=== PATIENT | male | born 1940 | race Caucasian/White ===

== ENCOUNTER 2024-03-28 06:22 | Day surgery (SDC) | payer OTHER, SELFPAY ==
[2024-03-28 11:26] VITALS: BMI 33.5
[2024-03-28 11:28] VITALS: BMI 33.5
[2024-03-28 11:30] VITALS: BP 151/78
[2024-03-28 14:43] VITALS: BP 133/62
[2024-03-28 14:55] VITALS: BP 140/63
[2024-03-28 15:06] VITALS: BP 145/83
== END 2024-03-28 15:25 | disposition home or self-care (01) ==
LOC: GI 06:22
PROVIDERS: ATTENDING PHYSICIAN Internal Medicine Gastroenterology
DX: Z12.11 Encounter for screening for malignant neoplasm of colon (principal); D12.2 Benign neoplasm of ascending colon; D12.3 Benign neoplasm of transverse colon; D12.4 Benign neoplasm of descending colon; K57.30 Diverticulosis of large intestine without perforation or abscess without bleeding; K64.0 First degree hemorrhoids; Z86.010 Personal history of colon polyps; Z79.01 Long term (current) use of anticoagulants; Z98.890 Other specified postprocedural states; Z87.19 Personal history of other diseases of the digestive system
CPT/HCPCS: 45385; 45380; 88305

== ENCOUNTER 2024-08-21 21:52 | Emergency (ER) | payer OTHER, SELFPAY ==
[2024-08-21 21:53] VITALS: BP 156/86
--- NOTE | 2024-08-21 23:00 | ED.GENMED ---
History of Present Illness
General
Chief Complaint: Cough
Source: patient
Exam Limitations: none
Time Seen by Provider: 08/21/24 22:48
History of Present Illness
History of Present Illness:
This is a 84 year old male that comes in with c/o cough. States that for the past couple of days he had a cough which he thought was allergies. States that he was using Mucinex. State that last night he did a lot of coughing and he was able to bring
up some mucous that was yellow. States that he slept about 1 hour and then today he was ok. Then at dinner tonight his food did not want to go down so he spit it out. States that he is still coughing and felt SOB. States that he always has diarrhea.
Denies any fever, chills, chest pain, abd pain, nausea, vomiting, headache, dizziness, urinary burning.
Past History
Past History
ED Past Medical History: Arrthythmia (Atrial fib), Cancer (prostate CA with 44 radiation txs, last 02/2022), GERD, HTN, Hypercholesterolemia and Other (Back and neck pain, Neuropathy, Diverticulitis, GI bleeding. Hep B, Iron def anemia, Pneumothorax
as child)
ED Past Surgical History: Orthopedic (Left bicep repair ) and Other (Hernia repair, )
Patient has exhibited threatening behavior?: No
PSI?: No
Social History
Tobacco: Former smoker
Alcohol: Daily (Whisky or Vodka or beer 2 daily)
Drug: None
Personal:
Living: with family
Family History
Family History: Negative Diabetes, Hypertension or CAD
Review of Systems
Review of Systems
All Other Systems: ROS reviewed and negative except as documented in HPI and ROS
Constitutional: Reports no symptoms; Denies fever or chills
EENT: Reports no symptoms
Respiratory: Reports cough and trouble breathing
Cardiac: Denies chest pain
ABD/GI: Reports diarrhea; Denies abdominal pain, nausea or vomiting
: Reports no symptoms; Denies dysuria, frequency or urgency
Musculoskeletal: Reports no symptoms
Skin: Reports no symptoms
Neurological: Reports no symptoms; Denies dizzy or headache
Psychiatric: Reports no symptoms
Phy Exam
General Physical Exam
General Presentation: no apparent distress
General age: appears stated age
General Skin: warm and dry
General Habitus: elderly
General Mental: alert
General Hydration: dry mucous membranes
ENT Exam
ENT Exam: TM's normal, pharynx normal and neck supple
Eye Exam
Eye Exam: EOMI
Cardiovascular Exam
Cardiovascular Exam: regular rate/rhythm and normal peripheral pulses
Pulmonary Exam
Pulmonary Exam: lungs clear, no respiratory distress, no rales, chest non tender, no crackles, no rhonchi, no wheezing and no cough
Gastrointestinal Exam
Gastrointestinal Exam: normal bowel sounds, non tender, soft, no organomegaly, no pulsatile mass, non distended and other (Umbilical hernia noted)
Musculoskeletal Exam
Musculoskeletal Exam: full ROM and edema (+1 pitting edema of the ankles and lower legs)
Skin Exam
Skin Exam: normal color, warm/dry, no rash and no petechia
Psychiatric Exam
Psychiatric Exam: normal mood/affect
Course
Orders/Labs/Results
Orders:
Orders
08/21/24 22:59
CR Chest - 2 Views Urgent
Comment:
Reason For Exam: cough, SOB
08/21/24 23:00
Electrocardiogram (*1) Urgent
Reason for Study: Shortness of Breath
EKG- Treatment ONCE
08/21/24 23:11
Complete Blood Count/With Diff Urgent
Comprehensive Metabolic Panel Urgent
NT-proBNP Urgent
Troponin I Urgent
08/22/24 00:18
Doxycycline [Vibramycin] 100 mg PO NOW STA
Abnormal Lab Results
08/21/24
23:11
WBC 2.8 L 10^3/uL
(4.8-10.8)
RBC 3.68 L 10^6/uL
(4.70-6.10)
Hgb 12.2 L g/dL
(13.0-18.0)
Hct 34.4 L %
(39.0-52.0)
MCH 33.2 H pg
(27.0-31.0)
Absolute Lymphs (auto) 0.7 L 10^3/uL
(1.2-3.4)
Immature Gran % 0.7 H %
(0-0.5)
Monocytes % 12.2 H %
(1.7-9.3)
Creatinine 0.6 L mg/dL
(0.7-1.3)
Glucose 112 H mg/dl
(70-99)
08/21/24 23:11
08/21/24 23:11
Leukopenia (slightly lower then prior labs), H/H slightly low. Glucose nonfasting. Troponin <0.012, Pro-BNP 1300
Vital Signs
Initial and Last Documented VS:
Initial Vital Signs
Temp Pulse Resp BP Pulse Ox
98.9 F 58 22 156/86 94
08/21/24 21:53 08/21/24 21:53 08/21/24 21:53 08/21/24 21:53 08/21/24 21:53
Last Documented Vital Signs
Temp Pulse Resp BP Pulse Ox
98.9 F 58 22 107/60 94
08/21/24 21:53 08/21/24 21:53 08/21/24 21:53 08/21/24 23:01 08/21/24 23:12
MDM/Problems Addressed
Differential Diagnosis Includes:
PNA, CHF, Viral syndrome
MDM/Problems Addressed:
this is a 84 year old male that comes in with c/o congestion. states that he has had a cough and tonight at dinner he was unable to get his food down. States that he just spit it out.
Will check labs, chest x-ray.
Back into see patient. Explained that he has a right lower lobe Pneumonia. will start patient on antibiotics. Patient to follow up with the family doctor. Return with increased SOB or any other concerns.
Chronic conditions affecting care:
NA
Acute Exacerbation and/or Progression of Chronic Illness:
NA
*Radiology
Radiology exam reviewed: preliminary read by ED provider (Chest- right lower lobe Pneumonia)
*Pulse Oximetry
Patient hypoxic: no
*EKG
Interpreted by ED Provider?: Yes
Heart Rate: 83
Rate: normal
Rhythm: sinus
[place]: normal axis
Interval: normal interval
QRS Pattern: normal QRS
Ischemia: no ischemia
*Tank Tester Interpretation
Rate: bradycardiac
Heart Rate: 58
Rhythm: sinus
*Critical Care Note
Total Time (30-74mins, 75-104mins- exclusive of procedures): Not Applicable
ED Attending Note
-
Portions of this chart may have been created with voice recognition software.� Occasional wrong word or��sound alike� substitutions may have occurred due to the inherent limitations of voice recognition software.
Discharge Plan
Departure
Patient Disposition: Home (Routine Discharge)
Date of Disposition: 08/22/24
Time of Disposition: 00:44
Patient with high blood pressure during this ER visit?: No
Condition: Good
Covid-19: Not Applicable
Discharge Problem:
Pneumonia involving right lung
Instructions: Pneumonia, Adult (DC)
Prescriptions:
New
doxycycline hyclate 100 mg capsule
100 mg PO BID Qty: 19 0RF
No Action
pravastatin 40 MG tablet
40 mg PO DAILY
cholecalciferol (vitamin D3) 2,000 UNITS tablet
2,000 unit PO DAILY
Probiotic 1 EACH capsule, sprinkle
1 ea PO DAILY
furosemide [Lasix] 40 mg Tablet
40 mg PO DAILY
acetaminophen [Tylenol Extra Strength] 500 mg Tablet
1,000 mg PO BID@0800,1200
verapamil 300 mg capsule, [address]
300 mg PO HS
Xarelto 20 MG tablet
20 mg PO QPM
ferrous sulfate [FeroSul] 325 mg (65 mg iron) Tablet
325 mg PO Q48H 30 Days Qty: 15 0RF
cyanocobalamin (vitamin B-12) 1,000 mcg Tablet
1,000 mcg PO DAILY 30 Days Qty: 30 0RF
Referrals:
Ilir Morrison MD [Family Provider] - Follow up in 2-3 days
Activity Restrictions/Additional Instructions:
As discussed, your blood work shows that your white blood cell count is low. Otherwise your blood work is normal. Your Chest x-ray shows that you have a right lower lobe Pneumonia. You have been given your first antibiotic here and a prescription
has been sent to your Pharmacy. Please increase your water intake to 8-8oz glasses daily as this will help keep your secretions moist. You may use Tylenol for any fever. Follow up with the family doctor in the next 2-3 days for recheck. IF YOU HAVE
INCREASED SHORTNESS OF BREATH, CHEST PAIN, OR YOU HAVE ANY OTHER CONCERNS PLEASE RETURN TO THE EMERGENCY ROOM.
Interventions
Interventions:
*Risk Screen - Suicide Last Done: 08/21/24 21:53
*General Assessment Last Done: 08/21/24 23:12
*Neglect/Abuse Screening Last Done: 08/21/24 21:53
ED- Fall Risk Assessment Last Done: 08/21/24 23:16
*ED COVID-19 Vaccine History Last Done: 08/21/24 23:15
ED- Pulmonary Assessment Last Done: 08/21/24 23:12
Discharge Date and Time
Print Language: [place]
[2024-08-21 23:01] VITALS: BP 107/60
[2024-08-21 23:14] VITALS: BMI 28.7
[2024-08-21 23:23] LABS: % Basophils 0.4 % (0-2); % Eosinophils 1.4 % (0-6); % Immature Granulocytes 0.7 % (0-0.5); % Lymphocytes 26.5 % (20.5-51.1); % Monocytes 12.2 % (1.7-9.3); % Neutrophils 58.8 % (42.2-75.2); Absolute Lymphocytes 0.7 10^3/uL (1.2-3.4); Absolute Monocytes 0.3 10^3/uL (0.1-0.6); Absolute Neutrophils 1.6 10^3/uL (1.4-6.5); Hematocrit 34.4 % (39.0-52.0); Hemoglobin 12.2 g/dL (13.0-18.0); Mean Corp Hgb Conc. 35.5 g/dL (33.0-37.0); Mean Corpuscular Hgb 33.2 pg (27.0-31.0); Mean Corpuscular Volume 93.5 fL (80.0-94.0); Nucleated Red Blood Cells % 0 % (-); Platelet Count 173 10^3/uL (130-400); Red Blood Cell Count 3.68 10^6/uL (4.70-6.10); Red Cell Dist. Width 12.7 % (11.5-14.5); White Blood Cell Count 2.8 10^3/uL (4.8-10.8)
[2024-08-21 23:52] LABS: NT-proBNP 1300 pg/ml; Troponin I < 0.012 ng/ml
[2024-08-22 00:12] LABS: ALT (SGPT) 25 U/L (0-50); AST (SGOT) 32 U/L (17-59); Albumin 4.4 g/dl (3.5-5.0); Alkaline Phosphatase 70 U/L (38-126); Blood Urea Nitrogen 18 mg/dl (9-20); Calcium 9.3 mg/dl (8.4-10.2); Carbon Dioxide 26 mmol/L (22-30); Chloride 100 mmol/L (98-107); Estimated Creatinine Clearance 102 ml/min; Glucose 112 mg/dl (70-99); Potassium 3.6 mmol/L (3.5-5.1); Sodium 137 mmol/L (135-145); Total Bilirubin 0.5 mg/dl (0.2-1.3); Total Protein 6.6 g/dl (6.3-8.2); eGFR > 60.00
[2024-08-22] MEDS: VIBRAMYCIN 100 MG PO (00:21)
== END 2024-08-22 01:15 | disposition home or self-care (01) ==
LOC: EMR 21:52
PROVIDERS: Clinical Nurse Specialist Family Health; EMERGENCY PHYSICIAN Emergency Medicine; FAMILY PHYSICIAN Internal Medicine
DX: J18.9 Pneumonia, unspecified organism (principal); R19.7 Diarrhea, unspecified; I48.91 Unspecified atrial fibrillation; I10 Essential (primary) hypertension; K21.9 Gastro-esophageal reflux disease without esophagitis; K42.9 Umbilical hernia without obstruction or gangrene; E78.00 Pure hypercholesterolemia, unspecified; D50.9 Iron deficiency anemia, unspecified; K57.92 Diverticulitis of intestine, part unspecified, without perforation or abscess without bleeding; G62.9 Polyneuropathy, unspecified; Z79.01 Long term (current) use of anticoagulants; Z87.891 Personal history of nicotine dependence; Z85.46 Personal history of malignant neoplasm of prostate; Z92.3 Personal history of irradiation
CPT/HCPCS: 99284; 71046; 80053; 83880; 84484; 85025; 93005

== ENCOUNTER 2025-02-13 08:33 | Emergency (ER) | payer OTHER, SELFPAY ==
[2025-02-13 08:43] VITALS: BP 135/69
--- NOTE | 2025-02-13 08:58 | ED.GENMED ---
History of Present Illness
<Naseem Hernandez PA-C - Last Filed: 02/13/25 09:47>
General
Chief Complaint: Skin Problem
Source: patient
Exam Limitations: none
Time Seen by Provider: 02/13/25 08:48
History of Present Illness
History of Present Illness:
85-year-old male on Xarelto for history of A-fib presents with increased swelling redness and pain to the right leg. 1 week ago a fork fell and punctured his distal right orourke superior ankle. There was no significant bleeding or swelling at that
time however since yesterday around the puncture site he has had increased redness and pain. He denies chills or sweats. No fever. He has not missed any doses of his Xarelto. He notes drainage from the puncture site. No other complaints at this
time
Past History
<Naseem Hernandez PA-C - Last Filed: 02/13/25 09:47>
Past History
ED Past Medical History: Arrthythmia (Atrial fib), Cancer (prostate CA with 44 radiation txs, last 02/2022), GERD, HTN, Hypercholesterolemia and Other (Back and neck pain, Neuropathy, Diverticulitis, GI bleeding. Hep B, Iron def anemia, Pneumothorax
as child)
ED Past Surgical History: Orthopedic (Left bicep repair ) and Other (Hernia repair, )
Patient has exhibited threatening behavior?: No
PSI?: No
Social History
Tobacco: Former smoker
Alcohol: Daily (Whisky or Vodka or beer 2 daily)
Drug: None
Personal:
Living: with family
Family History
Family History: Negative Diabetes, Hypertension or CAD
Phy Exam
<Naseem Hernandez PA-C - Last Filed: 02/13/25 09:47>
Physical Exam
Physical Exam:
General: Well-appearing male no acute respiratory distress
HEENT: Normocephalic atraumatic
Heart: Regular rate and rhythm
Lungs: Clear no wheeze
Skin: Small puncture wound medial distal orourke superior right ankle surrounded by erythema. This is tender. The erythema spreads to the mid [place]ourke. There is a serous drainage from the puncture wound.
Vascular: 2+ DP pulses bilateral
Neurologic: Good sensation bilateral lower extremities
Course
<Naseem Hernandez PA-C - Last Filed: 02/13/25 09:47>
Orders/Labs/Results
Orders:
Orders
02/13/25 09:03
Complete Blood Count/With Diff Urgent
Comprehensive Metabolic Panel Urgent
Abnormal Lab Results
02/13/25
09:03
RBC 3.63 L 10^6/uL
(4.70-6.10)
Hgb 12.4 L g/dL
(13.0-18.0)
Hct 36.2 L %
(39.0-52.0)
MCV 99.7 H fL
(80.0-94.0)
MCH 34.2 H pg
(27.0-31.0)
Absolute Lymphs (auto) 0.9 L 10^3/uL
(1.2-3.4)
Lymphocytes % 17.1 L %
(20.5-51.1)
Creatinine 0.5 L mg/dL
(0.7-1.3)
Glucose 107 H mg/dl
(70-99)
02/13/25 09:03
02/13/25 09:03
Vital Signs
Initial and Last Documented VS:
Initial Vital Signs
Temp Pulse Resp BP Pulse Ox
98.9 F 74 18 135/69 95
02/13/25 08:43 02/13/25 08:43 02/13/25 08:43 02/13/25 08:43 02/13/25 08:43
Last Documented Vital Signs
Temp Pulse Resp BP Pulse Ox
98.9 F 74 18 136/69 94
02/13/25 08:43 02/13/25 08:43 02/13/25 08:43 02/13/25 09:01 02/13/25 09:07
<Cristobal Hazel Jennifer, DO - Last Filed: 02/13/25 09:44>
Orders/Labs/Results
Orders:
Orders
02/13/25 09:03
Complete Blood Count/With Diff Urgent
Comprehensive Metabolic Panel Urgent
Abnormal Lab Results
02/13/25
09:03
RBC 3.63 L 10^6/uL
(4.70-6.10)
Hgb 12.4 L g/dL
(13.0-18.0)
Hct 36.2 L %
(39.0-52.0)
MCV 99.7 H fL
(80.0-94.0)
MCH 34.2 H pg
(27.0-31.0)
Absolute Lymphs (auto) 0.9 L 10^3/uL
(1.2-3.4)
Lymphocytes % 17.1 L %
(20.5-51.1)
Creatinine 0.5 L mg/dL
(0.7-1.3)
Glucose 107 H mg/dl
(70-99)
02/13/25 09:03
02/13/25 09:03
Vital Signs
Initial and Last Documented VS:
Initial Vital Signs
Temp Pulse Resp BP Pulse Ox
98.9 F 74 18 135/69 95
02/13/25 08:43 02/13/25 08:43 02/13/25 08:43 02/13/25 08:43 02/13/25 08:43
Last Documented Vital Signs
Temp Pulse Resp BP Pulse Ox
98.9 F 74 18 136/69 94
02/13/25 08:43 02/13/25 08:43 02/13/25 08:43 02/13/25 09:01 02/13/25 09:07
<Naseem Hernandez PA-C - Last Filed: 02/13/25 09:47>
MDM/Problems Addressed
Differential Diagnosis Includes:
Erythema to right orourke following puncture wound. Suspect cellulitis, no palpable abscess. Unlikely to be DVT secondary to anticoagulated state.
Check labs. Would benefit from antibiotics. Consider IV antibiotics versus oral antibiotics at home.
<Naseem Hernandez PA-C - Last Filed: 02/13/25 09:47>
*Critical Care Note
Total Time (30-74mins, 75-104mins- exclusive of procedures): Not Applicable
<Naseem Hernandez PA-C - Last Filed: 02/13/25 09:47>
Update Note
Update Note:
Labs normal afebrile here. Question cellulitis versus area of hematoma from puncture wound on blood thinner. Will cover with Keflex but no indication for admission. Discussed with emergency room attending. Stable for discharge
ED Attending Note
<Naseem Hernandez PA-C - Last Filed: 02/13/25 09:47>
-
Portions of this chart may have been created with voice recognition software.� Occasional wrong word or��sound alike� substitutions may have occurred due to the inherent limitations of voice recognition software.
<Cristobal Rodriguez DO - Last Filed: 02/13/25 09:44>
ED Attending Note
Patient seen and examined by attending physician: Yes
I performed the substantive portion of visit, reviewed & personally made and approve the management plan that is documented in note by myself or DERIK.: Yes
ED Attending Note:
I evaluated the patient at bedside. The patient does have warmth and erythema to the medial aspect of the right distal lower extremity. The appearance is more suggestive of ecchymosis as opposed to cellulitis. However given patient's age, will
place on antibiotics. No clear indication for admission to the hospital. The patient is afebrile with a normal white blood cell count and vital signs are not with sepsis.
Discharge Plan
Departure
Patient Disposition: Home (Routine Discharge)
Date of Disposition: 02/13/25
Time of Disposition: 09:45
Patient with high blood pressure during this ER visit?: No
Discharge Problem:
Cellulitis
Instructions: Cellulitis (Skin Infection), Adult (DC)
Prescriptions:
New
cephalexin 500 mg capsule
500 mg PO QID 7 Days Qty: 28 0RF
No Action
pravastatin 40 MG tablet
40 mg PO DAILY
cholecalciferol (vitamin D3) 2,000 UNITS tablet
2,000 unit PO DAILY
Probiotic 1 EACH capsule, sprinkle
1 ea PO DAILY
furosemide [Lasix] 40 mg Tablet
40 mg PO DAILY
acetaminophen [Tylenol Extra Strength] 500 mg Tablet
1,000 mg PO BID@0800,1200
verapamil 300 mg capsule, [address]
300 mg PO HS
Xarelto 20 MG tablet
20 mg PO QPM
ferrous sulfate [FeroSul] 325 mg (65 mg iron) Tablet
325 mg PO Q48H 30 Days Qty: 15 0RF
cyanocobalamin (vitamin B-12) 1,000 mcg Tablet
1,000 mcg PO DAILY 30 Days Qty: 30 0RF
doxycycline hyclate 100 mg capsule
100 mg PO BID Qty: 19 0RF
Activity Restrictions/Additional Instructions:
Keep elevated for swelling. Take antibiotic as directed. Return here for increasing pain fever redness or other concerning finding. Follow-up with your doctor otherwise
Interventions
Interventions:
*Risk Screen - Suicide Last Done: 02/13/25 08:43
*General Assessment Last Done: 02/13/25 08:43
*Neglect/Abuse Screening Last Done: 02/13/25 08:43
*ED- Fall Risk Assessment Last Done: 02/13/25 09:10
*ED COVID-19 Vaccine History Last Done: 02/13/25 09:11
ED-Skin Assessment Last Done: 02/13/25 09:07
Discharge Date and Time
Print Language: [place]
[2025-02-13 09:01] VITALS: BP 136/69
[2025-02-13 09:07] VITALS: BMI 29.0
[2025-02-13 09:11] LABS: % Basophils 0.2 % (0-2); % Eosinophils 0.4 % (0-6); % Immature Granulocytes 0.4 % (0-0.5); % Lymphocytes 17.1 % (20.5-51.1); % Monocytes 8.3 % (1.7-9.3); % Neutrophils 73.6 % (42.2-75.2); Absolute Lymphocytes 0.9 10^3/uL (1.2-3.4); Absolute Monocytes 0.4 10^3/uL (0.1-0.6); Absolute Neutrophils 3.9 10^3/uL (1.4-6.5); Hematocrit 36.2 % (39.0-52.0); Hemoglobin 12.4 g/dL (13.0-18.0); Mean Corp Hgb Conc. 34.3 g/dL (33.0-37.0); Mean Corpuscular Hgb 34.2 pg (27.0-31.0); Mean Corpuscular Volume 99.7 fL (80.0-94.0); Mean Platelet Volume 9.8 fL (7.4-10.4); Nucleated Red Blood Cells % 0 % (-); Platelet Count 138 10^3/uL (130-400); Red Blood Cell Count 3.63 10^6/uL (4.70-6.10); Red Cell Dist. Width 12.4 % (11.5-14.5); White Blood Cell Count 5.3 10^3/uL (4.8-10.8)
[2025-02-13 09:33] LABS: ALT (SGPT) 34 U/L (0-50); AST (SGOT) 26 U/L (17-59); Alkaline Phosphatase 56 U/L (38-126); Blood Urea Nitrogen 16 mg/dl (9-20); Calcium 9.4 mg/dl (8.4-10.2); Carbon Dioxide 26 mmol/L (22-30); Chloride 102 mmol/L (98-107); Estimated Creatinine Clearance 101 ml/min; Glucose 107 mg/dl (70-99); Potassium 3.8 mmol/L (3.5-5.1); Sodium 136 mmol/L (135-145); Total Bilirubin 1.1 mg/dl (0.2-1.3); Total Protein 6.3 g/dl (6.3-8.2); eGFR > 60.00
--- NOTE | 2025-02-13 10:32 | EDRN ---
Reviewed discharge instructions with patient and his . Verbalized understanding. Taken to lobby in wheelchair.
[2025-02-13 10:34] VITALS: BP 133/66
== END 2025-02-13 10:36 | disposition home or self-care (01) ==
LOC: EMR 08:33
PROVIDERS: Physician Assistant; EMERGENCY PHYSICIAN Emergency Medicine; FAMILY PHYSICIAN Internal Medicine
DX: L03.115 Cellulitis of right lower limb (principal); I48.91 Unspecified atrial fibrillation; I10 Essential (primary) hypertension; E78.00 Pure hypercholesterolemia, unspecified; Z79.01 Long term (current) use of anticoagulants; Z85.46 Personal history of malignant neoplasm of prostate; Z87.891 Personal history of nicotine dependence
CPT/HCPCS: 99283; 80053; 85025

== ENCOUNTER 2025-02-22 12:46 | Inpatient (IN) | payer OTHER, SELFPAY ==
[2025-02-22 08:21] VITALS: BP 132/61
--- NOTE | 2025-02-22 09:36 | ED.GENMED ---
History of Present Illness
General
Chief Complaint: Skin Problem
Source: patient, records and spouse
Time Seen by Provider: 02/22/25 09:02
History of Present Illness
History of Present Illness:
85-year-old male with past medical history of atrial fibrillation, hypertension, hyperlipidemia, previous prostate cancer, GI bleeding, chronic edema presenting to the emergency department after he was evaluated 9 days ago and diagnosed with
possible cellulitis versus contusion of the right lower extremity, treated with p.o. Keflex with initial improvement but following cessation of the Keflex erythema restarted and worsened, saw primary care provider this past who reinitiated
the Keflex but erythema continues to worsen accompanied with an increased difficulty ambulating secondary to pain and swelling. Patient denies any fevers, chills, rigors, focal weakness or numbness. He does report that he skipped his dose of Lasix
yesterday as this often times makes him feel like he needs to constantly go urinate and due to having the ambulatory difficulties did not want to have to keep running back and forth to the bathroom. Patient denies any chest pain, shortness of
breath or any other symptoms at this time. He is anticoagulated on Xarelto and he reports good compliance with this.
Past History
Past History
ED Past Medical History: Arrthythmia (Atrial fib), Cancer (prostate CA with 44 radiation txs, last 02/2022), GERD, HTN, Hypercholesterolemia and Other (Back and neck pain, Neuropathy, Diverticulitis, GI bleeding. Hep B, Iron def anemia, Pneumothorax
as child)
ED Past Surgical History: Orthopedic (Left bicep repair ) and Other (Hernia repair, )
Patient has exhibited threatening behavior?: No
PSI?: No
Social History
Tobacco: Former smoker
Alcohol: Daily (Whisky or Vodka or beer 2 daily)
Drug: None
Personal:
Living: with family
Family History
Family History: Negative Diabetes, Hypertension or CAD
Review of Systems
Review of Systems
All Other Systems: ROS reviewed and negative except as documented in HPI and ROS
Phy Exam
Physical Exam
Physical Exam:
GENERAL: Alert , in no apparent distress
EYE: conjunctiva clear
NECK: Supple
ENT: mmm.
CARDIAC: Regular rate and rhythm
LUNGS: Clear breath sounds bilaterally, no acute respiratory distress, no wheezes/rales/rhonchi
NEUROLOGICAL: Alert and oriented
SKIN: Warm and dry, there is significant erythema and warmth of the right lower extremity from the proximal tibia extending through the ankle and into the foot. There is 2-3+ pitting edema on the right lower extremity, 2+ on the left with the foot
being spared on the left. There is faintly palpable pedal and tibial pulses bilateral lower extremities. Sensation is grossly intact to light touch. Cap refill is 2 seconds.
MUSCULOSKELETAL: Spider veins noted to bilateral lower extremities
PSYCH: Normal and appropriate interaction.
Scores
Heart Failure Risk
Heart Failure Risk Score: Not Applicable
Heart Score for Chest Pain Patients
STEMI patient?: Not applicable
Withdrawal Assessment of Alcohol
Withdrawal Assessment Completed?: Not applicable
Course
Orders/Labs/Results
Orders:
Orders
02/22/25 09:28
Venous Doppler Lwr Ext Rt [US Perip Venous LOWER Ext RT] Urgent
Comment:
Reason For Exam: edema
02/22/25 09:39
Vancomycin [Vancocin] 2,000 mg 0.9% Sodium Chloride 500 ml [Nss] 500 ml IV NOW
02/22/25 09:55
Basic Metabolic Panel Urgent
Complete Blood Count/With Diff Urgent
NT-proBNP Urgent
02/22/25 11:45
Blood Culture Q30M
MARK Source: Blood/Venous
Specimen Description:
02/22/25 12:06
Admit/Transfer Patient As Directed
Co-Sign Provider:
Level of Care: Inpatient admission
Assign to:: Medical/Surgical
Physician / Group: saurabh lancaster
Diagnosis: RLE cellulitis
Reason for Hospitalization: failed outpatient antibiotics
Expected length of stay greater than two midnights?: Yes
ELOS- Estimated Length of Stay in days: 2
I certify the patient meets the requirements for IP care: Yes
02/22/25 12:07
PRN Pain Medication Management As Directed
May give lesser potent ordered pain med per pt: Yes
preference::
Protocol:: Medication orders for pain may be administered in a
manner that supports deferring to patient preference
when the pt is:
- Requesting an ordered lesser potent pain medication.
Least to most potent pain medications are defined
as: acetaminophen < NSAID < tramadol < opioids
(morphine, oxycodone, hydromorphone).
- Requesting a lesser dose of the same medication IF
ORDERED.
- Requesting a less intrusive route of administration
if both routes are prescribed by the provider (PO <
IV).
02/22/25 12:10
Code Status As Directed
Resuscitation Status: Full Code
02/22/25 12:14
INFECTIOUS DISEASE CONSULT Routine
Consulting Provider: Isabell Mckeon
Was physician already notified: Yes
02/22/25 12:15
Blood Culture Q30M
MARK Source: Blood/Venous
Specimen Description:
Abnormal Lab Results
02/22/25
09:55
RBC 3.33 L 10^6/uL
(4.70-6.10)
Hgb 11.6 L g/dL
(13.0-18.0)
Hct 33.5 L %
(39.0-52.0)
MCV 100.6 H fL
(80.0-94.0)
MCH 34.8 H pg
(27.0-31.0)
Absolute Lymphs (auto) 0.6 L 10^3/uL
(1.2-3.4)
Neutrophils % 79.2 H %
(42.2-75.2)
Lymphocytes % 10.9 L %
(20.5-51.1)
Creatinine 0.5 L mg/dL
(0.7-1.3)
Glucose 104 H mg/dl
(70-99)
02/22/25 09:55
02/22/25 09:55
Vital Signs
Initial and Last Documented VS:
Initial Vital Signs
Temp Pulse Resp BP Pulse Ox
98.0 F 80 16 132/61 98
02/22/25 08:21 02/22/25 08:21 02/22/25 08:21 02/22/25 08:21 02/22/25 08:21
Last Documented Vital Signs
Temp Pulse Resp BP Pulse Ox
98.1 F 66 22 135/64 96
02/22/25 11:43 02/22/25 11:43 02/22/25 11:43 02/22/25 11:43 02/22/25 11:43
MDM/Problems Addressed
Differential Diagnosis Includes:
Cellulitis, peripheral vascular disease, peripheral arterial disease, lymphedema, venous stasis, congestive heart failure
MDM/Problems Addressed:
85-year-old male presenting to the emergency department for reevaluation of worsening right lower extremity edema and erythema. Symptoms initially started when patient dropped a fork on his right lower extremity which punctured some skin.
Initially thought to be cellulitis versus contusion. Patient did note initial significant relief of the edema and erythema with Keflex, following completion of the Keflex the erythema and edema resumed, saw primary care on and restarted
the Keflex but erythema continues to worsen. I suspect a combination of peripheral vascular/arterial disease/venous stasis with the possibility of cellulitis. Less suspicious for DVT due to patient being anticoagulated on Xarelto however given
recurring visit with worsening edema on the right side will obtain an ultrasound to rule this out. Given patient failed oral antibiotics but did have improvement we will plan for IV antibiotic with admission. Patient and in agreement with
this plan.
Chronic conditions affecting care: Other (Congestive heart failure/chronic lower extremity edema)
Acute Exacerbation and/or Progression of Chronic Illness: Other (Lower extremity edema)
*Radiology
Radiology exam reviewed: radiology read reviewed (Negative for DVT)
*Pulse Oximetry
Patient hypoxic: no
*Critical Care Note
Total Time (30-74mins, 75-104mins- exclusive of procedures): Not Applicable
Data Reviewed
Review of Other/Old Records Reveals: Labs and Records
Patient Management
Discussion with other providers: Hospitalist
Escalation/DeEscalation of care consider admission/obs:
Patient's ultrasound is negative for DVT. Hospitalist team notified and accepts for continued evaluation and treatment for suspected continued cellulitis despite outpatient antibiotics.
ED Attending Note
-
Portions of this chart may have been created with voice recognition software.� Occasional wrong word or��sound alike� substitutions may have occurred due to the inherent limitations of voice recognition software.
Discharge Plan
Departure
Patient Disposition: Admit
Date of Disposition: 02/22/25
Time of Disposition: 11:04
Presentation/result/management discussed w/ accepting MD/DO: Hospitalist
Discharge Problem:
Cellulitis of right lower extremity
Prescriptions:
No Action
pravastatin 40 MG tablet
40 mg PO DAILY
cholecalciferol (vitamin D3) 2,000 UNITS tablet
2,000 unit PO DAILY
Probiotic 1 EACH capsule, sprinkle
1 ea PO DAILY
furosemide [Lasix] 40 mg Tablet
40 mg PO DAILY
acetaminophen [Tylenol Extra Strength] 500 mg Tablet
1,000 mg PO BIDPRN PRN (Reason: mild pain)
verapamil 300 mg capsule, [address]
300 mg PO QPM
Xarelto 20 MG tablet
20 mg PO QPM
ferrous sulfate [FeroSul] 325 mg (65 mg iron) Tablet
325 mg PO Q48H 30 Days Qty: 15 0RF
cyanocobalamin (vitamin B-12) 1,000 mcg Tablet
1,000 mcg PO DAILY 30 Days Qty: 30 0RF
cephalexin 500 mg Capsule
500 mg PO Q8H
Referrals:
Ilir Morrison MD [Family Provider] -
Interventions
Interventions:
*Risk Screen - Suicide Last Done: 02/22/25 08:21
*General Assessment Last Done: 02/22/25 09:49
*Neglect/Abuse Screening Last Done: 02/22/25 08:21
*ED- Fall Risk Assessment Last Done: 02/22/25 09:49
*ED COVID-19 Vaccine History Last Done: 02/22/25 09:49
ED-Skin Assessment Last Done: 02/22/25 10:12
Discharge Date and Time
Print Language: [place]
[2025-02-22 09:47] VITALS: BMI 29.4
[2025-02-22 10:11] LABS: % Basophils 0.2 % (0-2); % Eosinophils 0.2 % (0-6); % Immature Granulocytes 0.4 % (0-0.5); % Lymphocytes 10.9 % (20.5-51.1); % Monocytes 9.1 % (1.7-9.3); % Neutrophils 79.2 % (42.2-75.2); Absolute Lymphocytes 0.6 10^3/uL (1.2-3.4); Absolute Monocytes 0.5 10^3/uL (0.1-0.6); Absolute Neutrophils 4.3 10^3/uL (1.4-6.5); Hematocrit 33.5 % (39.0-52.0); Hemoglobin 11.6 g/dL (13.0-18.0); Mean Corp Hgb Conc. 34.6 g/dL (33.0-37.0); Mean Corpuscular Hgb 34.8 pg (27.0-31.0); Mean Corpuscular Volume 100.6 fL (80.0-94.0); Mean Platelet Volume 9.5 fL (7.4-10.4); Nucleated Red Blood Cells % 0 % (-); Platelet Count 150 10^3/uL (130-400); Red Blood Cell Count 3.33 10^6/uL (4.70-6.10); Red Cell Dist. Width 12.5 % (11.5-14.5); White Blood Cell Count 5.4 10^3/uL (4.8-10.8)
[2025-02-22 10:29] LABS: Blood Urea Nitrogen 14 mg/dl (9-20); Calcium 9.1 mg/dl (8.4-10.2); Carbon Dioxide 28 mmol/L (22-30); Chloride 104 mmol/L (98-107); Estimated Creatinine Clearance 101 ml/min; Glucose 104 mg/dl (70-99); Potassium 3.6 mmol/L (3.5-5.1); Sodium 139 mmol/L (135-145); eGFR > 60.00
[2025-02-22 10:31] LABS: NT-proBNP 614 pg/ml
[2025-02-22] MEDS: VANCOCIN 540 MG IV (11:30)
[2025-02-22 11:43] VITALS: BP 135/64
[2025-02-22 12:00] VITALS: BP 134/67
--- NOTE | 2025-02-22 12:24 | HPS.HSE ---
Family Physician
-
Family Physician: Ilir Morrison
Chief Complaint
-
Right lower extremity swelling pain tenderness
History of Present Illness
85 male history of atrial fibrillation and prostate cancer s/p radiation who presents with worsening right lower extremity redness swelling and pain that initially started morning on 8 days ago. Tells me that yesterday was unable to bear weight on
the right lower extremity and noted to have night sweats where he was soaking through his T-shirt. Otherwise he did not have a fever nor chills.
He did tell me that he presented to the hospital/emergency department for the same thing and was treated with oral antibiotics of Keflex 4 times a day. At that time he had swelling redness pain. Per documentation prior to this cellulitis developed
a fork fell that punctured through the distal right orourke just superior to the ankle.
States that he was on Keflex 4 times a day he did notice an improvement in completed course on the . On the started seeing reemergence of the cellulitis occurred in a PCP prescribed him with additional course of Keflex however 3 times a
day. As it continued to worsen he presented to the emergency department.
Medical History
Past Medical History
Past Medical History: Reports Arrhythmia
Past Surgical History: Reports Orthopedic
Social History
Tobacco: Former Smoker (Quit more than 6 years ago)
Alcohol: Daily (1-2 cocktails a night)
Drug: None
Personal:
Living: With Family
Family History
Family History: CAD
Allergies / Home Medications
Allergies reflects when Allergies were last updated in [facility].
Home Medications with original date entered in [facility]
Allergy/Medication List:
Allergies
Allergy/AdvReac Type Severity Reaction Status Date / Time
No Known Allergies Allergy Verified 02/22/25 08:22
Home Medications
pravastatin 40 mg tablet 40 mg PO DAILY High cholesterol 06/06/12
cholecalciferol (vitamin D3) 50 mcg (2,000 unit) tablet 2,000 unit PO DAILY Supplement 01/05/18
lactobacillus combo no.11 15 billion cell sprinkle capsule (Probiotic) 1 ea PO DAILY probiotic 11/18/18
acetaminophen 500 mg tablet (Tylenol Extra Strength) 1,000 mg PO BIDPRN PRN mild pain 03/22/23
furosemide 40 mg tablet (Lasix) 40 mg PO DAILY Fluid retention/Swelling 03/22/23
rivaroxaban 20 mg tablet (Xarelto) 20 mg PO QPM Blood clot prevention/tx 03/22/23
verapamil 300 mg capsule 24hr pellet CT,ext.release 300 mg PO QPM Blood pressure 03/22/23
cyanocobalamin (vitamin B-12) 1,000 mcg tablet 1,000 mcg PO DAILY 30 days #30 tabs 03/23/23
ferrous sulfate 325 mg (65 mg iron) tablet (FeroSul) 325 mg PO Q48H 30 days #15 tabs 03/23/23
cephalexin 500 mg capsule 500 mg PO Q8H 02/22/25
Review of Systems
-
A 12 point ROS was completed and negative except as noted: Yes
Physical Exam
Vital Signs
Vital Signs
Temp Pulse Resp BP Pulse Ox
98.1 F 66 22 135/64 96
02/22/25 11:43 02/22/25 11:43 02/22/25 11:43 02/22/25 11:43 02/22/25 11:43
Physical Exam
General: Well Developed
Laboratory Results
-
02/22/25 09:55
02/22/25 09:55
Impression/Plan
-
NAD
Scleral Anicteric
MMM
No JVD
CTABL
RRR, S1/S2
Soft, NT, ND, BS+
Warm, Dry
Right lower extremity redness swelling warmth that goes from just below his knee all the way to his toes, subcuticular bleeding, nonblanching
AAOx3
Calm
Right lower extremity cellulitis, nonpurulent however does mention yellow weeping drainage previously
Continue vancomycin for now
ID consult
Blood cultures
If ID for as the there is no purulent component then likely able to transition to Ancef
Paroxysmal atrial fibrillation
Continue verapamil and Xarelto
Hyperlipidemia
Continue statin
B12 deficiency continue B12 supplementation
Vitamin D deficiency continue vitamin D supplementation
[2025-02-22 13:00] VITALS: BP 138/75
[2025-02-22 14:14] VITALS: BMI 29.4
--- NOTE | 2025-02-22 14:27 | CON.ID ---
Consultation
-
Date/Time Consultation Requested: February 22, 2025 1214
Date/Time Consultation Performed: February 22, 2025 1430
Requesting Provider: Dr. Bni Harry
Performing Provider: Dr. Isabell Mckeon
Reason for Consultation: Cellulitis failed cephalexin
Chief Complaint / Past History
Chief Complaint
Right foot redness and swelling
History of Present Illness
History obtained from the patient as well as from his at bedside. He is a 85-year-old male with hypertension, atrial fibrillation, chronic bilateral lower extremity edema who presented to the ED today due to significant redness, swelling of
the right lower extremity. Around February 05, a clean 2-pronged fork for cutting roast fell out of the cupboard and punctured his right posterior ankle. He had a puncture wound with mild serous drainage. About a week later his ankle became swollen
and red. He presented to the ER the same day on February 13. The leg looked ecchymotic per ER note. He was discharged on a 7-day course of cephalexin 500 mg 4 times a day. The leg edema and discoloration improved and almost resolved while on the
cephalexin. He completed the antibiotic the morning of February 19. However later that day, the redness and swelling returned. On February 20 his PCP prescribed cephalexin at 500 mg 3 times a day. However his foot and ankle and orourke continue to
progress with significant edema, erythema, and pain. He had difficulty putting weight. Last night he had significant sweats. No fevers or chills. He presented to the ER today. Peripheral vascular ultrasound - no DVT. He received vancomycin x 1
dose in the ER. No history of MRSA in the past.
Past History
Additional Past Medical History:
Hypertension
Afib
HLD
Neuropathy
Bilateral lower extremity edema on Lasix
History of diverticulitis
Prostate cancer status post XRT
Hernia repair
Left bicep repair
Allergy History:
No Known Allergies Allergy (Verified 02/22/25 08:22)
Medications Reviewed: Yes
Current Antibiotics:
Vancomycin x 1
Social History
Tobacco: Former Smoker
Alcohol: Daily (Whiskey or vodka or beer 2 a day)
Drug: None
Personal:
Employment: Retired
Family History
Family History: Not Pertinent
Review of Systems
Review of Systems
General: Other (Positive sway); Negative Fever or Chills
HEENT: Negative Sinus Problems, Headache or Pharyngitis
Cardiovascular: Negative Chest Pain or Dyspnea
Respiratory: Negative Dyspnea or Cough
Gasteroenterology: Negative Nausea, Vomiting or Diarrhea
Genital / Urological: Negative Dysuria or Flank Pain
Endocrine: Weakness
Neurological: Negative Headache or Dizziness
All systems: All other systems were reviewed and were negative
Vital Signs
Temp Pulse Resp BP Pulse Ox
98.1 F 74 25 138/75 96
02/22/25 11:43 02/22/25 13:00 02/22/25 13:00 02/22/25 13:00 02/22/25 13:00
Physical Exam
Physical Exam
Constitutional: No Acute Distress and Non-toxic
Eyes: No Conjunctival Hemorrhage and Sclera Anicteric
Cardiovascular: Regular Rate and S1/S2
Pulmonary: Clear
Gastrointestinal: Soft, Non Tender, Non Distended and Normal Bowel Sounds
Extremities: Edema (LLE 2+ edema, RLE: 3+ edema) and Erythema (RLE: Significant erythema from forefoot up the ankle to orourke, + warmth. ROM ankle intact. Puncture wound posterior ankle.)
Neurological: AO x 3
Lab / Diagnostic Study Results
02/22/25 09:55
02/22/25 09:55
Abs Immat Gran (auto) 0.0 10^3/uL (0-0.05) 02/22/25 09:55
Absolute Neuts (auto) 4.3 10^3/uL (1.4-6.5) 02/22/25 09:55
Absolute Lymphs (auto) 0.6 10^3/uL (1.2-3.4) L 02/22/25 09:55
Absolute Monos (auto) 0.5 10^3/uL (0.1-0.6) 02/22/25 09:55
Absolute Basos (auto) 0.0 10^3/uL (0-0.2) 02/22/25 09:55
Immature Gran % 0.4 % (0-0.5) 02/22/25 09:55
Neutrophils % 79.2 % (42.2-75.2) H 02/22/25 09:55
Lymphocytes % 10.9 % (20.5-51.1) L 02/22/25 09:55
Monocytes % 9.1 % (1.7-9.3) 02/22/25 09:55
Eosinophils % 0.2 % (0-6) 02/22/25 09:55
Basophils % 0.2 % (0-2) 02/22/25 09:55
Microbiology Results
Micro:
02/22/25 12:56 Blood Culture - Pending
Blood/Venous
02/22/25 12:55 Blood Culture - Pending
Blood/Venous
02/22/25 [facility] US: no dvt
Assessment / Plan
# Severe RLE cellulitis
- Recent puncture wound to right ankle with clean fork -> cellulitis s/p 7 d cephalexin with improvement. Cellulitis recurred few hours after completion of cephalexin.
- Suspect strep pyogenes.
- Check nasal screen for MRSA
- Follow blood cx's.
-Start linezolid 600 g p.o. twice daily for gram-positive coverage and toxin inhibitor activity.
-Elevate lower extremity
-Piter wrap leg.
# Conditions [employer]
Hypertension
Afib
HLD
Neuropathy
Bilateral lower extremity edema on Lasix
History of diverticulitis
Prostate cancer status post XRT
Hernia repair
Left bicep repair
[2025-02-22 15:00] VITALS: BP 140/71
--- NOTE | 2025-02-22 16:04 | CM ---
CM met with pt and spouse bedside
They reside in a split level house with 4 CAPRI through front, 0STE through garage
Additional 7 steps up to sleeping space
Pt is independent with his ADLs with use of a quad cane, he has a WW for use as PRN
He has completed radiation and is currently attending outpt therapy at [facility]
PCP- Ilir Morrison
Rx- [facility]
Discharge Disposition- home, follow for VN needs
[2025-02-22] MEDS: XARELTO 20 MG PO (17:12)
[2025-02-22] MEDS: ZYVOX 600 MG PO (20:35)
[2025-02-22] MEDS: TYLENOL 1000 MG PO (20:49)
[2025-02-22] MEDS: CALAN EXTENDED RELEASE 180 MG PO (21:10)
[2025-02-22] MEDS: CALAN EXTENDED RELEASE 120 MG PO (21:10)
[2025-02-22 23:30] VITALS: BP 126/60
[2025-02-23 07:00] VITALS: BP 137/68
[2025-02-23 07:46] LABS: % Basophils 0.2 % (0-2); % Eosinophils 0.5 % (0-6); % Immature Granulocytes 0.7 % (0-0.5); % Monocytes 8.8 % (1.7-9.3); % Neutrophils 74.8 % (42.2-75.2); Absolute Lymphocytes 0.6 10^3/uL (1.2-3.4); Absolute Monocytes 0.4 10^3/uL (0.1-0.6); Absolute Neutrophils 3.2 10^3/uL (1.4-6.5); Hematocrit 31.2 % (39.0-52.0); Hemoglobin 10.6 g/dL (13.0-18.0); Mean Corpuscular Hgb 34.3 pg (27.0-31.0); Mean Platelet Volume 10.3 fL (7.4-10.4); Nucleated Red Blood Cells % 0 % (-); Platelet Count 161 10^3/uL (130-400); Red Blood Cell Count 3.09 10^6/uL (4.70-6.10); Red Cell Dist. Width 12.4 % (11.5-14.5); White Blood Cell Count 4.2 10^3/uL (4.8-10.8)
[2025-02-23 08:11] LABS: Blood Urea Nitrogen 10 mg/dl (9-20); Calcium 8.6 mg/dl (8.4-10.2); Carbon Dioxide 28 mmol/L (22-30); Chloride 105 mmol/L (98-107); Estimated Creatinine Clearance 101 ml/min; Glucose 100 mg/dl (70-99); Potassium 3.5 mmol/L (3.5-5.1); Sodium 140 mmol/L (135-145); eGFR > 60.00
--- NOTE | 2025-02-23 09:38 | W.PN.ID1 ---
Date of Service
Date of Service: February 23, 2025
Today's Communication
Continue Linezolid.
Assessment / Plan
# Severe RLE cellulitis
- Recent puncture wound to right ankle with clean fork -> cellulitis s/p 7 d cephalexin with improvement. Cellulitis recurred few hours after completion of cephalexin.
- Suspect strep pyogenes.
- nasal screen MRSA negative
- Follow blood cx's.
-Continue linezolid 600 g p.o. twice daily (d2) for gram-positive coverage and toxin inhibitor activity.
-Elevate lower extremity
-Piter wrap leg.
# Conditions [employer]
Hypertension
Afib
HLD
Neuropathy
Bilateral lower extremity edema on Lasix
History of diverticulitis
Prostate cancer status post XRT
Hernia repair
Left bicep repair
Chief Complaint
-: Cellulitis
Subjective / Review of Systems
Now able to bear weight on right leg.
Vital Signs / Physical Exam
Vital Signs
Vital Signs
Temp Pulse Resp BP Pulse Ox
98.2 F 78 16 137/68 94
02/23/25 07:00 02/23/25 07:00 02/23/25 07:00 02/23/25 07:00 02/23/25 07:00
Physical Exam
Constitutional: No Acute Distress
Cardiovascular: Regular Rate and S1/S2
Pulmonary: Clear
Gastrointestinal: Soft, Non Tender and Non Distended
Extremities: Edema (BLE) and Erythema (Erythema left foot to orourke without extension, decrease erythema)
Neurological: AO x 3
Objective Data
Lab Data
Lab Results
02/23/25 06:44
02/23/25 06:44
Estimated Creat Clear 101 ml/min 02/23/25 06:44
Most recent labs reviewed.
Micro Results:
02/22/25 16:09 Nasal Screen MRSA (PCR) - Final
Nose MRSA not detected - performed by PCR methodology.
02/22/25 12:56 Blood Culture - Pending
Blood/Venous
02/22/25 12:55 Blood Culture - Pending
Blood/Venous
02/22/25 [facility] US: no dvt
[2025-02-23] MEDS: VITAMIN B-12 1000 MCG PO (09:45)
[2025-02-23] MEDS: PRAVACHOL 40 MG PO (09:45)
[2025-02-23] MEDS: ZYVOX 600 MG PO ×2 (09:45→21:18)
[2025-02-23] MEDS: VISBIOME 1 CAP PO (09:45)
[2025-02-23] MEDS: LASIX 40 MG PO (09:46)
[2025-02-23] MEDS: VITAMIN D3 (cholecalciferol) 50 MCG PO (09:46)
--- NOTE | 2025-02-23 11:40 | W.PN.HOSP.TC ---
Today's Communication/Plan
-
Await culture data
Continue linezolid 600 mg twice a day
Follow-up ID recommendations
Likely able to discharge
Assessment / Plan
Assessment / Plan
NAD
Scleral Anicteric
MMM
No JVD
CTABL
RRR, S1/S2
Soft, NT, ND, BS+
Warm, Dry
Right lower extremity redness swelling warmth that goes from just below his knee all the way to his toes, subcuticular bleeding, nonblanching
-- Above findings now improving
AAOx3
Calm
Right lower extremity cellulitis, nonpurulent, ID believes likely strep pyogenes
Infectious diseases started linezolid 600 mg twice a day
Blood cultures x 2, pending
Paroxysmal atrial fibrillation
Continue verapamil and Xarelto
Hyperlipidemia
Continue statin
B12 deficiency continue B12 supplementation
Vitamin D deficiency continue vitamin D supplementation
Anticipated Discharge: 24 - 48 hours
Subjective/Interval History
-
Date of Service: February 23, 2025
Seen and examined. Sitting in bedside chair in front of the window. Yesterday was experiencing pain with ambulation this morning is completely resolved
States leg swelling and erythema have improved significantly
Daughter from [place] at bedside along with Isabell.
Objective Data
-
Labs:
Laboratory Results
02/23/25
06:44
WBC 4.2 L
Hgb 10.6 L
Hct 31.2 L
Plt Count 161
Sodium 140
Potassium 3.5
Chloride 105
Carbon Dioxide 28
BUN 10
Creatinine 0.5 L
Glucose 100 H
Calcium 8.6
Vital Signs:
Vital Signs
Temp Pulse Resp BP Pulse Ox
98.2 F 78 16 137/68 94
02/23/25 07:00 02/23/25 07:00 02/23/25 07:00 02/23/25 07:00 02/23/25 07:00
I&O
02/22/25 02/23/25 02/24/25
06:59 06:59 06:59
Intake Total 480 / 480
Output Total 700 / 700
Balance -220 / -220
[2025-02-23 15:00] VITALS: BP 129/59
[2025-02-23] MEDS: XARELTO 20 MG PO (18:24)
[2025-02-23] MEDS: CALAN EXTENDED RELEASE 120 MG PO (21:19)
[2025-02-23] MEDS: CALAN EXTENDED RELEASE 180 MG PO (21:19)
[2025-02-23] MEDS: TYLENOL 1000 MG PO (21:19)
[2025-02-23 23:30] VITALS: BP 114/56
[2025-02-24 07:00] VITALS: BP 143/63
[2025-02-24 08:00] LABS: % Basophils 0.3 % (0-2); % Eosinophils 1.4 % (0-6); % Immature Granulocytes 0.3 % (0-0.5); % Lymphocytes 21.3 % (20.5-51.1); % Monocytes 9.6 % (1.7-9.3); % Neutrophils 67.1 % (42.2-75.2); Absolute Lymphocytes 0.6 10^3/uL (1.2-3.4); Absolute Monocytes 0.3 10^3/uL (0.1-0.6); Hematocrit 34.7 % (39.0-52.0); Hemoglobin 11.8 g/dL (13.0-18.0); Mean Corpuscular Hgb 34.3 pg (27.0-31.0); Mean Corpuscular Volume 100.9 fL (80.0-94.0); Mean Platelet Volume 9.7 fL (7.4-10.4); Nucleated Red Blood Cells % 0 % (-); Platelet Count 189 10^3/uL (130-400); Red Blood Cell Count 3.44 10^6/uL (4.70-6.10); Red Cell Dist. Width 12.2 % (11.5-14.5); White Blood Cell Count 2.9 10^3/uL (4.8-10.8)
[2025-02-24 08:41] LABS: Procalcitonin < 0.05 ng/ml (0.0-0.25)
[2025-02-24 08:47] LABS: Blood Urea Nitrogen 12 mg/dl (9-20); Calcium 9.1 mg/dl (8.4-10.2); Carbon Dioxide 28 mmol/L (22-30); Chloride 102 mmol/L (98-107); Estimated Creatinine Clearance 101 ml/min; Glucose 100 mg/dl (70-99); Potassium 3.3 mmol/L (3.5-5.1); Sodium 141 mmol/L (135-145); eGFR > 60.00
[2025-02-24] MEDS: VITAMIN D3 (cholecalciferol) 50 MCG PO (09:02)
[2025-02-24] MEDS: FEOSOL 325 MG PO (09:02)
[2025-02-24] MEDS: VISBIOME 1 CAP PO (09:02)
[2025-02-24] MEDS: ZYVOX 600 MG PO (09:02)
[2025-02-24] MEDS: PRAVACHOL 40 MG PO (09:02)
[2025-02-24] MEDS: VITAMIN B-12 1000 MCG PO (09:02)
[2025-02-24] MEDS: LASIX 40 MG PO (09:02)
--- NOTE | 2025-02-24 09:30 | W.PN.HOSP.TC ---
Addendum entered and electronically signed by Layo Harry MD 02/24/25 16:15:
I saw and evaluated the patient. I reviewed the resident�s note and agree with findings and plan as documented in the resident�s note.
Right lower extremity cellulitis -nonpurulent. No clear causative organism identified. Suspected strep organism. Patient got linezolid and dose of Rocephin today. Patient to be discharged on oral Augmentin course through 03/07/25. Recommended to
use Piter wrapping. Follow-up with PCP. Follow-up with ID if needed
Discharge home .
Original Note:
Today's Communication/Plan
-
Discharged after first dose of ceftriaxone with Augmentin to take through 03/07
Assessment / Plan
Assessment / Plan
#Right lower extremity cellulitis
-nonpurulent, ID believes likely strep pyogenes
-Infectious diseases started linezolid 600 mg twice a day
-Blood cultures x 2, prelim 48 hours no growth, MRSA negative
-Today, leukopenia noted and linezolid discontinued
-provide 1 dose of ceftriaxone in hospital, then discharged on Augmentin through 03/07/2025 per ID
-Continue Piter wrap at home
#Leukopenia
-Likely secondary to linezolid
-Discontinue and antibiotic therapy per above
#Paroxysmal atrial fibrillation
-Continue verapamil and Xarelto
#Hyperlipidemia
-Continue statin
#B12 deficiency continue B12 supplementation
#Vitamin D deficiency continue vitamin D supplementation
Anticipated Discharge: Today
Subjective/Interval History
-
Date of Service: February 24, 2025
Objective Data
-
Labs:
Laboratory Results
02/24/25
07:31
WBC 2.9 L
Hgb 11.8 L
Hct 34.7 L
Plt Count 189
Sodium 141
Potassium 3.3 L
Chloride 102
Carbon Dioxide 28
BUN 12
Creatinine 0.6 L
Glucose 100 H
Calcium 9.1
Vital Signs:
Vital Signs
Temp Pulse Resp BP Pulse Ox
98.0 F 71 18 143/63 95
02/24/25 07:00 02/24/25 07:00 02/24/25 07:00 02/24/25 07:00 02/24/25 07:00
I&O
02/23/25 02/24/25 02/25/25
06:59 06:59 06:59
Intake Total 480 / 480 120 / 120
Output Total 700 / 700 300 / 300
Balance -220 / -220 -180 / -180
Review of Systems
-
History Source: Patient
EENT: Reports No Symptoms Reported
Respiratory: Reports No Symptoms
Cardiac: Reports No Symptoms
Abdomen/GI: Reports No Symptoms
Genitourinary: Reports No Symptoms
Musculoskeletal: Reports Other (Right lower extremity erythema, swelling, tenderness)
Neuro: Reports No Symptoms
Physical Exam
-
General: No Apparent Distress
HEENT: Normocephalic
Respiratory: Clear to Auscultation
Cardiac: Regular Rhythm and S1/S2
GI: Soft, Nontender, Nondistended and Normal Bowel Sounds
Musculoskeletal: Other (Right lower extremity edema, erythema, tenderness with palpation)
Neuro: AO x 3
Psych: Calm
[2025-02-24 09:39] LABS: Folate 13.3 ng/ml (2.76-20); Vitamin B12 > 1000 pg/ml (239-931)
[2025-02-24] MEDS: KCL 20 MEQ PO (10:01)
--- NOTE | 2025-02-24 10:39 | W.PN.ID1 ---
Date of Service
Date of Service: February 24, 2025
Today's Communication
- Leukopenia. DC Linezolid (d2)
-Give 1 dose ceftriaxone 2g IV x1, then dc home on Augmentin 875mg po bid through 03/07/25.
Assessment / Plan
# Severe RLE cellulitis - improving
- Recent puncture wound to right ankle with clean fork -> cellulitis s/p 7 d cephalexin with improvement. Cellulitis recurred few hours after completion of cephalexin.
- Suspect strep pyogenes.
- nasal screen MRSA negative
- Blood cx's neg to date
- Leukopenia. DC Linezolid (d2)
-Give 1 dose ceftriaxone 2g IV x1, then dc home on Augmentin 875mg po bid through 03/07/25.
-Elevate lower extremity
-Piter wrap leg.
# Conditions [employer]
Hypertension
Afib
HLD
Neuropathy
Bilateral lower extremity edema on Lasix
History of diverticulitis
Prostate cancer status post XRT
Hernia repair
Left bicep repair
Chief Complaint
-: Cellulitis
Subjective / Review of Systems
Leg swelling better.
Vital Signs / Physical Exam
Vital Signs
Vital Signs
Temp Pulse Resp BP Pulse Ox
98.0 F 71 18 143/63 95
02/24/25 07:00 02/24/25 07:00 02/24/25 07:00 02/24/25 07:00 02/24/25 08:00
Physical Exam
Constitutional: No Acute Distress
Pulmonary: Clear
Gastrointestinal: Soft, Non Tender and Non Distended
Extremities: Edema (RLE edema decrease with PITER-Wrap) and Erythema (RLE erythema improve; foot erythema improves with leg elevation)
Objective Data
Lab Data
Lab Results
02/24/25 07:31
02/24/25 07:31
Estimated Creat Clear 101 ml/min 02/24/25 07:31
Most recent labs reviewed.
Micro Results:
02/22/25 12:56 Blood Culture - Preliminary
Blood/Venous No Growth in 24 hours- Final report to follow
02/22/25 12:55 Blood Culture - Preliminary
Blood/Venous No Growth in 24 hours- Final report to follow
02/22/25 16:09 Nasal Screen MRSA (PCR) - Final
Nose MRSA not detected - performed by PCR methodology.
02/22/25 [facility] US: no dvt
--- NOTE | 2025-02-24 10:44 | CM ---
CM reviewed chart, patient seen bedside. Patient denies VN needs upon discharge, reports he is hopeful for discharge and his will provide transportation home. Patient reports he is currently in outpatient therapy. IMM reviewed, signed, placed
in chart, patient provided with copy. CM will continue to follow for all discharge planning needs.
Plan; home with continuance of outpatient therapy.
[2025-02-24] MEDS: ROCEPHIN 2000 MG IV (10:59)
[2025-02-24] MEDS: STERILE WATER FOR INJECTION 20 ML IV (10:59)
[2025-02-24 12:07] VITALS: BP 119/70
--- NOTE | 2025-02-24 15:09 | W.DCSUMMARY ---
Discharge Summary
Discharge Data
Date of Admission: 02/22/25
Date of Discharge: 02/24/25
-
Pending Results: No
Hospital Course
Primary diagnosis:
Right lower extremity cellulitis
Secondary diagnosis:
Paroxysmal atrial fibrillation
Hyperlipidemia
Vitamin D deficiency
Vitamin B12 deficiency
Hospital course:
85-year-old male presents to [place] ED with worsening right lower extremity redness and swelling that started about 8 days ago. He was previously diagnosed with cellulitis and treated with Keflex p.o. [place] ED on 02/13.He completed the
course on the however on the reemerged. His PCP re-prescribed him Keflex, however regardless it continued to worsen which brought him to the hospital. ID was consulted and they recommended linezolid 600 twice daily suspecting strep
pyogenes. Today, patient is leukopenic with WBC 2.9. Infectious disease decided to give him a dose of IV ceftriaxone, and instructions to be discharged on Augmentin scheduled to finish on. Blood cultures were negative.
Today, patient is clinically stable for discharge. Continue taking Augmentin twice daily until 03/07/2025. Recommend follow-up with PCP within the next week.
Discharge Plan
-
Patient Disposition: Home (Routine Discharge)
Discharge Diagnosis/Procedures: RLE cellulitis
Condition: Fair
Diet: Low Sodium
Activity: As tolerated
Driving Restrictions: As prior to admission
Bathing Restrictions: OK to Shower
Activity Restrictions/Additional Instructions:
Use Piter wrap for Right leg during day
Use one-two pillow to elevate your right leg when sleeping.
Please follow up with Dr Mckeon's office if needed.
Referrals:
Ilir Morrison MD [Family Provider] - in one week
Isabell Mckeon MD [Active] -
Prescriptions:
New
amoxicillin-pot clavulanate 875-125 mg tablet
1 tab PO BID Qty: 24 0RF
Continued
pravastatin 40 MG tablet
40 mg PO DAILY
cholecalciferol (vitamin D3) 2,000 UNITS tablet
2,000 unit PO DAILY
Probiotic 1 EACH capsule, sprinkle
1 ea PO DAILY
furosemide [Lasix] 40 mg Tablet
40 mg PO DAILY
acetaminophen [Tylenol Extra Strength] 500 mg Tablet
1,000 mg PO BIDPRN PRN (Reason: mild pain)
verapamil 300 mg capsule, [address]
300 mg PO QPM
Xarelto 20 MG tablet
20 mg PO QPM
ferrous sulfate [FeroSul] 325 mg (65 mg iron) Tablet
325 mg PO Q48H 30 Days Qty: 15 0RF
cyanocobalamin (vitamin B-12) 1,000 mcg Tablet
1,000 mcg PO DAILY 30 Days Qty: 30 0RF
Discontinued
cephalexin 500 mg Capsule
500 mg PO Q8H
Discharge Orders:
Discharge Patient (As Directed); Ordered 02/24/25
Ordered By: Layo Harry
Discharge Date and Time
Discharge Date/Time: 02/24/25 12:46
Print Language: [place]
== END 2025-02-24 12:46 | disposition home or self-care (01) | DRG 603 ==
LOC: 4 WEST ACU 12:46
PROVIDERS: Physician Assistant Medical; ADMITTING PHYSICIAN Hospitalist; ATTENDING PHYSICIAN Hospitalist; CONSULT PHYSICIAN Internal Medicine Infectious Disease; EMERGENCY PHYSICIAN Student in an Organized Health Care Education/Training Program; FAMILY PHYSICIAN Internal Medicine
DX: L03.115 Cellulitis of right lower limb (principal); I48.0 Paroxysmal atrial fibrillation; E78.00 Pure hypercholesterolemia, unspecified; E55.9 Vitamin D deficiency, unspecified; E53.8 Deficiency of other specified B group vitamins; D72.819 Decreased white blood cell count, unspecified; Z85.46 Personal history of malignant neoplasm of prostate; Z92.3 Personal history of irradiation; Z87.891 Personal history of nicotine dependence; Z82.49 Family history of ischemic heart disease and other diseases of the circulatory system; I10 Essential (primary) hypertension; Z79.01 Long term (current) use of anticoagulants; G62.9 Polyneuropathy, unspecified
CPT/HCPCS: 80048; 82607; 82746; 83880; 84145; 85025; 87040; 87641; 93971; 96365; 96366; 99284

== ENCOUNTER 2025-03-27 19:42 | Emergency (ER) | payer OTHER, SELFPAY ==
[2025-03-27 19:49] VITALS: BP 161/88
[2025-03-27 20:06] LABS: % Basophils 0.4 % (0-2); % Eosinophils 0.4 % (0-6); % Immature Granulocytes 0.4 % (0-0.5); % Lymphocytes 24.1 % (20.5-51.1); % Monocytes 10.3 % (1.7-9.3); % Neutrophils 64.4 % (42.2-75.2); Absolute Lymphocytes 1.3 10^3/uL (1.2-3.4); Absolute Monocytes 0.6 10^3/uL (0.1-0.6); Absolute Neutrophils 3.5 10^3/uL (1.4-6.5); Hemoglobin 12.9 g/dL (13.0-18.0); Mean Corp Hgb Conc. 33.9 g/dL (33.0-37.0); Mean Corpuscular Volume 100.3 fL (80.0-94.0); Mean Platelet Volume 10.6 fL (7.4-10.4); Nucleated Red Blood Cells % 0 % (-); Platelet Count 182 10^3/uL (130-400); Red Blood Cell Count 3.79 10^6/uL (4.70-6.10); Red Cell Dist. Width 13.3 % (11.5-14.5); White Blood Cell Count 5.4 10^3/uL (4.8-10.8)
[2025-03-27 20:21] LABS: Blood Urea Nitrogen 18 mg/dl (9-20); Calcium 9.7 mg/dl (8.4-10.2); Carbon Dioxide 29 mmol/L (22-30); Chloride 101 mmol/L (98-107); Glucose 105 mg/dl (70-99); Lipase 60 U/L (23-300); Sodium 139 mmol/L (135-145); eGFR > 60.00
[2025-03-27 20:28] LABS: Troponin I < 0.012 ng/ml
[2025-03-27 22:05] VITALS: BP 185/91
--- NOTE | 2025-03-27 23:18 | ED.GENMED ---
History of Present Illness
General
Chief Complaint: Cardiac Symptoms
Time Seen by Provider: 03/27/25 22:15
History of Present Illness
History of Present Illness:
85-year-old male with history of A-fib on Xarelto, GERD, hyperlipidemia, hypertension presenting to the emergency department right-sided chest pain. Patient reports symptoms started earlier this morning. Denies exertional component to the pain.
Pain has been constant, dull in quality. Denies inciting injury or trauma. Denies known coronary history. Denies difficulty breathing. Denies cough or fever. Denies abdominal pain or vomiting. Denies additional acute medical complaints.
Past History
Past History
ED Past Medical History: Arrthythmia (Atrial fib), Cancer (prostate CA with 44 radiation txs, last 02/2022), GERD, HTN, Hypercholesterolemia and Other (Back and neck pain, Neuropathy, Diverticulitis, GI bleeding. Hep B, Iron def anemia, Pneumothorax
as child)
ED Past Surgical History: Orthopedic (Left bicep repair ) and Other (Hernia repair, )
Patient has exhibited threatening behavior?: No
PSI?: No
Social History
Tobacco: Former smoker
Alcohol: Daily (Whisky or Vodka or beer 2 daily)
Drug: None
Personal:
Living: with family
Family History
Family History: Negative Diabetes, Hypertension or CAD
Phy Exam
Physical Exam
Physical Exam:
General: Well-appearing, no clinical signs of dehydration, nontoxic and in no acute distress
HEENT: protecting airway
Neck: appears supple
CV: Normal heart rate, regular rhythm, no evidence of cyanosis
Resp: No accessory muscle use, no increased work of breathing, lungs clear to auscultation bilaterally
Abd: Soft and non-distended, no tenderness to palpation
Extremities: No deformities, no swelling
Neuro: alert, no focal neurologic deficit
: deferred
Rectal: deferred
Psych: Normal affect
Skin: Intact
Course
Orders/Labs/Results
Orders:
Orders
03/27/25 19:44
EKG [Electrocardiogram (*1)] Urgent
Reason for Study: Abdominal Pain
EKG- Treatment ONCE
03/27/25 19:56
Basic Metabolic Panel Urgent
Complete Blood Count/With Diff Urgent
Lipase Urgent
Troponin I Urgent
03/27/25 22:53
Electrocardiogram (*1) Urgent
Reason for Study: Chest Pain
EKG- Treatment ONCE
CR Chest - 2 Views Urgent
Comment:
Reason For Exam: chest pain
03/27/25 23:47
Troponin I Urgent
Abnormal Lab Results
03/27/25
19:56
RBC 3.79 L 10^6/uL
(4.70-6.10)
Hgb 12.9 L g/dL
(13.0-18.0)
Hct 38.0 L %
(39.0-52.0)
MCV 100.3 H fL
(80.0-94.0)
MCH 34.0 H pg
(27.0-31.0)
MPV 10.6 H fL
(7.4-10.4)
Monocytes % 10.3 H %
(1.7-9.3)
Creatinine 0.6 L mg/dL
(0.7-1.3)
Glucose 105 H mg/dl
(70-99)
03/27/25 19:56
03/27/25 19:56
Vital Signs
Initial and Last Documented VS:
Initial Vital Signs
Temp Pulse Resp BP Pulse Ox
98.5 F 85 20 161/88 96
03/27/25 19:49 03/27/25 19:49 03/27/25 19:49 03/27/25 19:49 03/27/25 19:49
Last Documented Vital Signs
Temp Pulse Resp BP Pulse Ox
98.5 F 65 20 150/75 94
03/27/25 19:49 03/28/25 00:00 03/27/25 19:49 03/27/25 23:53 03/28/25 00:00
MDM/Problems Addressed
MDM/Problems Addressed:
85-year-old male with history of high blood pressure, hyperlipidemia, A-fib on Xarelto presenting to the emergency department for right-sided chest pain. Vital signs are significant for high blood pressure.
On exam, patient is resting comfortably, no acute distress or discomfort. Patient EKG on arrival, nonischemic. Patient also had laboratory analysis prior to my assessment, undetectable troponin. Given duration of symptoms, mild dull ache,
nonexertional with nonischemic EKG and undetectable troponin, lower suspicion for ACS. Lower suspicion for PE, anticoagulated on Xarelto, no tachycardia, no hypoxia. Will obtain chest x-ray, however lower suspicion for pneumonia in the absence of
fever or cough. Will also repeat troponin.
00:40 - Troponin negative x 2. Chest x-ray does show an opacity in the right lower lobe of the lung, however appears unchanged from prior. Again without present concern for infectious pathology. Patient remains stable. Ultimately feel stable for
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 Strict return precautions communicated to patient verbalized understand
*EKG
Interpreted by ED Provider?: Yes
EKG Intrepretation Date: 03/27/25
EKG Intrepretation Time: 23:22
Interpretation: normal
Heart Rate: 75
Rate: normal
Rhythm: junctional
[place]: normal axis
Interval: normal interval
QRS Pattern: normal QRS
Ischemia: no ischemia
*Critical Care Note
Total Time (30-74mins, 75-104mins- exclusive of procedures): Not Applicable
ED Attending Note
-
Portions of this chart may have been created with voice recognition software.� Occasional wrong word or��sound alike� substitutions may have occurred due to the inherent limitations of voice recognition software.
Discharge Plan
Departure
Prescriptions:
No Action
pravastatin 40 MG tablet
40 mg PO DAILY
cholecalciferol (vitamin D3) 2,000 UNITS tablet
2,000 unit PO DAILY
Probiotic 1 EACH capsule, sprinkle
1 ea PO DAILY
furosemide [Lasix] 40 mg Tablet
40 mg PO DAILY
acetaminophen [Tylenol Extra Strength] 500 mg Tablet
1,000 mg PO BIDPRN PRN (Reason: mild pain)
verapamil 300 mg capsule, [address]
300 mg PO QPM
Xarelto 20 MG tablet
20 mg PO QPM
ferrous sulfate [FeroSul] 325 mg (65 mg iron) Tablet
325 mg PO Q48H 30 Days Qty: 15 0RF
cyanocobalamin (vitamin B-12) 1,000 mcg Tablet
1,000 mcg PO DAILY 30 Days Qty: 30 0RF
amoxicillin-pot clavulanate 875-125 mg tablet
1 tab PO BID Qty: 24 0RF
Referrals:
Ilir Morrison MD [Family Provider] -
Interventions
Interventions:
*Risk Screen - Suicide Last Done: 03/27/25 19:49
*General Assessment Last Done: 03/27/25 19:49
*Neglect/Abuse Screening Last Done: 03/27/25 19:49
*ED COVID-19 Vaccine History Last Done: 03/27/25 19:49
ED- Pulmonary Assessment Last Done: 03/27/25 23:45
ED- Cardiac Assessment Last Done: 03/27/25 23:45
Discharge Date and Time
Print Language: UZBEK
[2025-03-27 23:53] VITALS: BP 150/75
[2025-03-28] VITALS: BP 140/69
[2025-03-28 00:18] LABS: Troponin I < 0.012 ng/ml
== END 2025-03-28 01:00 | disposition home or self-care (01) ==
LOC: EMR 19:42
PROVIDERS: Emergency Medicine; EMERGENCY PHYSICIAN Student in an Organized Health Care Education/Training Program; FAMILY PHYSICIAN Internal Medicine
DX: R07.89 Other chest pain (principal); I48.91 Unspecified atrial fibrillation; E78.00 Pure hypercholesterolemia, unspecified; I10 Essential (primary) hypertension; R91.8 Other nonspecific abnormal finding of lung field; Z79.01 Long term (current) use of anticoagulants; Z87.891 Personal history of nicotine dependence; Z85.46 Personal history of malignant neoplasm of prostate; Z92.3 Personal history of irradiation
CPT/HCPCS: 99285; 71046; 80048; 83690; 84484; 85025; 93005

== ENCOUNTER 2025-04-21 07:14 | Emergency (ER) | payer OTHER, SELFPAY ==
[2025-04-21 07:20] VITALS: BP 127/81
[2025-04-21 07:46] VITALS: BP 136/81
[2025-04-21 07:54] VITALS: BMI 29.1
[2025-04-21 08:00] VITALS: BP 140/71
[2025-04-21 08:31] LABS: COVID-19 Antigen Negative (Negative)
--- NOTE | 2025-04-21 08:53 | ED.GENMED ---
History of Present Illness
General
Chief Complaint: Breathing Problem
Source: patient and family
Time Seen by Provider: 04/21/25 07:35
History of Present Illness
History of Present Illness:
85-year-old male presents with congestion. Patient states that has been ongoing for about 2 to 3 days. Today he woke up and felt short of breath. Now feels much better. Feels like his mucus and congestion made him feel short of breath. No
fevers. She thought it was just allergies. Denies chest pain spouse states that he has had little bit of yellow mucus.
Past History
Past History
ED Past Medical History: Arrthythmia (Atrial fib), Cancer (prostate CA with 44 radiation txs, last 02/2022), GERD, HTN, Hypercholesterolemia and Other (Back and neck pain, Neuropathy, Diverticulitis, GI bleeding. Hep B, Iron def anemia, Pneumothorax
as child)
ED Past Surgical History: Orthopedic (Left bicep repair ) and Other (Hernia repair, )
Patient has exhibited threatening behavior?: No
PSI?: No
Social History
Tobacco: Former smoker
Alcohol: Daily (Whisky or Vodka or beer 2 daily)
Drug: None
Personal:
Living: with family
Family History
Family History: Negative Diabetes, Hypertension or CAD
Phy Exam
Physical Exam
Physical Exam:
CONSTITUTIONAL Patient alert and oriented to person, place and time. Well-appearing. Vital signs reviewed.
HEAD atraumatic, normocephalic.
EYES eyelids normal to inspection, Extraocular muscles intact, Conjunctiva normal, Sclera normal.
NECK normal range of motion, Trachea midline, no jugular venous distention.
RESPIRATORY CHEST No respiratory distress noted, Chest expansion equal, Bilateral breath sounds clear.
BACK normal inspection, no obvious deformities
UPPER EXTREMITY range of motion normal, Motor strength normal, no cyanosis, no edema.
LOWER EXTREMITY range of motion normal, Motor strength normal, no cyanosis, no edema.
NEURO Speech normal, No focal motor deficits, [place] coma scale 15, Memory normal, Cranial Nerves intact to screening exam.
SKIN skin warm, dry, and normal in color.
Scores
Heart Failure Risk
Heart Failure Risk Score: Not Applicable
Course
Orders/Labs/Results
Orders:
Orders
04/21/25 07:43
CR Chest - 2 Views Urgent
Comment:
Reason For Exam: cough
04/21/25 07:51
COVID-19 Antigen Urgent
Source: Nasal Swab
Influenza A+B Rapid Molecular Urgent
MARK Source: Nasal Swab
Specimen Description:
Vital Signs
Initial and Last Documented VS:
Initial Vital Signs
Temp Pulse BP Pulse Ox
98 F 81 127/81 97
04/21/25 07:20 04/21/25 07:20 04/21/25 07:20 04/21/25 07:20
Last Documented Vital Signs
Temp Pulse Resp BP Pulse Ox
98 F 72 16 140/71 96
04/21/25 07:20 04/21/25 07:47 04/21/25 07:47 04/21/25 08:00 04/21/25 07:47
MDM/Problems Addressed
Differential Diagnosis Includes:
Allergies, upper respiratory infection, sinusitis, pneumonia
MDM/Problems Addressed:
Upper respiratory infection
*Radiology
Radiology exam reviewed: radiology read reviewed and all reviewed NAD by ED Provider
*Pulse Oximetry
Patient hypoxic: no
*Critical Care Note
Total Time (30-74mins, 75-104mins- exclusive of procedures): Not Applicable
Data Reviewed
Source: patient and spouse
Prescriptions/Medications Considered But Not Given:
Consider antibiotics but chest x-ray negative
Patient Management
Escalation/DeEscalation of care consider admission/obs:
Patient appears well. Will advise Flonase and offer albuterol for as needed use in light of his cough. Suspect today was mucous plugging. Recommended humidified air. Saline nasal sprays as needed. Okay for outpatient manage
ED Attending Note
-
Portions of this chart may have been created with voice recognition software.� Occasional wrong word or��sound alike� substitutions may have occurred due to the inherent limitations of voice recognition software.
Discharge Plan
Departure
Patient Disposition: Home (Routine Discharge)
Date of Disposition: 04/21/25
Time of Disposition: 08:58
Patient with high blood pressure during this ER visit?: No
Discharge Problem:
Acute upper respiratory infection, Acute bronchitis
Instructions: Acute bronchitis in adults, Upper Respiratory Infection - Adult
Prescriptions:
New
albuterol sulfate 90 mcg/actuation HFA aerosol inhaler
2 puff inhalation Q6H PRN (Reason: shortness of breath or wheezing) Qty: 6.7 0RF
No Action
pravastatin 40 MG tablet
40 mg PO DAILY
cholecalciferol (vitamin D3) 2,000 UNITS tablet
2,000 unit PO DAILY
Probiotic 1 EACH capsule, sprinkle
1 ea PO DAILY
furosemide [Lasix] 40 mg Tablet
40 mg PO DAILY
acetaminophen [Tylenol Extra Strength] 500 mg Tablet
1,000 mg PO BIDPRN PRN (Reason: mild pain)
verapamil 300 mg capsule, [address]
300 mg PO QPM
Xarelto 20 MG tablet
20 mg PO QPM
ferrous sulfate [FeroSul] 325 mg (65 mg iron) Tablet
325 mg PO Q48H 30 Days Qty: 15 0RF
cyanocobalamin (vitamin B-12) 1,000 mcg Tablet
1,000 mcg PO DAILY 30 Days Qty: 30 0RF
amoxicillin-pot clavulanate 875-125 mg tablet
1 tab PO BID Qty: 24 0RF
Referrals:
Ilir Morrison MD [Family Provider] -
Activity Restrictions/Additional Instructions:
Please use Flonase as discussed (1 spray each nostril twice a day). Please return immediately for difficulty breathing, fevers, vomiting or any other concerns.
Interventions
Interventions:
*Risk Screen - Suicide Last Done: 04/21/25 07:25
*General Assessment Last Done: 04/21/25 07:25
*Neglect/Abuse Screening Last Done: 04/21/25 07:54
*Nursing Disposition Last Done: 04/21/25 09:38
ED- Cardiac Assessment Last Done: 04/21/25 07:54
ED- Pulmonary Assessment Last Done: 04/21/25 07:54
Discharge Date and Time
Discharge Date/Time: 04/21/25 09:40
Print Language: MONGOLIAN
== END 2025-04-21 09:40 | disposition home or self-care (01) ==
LOC: EMR 07:14
PROVIDERS: EMERGENCY PHYSICIAN Emergency Medicine; FAMILY PHYSICIAN Internal Medicine
DX: J20.9 Acute bronchitis, unspecified (principal); J06.9 Acute upper respiratory infection, unspecified; Z11.52 Encounter for screening for COVID-19; I48.91 Unspecified atrial fibrillation; I10 Essential (primary) hypertension; E78.00 Pure hypercholesterolemia, unspecified; K21.9 Gastro-esophageal reflux disease without esophagitis; G62.9 Polyneuropathy, unspecified; K57.92 Diverticulitis of intestine, part unspecified, without perforation or abscess without bleeding; D50.9 Iron deficiency anemia, unspecified; Z85.46 Personal history of malignant neoplasm of prostate; Z92.3 Personal history of irradiation; Z87.891 Personal history of nicotine dependence
CPT/HCPCS: 99283; 71046; 87502; 87811

== ENCOUNTER 2025-05-16 16:56 | Emergency (ER) | payer OTHER, SELFPAY ==
[2025-05-16 17:07] VITALS: BP 144/75
--- NOTE | 2025-05-16 18:24 | ED.MUSCINJ ---
Addendum entered and electronically signed by Monica Faulkner NP 05/20/25 20:18:
Called pt re official rib reading of 3 rib fractures, non displaced. He has had no trouble breathing, pain is persistent but does not want pain medication stronger that Tylenol. He states 2 days ago his right leg and arm became significantly
discolored. I asked him to come back and I would give him a rib belt. He returned with his . Significant ecchymosis RLL from knee to ankle, mild swelling, foot is spared. R arm with moderate ecchymosis, no swelling.
Lungs CTA. Pulse ox 94% Provided Incentive spirometer with instructions to use 10 times an hour while awake for the next 2 weeks.
BP 145/68, HR 79 Temp 99.0
Pt and very pleasant and thankful for the call back and care. Will F/U with PCP
I updated daughter Noemí on the phone who was also very appreciative of the care.
Original Note:
HPI-Injury
General
Chief Complaint: Musculo-Skeletal Complaint
Source: patient
Exam Limitations: none
Time Seen by Provider: 05/16/25 18:14
Nursing documentation reviewed up to this point in time: agreed with
History of Present Illness-Injury
Initial Injury comments:
85-year-old male with history of A-fib on Xarelto, HTN, HLD states he tripped down last step into family room, fell striking right side ribs, right forearm on sofa. Denies hitting head. Bruise on forearm but no bony tenderness.
Past History
Past History
ED Past Medical History: Arrthythmia (Atrial fib), Cancer (prostate CA with 44 radiation txs, last 02/2022), GERD, HTN, Hypercholesterolemia, Other (Back and neck pain, Neuropathy, Diverticulitis, GI bleeding. Hep B, Iron def anemia, Pneumothorax as
child) and Other (fall, hemothorax, chest tube 2017)
ED Past Surgical History: Orthopedic (Left bicep repair ) and Other (Hernia repair, )
Patient has exhibited threatening behavior?: No
PSI?: No
Social History
Tobacco: Former smoker
Alcohol: Daily (Whisky or Vodka or beer 2 daily)
Drug: None
Personal:
Living: with family
Family History
Family History: Negative Diabetes, Hypertension or CAD
Review of Systems
Review of Systems
Allergies reviewed?: Yes
All Other Systems: ROS reviewed and negative except as documented in HPI and ROS
Respiratory: Denies trouble breathing
Cardiac: Denies chest pain
ABD/GI: Denies abdominal pain
Musculoskeletal: Reports other (pain right lateral ribs); Denies neck pain
Skin: Reports other (bruise right forearm)
Neurological: Denies dizzy, headache, weakness or numbness
Phy Exam
Physical Exam
Physical Exam:
GENERAL: No acute distress. A&Ox3.
CONSTITUTIONAL: Afebrile.
EYES: clear, conjunctivae normal
ENMT: moist mucus membranes, Pharynx nl
RESPIRATORY: Regular respirations, nonlabored, lungs clear.
CARDIOVASCULAR: Regular rate and rhythm, no murmurs, no rubs.
GI: Soft, nontender
MUSCULOSKELETAL: Moves slowly at baseline, uses cane due to chronic knee problems. Well perfused. Mild bilateral ankle swelling
SKIN: Warm, dry, pink, 4 x 6 cm area mild swelling and ecchymosis right forearm
PSYCH: Normal mood and affect. Well kept, interactive and appropriate
NEUROLOGIC: Awake, alert and oriented. No focal neurological deficits
Injury Course
Orders/Labs/Results
Orders:
Orders
05/16/25 17:17
CR Ribs-right 3 Vw W/pa Chest* Urgent
Reason For Exam: pain after fall
MDM/Problems Addressed
MDM/Problems Addressed:
85-year-old male with history of A-fib on Xarelto, HTN, HLD states he tripped down last step into family room, fell striking right side ribs, right forearm on sofa. Denies hitting head. Bruise on forearm but no bony tenderness.
*Pulse Oximetry
SaO2: 93
Oxygen Mode of Delivery: Room air
*Critical Care Note
Total Time (30-74mins, 75-104mins- exclusive of procedures): Not Applicable
ED Attending Note
-
Portions of this chart may have been created with voice recognition software.� Occasional wrong word or��sound alike� substitutions may have occurred due to the inherent limitations of voice recognition software.
Discharge Plan
Departure
Patient Disposition: Home (Routine Discharge)
Date of Disposition: 05/16/25
Time of Disposition: 18:56
Patient with high blood pressure during this ER visit?: No
Condition: Good
Discharge Problem:
Contusion of rib on right side
Instructions: Rib fracture or bruised rib - ED discharge instructions
Prescriptions:
No Action
pravastatin 40 MG tablet
40 mg PO DAILY
cholecalciferol (vitamin D3) 2,000 UNITS tablet
2,000 unit PO DAILY
Probiotic 1 EACH capsule, sprinkle
1 ea PO DAILY
furosemide [Lasix] 40 mg Tablet
40 mg PO DAILY
acetaminophen [Tylenol Extra Strength] 500 mg Tablet
1,000 mg PO BIDPRN PRN (Reason: mild pain)
verapamil 300 mg capsule, [address]
300 mg PO QPM
Xarelto 20 MG tablet
20 mg PO QPM
ferrous sulfate [FeroSul] 325 mg (65 mg iron) Tablet
325 mg PO Q48H 30 Days Qty: 15 0RF
cyanocobalamin (vitamin B-12) 1,000 mcg Tablet
1,000 mcg PO DAILY 30 Days Qty: 30 0RF
amoxicillin-pot clavulanate 875-125 mg tablet
1 tab PO BID Qty: 24 0RF
albuterol sulfate 90 mcg/actuation HFA aerosol inhaler
2 puff inhalation Q6H PRN (Reason: shortness of breath or wheezing) Qty: 6.7 0RF
Activity Restrictions/Additional Instructions:
As we discussed, I see nothing broken or other abnormality on your x-ray . Tylenol as needed for pain.
If the radiologists reads the xray and see something I missed, I will call you within the next 2 hours.
Interventions
Interventions:
*Risk Screen - Suicide Last Done: 05/16/25 19:04
*General Assessment Last Done: 05/16/25 17:07
*Neglect/Abuse Screening Last Done: 05/16/25 19:04
*ED- Fall Risk Assessment Last Done: 05/16/25 19:26
*ED COVID-19 Vaccine History Last Done: 05/16/25 19:26
*Nursing Disposition Last Done: 05/16/25 19:27
ED-Musculoskeletal Assessment Last Done: 05/16/25 19:04
Discharge Date and Time
Discharge Date/Time: 05/16/25 19:28
Print Language: DOMINICAN
== END 2025-05-16 19:28 | disposition home or self-care (01) ==
LOC: EMR 16:56
PROVIDERS: EMERGENCY PHYSICIAN Emergency Medicine; FAMILY PHYSICIAN Internal Medicine
DX: S20.20XA Contusion of thorax, unspecified, initial encounter (principal); W01.0XXA Fall on same level from slipping, tripping and stumbling without subsequent striking against object, initial encounter; E78.00 Pure hypercholesterolemia, unspecified; I11.9 Hypertensive heart disease without heart failure; I25.10 Atherosclerotic heart disease of native coronary artery without angina pectoris; I48.91 Unspecified atrial fibrillation; Z79.01 Long term (current) use of anticoagulants; Z87.891 Personal history of nicotine dependence
CPT/HCPCS: 99283; 71101

== ENCOUNTER 2025-05-24 05:22 | Emergency (ER) | payer OTHER, SELFPAY ==
[2025-05-24] VITALS (8 sets, daily range): BP systolic 117–150; BP diastolic 61–76; BMI 30.2
--- NOTE | 2025-05-24 08:17 | ED.GENMED ---
History of Present Illness
General
Chief Complaint: Airway Problem
Source: patient and records
Exam Limitations: none
Time Seen by Provider: 05/24/25 07:58
History of Present Illness
History of Present Illness:
85yoM with a history of CHF, atrial fibrillation on Xarelto, hypertension, hyperlipidemia, and GERD presenting via EMS for evaluation of shortness of breath. Patient was seen in the ED on 05/16/2025 after a fall. X-rays showed 3 rib fractures.
Patient was discharged to home and has been taking Tylenol as needed for his pain. Patient is not doing well at home and has been having trouble getting around his house. He had a coughing fit around 1 AM this morning when he started to feel short
of breath. Patient is currently feeling better from this perspective. He also notes increased leg swelling bilaterally and has been taking his Lasix less due to his ambulatory dysfunction. He has not had a dose of Lasix in the past 2 days.
Past History
Past History
ED Past Medical History: Arrthythmia (Atrial fib), Cancer (prostate CA with 44 radiation txs, last 02/2022), GERD, HTN, Hypercholesterolemia, Other (Back and neck pain, Neuropathy, Diverticulitis, GI bleeding. Hep B, Iron def anemia, Pneumothorax as
child) and Other (fall, hemothorax, chest tube 2017)
ED Past Surgical History: Orthopedic (Left bicep repair ) and Other (Hernia repair, )
Patient has exhibited threatening behavior?: No
PSI?: No
Social History
Tobacco: Former smoker
Alcohol: Daily (Whisky or Vodka or beer 2 daily)
Drug: None
Personal:
Living: with family
Family History
Family History: Negative Diabetes, Hypertension or CAD
Phy Exam
General Physical Exam
General Presentation: well appearing and no apparent distress
General Skin: warm and dry
General Habitus: normal
General Mental: alert
ENT Exam
ENT Exam: normocephalic
Cardiovascular Exam
Cardiovascular Exam: regular rate/rhythm and other (2+ pitting edema in bilateral lower extremities)
Pulmonary Exam
Pulmonary Exam: lungs clear, no respiratory distress, no rhonchi and other (Rales to R lower lung base)
Gastrointestinal Exam
Gastrointestinal Exam: non tender, soft and non distended
Neurological Exam
Neurological Exam: alert
[place] Coma Scale
Eye Opening: Spontaneous
Verbal Response: Oriented
Motor Response: Obeys Commands
GCS Total Score: 15
Skin Exam
Skin Exam: warm/dry and other (Ecchymosis noted to R lateral ribcage)
Psychiatric Exam
Psychiatric Exam: normal mood/affect
Course
Orders/Labs/Results
Orders:
Orders
05/24/25 06:32
CXR2 [CR Chest - 2 Views ] Urgent
Comment:
Reason For Exam: Short of breath/recent rib fractures
05/24/25 08:16
Electrocardiogram (*1) Urgent
Reason for Study: Shortness of Breath
CT Chest W/o Iv Contrast Urgent
Comment:
Reason For Exam: SOB, recent dx of rib fx
EKG- Treatment ONCE
Acetaminophen [Tylenol] 650 mg PO NOW STA
05/24/25 08:41
Complete Blood Count/With Diff Urgent
Comprehensive Metabolic Panel Urgent
NT-proBNP Urgent
Troponin I Urgent
05/24/25 11:07
Case Management Consult ONCE
Case Management Consult: Discharge Planning
Pt Eval And Treat Urgent
Activity Level: Out of Bed- Ad Yessenia
05/24/25 12:14
Case Management Consult ONCE
Case Management Consult: VN/Home Care
Comment: Visiting nurses
Abnormal Lab Results
05/24/25
08:41
RBC 3.22 L 10^6/uL
(4.70-6.10)
Hgb 10.9 L g/dL
(13.0-18.0)
Hct 32.5 L %
(39.0-52.0)
MCV 100.9 H fL
(80.0-94.0)
MCH 33.9 H pg
(27.0-31.0)
Absolute Lymphs (auto) 0.8 L 10^3/uL
(1.2-3.4)
Immature Gran % 0.6 H %
(0-0.5)
Lymphocytes % 15.5 L %
(20.5-51.1)
Monocytes % 10.1 H %
(1.7-9.3)
Creatinine 0.5 L mg/dL
(0.7-1.3)
Glucose 106 H mg/dl
(70-99)
05/24/25 08:41
05/24/25 08:41
Vital Signs
Initial and Last Documented VS:
Initial Vital Signs
BP
139/69
05/24/25 05:29
Last Documented Vital Signs
Temp Pulse Resp BP Pulse Ox
98.4 F 66 15 121/61 95
05/24/25 13:42 05/24/25 13:42 05/24/25 13:42 05/24/25 13:00 05/24/25 13:42
MDM/Problems Addressed
Differential Diagnosis Includes:
85yoM here after a coughing episode with SOB. Recently diagnosed with 3 rib fractures after a fall 8 days ago. Now feeling better. VSS. He does have 2+ pitting edema in bilateral lower extremities but has not taken his Lasix for 2 days due to his
ambulatory dysfunction. Differential diagnosis includes but is not limited to: pneumonia, pulmonary contusion, atelectasis, CHF exacerbation
Initial ED plan: Check cardiac labs, EKG, and CT chest.
*Pulse Oximetry
SaO2: 92
Oxygen Mode of Delivery: Room air
Patient hypoxic: no (95%)
*EKG
Interpreted by ED Provider?: Yes
EKG Intrepretation Date: 05/24/25
Heart Rate: 64
Rate: normal
Rhythm: sinus
[place]: normal axis
Interval: first degree heart block
QRS Pattern: normal QRS
Ischemia: no ischemia
*Critical Care Note
Total Time (30-74mins, 75-104mins- exclusive of procedures): Not Applicable
Update Note
Update Note:
EKG shows NSR without ischemic changes. Troponin and BNP within normal limits. CT re-demonstrates the 3 rib fractures and shows 'Small right pleural effusion, slightly greater than simple fluid attenuation suggesting a component of nonacute blood
products.' No pulmonary edema or infiltrates. Recommended admission although patient is declining at this time. PT consulted who recommended home PT and case management referred patient for home services. No episodes of hypoxia throughout ED stay.
He was advised to continue incentive spirometry and add lidocaine patches for pain. He was instructed to f/u closely with his PCP and return to the ED with any worsening symptoms. Patient discharged in stable condition.
ED Attending Note
-
Portions of this chart may have been created with voice recognition software.� Occasional wrong word or��sound alike� substitutions may have occurred due to the inherent limitations of voice recognition software.
Discharge Plan
Departure
Patient Disposition: Home (Routine Discharge)
Date of Disposition: 05/24/25
Time of Disposition: 13:17
Patient with high blood pressure during this ER visit?: No
Discharge Problem:
Fracture of multiple ribs of right side, Ambulatory dysfunction
Instructions: Rib fracture or bruised rib - ED discharge instructions
Prescriptions:
No Action
pravastatin 40 MG tablet
40 mg PO DAILY
cholecalciferol (vitamin D3) 2,000 UNITS tablet
2,000 unit PO DAILY
Probiotic 1 EACH capsule, sprinkle
1 ea PO DAILY
furosemide [Lasix] 40 mg Tablet
40 mg PO DAILY
acetaminophen [Tylenol Extra Strength] 500 mg Tablet
1,000 mg PO BIDPRN PRN (Reason: mild pain)
verapamil 300 mg capsule, [address]
300 mg PO QPM
Xarelto 20 MG tablet
20 mg PO QPM
ferrous sulfate [FeroSul] 325 mg (65 mg iron) Tablet
325 mg PO Q48H 30 Days Qty: 15 0RF
cyanocobalamin (vitamin B-12) 1,000 mcg Tablet
1,000 mcg PO DAILY 30 Days Qty: 30 0RF
amoxicillin-pot clavulanate 875-125 mg tablet
1 tab PO BID Qty: 24 0RF
albuterol sulfate 90 mcg/actuation HFA aerosol inhaler
2 puff inhalation Q6H PRN (Reason: shortness of breath or wheezing) Qty: 6.7 0RF
Referrals:
UNKNOWN - PT DOES,NOT KNOW [Family Provider]
Activity Restrictions/Additional Instructions:
Continue taking Tylenol as needed for pain. Use lidocaine patches daily (12 hours on, 12 hours off). Use incentive spirometer every hour while awake.
Please follow-up with your doctor. Case management has referred you to home physical therapy.
Return to the ER with any new or worsening symptoms.
Interventions
Interventions:
*Risk Screen - Suicide Last Done: 05/24/25 05:32
*General Assessment Last Done: 05/24/25 05:32
*Neglect/Abuse Screening Last Done: 05/24/25 05:32
*ED- Fall Risk Assessment Last Done: 05/24/25 05:39
*ED COVID-19 Vaccine History Last Done: 05/24/25 05:39
*Nursing Disposition Last Done: 05/24/25 13:43
ED- Pulmonary Assessment Last Done: 05/24/25 05:39
Discharge Date and Time
Discharge Date/Time: 05/24/25 13:44
Print Language: ARGENTINE
[2025-05-24] MEDS: TYLENOL 650 MG PO (08:48)
[2025-05-24 08:57] LABS: % Basophils 0.6 % (0-2); % Eosinophils 0.4 % (0-6); % Immature Granulocytes 0.6 % (0-0.5); % Lymphocytes 15.5 % (20.5-51.1); % Monocytes 10.1 % (1.7-9.3); % Neutrophils 72.8 % (42.2-75.2); Absolute Lymphocytes 0.8 10^3/uL (1.2-3.4); Absolute Monocytes 0.5 10^3/uL (0.1-0.6); Absolute Neutrophils 3.5 10^3/uL (1.4-6.5); Hematocrit 32.5 % (39.0-52.0); Hemoglobin 10.9 g/dL (13.0-18.0); Mean Corp Hgb Conc. 33.5 g/dL (33.0-37.0); Mean Corpuscular Hgb 33.9 pg (27.0-31.0); Mean Corpuscular Volume 100.9 fL (80.0-94.0); Mean Platelet Volume 9.9 fL (7.4-10.4); Nucleated Red Blood Cells % 0 % (-); Platelet Count 194 10^3/uL (130-400); Red Blood Cell Count 3.22 10^6/uL (4.70-6.10); Red Cell Dist. Width 12.3 % (11.5-14.5); White Blood Cell Count 4.8 10^3/uL (4.8-10.8)
[2025-05-24 09:23] LABS: ALT (SGPT) 17 U/L (0-50); AST (SGOT) 25 U/L (17-59); Albumin 4.1 g/dl (3.5-5.0); Alkaline Phosphatase 60 U/L (38-126); Blood Urea Nitrogen 15 mg/dl (9-20); Calcium 9.3 mg/dl (8.4-10.2); Carbon Dioxide 26 mmol/L (22-30); Chloride 106 mmol/L (98-107); Estimated Creatinine Clearance 101 ml/min; Glucose 106 mg/dl (70-99); Potassium 3.8 mmol/L (3.5-5.1); Sodium 138 mmol/L (135-145); Total Bilirubin 0.8 mg/dl (0.2-1.3); Total Protein 6.3 g/dl (6.3-8.2); eGFR > 60.00
[2025-05-24 09:49] LABS: NT-proBNP 259 pg/ml; Troponin I < 0.012 ng/ml
--- NOTE | 2025-05-24 11:35 | CM ---
parking manager reviewed patient's chart and met with patient and spouse at bedside, patient lives with spouse in a split level home, 4 steps to enter from front, and then 7 steps to bed and bathroom, no steps to enter from the garage, patient is
independent with adl's and uses a cane or walker with ambulation, patient with rib fractures after a fall and is requesting home care, piano case maker will await PT/OT evaluations and will send referral to [facility] visiting nurses.
PCP: Ilir Morrison
Pharmacy: [facility].
[facility] visiting nurses
[phone]
== END 2025-05-24 13:44 | disposition home or self-care (01) ==
LOC: EMR 05:22
PROVIDERS: Physician Assistant; EMERGENCY PHYSICIAN Emergency Medicine
DX: S22.41XA Multiple fractures of ribs, right side, initial encounter for closed fracture (principal); R26.2 Difficulty in walking, not elsewhere classified; R06.02 Shortness of breath; S20.211A Contusion of right front wall of thorax, initial encounter; R05.9 Cough, unspecified; W19.XXXA Unspecified fall, initial encounter; R60.0 Localized edema; I44.0 Atrioventricular block, first degree; I48.91 Unspecified atrial fibrillation; I11.0 Hypertensive heart disease with heart failure; I50.9 Heart failure, unspecified; E78.00 Pure hypercholesterolemia, unspecified; G62.9 Polyneuropathy, unspecified; D50.9 Iron deficiency anemia, unspecified; Z79.01 Long term (current) use of anticoagulants; Z85.46 Personal history of malignant neoplasm of prostate; Z92.3 Personal history of irradiation; Z87.891 Personal history of nicotine dependence
CPT/HCPCS: 99285; 71046; 71250; 80053; 83880; 84484; 85025; 93005

== ENCOUNTER 2025-07-21 12:01 | Emergency (ER) | payer OTHER, SELFPAY ==
[2025-07-21 12:14] VITALS: BP 171/90
[2025-07-21 15:29] VITALS: BMI 28.7
--- NOTE | 2025-07-21 15:32 | ED.GENMED ---
History of Present Illness
<Naseem Hernandez PA-C - Last Filed: 07/21/25 16:48>
General
Chief Complaint: Swelling
Source: patient
Exam Limitations: none
Time Seen by Provider: 07/21/25 14:41
History of Present Illness
History of Present Illness:
85-year-old male on Xarelto presents complaining of swelling to both legs. He actually initially sought care for a wound he sustained to his right leg. He bumped his right leg with his cane incidentally and had a skin tear. While at the urgent
care they noticed his left leg was more swollen and sent him here for DVT rule out. He is on Xarelto. He denies chest pain or shortness of breath. No fevers. He does have a history of cellulitis requiring admission to the hospital. He is not
currently on an antibiotic. No fevers. No other complaints at this time
Past History
<Naseem Hernandez PA-C - Last Filed: 07/21/25 16:48>
Past History
ED Past Medical History: Arrthythmia (Atrial fib), Cancer (prostate CA with 44 radiation txs, last 02/2022), GERD, HTN, Hypercholesterolemia, Other (Back and neck pain, Neuropathy, Diverticulitis, GI bleeding. Hep B, Iron def anemia, Pneumothorax as
child) and Other (fall, hemothorax, chest tube 2017)
ED Past Surgical History: Orthopedic (Left bicep repair ) and Other (Hernia repair, )
Patient has exhibited threatening behavior?: No
PSI?: No
Social History
Tobacco: Former smoker
Alcohol: Daily (Whisky or Vodka or beer 2 daily)
Drug: None
Personal:
Living: with family
Family History
Family History: Negative Diabetes, Hypertension or CAD
Phy Exam
<Naseem Hernandez PA-C - Last Filed: 07/21/25 16:48>
Physical Exam
Physical Exam:
General: Well-appearing male no acute respiratory distress
HEENT: Normocephalic atraumatic
Heart: Regular rate and rhythm
Lungs: Clear no wheeze
Skin: Skin tear to the anterior right orourke well-appearing without significant swelling or erythema surrounding this. Left leg is swollen with a blood blister over the medial left distal orourke. This is tender to the touch. No lymphangitic streaking
Vascular: Palpable DP pulses bilateral feet
Scores
<Naseem Hernandez PA-C - Last Filed: 07/21/25 16:48>
Heart Failure Risk
Heart Failure Risk Score: Not Applicable
Course
<Naseem Hernandez PA-C - Last Filed: 07/21/25 16:48>
Orders/Labs/Results
Orders:
Orders
07/21/25 12:18
US Legs, Left [US Periph Venous LOWER Ext LT] Urgent
Comment:
Reason For Exam: r/o DVT
07/21/25 15:25
Complete Blood Count/With Diff Urgent
Comprehensive Metabolic Panel Urgent
NT-proBNP Urgent
Abnormal Lab Results
07/21/25
15:25
WBC 3.8 L 10^3/uL
(4.8-10.8)
RBC 3.92 L 10^6/uL
(4.70-6.10)
Hgb 12.8 L g/dL
(13.0-18.0)
Hct 38.8 L %
(39.0-52.0)
MCV 99.0 H fL
(80.0-94.0)
MCH 32.7 H pg
(27.0-31.0)
Absolute Lymphs (auto) 0.7 L 10^3/uL
(1.2-3.4)
Lymphocytes % 18.4 L %
(20.5-51.1)
Monocytes % 10.1 H %
(1.7-9.3)
Creatinine 0.5 L mg/dL
(0.7-1.3)
Glucose 105 H mg/dl
(70-99)
07/21/25 15:25
07/21/25 15:25
Vital Signs
Initial and Last Documented VS:
Initial Vital Signs
Temp Pulse Resp BP Pulse Ox
98.4 F 69 18 171/90 94
07/21/25 12:14 07/21/25 12:14 07/21/25 12:14 07/21/25 12:14 07/21/25 12:14
Last Documented Vital Signs
Temp Pulse Resp BP Pulse Ox
98.4 F 69 18 171/90 94
07/21/25 12:14 07/21/25 12:14 07/21/25 12:14 07/21/25 12:14 07/21/25 15:35
<Emil Salvador, DO - Last Filed: 07/21/25 15:52>
Orders/Labs/Results
Orders:
Orders
07/21/25 12:18
US Legs, Left [US Periph Venous LOWER Ext LT] Urgent
Comment:
Reason For Exam: r/o DVT
07/21/25 15:25
Complete Blood Count/With Diff Urgent
Comprehensive Metabolic Panel Urgent
NT-proBNP Urgent
Abnormal Lab Results
07/21/25
15:25
WBC 3.8 L 10^3/uL
(4.8-10.8)
RBC 3.92 L 10^6/uL
(4.70-6.10)
Hgb 12.8 L g/dL
(13.0-18.0)
Hct 38.8 L %
(39.0-52.0)
MCV 99.0 H fL
(80.0-94.0)
MCH 32.7 H pg
(27.0-31.0)
Absolute Lymphs (auto) 0.7 L 10^3/uL
(1.2-3.4)
Lymphocytes % 18.4 L %
(20.5-51.1)
Monocytes % 10.1 H %
(1.7-9.3)
Creatinine 0.5 L mg/dL
(0.7-1.3)
Glucose 105 H mg/dl
(70-99)
07/21/25 15:25
07/21/25 15:25
Vital Signs
Initial and Last Documented VS:
Initial Vital Signs
Temp Pulse Resp BP Pulse Ox
98.4 F 69 18 171/90 94
07/21/25 12:14 07/21/25 12:14 07/21/25 12:14 07/21/25 12:14 07/21/25 12:14
Last Documented Vital Signs
Temp Pulse Resp BP Pulse Ox
98.4 F 69 18 171/90 94
07/21/25 12:14 07/21/25 12:14 07/21/25 12:14 07/21/25 12:14 07/21/25 15:35
<Naseem Hernandez PA-C - Last Filed: 07/21/25 16:48>
MDM/Problems Addressed
Differential Diagnosis Includes:
Patient presented from urgent care for concern for swelling of the left leg. Ultrasound was ordered through triage for DVT which was negative. Unlikely that he has a DVT given the anticoagulated state. Other items in differential could include
hematoma versus cellulitis. He does have a history of cellulitis that is discovered upon review of the chart. Will check labs including BNP
<Naseem Hernandez PA-C - Last Filed: 07/21/25 16:48>
*Pulse Oximetry
SaO2: 94
Oxygen Mode of Delivery: Room air
Patient hypoxic: no
*Critical Care Note
Total Time (30-74mins, 75-104mins- exclusive of procedures): Not Applicable
<Naseem Hernandez PA-C - Last Filed: 07/21/25 16:48>
Update Note
Update Note:
Ultrasound negative for DVT labs reviewed normal white count BNP normal. Discussed with emergency room attending saw the patient as well. Will consider starting on doxycycline given his history of cellulitis. Stable for discharge
ED Attending Note
<Naseem Hernandez PA-C - Last Filed: 07/21/25 16:48>
-
Portions of this chart may have been created with voice recognition software.� Occasional wrong word or��sound alike� substitutions may have occurred due to the inherent limitations of voice recognition software.
<Emil Salvador DO - Last Filed: 07/21/25 15:52>
ED Attending Note
Patient seen and examined by attending physician: Yes
I performed the substantive portion of visit, reviewed & personally made and approve the management plan that is documented in note by myself or DERIK.: Yes
ED Attending Note:
Seen with DERIK agree with assessment plan--- skin tear on the right orourke concern for cellulitis of the left leg anticoagulated no clot on Doppler, nontoxic swollen with ecchymosis but no warmth, suggest wound care topical antibiotics, I do not see
any indication for admission
Discharge Plan
Departure
Patient Disposition: Home (Routine Discharge)
Date of Disposition: 07/21/25
Time of Disposition: 16:43
Patient with high blood pressure during this ER visit?: No
Discharge Problem:
Swelling
Instructions: Dependent Edema (DC), Cellulitis (skin infection) in adults - ED (DC)
Prescriptions:
New
doxycycline hyclate 100 mg tablet
100 mg PO BID Qty: 14 0RF
No Action
pravastatin 40 MG tablet
40 mg PO DAILY
cholecalciferol (vitamin D3) 2,000 UNITS tablet
2,000 unit PO DAILY
Probiotic 1 EACH capsule, sprinkle
1 ea PO DAILY
furosemide [Lasix] 40 mg Tablet
40 mg PO DAILY
acetaminophen [Tylenol Extra Strength] 500 mg Tablet
1,000 mg PO BIDPRN PRN (Reason: mild pain)
verapamil 300 mg capsule, [address]
300 mg PO QPM
Xarelto 20 MG tablet
20 mg PO QPM
ferrous sulfate [FeroSul] 325 mg (65 mg iron) Tablet
325 mg PO Q48H 30 Days Qty: 15 0RF
cyanocobalamin (vitamin B-12) 1,000 mcg Tablet
1,000 mcg PO DAILY 30 Days Qty: 30 0RF
amoxicillin-pot clavulanate 875-125 mg tablet
1 tab PO BID Qty: 24 0RF
albuterol sulfate 90 mcg/actuation HFA aerosol inhaler
2 puff inhalation Q6H PRN (Reason: shortness of breath or wheezing) Qty: 6.7 0RF
Referrals:
Ilir Morrison MD [Family Provider, Internal Medicine]
Activity Restrictions/Additional Instructions:
Elevate for swelling. Use antibiotic as directed. Continue cleansing it with soapy water. Return if worse otherwise follow-up with your doctor
Interventions
Interventions:
*Risk Screen - Suicide Last Done: 07/21/25 12:14
*General Assessment Last Done: 07/21/25 15:29
*Neglect/Abuse Screening Last Done: 07/21/25 12:14
*ED- Fall Risk Assessment Last Done: 07/21/25 15:29
*ED COVID-19 Vaccine History Last Done: 07/21/25 15:29
ED- Cardiac Assessment Last Done: 07/21/25 15:29
ED- Pulmonary Assessment Last Done: 07/21/25 15:29
ED-Skin Assessment Last Done: 07/21/25 15:29
Discharge Date and Time
Print Language: ERITREAN
[2025-07-21 15:44] LABS: Hematocrit 38.8 % (39.0-52.0); Hemoglobin 12.8 g/dL (13.0-18.0); Mean Corp Hgb Conc. 33.0 g/dL (33.0-37.0); Mean Corpuscular Volume 99.0 fL (80.0-94.0); Nucleated Red Blood Cells % 0 % (-); Platelet Count 166 10^3/uL (130-400); Red Cell Dist. Width 13.5 % (11.5-14.5)
[2025-07-21 15:54] LABS: ALT (SGPT) 29 U/L (0-50); AST (SGOT) 32 U/L (17-59); Albumin 4.6 g/dl (3.5-5.0); Alkaline Phosphatase 59 U/L (38-126); Blood Urea Nitrogen 14 mg/dl (9-20); Calcium 9.3 mg/dl (8.4-10.2); Carbon Dioxide 26 mmol/L (22-30); Chloride 105 mmol/L (98-107); Estimated Creatinine Clearance 101 ml/min; Glucose 105 mg/dl (70-99); Potassium 4.3 mmol/L (3.5-5.1); Sodium 135 mmol/L (135-145); Total Protein 7.1 g/dl (6.3-8.2); eGFR > 60.00
== END 2025-07-21 17:19 | disposition home or self-care (01) ==
LOC: EMR 12:01
PROVIDERS: Physician Assistant; EMERGENCY PHYSICIAN Emergency Medicine; FAMILY PHYSICIAN Internal Medicine
DX: R22.42 Localized swelling, mass and lump, left lower limb (principal); I48.91 Unspecified atrial fibrillation; I10 Essential (primary) hypertension; E78.00 Pure hypercholesterolemia, unspecified; K21.9 Gastro-esophageal reflux disease without esophagitis; G62.9 Polyneuropathy, unspecified; Z79.01 Long term (current) use of anticoagulants; Z87.891 Personal history of nicotine dependence; Z85.46 Personal history of malignant neoplasm of prostate
CPT/HCPCS: 99284; 80053; 83880; 85025; 93971

== ENCOUNTER 2025-07-24 08:20 | Emergency (ER) | payer OTHER, SELFPAY ==
[2025-07-24 08:23] VITALS: BP 169/81
[2025-07-24 09:07] LABS: Hematocrit 37.5 % (39.0-52.0); Hemoglobin 12.4 g/dL (13.0-18.0); Mean Corp Hgb Conc. 33.1 g/dL (33.0-37.0); Mean Corpuscular Volume 98.4 fL (80.0-94.0); Nucleated Red Blood Cells % 0 % (-); Platelet Count 163 10^3/uL (130-400); Red Cell Dist. Width 13.4 % (11.5-14.5)
--- NOTE | 2025-07-24 09:15 | ED.GENMED ---
History of Present Illness
General
Chief Complaint: Throat Problem
Source: patient and spouse
Exam Limitations: none
Time Seen by Provider: 07/24/25 08:27
History of Present Illness
History of Present Illness:
85-year-old male here primarily complaining of some nasal congestion and dry cough that started last evening. This morning his mouth felt very dry and he when he swallowed his pills he felt like a pill may have gotten stuck in the left posterior
part of his throat. This is improving. He is able to swallow. No chest pain shortness of breath. He was here recently for a local cellulitis to his leg which is improving
Past History
Past History
ED Past Medical History: Arrthythmia (Atrial fib), Cancer (prostate CA with 44 radiation txs, last 02/2022), GERD, HTN, Hypercholesterolemia, Other (Back and neck pain, Neuropathy, Diverticulitis, GI bleeding. Hep B, Iron def anemia, Pneumothorax as
child) and Other (fall, hemothorax, chest tube 2017)
ED Past Surgical History: Orthopedic (Left bicep repair ) and Other (Hernia repair, )
Patient has exhibited threatening behavior?: No
PSI?: No
Social History
Tobacco: Former smoker
Alcohol: Daily (Whisky or Vodka or beer 2 daily)
Drug: None
Personal:
Living: with family
Family History
Family History: Negative Diabetes, Hypertension or CAD
Review of Systems
Review of Systems
All Other Systems: Not applicable
Constitutional: Denies fever or chills
Respiratory: Denies trouble breathing
Cardiac: Denies chest pain
Phy Exam
Physical Exam
Physical Exam:
GENERAL: Alert and oriented in no apparent distress
EYE: Orbits normal.
NECK: Supple, no significant adenopathy. No swelling
ENT: Pharynx without erythema. No foreign body. No drooling no stridor. Speech normal.
CARDIAC: Regular rate and rhythm without any obvious murmurs.
LUNGS: Clear breath sounds,normal
ABDOMEN: Soft, without focal tenderness or distention
NEUROLOGICAL: Alert and oriented , grossly non-focal
SKIN: Warm and dry, areas of ecchymosis to both lower extremities. Very small superficial wound to the right anterior lower leg. No secondary cellulitis.
MUSCULOSKELETAL: Chronic bilateral pitting edema. Ecchymosis to the left lower leg greater than right with a questionable small area of erythema. A line was drawn by the patient at the mid calf and this is improved
PSYCH: Normal and appropriate interaction.
Course
Orders/Labs/Results
Orders:
Orders
07/24/25 08:41
Electrocardiogram (*1) Stat
Reason for Study: Other
Other Reason for Exam: pneumonia
EKG- Treatment ONCE
IV Insert/Care/Rem.- Treatment PRN
CR Chest - 2 Views Urgent
Comment:
Reason For Exam: cough
Soft Tissue, Neck [CR Soft Tissue Neck ] Urgent
Comment:
Reason For Exam: Pill sensation in throat
Pulse Ox/cont/shift [RESP] Stat
Quantity: 1
07/24/25 08:58
Basic Metabolic Panel Urgent
Complete Blood Count/With Diff Urgent
Abnormal Lab Results
07/24/25
08:58
WBC 4.6 L 10^3/uL
(4.8-10.8)
RBC 3.81 L 10^6/uL
(4.70-6.10)
Hgb 12.4 L g/dL
(13.0-18.0)
Hct 37.5 L %
(39.0-52.0)
MCV 98.4 H fL
(80.0-94.0)
MCH 32.5 H pg
(27.0-31.0)
Absolute Lymphs (auto) 0.7 L 10^3/uL
(1.2-3.4)
Lymphocytes % 16.0 L %
(20.5-51.1)
Monocytes % 11.4 H %
(1.7-9.3)
Sodium 134 L mmol/L
(135-145)
Creatinine 0.5 L mg/dL
(0.7-1.3)
07/24/25 08:58
07/24/25 08:58
Vital Signs
Initial and Last Documented VS:
Initial Vital Signs
Temp Pulse Resp BP Pulse Ox
98.1 F 67 18 169/81 96
07/24/25 08:23 07/24/25 08:23 07/24/25 08:23 07/24/25 08:23 07/24/25 08:23
Last Documented Vital Signs
Temp Pulse Resp BP Pulse Ox
98.1 F 67 18 169/81 96
07/24/25 08:23 07/24/25 08:23 07/24/25 08:23 07/24/25 08:23 07/24/25 10:45
MDM/Problems Addressed
Differential Diagnosis Includes:
Low suspicion for any significant foreign body issue in the pharynx.. Speaking normally no drooling no stridor. Lungs are clear. Workup in progress. As for the cellulitis it appears to be improving.
*Radiology
Radiology exam reviewed: radiology read reviewed (No acute findings on x-rays)
*Pulse Oximetry
SaO2: 96
Oxygen Mode of Delivery: Room air
Patient hypoxic: no
*EKG
Interpreted by ED Provider?: Yes
Interpretation: abnormal
Comparison EKG: no changes
Heart Rate: 64
Rate: normal
Rhythm: sinus
[place]: normal axis
Interval: first degree heart block
QRS Pattern: normal QRS
Ischemia: no ischemia
*Critical Care Note
Total Time (30-74mins, 75-104mins- exclusive of procedures): Not Applicable
Data Reviewed
Review of Other/Old Records Reveals: Labs, Records, Radiology Studies and Testing
Update Note
Update Note:
Patient has remained stable and nontoxic. Has no trouble swallowing at this time. The symptoms have resolved. More has a slight cough. Stable for discharge to follow-up
ED Attending Note
-
Portions of this chart may have been created with voice recognition software.� Occasional wrong word or��sound alike� substitutions may have occurred due to the inherent limitations of voice recognition software.
Discharge Plan
Departure
Patient Disposition: Home (Routine Discharge)
Date of Disposition: 07/24/25
Time of Disposition: 11:23
Patient with high blood pressure during this ER visit?: Yes
Discharge Problem:
Cough, Suspect transient pill/posterior pharynx
Instructions: Cough in adults - ED (DC), BLOOD PRESSURE
Prescriptions:
No Action
pravastatin 40 MG tablet
40 mg PO DAILY
cholecalciferol (vitamin D3) 2,000 UNITS tablet
2,000 unit PO DAILY
Probiotic 1 EACH capsule, sprinkle
1 ea PO DAILY
furosemide [Lasix] 40 mg Tablet
40 mg PO DAILY
acetaminophen [Tylenol Extra Strength] 500 mg Tablet
1,000 mg PO BIDPRN PRN (Reason: mild pain)
verapamil 300 mg capsule, [address]
300 mg PO QPM
Xarelto 20 MG tablet
20 mg PO QPM
ferrous sulfate [FeroSul] 325 mg (65 mg iron) Tablet
325 mg PO Q48H 30 Days Qty: 15 0RF
cyanocobalamin (vitamin B-12) 1,000 mcg Tablet
1,000 mcg PO DAILY 30 Days Qty: 30 0RF
amoxicillin-pot clavulanate 875-125 mg tablet
1 tab PO BID Qty: 24 0RF
albuterol sulfate 90 mcg/actuation HFA aerosol inhaler
2 puff inhalation Q6H PRN (Reason: shortness of breath or wheezing) Qty: 6.7 0RF
doxycycline hyclate 100 mg tablet
100 mg PO BID Qty: 14 0RF
Referrals:
Ilir Morrison MD [Family Provider, Internal Medicine] - Follow up in 2-3 days
Activity Restrictions/Additional Instructions:
Continue your current treatment
You can take Flonase for the cough return with worsening cough fever shortness of breath chest pain difficulty swallowing or any other concerning symptoms
Interventions
Interventions:
*Risk Screen - Suicide Last Done: 07/24/25 08:23
*General Assessment Last Done: 07/24/25 08:23
*Neglect/Abuse Screening Last Done: 07/24/25 08:23
*ED- Fall Risk Assessment Last Done: 07/24/25 09:22
*ED COVID-19 Vaccine History Last Done: 07/24/25 09:22
*Nursing Disposition Last Done: 07/24/25 11:57
ED-EENT Assessment Last Done: 07/24/25 09:20
ED- Pulmonary Assessment Last Done: 07/24/25 09:20
Discharge Date and Time
Discharge Date/Time: 07/24/25 11:57
Print Language: CANADIAN
[2025-07-24 09:29] LABS: Blood Urea Nitrogen 19 mg/dl (9-20); Calcium 9.2 mg/dl (8.4-10.2); Carbon Dioxide 29 mmol/L (22-30); Chloride 102 mmol/L (98-107); Glucose 97 mg/dl (70-99); Potassium 4.0 mmol/L (3.5-5.1); Sodium 134 mmol/L (135-145); eGFR > 60.00
== END 2025-07-24 11:57 | disposition home or self-care (01) ==
LOC: EMR 08:20
PROVIDERS: EMERGENCY PHYSICIAN Emergency Medicine; FAMILY PHYSICIAN Internal Medicine
DX: R05.9 Cough, unspecified (principal); I48.91 Unspecified atrial fibrillation; I10 Essential (primary) hypertension; E78.00 Pure hypercholesterolemia, unspecified; K21.9 Gastro-esophageal reflux disease without esophagitis; G62.9 Polyneuropathy, unspecified; Z87.891 Personal history of nicotine dependence; Z85.46 Personal history of malignant neoplasm of prostate
CPT/HCPCS: 99284; 70360; 71046; 80048; 85025; 93005

== ENCOUNTER 2025-08-22 08:24 | Emergency (ER) | payer OTHER, SELFPAY ==
[2025-08-22 08:27] VITALS: BP 149/64
--- NOTE | 2025-08-22 08:43 | ED.GENMED ---
History of Present Illness
<MURALI Davis - Last Filed: 08/22/25 10:33>
General
Chief Complaint: Dehydration Symptoms
Source: patient and family
Exam Limitations: none
Time Seen by Provider: 08/22/25 08:39
Nursing documentation reviewed up to this point in time: agreed with
History of Present Illness
History of Present Illness:
Patient is a 85-year-old male presents to the ER for evaluation. He reports he was up last night with dry mouth some postnasal drip and problems with spitting up sputum. He complains of mild cough. He denies however feeling ill. Denies any fever
chills body aches. In addition he also presents for evaluation of wound to left lower leg. He has had a wound to his left lower leg for the past 3 weeks and has been followed by his family doctor. He was on doxycycline for 7 days and completed
his dose yesterday. He is scheduled to see wound care Monday. He still complains of redness to the area but denies any fevers. No drainage.
Past History
<MURALI Davis - Last Filed: 08/22/25 10:33>
Past History
ED Past Medical History: Arrthythmia (Atrial fib), Cancer (prostate CA with 44 radiation txs, last 02/2022), GERD, HTN, Hypercholesterolemia, Other (Back and neck pain, Neuropathy, Diverticulitis, GI bleeding. Hep B, Iron def anemia, Pneumothorax as
child) and Other (fall, hemothorax, chest tube 2017)
ED Past Surgical History: Orthopedic (Left bicep repair ) and Other (Hernia repair, )
Patient has exhibited threatening behavior?: No
PSI?: No
Social History
Tobacco: Former smoker
Alcohol: Daily (Whisky or Vodka or beer 2 daily)
Drug: None
Personal:
Living: with family
Family History
Family History: Negative Diabetes, Hypertension or CAD
Phy Exam
<MURALI Davis - Last Filed: 08/22/25 10:33>
General Physical Exam
General Presentation: no apparent distress
General age: appears stated age
General Skin: warm and dry
General Habitus: normal
General Mental: alert
General Hydration: dry mucous membranes
Cardiovascular Exam
Cardiovascular Exam: regular rate/rhythm, no murmur and normal peripheral pulses
Pulmonary Exam
Pulmonary Exam: lungs clear and no respiratory distress
Neurological Exam
Neurological Exam: alert and oriented x3
Musculoskeletal Exam
Musculoskeletal Exam: other (Bilateral legs lower extremity swelling left lower leg with small wound to medial aspect of her lower leg with eschar + surrounding erythema )
Skin Exam
Skin Exam: normal color and warm/dry
Psychiatric Exam
Psychiatric Exam: normal mood/affect
Course
<MURALI Davis - Last Filed: 08/22/25 10:33>
Orders/Labs/Results
Orders:
Orders
08/22/25 09:07
IV Insert/Care/Rem.- Treatment PRN
Chest [CR Chest - 2 Views ] Urgent
Comment:
Reason For Exam: cough
08/22/25 09:15
COVID-19 Antigen Urgent
Source: Nasal Swab
Complete Blood Count/With Diff Urgent
Comprehensive Metabolic Panel Urgent
Influenza A+B Rapid Molecular Urgent
MARK Source: Nasal Swab
Specimen Description:
08/22/25 10:24
Cephalexin Monohydrate [Keflex] 500 mg PO NOW STA
Abnormal Lab Results
08/22/25
09:15
WBC 4.5 L 10^3/uL
(4.8-10.8)
RBC 3.70 L 10^6/uL
(4.70-6.10)
Hgb 12.0 L g/dL
(13.0-18.0)
Hct 35.8 L %
(39.0-52.0)
MCV 96.8 H fL
(80.0-94.0)
MCH 32.4 H pg
(27.0-31.0)
Absolute Lymphs (auto) 1.0 L 10^3/uL
(1.2-3.4)
Immature Gran % 0.7 H %
(0-0.5)
Monocytes % 11.6 H %
(1.7-9.3)
Creatinine 0.5 L mg/dL
(0.7-1.3)
Glucose 100 H mg/dl
(70-99)
08/22/25 09:15
08/22/25 09:15
Vital Signs
Initial and Last Documented VS:
Initial Vital Signs
Temp Pulse Resp BP Pulse Ox
98.4 F 71 22 149/64 96
08/22/25 08:27 08/22/25 08:27 08/22/25 08:27 08/22/25 08:27 08/22/25 08:27
Last Documented Vital Signs
Temp Pulse Resp BP Pulse Ox
98.4 F 62 18 154/79 96
08/22/25 08:27 08/22/25 09:15 08/22/25 09:15 08/22/25 09:07 08/22/25 10:05
Communication Assistant consulted with Physician
Communication Assistant consulted with physician?: Yes
Name of Physician Consulted: Danisha
Saydalt;Randolph Raman, DO - Last Filed: 08/22/25 10:18>
Orders/Labs/Results
Orders:
Orders
08/22/25 09:07
IV Insert/Care/Rem.- Treatment PRN
Chest [CR Chest - 2 Views ] Urgent
Comment:
Reason For Exam: cough
08/22/25 09:15
COVID-19 Antigen Urgent
Source: Nasal Swab
Complete Blood Count/With Diff Urgent
Comprehensive Metabolic Panel Urgent
Influenza A+B Rapid Molecular Urgent
MARK Source: Nasal Swab
Specimen Description:
08/22/25 10:24
Cephalexin Monohydrate [Keflex] 500 mg PO NOW STA
Abnormal Lab Results
08/22/25
09:15
WBC 4.5 L 10^3/uL
(4.8-10.8)
RBC 3.70 L 10^6/uL
(4.70-6.10)
Hgb 12.0 L g/dL
(13.0-18.0)
Hct 35.8 L %
(39.0-52.0)
MCV 96.8 H fL
(80.0-94.0)
MCH 32.4 H pg
(27.0-31.0)
Absolute Lymphs (auto) 1.0 L 10^3/uL
(1.2-3.4)
Immature Gran % 0.7 H %
(0-0.5)
Monocytes % 11.6 H %
(1.7-9.3)
Creatinine 0.5 L mg/dL
(0.7-1.3)
Glucose 100 H mg/dl
(70-99)
08/22/25 09:15
08/22/25 09:15
Vital Signs
Initial and Last Documented VS:
Initial Vital Signs
Temp Pulse Resp BP Pulse Ox
98.4 F 71 22 149/64 96
08/22/25 08:27 08/22/25 08:27 08/22/25 08:27 08/22/25 08:27 08/22/25 08:27
Last Documented Vital Signs
Temp Pulse Resp BP Pulse Ox
98.4 F 62 18 154/79 96
08/22/25 08:27 08/22/25 09:15 08/22/25 09:15 08/22/25 09:07 08/22/25 10:05
<MURALI Davis - Last Filed: 08/22/25 10:33>
MDM/Problems Addressed
Differential Diagnosis Includes:
Not limited to URI, influenza, COVID, less likely pneumonia, cellulitis
MDM/Problems Addressed:
Patient with mild URI symptoms COVID-negative flu lungs are clear not hypoxic afebrile no acute distress. In addition patient has a wound to left lower leg for the past 2 weeks and completed doxycycline for 7-day course yesterday. There is still
some mild redness to the area wound with small eschar. . he does have an appoint with wound care on Monday. white count 4.5. Hemoglobin stable, chemistries unremarkable negative COVID would recommend adding Keflex fr mild cellulitis until seen
by wound care however patient is stable for discharge home. Pt evaluatd by ED physician.
<MURALI Davis - Last Filed: 08/22/25 10:33>
*Radiology
Radiology exam reviewed: preliminary read by ED provider (unchanged )
*Pulse Oximetry
SaO2: 96
Oxygen Mode of Delivery: Room air
Patient hypoxic: no
*Critical Care Note
Total Time (30-74mins, 75-104mins- exclusive of procedures): Not Applicable
ED Attending Note
<MURALI Davis - Last Filed: 08/22/25 10:33>
-
Portions of this chart may have been created with voice recognition software.� Occasional wrong word or��sound alike� substitutions may have occurred due to the inherent limitations of voice recognition software.
<Randolph Raman DO - Last Filed: 08/22/25 10:18>
ED Attending Note
Patient seen and examined by attending physician: Yes
I performed the substantive portion of visit, reviewed & personally made and approve the management plan that is documented in note by myself or DERIK.: Yes
ED Attending Note:
I agree with Li's note
Pt primarily concerned about left leg wound. Also has cough, feels dry. No fever.
Extremities: Bilateral lower extremity edema with changes chronic venous stasis. Left leg may be slightly more erythematous than the right but not particularly warm or indurated. Wound has an eschar. No purulent discharge.
Overall I believe the patient has changes of chronic venous stasis with a healing wound. I doubt the wound is acutely infected though with the changes of chronic venous stasis it may be hard to ruled out completely. Patient does not appear ill
enough to require hospitalization. Will provide a course of Keflex. Follow-up with wound care center on Monday as scheduled
Discharge Plan
Departure
Patient Disposition: Home (Routine Discharge)
Date of Disposition: 08/22/25
Time of Disposition: 10:25
Patient with high blood pressure during this ER visit?: Yes
Condition: Fair
Covid-19: Not Applicable
Discharge Problem:
Cellulitis of left lower extremity
Instructions: Cellulitis (skin infection) in adults - ED (DC), BLOOD PRESSURE
Prescriptions:
New
cephalexin 500 mg capsule
500 mg PO Q6H Qty: 28 0RF
No Action
pravastatin 40 MG tablet
40 mg PO DAILY
cholecalciferol (vitamin D3) 2,000 UNITS tablet
2,000 unit PO DAILY
Probiotic 1 EACH capsule, sprinkle
1 ea PO DAILY
furosemide [Lasix] 40 mg Tablet
40 mg PO DAILY
acetaminophen [Tylenol Extra Strength] 500 mg Tablet
1,000 mg PO BIDPRN PRN (Reason: mild pain)
verapamil 300 mg capsule, [address]
300 mg PO QPM
Xarelto 20 MG tablet
20 mg PO QPM
ferrous sulfate [FeroSul] 325 mg (65 mg iron) Tablet
325 mg PO Q48H 30 Days Qty: 15 0RF
cyanocobalamin (vitamin B-12) 1,000 mcg Tablet
1,000 mcg PO DAILY 30 Days Qty: 30 0RF
amoxicillin-pot clavulanate 875-125 mg tablet
1 tab PO BID Qty: 24 0RF
albuterol sulfate 90 mcg/actuation HFA aerosol inhaler
2 puff inhalation Q6H PRN (Reason: shortness of breath or wheezing) Qty: 6.7 0RF
doxycycline hyclate 100 mg tablet
100 mg PO BID Qty: 14 0RF
Referrals:
[facility] Care Center [Outside]
Ilir Morrison MD [Family Provider, Internal Medicine]
Activity Restrictions/Additional Instructions:
As discussed and a prescription for antibiotic, Keflex was sent to your pharmacy take as directed until seen and eval by wound center. Return if any worsening of symptoms including fever chills or any further concerns.
Interventions
Interventions:
*Risk Screen - Suicide Last Done: 08/22/25 08:32
*General Assessment Last Done: 08/22/25 08:57
*Neglect/Abuse Screening Last Done: 08/22/25 08:32
*ED- Fall Risk Assessment Last Done: 08/22/25 08:57
*ED COVID-19 Vaccine History Last Done: 08/22/25 08:57
ED- Cardiac Assessment Last Done: 08/22/25 09:17
ED- Neurological Assessment Last Done: 08/22/25 09:01
ED- Pulmonary Assessment Last Done: 08/22/25 09:17
Discharge Date and Time
Print Language: ROMANSH
[2025-08-22 08:56] VITALS: BMI 30.6
[2025-08-22 09:07] VITALS: BP 154/79
[2025-08-22 09:33] LABS: Hematocrit 35.8 % (39.0-52.0); Hemoglobin 12.0 g/dL (13.0-18.0); Mean Corp Hgb Conc. 33.5 g/dL (33.0-37.0); Mean Corpuscular Volume 96.8 fL (80.0-94.0); Nucleated Red Blood Cells % 0 % (-); Platelet Count 177 10^3/uL (130-400); Red Cell Dist. Width 14.1 % (11.5-14.5)
[2025-08-22 09:49] LABS: ALT (SGPT) 22 U/L (0-50); AST (SGOT) 30 U/L (17-59); Albumin 4.2 g/dl (3.5-5.0); Alkaline Phosphatase 50 U/L (38-126); Blood Urea Nitrogen 19 mg/dl (9-20); Calcium 9.2 mg/dl (8.4-10.2); Carbon Dioxide 25 mmol/L (22-30); Chloride 104 mmol/L (98-107); Estimated Creatinine Clearance 113 ml/min; Glucose 100 mg/dl (70-99); Potassium 4.2 mmol/L (3.5-5.1); Sodium 136 mmol/L (135-145); Total Protein 6.5 g/dl (6.3-8.2); eGFR > 60.00
[2025-08-22 09:53] LABS: COVID-19 Antigen Negative (Negative)
[2025-08-22 10:04] VITALS: BP 142/63
[2025-08-22] MEDS: KEFLEX 500 MG PO (10:33)
== END 2025-08-22 10:56 | disposition home or self-care (01) ==
LOC: EMR 08:24
PROVIDERS: Nurse Practitioner; EMERGENCY PHYSICIAN Emergency Medicine; FAMILY PHYSICIAN Internal Medicine
DX: L03.116 Cellulitis of left lower limb (principal); R05.9 Cough, unspecified; I10 Essential (primary) hypertension; E78.00 Pure hypercholesterolemia, unspecified; I48.91 Unspecified atrial fibrillation; Z87.891 Personal history of nicotine dependence; Z11.52 Encounter for screening for COVID-19
CPT/HCPCS: 99284; 71046; 80053; 85025; 87502; 87811

== ENCOUNTER → 2025-08-25 12:29 | Outpatient (REF) | payer OTHER, SELFPAY | LOC: WOUND 12:29 | PROVIDERS: ATTENDING PHYSICIAN Surgery; FAMILY PHYSICIAN Internal Medicine | DX: D49.2 Neoplasm of unspecified behavior of bone, soft tissue, and skin (principal); L97.322 Non-pressure chronic ulcer of left ankle with fat layer exposed; R60.1 Generalized edema; I48.0 Paroxysmal atrial fibrillation; Z79.01 Long term (current) use of anticoagulants | CPT/HCPCS: 11401; 88305; 99204 ==

== ENCOUNTER 2025-08-28 02:14 | Emergency (ER) | payer OTHER, SELFPAY ==
[2025-08-28 02:31] VITALS: BP 128/70
[2025-08-28 02:36] VITALS: BMI 29.6
[2025-08-28 03:00] VITALS: BP 111/67
[2025-08-28 04:00] VITALS: BP 131/77
[2025-08-28 05:00] VITALS: BP 146/73
--- NOTE | 2025-08-28 05:19 | ED.GENMED ---
History of Present Illness
General
Chief Complaint: Skin Problem
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
Exam Limitations: none
Time Seen by Provider: 08/28/25 04:48
Nursing documentation reviewed up to this point in time: agreed with
History of Present Illness
History of Present Illness:
This is an 85-year-old gentleman who presents with a left medial ankle wound that began over 1 month ago. Initially treated with a course of doxycycline and then evaluated in this ED August 22 with complaints of continued left medial ankle
wound, concern for potential cellulitis. Labs were unremarkable. He was placed on a course of Keflex. He has since followed up with wound care with initial visit on Monday. Left medial ankle wound was debrided, packed with gauze and patient was
discharged to home with additional gauze dressing for repacking. Patient admits that he was not given specific instructions as to how to care for the wound. He has a follow-up appointment with wound care scheduled for Monday. September 01.
He has history of A-fib chronically maintained on Xarelto. He has history of chronic bilateral lower extremity edema, venous stasis edema. Follows with cardiology and was recommended to increase his Lasix from 40 mg once daily to 40 mg twice
daily. He plans to initiate this today. He denies cough no shortness of breath. No fever and or chills. Left lower leg redness has resolved since ED visit here August 22.
Last night after taking a shower he pulled the packing out of the wound and wound abruptly began bleeding and was difficult to control the bleeding with local pressure, reinsertion of new packing. He arrives via EMS, dressing in place, no active
bleeding.
He has had no dizziness nor lightheadedness. No chest pain.
Past History
Past History
ED Past Medical History: Arrthythmia (Atrial fib), Cancer (prostate CA with 44 radiation txs, last 02/2022), CHF, GERD, HTN, Hypercholesterolemia, Other (Back and neck pain, Neuropathy, Diverticulitis, GI bleeding. Hep B, Iron def anemia,
Pneumothorax as child) and Other (fall, hemothorax, chest tube 2017)
ED Past Surgical History: Orthopedic (Left bicep repair ) and Other (Hernia repair, )
Patient has exhibited threatening behavior?: No
PSI?: No
Social History
Tobacco: Former smoker
Alcohol: Daily (Whisky or Vodka or beer 2 daily)
Drug: None
Personal:
Living: with family
Employment: Retired
Family History
Family History: Negative Diabetes, Hypertension or CAD
Phy Exam
Physical Exam
Physical Exam:
GENERAL: 85-year-old gentleman appears his stated age, bright and alert, pleasant, easily communicative and in no acute distress. is accompanying. He is hemodynamically stable.
EYE: anicteric
NECK: Supple, nontender, no meningismus, no significant adenopathy.
ENT: oral mucosa is moist. No rhinorrhea.
CARDIAC: Regular rate and rhythm. no murmur.
LUNGS: Clear breath sounds bilaterally, no acute respiratory distress, no wheezes/rales/rhonchi
ABDOMEN: Soft, nondistended, without focal tenderness
NEUROLOGICAL: Alert and oriented x3, no focal neuro deficits.
SKIN: Warm and dry, normal color, there is a 1 cm superficial dry wound to right anterior lower leg with black eschar intact. The left medial ankle has a 4 cm x 2.5 cm ulcerated wound currently packed with gauze dressing. Gauze is blood-soaked but
no active bleeding. There is scant black eschar noted inferior and posterior aspect of the ulcer. There is very minimal chronic appearing discoloration left lower leg from mid calf to proximal ankle. There is no definitive erythema, no palpable
heat nor significant palpable tenderness.
MUSCULOSKELETAL: +3-4 pitting edema bilateral lower extremities. Peripheral pulses are full and equal b/l. No palpable tenderness.
PSYCH: Normal and appropriate interaction.
Course
Vital Signs
Initial and Last Documented VS:
Initial Vital Signs
Pulse Ox
96
08/28/25 02:23
Last Documented Vital Signs
Temp Pulse Resp BP Pulse Ox
97.5 F 71 18 146/73 96
08/28/25 02:31 08/28/25 02:31 08/28/25 02:31 08/28/25 05:00 08/28/25 05:24
MDM/Problems Addressed
MDM/Problems Addressed:
Differential diagnosis includes, in no particular order and is not limited to:
Postoperative wound debridement bleeding
Cellulitis
Venous stasis ulcer
Diabetic neuropathy
Peripheral vascular disease
Lymphedema
Thrombophlebitis
DVT
Chronic conditions affecting care:
Chronic venous stasis bilateral lower extremities
Venous stasis wound left medial ankle
A-fib, chronically maintained on Xarelto
Wound remains dry, no recurrent bleeding.
I have elected to keep packing in place and have reinforced wound packing with Gelfoam, 4 x 4's and Puja.
Bilateral lower extremity edema, appears chronic but patient admits that swelling has worsened over the past several weeks.
Venous Doppler left lower extremity negative for DVT August 22. He has been compliant with Xarelto thus DVT is unlikely.
He has had no coughing or shortness of breath. Nothing to suggest acute CHF. Following with cardiology with recommendations to increase Lasix at least temporarily which he plans to initiate today.
Compression Tubigrip stockings have been placed bilateral lower extremities.
Wound care instructions provided. Recommend he keep the current dressing dry and intact and avoid changing this unless it becomes soiled or bleeding recurs. If bleeding recurs recommend local pressure and if bleeding persists, prompt return to the
ED for further evaluation.
Follow-up with wound care on Monday as already planned.
*Pulse Oximetry
SaO2: 96
Oxygen Mode of Delivery: Room air
Patient hypoxic: no
*Critical Care Note
Total Time (30-74mins, 75-104mins- exclusive of procedures): Not Applicable
ED Attending Note
-
Portions of this chart may have been created with voice recognition software.� Occasional wrong word or��sound alike� substitutions may have occurred due to the inherent limitations of voice recognition software.
Discharge Plan
Departure
Patient Disposition: Home (Routine Discharge)
Date of Disposition: 08/28/25
Time of Disposition: 05:20
Patient with high blood pressure during this ER visit?: No
Condition: Good
Discharge Problem:
bleeding from LLE stasis ulcer, Peripheral edema
Instructions: Caring for an open wound, Debridement of a wound or burn, [facility]
Prescriptions:
No Action
pravastatin 40 MG tablet
40 mg PO DAILY
cholecalciferol (vitamin D3) 2,000 UNITS tablet
2,000 unit PO DAILY
Probiotic 1 EACH capsule, sprinkle
1 ea PO DAILY
furosemide [Lasix] 40 mg Tablet
40 mg PO DAILY
acetaminophen [Tylenol Extra Strength] 500 mg Tablet
1,000 mg PO BIDPRN PRN (Reason: mild pain)
verapamil 300 mg capsule, [address]
300 mg PO QPM
Xarelto 20 MG tablet
20 mg PO QPM
ferrous sulfate [FeroSul] 325 mg (65 mg iron) Tablet
325 mg PO Q48H 30 Days Qty: 15 0RF
cyanocobalamin (vitamin B-12) 1,000 mcg Tablet
1,000 mcg PO DAILY 30 Days Qty: 30 0RF
amoxicillin-pot clavulanate 875-125 mg tablet
1 tab PO BID Qty: 24 0RF
albuterol sulfate 90 mcg/actuation HFA aerosol inhaler
2 puff inhalation Q6H PRN (Reason: shortness of breath or wheezing) Qty: 6.7 0RF
doxycycline hyclate 100 mg tablet
100 mg PO BID Qty: 14 0RF
cephalexin 500 mg capsule
500 mg PO Q6H Qty: 28 0RF
Referrals:
Wound Care Center [Outside]
Ilir Morrison MD [Family Provider, Internal Medicine]
Interventions
Interventions:
*Risk Screen - Suicide Last Done: 08/28/25 02:31
*General Assessment Last Done: 08/28/25 02:31
*Neglect/Abuse Screening Last Done: 08/28/25 02:31
*ED- Fall Risk Assessment Last Done: 08/28/25 02:31
*ED COVID-19 Vaccine History Last Done: 08/28/25 02:31
*ED Influenza Vaccine History Last Done: 08/28/25 02:31
*Nursing Disposition Last Done: 08/28/25 05:35
ED-Skin Assessment Last Done: 08/28/25 02:56
Discharge Date and Time
Discharge Date/Time: 08/28/25 05:36
Print Language: PERUVIAN
== END 2025-08-28 05:36 | disposition home or self-care (01) ==
LOC: EMR 02:14
PROVIDERS: EMERGENCY PHYSICIAN Emergency Medicine; FAMILY PHYSICIAN Internal Medicine
DX: I83.023 Varicose veins of left lower extremity with ulcer of ankle (principal); I87.8 Other specified disorders of veins; I48.91 Unspecified atrial fibrillation; I11.0 Hypertensive heart disease with heart failure; I50.9 Heart failure, unspecified; E78.00 Pure hypercholesterolemia, unspecified; D50.9 Iron deficiency anemia, unspecified; K21.9 Gastro-esophageal reflux disease without esophagitis; G62.9 Polyneuropathy, unspecified; Z79.01 Long term (current) use of anticoagulants; Z87.891 Personal history of nicotine dependence; Z85.46 Personal history of malignant neoplasm of prostate
CPT/HCPCS: 99283

== ENCOUNTER → 2025-09-01 10:22 | Outpatient (REF) | payer OTHER, SELFPAY | LOC: WOUND 10:22 | PROVIDERS: ATTENDING PHYSICIAN Surgery; FAMILY PHYSICIAN Internal Medicine | DX: I87.312 Chronic venous hypertension (idiopathic) with ulcer of left lower extremity (principal); L97.322 Non-pressure chronic ulcer of left ankle with fat layer exposed; L03.116 Cellulitis of left lower limb; R60.1 Generalized edema; I48.0 Paroxysmal atrial fibrillation; I73.9 Peripheral vascular disease, unspecified; I87.2 Venous insufficiency (chronic) (peripheral); Z79.01 Long term (current) use of anticoagulants | CPT/HCPCS: 99214 ==

== ENCOUNTER → 2025-09-08 10:49 | Outpatient (REF) | payer OTHER, SELFPAY | LOC: WOUND 10:49 | PROVIDERS: ATTENDING PHYSICIAN Surgery; FAMILY PHYSICIAN Internal Medicine | DX: I87.312 Chronic venous hypertension (idiopathic) with ulcer of left lower extremity (principal); L97.322 Non-pressure chronic ulcer of left ankle with fat layer exposed; L03.116 Cellulitis of left lower limb; R60.1 Generalized edema; Z79.01 Long term (current) use of anticoagulants; I48.0 Paroxysmal atrial fibrillation; I73.9 Peripheral vascular disease, unspecified; I87.2 Venous insufficiency (chronic) (peripheral) | CPT/HCPCS: 11042 ==

== ENCOUNTER → 2025-09-16 07:58 | Outpatient (REF) | payer OTHER, SELFPAY | LOC: RAD 07:58 | PROVIDERS: ATTENDING PHYSICIAN Surgery; FAMILY PHYSICIAN Internal Medicine | DX: I87.312 Chronic venous hypertension (idiopathic) with ulcer of left lower extremity (principal); I87.2 Venous insufficiency (chronic) (peripheral); I73.9 Peripheral vascular disease, unspecified | CPT/HCPCS: 93922; 93971 ==

== ENCOUNTER → 2025-09-22 12:34 | Outpatient (REF) | payer OTHER, SELFPAY | LOC: WOUND 12:34 | PROVIDERS: ATTENDING PHYSICIAN Surgery; FAMILY PHYSICIAN Internal Medicine | DX: I87.312 Chronic venous hypertension (idiopathic) with ulcer of left lower extremity (principal); L97.322 Non-pressure chronic ulcer of left ankle with fat layer exposed; L03.116 Cellulitis of left lower limb; R60.1 Generalized edema; Z79.01 Long term (current) use of anticoagulants; I48.0 Paroxysmal atrial fibrillation; I73.9 Peripheral vascular disease, unspecified; I87.2 Venous insufficiency (chronic) (peripheral) | CPT/HCPCS: 99213 ==

== ENCOUNTER 2025-10-17 08:44 | Day surgery (SDC) | payer OTHER, SELFPAY ==
[2025-10-17] VITALS (27 sets, daily range): BP systolic 117–197; BP diastolic 54–120
[2025-10-17] MEDS: NSS 500 IV (08:52)
[2025-10-17 09:29] LABS: Hematocrit 36.1 % (39.0-52.0); Hemoglobin 12.0 g/dL (13.0-18.0); Mean Corp Hgb Conc. 33.2 g/dL (33.0-37.0); Mean Corpuscular Volume 99.2 fL (80.0-94.0); Platelet Count 264 10^3/uL (130-400); Red Cell Dist. Width 12.6 % (11.5-14.5)
[2025-10-17 09:38] LABS: INR 0.99; PT 13.4 Sec (11.4-14.6)
[2025-10-17 09:39] LABS: APTT 32.2 Sec (23.4-35.0); Blood Urea Nitrogen 16 mg/dl (9-20); Calcium 9.2 mg/dl (8.4-10.2); Carbon Dioxide 29 mmol/L (22-30); Estimated Creatinine Clearance 101 ml/min; Glucose 97 mg/dl (70-99); Potassium 4.2 mmol/L (3.5-5.1); Sodium 137 mmol/L (135-145); eGFR > 60.00
[2025-10-17 09:46] LABS: Chloride 104 mmol/L (98-107)
--- NOTE | 2025-10-17 10:50 | W.SUR.PREOP ---
Pre-Operative Surgical Note
-
I have examined this patient prior to the performance of the scheduled procedure.
The patient's condition is unchanged from the time of the current History and
Physical and the patient is able to undergo the scheduled procedure.
[2025-10-17 11:51] LABS: ACT-LR - POC 265 Seconds (116-155)
[2025-10-17] MEDS: SUBLIMAZE 25 MCG IV ×2 (12:47→12:54)
--- NOTE | 2025-10-17 12:59 | OR.RPT ---
Operative Report
Operative Report
Date of Operation: 10/17/2025
Pre Op Diagnosis:
1. Limb threatening ischemia, left lower extremity with nonhealing wounds
2. Severe lower extremity edema
Post Op Diagnosis:
1. Limb threatening ischemia, left lower extremity with nonhealing wounds
2. Severe lower extremity edema
Procedure:
1. Selective catheterization of third order lower extremity artery
2. Diagnostic aortobiiliac arteriogram
3. Diagnostic left lower extremity arteriogram
4. Ultrasound-guided percutaneous right common femoral artery access
Surgeon: Lonnie Denise III, MD
Photo Checker: Bhanu Christianson MD PGY2
Anesthesia: Sedation with local
Fluoroscopy:
23.6 min
176 mGy
59.02 gy.cm2
Complications: None
Estimated Blood Loss: Less than 10 cc
History and Indications for Procedure: 85-year-old male with multiple medical comorbidities. He has nonhealing wounds over his left foot and ankle with abnormal vascular lab studies. We brought him to the operating room for endovascular
interrogation of his left lower extremity arterial circulation.
Procedure in Detail: Augustine Solomon was correctly identified and placed supine on the operating table. After adequate induction of anesthesia the bilateral groins were prepped and draped in the usual sterile fashion. A timeout was performed with the
nursing and anesthesia staff confirming the patient's identity as well as the nature and laterality of the procedure.
The right common femoral artery was identified under ultrasound guidance. The artery was patent. The superior and inferior aspects of the femoral head were identified with radiographic guidance and marked at the skin level. The proposed puncture
site was infiltrated with local anesthesia. Under ultrasound guidance we accessed the right common femoral artery with a micropuncture needle and upsized to a 5 Fr sheath over a Nomad Gamesson wire. The wire and a ShepherFrolik hook flush catheter were
advanced into the distal abdominal aorta and a diagnostic aorto-biiliac arteriogram was performed:
AORTO-ILIAC ARTERIOGRAM:
Aorta: Diffusely and heavily calcified. Patent with no significant stenosis identified
Right common iliac artery: Diffusely calcified. Patent with no significant stenosis identified
Right external iliac artery: Diffusely calcified. Patent with no significant stenosis identified
Left common iliac artery: Diffusely calcified. Patent with no significant stenosis identified
Left external iliac artery: Diffusely calcified. Patent with no significant stenosis identified
Under roadmap guidance using a Glidewire and the SheApprityerFrolik hook catheter we selected the left common iliac artery followed by the external iliac artery and then the common femoral artery. A catheter was tracked up and over the aortic bifurcation and
placed in the common femoral artery. A diagnostic left lower extremity arteriogram was then performed which demonstrated the following:
LEFT LOWER EXTREMITY:
Common femoral artery: Areas of bulky calcified luminal plaque causing high-grade stenosis
Profunda femoral artery: Patent with no significant stenosis identified
Superficial femoral artery: Diffusely calcified. Patent with no significant stenosis identified
Popliteal artery: Densely calcified occlusive plaque behind the knee. Patent below the knee segment with no stenosis identified
Anterior tibial artery: Patent. Diffusely calcified. Crosses the ankle to form the DP
Tibioperoneal trunk: Calcified. Patent.
Peroneal artery: Calcified. Patent.
Posterior tibial artery: Patent. Diffusely calcified. Crosses the ankle to form plantar branches
ENDOVASCULAR INTERVENTION: Systemic heparin was administered. Exchanged out for a 6 Fr 45 cm sheath over a Storq wire. I was able to navigate through the calcified common femoral artery plaque with a Quickcross catheter and Glidewire. I navigated
through the superficial femoral artery to the popliteal artery occlusion. Under roadmap guidance using the Quickcross catheter and Glidewire I attempted to cross the densely calcified popliteal artery occlusion. I was unsuccessful with this
approach. I then used a stiff Glidewire and similarly could not advance through the calcified plaque. I then exchanged out and attempted to cross with a 0.014 Mongo wire and 0.014 Quickcross catheter but unfortunately was once again unsuccessful.
I could not achieve any meaningful advancement of the wire through the plaque and met stiff resistance with attempts to advance the catheter over whatever limited wire purchase was achieved. I then abandoned additional attempts to cross the
popliteal artery occlusion.
The sheath tip was pulled back into the right external iliac artery. Protamine was administered. The sheath was secured in place with the plan to pull it in the recovery area.
The patient tolerated the procedure well and was taken to the recovery area in stable condition.
Attestation: I was present and responsible for the entire procedure.
Signed:
Lonnie Denise III, MD
Vascular Surgery
[facility]
[2025-10-17] MEDS: NSS 1000 IV (13:53)
--- NOTE | 2025-10-17 15:28 | W.PN.UPDATE ---
Update Note
Progress Note Update
Patient remains with stable vital signs, puncture site clean, dry, and intact. Plan is for arterial bypass in the near future pending cardiac clearance. However, when reviewed plan with patient's family they expressed concern of bringing him home as
they feel his mobility has declined, wound care management is to challenging for them in home setting, and wound has significantly worsened with increased drainage and breakdown. They feel as though from a medial perspective he is not safe to bring
home. Reviewed case with solution strategist inpatient hospitalist who agreed inpatient management is appropriate but recommend ED evaluation first for his medical co morbidities. We will recover him fully from a procedural aspect and then discharge him to ED
for evaluation of medical concerns. Attending, patient, and family are all in agreement of plan. If patient does get admitted to hospital recommend cardiology consult to initiate clearance for future arterial bypass surgery.
== END 2025-10-17 17:52 | disposition home or self-care (01) ==
LOC: CATH 08:44
PROVIDERS: ATTENDING PHYSICIAN Surgery Vascular Surgery; OTHER PHYSICIAN Internal Medicine Cardiovascular Disease; PRIMARYCARE PHYSICIAN Internal Medicine
DX: I70.242 Atherosclerosis of native arteries of left leg with ulceration of calf (principal); L97.229 Non-pressure chronic ulcer of left calf with unspecified severity; I70.244 Atherosclerosis of native arteries of left leg with ulceration of heel and midfoot; L97.429 Non-pressure chronic ulcer of left heel and midfoot with unspecified severity; I70.245 Atherosclerosis of native arteries of left leg with ulceration of other part of foot; L97.529 Non-pressure chronic ulcer of other part of left foot with unspecified severity; Z79.899 Other long term (current) drug therapy; Z79.01 Long term (current) use of anticoagulants
CPT/HCPCS: 36247; 75710; 75625; 80048; 85027; 85610; 85730; C1769; C1894; Q9967

== ENCOUNTER 2025-10-17 22:43 | Inpatient (IN) | payer OTHER, SELFPAY ==
[2025-10-17] VITALS (7 sets, daily range): BP systolic 117–161; BP diastolic 65–83; BMI 29.3; BMI 28.2
--- NOTE | 2025-10-17 20:50 | ED.GENMED ---
History of Present Illness
General
Chief Complaint: Vascular Symptoms
Source: patient and family
Exam Limitations: none
Time Seen by Provider: 10/17/25 20:00
Nursing documentation reviewed up to this point in time: agreed with
History of Present Illness
History of Present Illness:
Patient presents to ED from vascular surgeons office, secondary to complete occlusion of the popliteal artery noted during arteriogram study this afternoon. Patient has had ongoing nonhealing wound in his left leg, which prompted vascular
evaluation. Denies fever or chills. Denies nausea or vomiting. Denies loss of appetite. Denies chest pain or shortness of breath.
Past History
Past History
ED Past Medical History: Arrthythmia (Atrial fib), Cancer (prostate CA with 44 radiation txs, last 02/2022), CHF, GERD, HTN, Hypercholesterolemia, Other (Back and neck pain, Neuropathy, Diverticulitis, GI bleeding. Hep B, Iron def anemia,
Pneumothorax as child) and Other (fall, hemothorax, chest tube 2017)
ED Past Surgical History: Orthopedic (Left bicep repair ) and Other (Hernia repair, )
Patient has exhibited threatening behavior?: No
PSI?: No
Social History
Tobacco: Former smoker
Alcohol: Daily (Whisky or Vodka or beer 2 daily)
Drug: None
Personal:
Living: with family
Employment: Retired
Family History
Family History: Negative Diabetes, Hypertension or CAD
Review of Systems
Review of Systems
Allergies reviewed?: Yes
All Other Systems: ROS reviewed and negative except as documented in HPI and ROS
Constitutional: Reports no symptoms; Denies fever
Respiratory: Reports no symptoms; Denies trouble breathing
ABD/GI: Reports no symptoms; Denies vomiting or diarrhea
Musculoskeletal: Reports edema
Skin: Reports no symptoms
Neurological: Reports no symptoms
Phy Exam
Physical Exam
Physical Exam:
Physical Exam
General: no apparent distress, not acutely ill. afebrile
Head: nc/at. eomi
Neck: supple. no meningeal signs.
Abdomen: normal bowel sounds. not tender.
Neuro: alert and oriented x 3. no focal neurological deficits
Skin: no rash
Psychiatric: well kept. interactive and cooperative
Extremities: b/l LE edema, pitting. warm to touch. no discoloration noted. LLE wound wrapped.
Course
Orders/Labs/Results
Orders:
Orders
10/17/25 20:19
Electrocardiogram (*1) Urgent
Reason for Study: PreOp
EKG- Treatment ONCE
10/17/25 20:55
Basic Metabolic Panel Urgent
Complete Blood Count/No Diff Urgent
PTT Urgent
Prothrombin Time Urgent
10/17/25 22:26
Admit/Transfer Patient As Directed
Co-Sign Provider:
Level of Care: Inpatient admission
Assign to:: Medical/Surgical
Physician / Group: Olu Rangel
Diagnosis: arterial occlusion, non-healing wound of left lower extremity
Reason for Hospitalization: arterial occlusion, non-healing wound of left lower extremity
Expected length of stay greater than two midnights?: Yes
ELOS- Estimated Length of Stay in days: 3
I certify the patient meets the requirements for IP care: Yes
10/17/25 22:28
Code Status As Directed
Resuscitation Status: Full Code
Abnormal Lab Results
10/17/25
20:55
RBC 3.68 L 10^6/uL
(4.70-6.10)
Hgb 12.0 L g/dL
(13.0-18.0)
Hct 36.6 L %
(39.0-52.0)
MCV 99.5 H fL
(80.0-94.0)
MCH 32.6 H pg
(27.0-31.0)
MCHC 32.8 L g/dL
(33.0-37.0)
Sodium 134 L mmol/L
(135-145)
Creatinine 0.5 L mg/dL
(0.7-1.3)
Glucose 104 H mg/dl
(70-99)
10/17/25 20:55
10/17/25 20:55
Vital Signs
Initial and Last Documented VS:
Initial Vital Signs
Temp Pulse Resp BP Pulse Ox
98.3 F 75 16 117/67 94
10/17/25 18:04 10/17/25 18:04 10/17/25 18:04 10/17/25 18:04 10/17/25 18:04
Last Documented Vital Signs
Temp Pulse Resp BP Pulse Ox
98.3 F 70 18 141/72 92
10/17/25 18:04 10/17/25 22:45 10/17/25 22:45 10/17/25 22:00 10/17/25 21:45
MDM/Problems Addressed
MDM/Problems Addressed:
Discussed with on-call vascular surgeon, Dr. Clay, who recommends patient to be admitted under hospitalist service for likely left lower leg bypass surgery. Patient will require cardiology clearance.
*Pulse Oximetry
SaO2: 94
Oxygen Mode of Delivery: Room air
Patient hypoxic: no
*EKG
Interpreted by ED Provider?: Yes
EKG Intrepretation Date: 10/17/25
Heart Rate: 69
Rate: normal
Rhythm: sinus
[place]: normal axis
Interval: normal interval
*Critical Care Note
Total Time (30-74mins, 75-104mins- exclusive of procedures): Not Applicable
ED Attending Note
-
Portions of this chart may have been created with voice recognition software.� Occasional wrong word or��sound alike� substitutions may have occurred due to the inherent limitations of voice recognition software.
Discharge Plan
Departure
Patient Disposition: Admit
Date of Disposition: 10/17/25
Time of Disposition: 21:36
Admit to: Med/Surg
Presentation/result/management discussed w/ accepting MD/DO: Hospitalist
Discharge Problem:
Non-healing wound of left lower extremity, Arterial occlusion
Interventions
Interventions:
*Risk Screen - Suicide Last Done: 10/17/25 18:04
*General Assessment Last Done: 10/17/25 18:04
*Neglect/Abuse Screening Last Done: 10/17/25 18:04
*ED- Fall Risk Assessment Last Done: 10/17/25 18:06
*ED COVID-19 Vaccine History Last Done: 10/17/25 18:06
*ED Influenza Vaccine History Last Done: 10/17/25 18:06
ED- Cardiac Assessment Last Done: 10/17/25 21:00
ED- Pulmonary Assessment Last Done: 10/17/25 21:00
ED-Peripheral Vascular Assessment Last Done: 10/17/25 21:00
ED-Skin Assessment Last Done: 10/17/25 21:00
[2025-10-17 21:04] LABS: Hematocrit 36.6 % (39.0-52.0); Hemoglobin 12.0 g/dL (13.0-18.0); Mean Corp Hgb Conc. 32.8 g/dL (33.0-37.0); Mean Corpuscular Volume 99.5 fL (80.0-94.0); Platelet Count 243 10^3/uL (130-400); Red Cell Dist. Width 12.5 % (11.5-14.5)
[2025-10-17 21:16] LABS: INR 0.99; PT 13.4 Sec (11.4-14.6)
[2025-10-17 21:17] LABS: APTT 31.9 Sec (23.4-35.0)
[2025-10-17 21:19] LABS: Blood Urea Nitrogen 12 mg/dl (9-20); Calcium 9.0 mg/dl (8.4-10.2); Carbon Dioxide 27 mmol/L (22-30); Chloride 104 mmol/L (98-107); Glucose 104 mg/dl (70-99); Potassium 3.8 mmol/L (3.5-5.1); Sodium 134 mmol/L (135-145); eGFR > 60.00
--- NOTE | 2025-10-17 21:40 | HPS.HSE ---
Family Physician
-
Family Physician: Ilir Morrison
Chief Complaint
-
vascular symptoms
History of Present Illness
Patient is a 85-year-old male with past medical history significant for hypercholesterolemia, hypertension, paroxysmal atrial fibrillation, iron deficiency anemia, GERD and Hx prostate cancer who presented to [facility] ED from vascular surgeries office
where he had arteriogram study completed. Patient was undergoing vascular workup for nonhealing wound to left leg. Arteriogram this afternoon revealed complete occlusion of the popiteal artery. Vascular surgeons office referred patient to ED for
further treatment. Patient denies any fever, chills, cough, shortness of breath, chest pain, nausea, vomiting, constipation, diarrhea or urinary symptoms.
Medical History
Past Medical History
Past Medical History: Reports Other
Additional Past Medical History:
hypercholesterolemia
hypertension
paroxysmal atrial fibrillation
iron deficiency anemia
GERD
Hx prostate cancer
Past Surgical History: Reports Other
Additional Past Surgical History:
colonoscopy 08/2023
orthopedic - left arm tendon repair
Social History
Tobacco: Former Smoker
Alcohol: Daily (1-2 cocktails per day (whiskey or vodka))
Drug: None
Personal:
Living: With Family
Employment: Retired
Family History
Family History: Not pertinent
Allergies / Home Medications
Allergies reflects when Allergies were last updated in [facility].
Home Medications with original date entered in [facility]
Allergy/Medication List:
Allergies
Allergy/AdvReac Type Severity Reaction Status Date / Time
No Known Allergies Allergy Verified 10/17/25 21:27
Home Medications
pravastatin 40 mg tablet 40 mg PO DAILY High cholesterol 06/06/12
cholecalciferol (vitamin D3) 50 mcg (2,000 unit) tablet 2,000 unit PO DAILY Supplement 01/05/18
acetaminophen 500 mg tablet (Tylenol Extra Strength) 1,000 mg PO BIDPRN PRN mild pain 03/22/23
furosemide 40 mg tablet (Lasix) 40 mg PO DAILYPRN PRN Fluid retention/Swelling 03/22/23
rivaroxaban 20 mg tablet (Xarelto) 20 mg PO QPM Blood clot prevention/tx 03/22/23
Held on 10/17/25. Instructions: Resume on 10/18/25.
verapamil 300 mg capsule [address]hr pellet CT,ext.release 300 mg PO QPM Blood pressure 03/22/23
cephalexin 500 mg capsule 500 mg PO BID Infection 10/17/25
cyanocobalamin (vitamin B-12) 1,000 mcg tablet 1,000 mcg PO DAILY Supplement 10/17/25
ferrous sulfate 325 mg (65 mg iron) tablet (FeroSul) 325 mg PO Q48H Supplement 10/17/25
Review of Systems
-
History Source: Patient
A 12 point ROS was completed and negative except as noted: Yes
Physical Exam
Vital Signs
Vital Signs
Temp Pulse Resp BP Pulse Ox
98.3 F 70 20 135/68 97
10/17/25 18:04 10/17/25 21:28 10/17/25 21:28 10/17/25 21:28 10/17/25 21:28
Physical Exam
General: Well Developed, Well Nourished, No Apparent Distress, Comfortable, Conversant and Obese
HEENT: NormoCephalic, Moist mucous membranes, PERRLA, Nose Appears Normal and Ears Appear Normal
Respiratory: Clear and Non Labored Respirations; No Wheezes, Rales or Rhonchi
Cardiac: S1/S2, Regular Rhythm, Peripheral Edema (+3 - +4 bilateral lower extremity ) and Other (left dorsalis pedis pulse by doppler); No Murmur
GI: Soft, Non Tender, Non Distended and Normal Bowel Sounds
Musculoskeletal: No Clubbing and No Cyanosis
Neuro: Awake and AO x 3
Psych: Calm and Intact Judgment/Insight
Laboratory Results
-
10/17/25 20:55
10/17/25 20:55
Laboratory Results
PT 13.4 Sec (11.4-14.6) 10/17/25 20:55
INR 0.99 10/17/25 20:55
APTT 31.9 Sec (23.4-35.0) 10/17/25 20:55
Data Reviewed
-
Medical Tests (Nuc Med, Echo, EKG etc): Report Reviewed by me (EKG: NORMAL SINUS RHYTHM)
Lab Data: Labs Reviewed by me
Impression/Plan
-
IMPRESSION/PLAN:
#Arterial occlusion
#Non-healing wound of left lower extremity
non-healing left leg wound, arteriogram this afternoon revealed complete occlusion of the popiteal artery, Dr. Denise requesting admission for bypass
labs unremarkable
EKG: NORMAL SINUS RHYTHM
- Admit to telemetry
- Consult Vascular Surgery (did not believe needed heparin gtt)
- Consult Cardiology for surgical clearance
- last dose of Xarelto was Monday10/15/2025
- continue cephalexin until completed (patient reports 5 doses remain)
#paroxysmal atrial fibrillation
- Xarelto on hold since 10/15/2025
- cardiology consulted for clearance, please advise on anticoagulant
#hypercholesterolemia
- continue pravastatin
#hypertension
- continue verapamil
#iron deficiency anemia
hgb 12.0, hct 36.6
- continue ferrous sulfate
#GERD
#Hx prostate cancer
Code status: full code
DVT prophylaxis: SCDs
--- NOTE | 2025-10-17 22:00 | W.PN.UPDATE ---
Update Note
Progress Note Update
Patient seen conjunction with the nurse practitioner. I agree with the plan examination physical. I concur with assessment and plan as stated.
Briefly, this is a 85-year-old male with past medical history significant for atrial fibrillation on anticoagulation, CHF, GERD, hypertension, hyperlipidemia, prior history of prostate cancer status post radiation, presents to the emergency
department from vascular surgery clinic for evaluation of complete occlusion of the popliteal artery.
Patient with history of atherosclerosis of [place] arteries of the left leg with ulceration having had multiple wounds over his left calf, ankle and toe. He has chronic lower extremity swelling and a mixed picture of chronic lower extremity
lymphedema and peripheral arterial occlusive disease. Given the mixed picture of his findings in the clinic arteriogram was performed for possible endovascular intervention to address his arterial occlusive disease.
Ultrasound was negative for DVT. DONAL was unmeasurable in the right lower extremity due to noncompressible arteries, similar findings in the left lower extremity. TBI within normal limits in the right lower extremity, TBI severely reduced to 0.08
in the left lower extremity. Anterior exam showed limb threatening ischemia with significnt common femoral artery, popliteal artery disease. Endovascular intervention could not be performed. Patient was just into the Emergency Department to be
admitted for bypass.
On arrival in the emergency department patient was afebrile, blood pressure was 135/60 with a pulse of 70 and he was satting 97% on room air. CBC was unremarkable. Electrolytes were in the normal range. ECG shows a normal sinus rhythm at a rate
of 69.
Plan
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
with concern for critical limb ischemia. Patient hemodynamically stable.
Critical left lower extremity arterial insufficiency
- Admit to [facility]
- Pain control
- Patient has no recent history of CAD but has CHF with preserved EF and A-fib, will have cardiology consulted for clearance
- Plan for bypass surgery, likely not over the weekend
- continue usual diet
- Vascular consultation
- cardiology consultation
Chronic lower extremity wounds
- Patient is currently on cephalexin, will continue cephalexin for now,
- Wound care consultation
Atrial fibrillation
- held Xarelto for arteriogram w/ last dose monday evening, restart per cardiology vs heparin gtt pending surgery
- Continue verapamil with hold parameters
Chronic lower extremity swelling
-Will hold Lasix on day of surgery but otherwise continue daily 40mg
DVT prophylaxis�on xarelto, to start bridging ac per cardiology
CODE STATUS�full code
--- NOTE | 2025-10-17 23:50 | PTCARENOTE ---
Patient arrived to unit from ED via stretcher, pulled over from stretcher to bed with assist of 3 person. Patient is alert and oriented, c/o headache on arrival and requesting tylenol. Patient with multiple wounds to left leg - non-healing per admit
reports, covered in foam dressings placed in ED, no drainage noted. Patient states he sometimes has weaping from left heel -- currently with gauze pad in place. Protective foam to sacrum, also placed in ED, dressing is CDI. Initiated on telemetry,
clarified need for telemetry orders with MURALI Kennedy. Call [facility] in reach, patient resting comfortably at this time. Will monitor.
[2025-10-18] VITALS (8 sets, daily range): BP systolic 110–146; BP diastolic 57–69; PULSE 64; O2SAT 95; BMI 29.3
[2025-10-18] MEDS: TYLENOL 650 MG PO ×3 (00:49→20:31)
[2025-10-18] MEDS: KEFLEX 500 MG PO ×2 (08:19→19:49)
[2025-10-18] MEDS: FEOSOL 325 MG PO (08:19)
[2025-10-18] MEDS: PRAVACHOL 40 MG PO (08:19)
--- NOTE | 2025-10-18 08:55 | CON.CAR ---
Addendum entered and electronically signed by Martin Alfonso MD 10/18/25 11:32:
Patient seen and examined
Agree with WILDA Rosas's note and assessment
Agree with WILDA Rosas's plan
Left lower extremity findings noted
He tells me that currently he is not having active pain in the left lower extremity
Examination:
Agree with WILDA Rosas's note and assessment
Alert and orient x 3
Nonfocal neurologically
Cor regular without significant murmur
Left lower extremity is perfused but markedly edematous with chronic arterial inflow changes noted
Lungs clear to station bilaterally
Abdomen soft nontender positive bowel sounds
Right leg has trace extremity edema
PCP:Ilir Morrison
Reference Test Clerk: Dr. Harjeet Cota
Impression:
Presented 10/17/2025 with critical limb ischemia from arterial insufficiency
PAD
Chronic lower extremity wounds/Unhealing leg ulcers
Chronic heart failure with preserved ejection fraction
hypercholesterolemia
hypertension
paroxysmal atrial fibrillation
Chronic anticoagulation on Xarelto
iron deficiency anemia
GERD
Hx prostate cancer status post radiation
Echo 04/05/2022: EF 50%. Stage I DD. Mild MR. PAP 27 mmHg
Plan:
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 Now being referred for invasive intervention/bypass with vascular surgery. Timing to be determined.
Chronic lower extremity wounds/Unhealing leg ulcers. Continue oral Lasix. Wound care.
Patient recently seen in outpatient cardiology office 09/30/2025 and was doing well with no concerns.
- Last echocardiogram in 2021 showed preserved ejection fraction and no significant valve disease. Plan for repeat echo Monday a.m.
Patient has history of heart failure with preserved ejection fraction on Lasix 40 mg daily as outpatient. No evidence of acute heart failure or volume overload on examination. Would continue oral Lasix and hold morning of surgery.
Patient has history of paroxysmal atrial fibrillation. Currently in sinus rhythm. Last dose of Xarelto was 10/15/2025. Can hold oral anticoagulation in anticipation of surgery and resume as soon as safe postsurgery
Continue verapamil for hypertension and pravastatin for hyperlipidemia.
If he has an emergency indication for surgery please proceed and would place him at low to moderate cardiovascular risk. If more urgent procedures planned we do not require further testing although we will plan an echo Monday morning to further
restratify if clinical scenario allows.
Discussed with pt, and Vascular surgey
Original Note:
Consultation
Consultation Request
Date/Time Consultation Requested: 10/17/2025
Date/Time Consultation Performed: 10/18/2025
Requesting Provider: MURALI King
Performing Provider: Juliana Rosas PA-C for Dr. Alfonso
Reason for Consultation: preoperative cardiac risk assessment
Medical History
-
History of Present Illness:
Patient is an 85-year-old male with past medical history significant for atrial fibrillation on anticoagulation, CHFpEF, GERD, hypertension, hyperlipidemia, prior history of prostate cancer status post radiation, presents to the emergency department
from vascular surgery clinic for evaluation of complete occlusion of the popliteal artery. He has chronic lower extremity swelling and a mixed picture of chronic lower extremity lymphedema and peripheral arterial occlusive disease and was
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 Plan is to undergo femoropopliteal bypass in the upcoming days. Timing to be determined. Currently Xarelto
placed on hold with last dose 10/15/2025. Cardiology being asked to see patient for preoperative cardiac risk assessment. Patient was seen on 09/30/[address] Dr[address] Cota and was doing well at that time. His most recent echo
was in 2021 which showed preserved ejection fraction.
Past medical history:
Chronic heart failure with preserved ejection fraction
PAD
Unhealing leg ulcers
hypercholesterolemia
hypertension
paroxysmal atrial fibrillation
Chronic anticoagulation on Xarelto
iron deficiency anemia
GERD
Hx prostate cancer status post radiation
Past Medical History
Past Medical History: Other (See HPI)
Past Surgical History: Orthopedic (Left arm tendon repair)
Social History
Tobacco: Former Smoker
Alcohol: Daily (1-2 cocktails daily (whiskey or vodka))
Drug: None
Personal:
Living: With Family
Employment: Retired
Family History
Family History: Reviewed & Not Pertinent
Allergies / Home Medications
Allergy/AdvReac Type Severity Reaction Status Date / Time
No Known Allergies Allergy Verified 10/17/25 21:27
�Medication �Instructions �Recorded �Confirmed �Type
pravastatin 40 mg tablet 40 mg PO DAILY High cholesterol 06/06/12 10/17/25 History
cholecalciferol (vitamin D3) 50 2,000 unit PO DAILY Supplement 01/05/18 10/17/25 History
mcg (2,000 unit) tablet
acetaminophen 500 mg tablet 1,000 mg PO BIDPRN PRN mild pain 03/22/23 10/17/25 History
(Tylenol Extra Strength)
furosemide 40 mg tablet (Lasix) 40 mg PO DAILYPRN PRN Fluid 03/22/23 10/17/25 History
retention/Swelling
rivaroxaban 20 mg tablet (Xarelto) 20 mg PO QPM Blood clot 03/22/23 10/17/25 History
Held on 10/17/25. prevention/tx
Instructions: Resume on
10/18/25.
verapamil 300 mg capsule 24hr 300 mg PO QPM Blood pressure 03/22/23 10/17/[address],ext.release
cephalexin 500 mg capsule 500 mg PO BID Infection 10/17/25 10/17/25 History
cyanocobalamin (vitamin B-12) 1,000 mcg PO DAILY Supplement 10/17/25 10/17/25 History
1,000 mcg tablet
ferrous sulfate 325 mg (65 mg 325 mg PO Q48H Supplement 10/17/25 10/17/25 History
iron) tablet (FeroSul)
Review of Systems
-
History Source: Patient
All other systems: Negative unless noted
Physical Exam
Vital Signs
Temp Pulse Resp BP Pulse Ox
97.6 F 68 16 133/65 96
10/18/25 07:00 10/18/25 07:00 10/18/25 07:00 10/18/25 07:00 10/18/25 07:00
GEN: No distress, awake, Ox3, sitting in bed, at bedside
HEENT: supple, anicteric, mmm
LUNGS: CTA, no wheezes/rales
CV: Reg, S1/S2, no murmur, rub or gallop
ABD: soft, BS+, NT/ND
EXT: Trace edema on right LE, +2 edema LLE with very edematous and red left foot
NEURO: Gross non-focal
SKIN: No rash. warm, dry, pink
Lab Results
10/17/25 20:55
10/17/25 20:55
Impression / Plan
-
PCP:Ilir Morrison
Reference Test Clerk: Dr. Harjeet Cota
Impression:
Presented 10/17/2025 with critical limb ischemia from arterial insufficiency
PAD
Chronic lower extremity wounds/Unhealing leg ulcers
Chronic heart failure with preserved ejection fraction
hypercholesterolemia
hypertension
paroxysmal atrial fibrillation
Chronic anticoagulation on Xarelto
iron deficiency anemia
GERD
Hx prostate cancer status post radiation
Echo 04/05/2022: EF 50%. Stage I DD. Mild MR. PAP 27 mmHg
Plan:
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 Now being referred for invasive intervention/bypass with vascular surgery. Timing to be determined.
Chronic lower extremity wounds/Unhealing leg ulcers. Continue oral Lasix. Wound care.
Patient recently seen in outpatient cardiology office 09/30/2025 and was doing well with no concerns.
- Last echocardiogram in 2021 showed preserved ejection fraction and no significant valve disease. Repeat echo prior to surgery
Patient has history of heart failure with preserved ejection fraction on Lasix 40 mg daily as outpatient. No evidence of acute heart failure or volume overload on examination. Would continue oral Lasix and hold morning of surgery.
Patient has history of paroxysmal atrial fibrillation. Currently in sinus rhythm. Last dose of Xarelto was 10/15/2025. Would hold on starting heparin unless patient should have recurrence of atrial fibrillation during hospitalization. When safe
from vascular surgery would resume OAC postoperatively
Continue verapamil for hypertension and pravastatin for hyperlipidemia.
Await echo for risk assess for vascular surgery. Would monitor Intraop and postoperatively on telemetry.
Discussed with pt, and Vascular surgey
HPI: 10/18/2025:
Patient is an 85-year-old male with past medical history significant for atrial fibrillation on anticoagulation, CHFpEF, GERD, hypertension, hyperlipidemia, prior history of prostate cancer status post radiation, presents to the emergency department
from vascular surgery clinic for evaluation of complete occlusion of the popliteal artery. He has chronic lower extremity swelling and a mixed picture of chronic lower extremity lymphedema and peripheral arterial occlusive disease and was
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 Plan is to undergo femoropopliteal bypass in the upcoming days. Timing to be determined. Currently Xarelto
placed on hold with last dose 10/15/2025. Cardiology being asked to see patient for preoperative cardiac risk assessment. Patient was seen on 09/30/[address]25 [address] Cota and was doing well at that time. His most recent echo
was in 2021 which showed preserved ejection fraction.
Data Reviewed
-
EKG: Report Reviewed by me, Discussed with Physician and Discussed with Patient
Labs: Labs Reviewed by me, Discussed with Physician and Discussed with Patient
Old Records: Reviewed
--- NOTE | 2025-10-18 10:23 | W.PN.UPDATE ---
Update Note
Progress Note Update
Seen and evaluated. No new complaints. Patient seen with his at the bedside as well.
No acute distress. Abdomen is soft. Right groin puncture site flat.
Plan/eventual bypass left lower extremity plan. Vein mapping ultrasounds. Cardiology workup as needed. Timing of bypass to be determined pending workup and availability.
--- NOTE | 2025-10-18 11:18 | W.PN.HOSP.TC ---
Today's Communication/Plan
-
Monitor vital signs and see plan
Restart Lasix
Ongoing evaluation for bypass
Assessment / Plan
Assessment / Plan
General: Well Developed, Well Nourished, No Apparent Distress
HEENT: NormoCephalic, Moist mucous membranes
Respiratory: Clear and Non Labored Respirations; No Wheezes, Rales or Rhonchi
Cardiac: S1/S2, Regular Rhythm, Peripheral Edema (bilateral lower extremity )
GI: Soft, Non Tender, Non Distended and Normal Bowel Sounds
Neuro: Awake and AO x 3
Psych: Calm and Intact Judgment/Insight
Critical left lower extremity arterial insufficiency
#Non-healing wound of left lower extremity
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
- Vascular Surgery following (did not believe needed heparin gtt)
- Consult Cardiology for surgical risk stratification. Echo pending
- last dose of Xarelto was Monday10/15/2025
- continue cephalexin until completed (patient reports 5 doses remain)
Ongoing workup per vascular and cardiology
Hyponatremia
Monitor
#paroxysmal atrial fibrillation
- Xarelto on hold since 10/15/2025
- cardiology following
Chronic lower extremity wounds
- Patient is currently on cephalexin, will continue cephalexin for now,
- Wound care consultation
#hypercholesterolemia
- continue pravastatin
#hypertension
- continue verapamil
#iron deficiency anemia
hgb 12.0, hct 36.6
- continue ferrous sulfate
#GERD
#Hx prostate cancer
Code status: full code
DVT prophylaxis: SCDs; pharmacological prophylaxis if okay with vascular
Anticipated Discharge: > 48 hours
Subjective/Interval History
-
Date of Service: October 18, 2025
Denies nausea
Objective Data
-
Vital Signs:
Vital Signs
Temp Pulse Resp BP Pulse Ox
97.6 F 68 16 133/65 96
10/18/25 07:00 10/18/25 07:00 10/18/25 07:00 10/18/25 07:00 10/18/25 07:00
--- NOTE | 2025-10-18 11:29 | CM ---
Pt admitted via ED from vascular surgeon's office due to complete occlusion in LLE artery. Will need LLE bypass; timing TBD pending workup.
Pt lives with his in a 2 story home with 1 entry step and an additional 4 steps to the main floor of the home. Bedroom is on the second floor with 17 steps up from the main floor. 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
surgical shoe and uses a cane for ambulation. He also has a RW, 4 wheeled walker, a shower seat and a knee brace which he wears at times depending on how his knee feels. He reports driving locally.
PT eval indicates patient has impaired safety awareness, required mod assist with sit-stand and stand-sit transfer; Tres to stand from elevated bed. Pt was able to stand for 2 minutes with RW and Tres of 1 and standby A of another staff member.
SNF recommended at discharge.
CM will follow to coordinate SNF transfer pending pt's acceptance when medically cleared. Timing of LLE bypass may impact disposition; watch for change in needs.
[2025-10-18] MEDS: LASIX 40 MG PO (13:15)
[2025-10-18] MEDS: CALAN EXTENDED RELEASE 120 MG PO (17:59)
[2025-10-18] MEDS: CALAN EXTENDED RELEASE 180 MG PO (17:59)
[2025-10-18] MEDS: LOVENOX 40 MG SC (17:59)
[2025-10-19 03:15] VITALS: BP 140/65
[2025-10-19 07:04] VITALS: BMI 27.6
[2025-10-19] MEDS: KEFLEX 500 MG PO ×2 (08:08→20:53)
[2025-10-19] MEDS: PRAVACHOL 40 MG PO (08:08)
[2025-10-19] MEDS: LASIX 40 MG PO (08:09)
[2025-10-19 08:22] LABS: Hematocrit 34.7 % (39.0-52.0); Hemoglobin 11.2 g/dL (13.0-18.0); Mean Corp Hgb Conc. 32.3 g/dL (33.0-37.0); Mean Corpuscular Volume 99.7 fL (80.0-94.0); Nucleated Red Blood Cells % 0 % (-); Platelet Count 250 10^3/uL (130-400); Red Cell Dist. Width 12.6 % (11.5-14.5)
[2025-10-19 08:29] VITALS: BP 124/60
[2025-10-19 08:39] LABS: ALT (SGPT) 20 U/L (0-50); AST (SGOT) 30 U/L (17-59); Albumin 3.8 g/dl (3.5-5.0); Alkaline Phosphatase 67 U/L (38-126); Blood Urea Nitrogen 11 mg/dl (9-20); Calcium 9.2 mg/dl (8.4-10.2); Carbon Dioxide 29 mmol/L (22-30); Chloride 102 mmol/L (98-107); Estimated Creatinine Clearance 101 ml/min; Glucose 93 mg/dl (70-99); Potassium 3.3 mmol/L (3.5-5.1); Sodium 136 mmol/L (135-145); Total Protein 6.5 g/dl (6.3-8.2); eGFR > 60.00
[2025-10-19] MEDS: TYLENOL 650 MG PO ×2 (10:26→21:45)
--- NOTE | 2025-10-19 12:00 | W.PN.HOSP.TC ---
Today's Communication/Plan
-
Monitor vital signs and see plan
Monitor mental status
replete potassium
Continue Lasix
Echo
Discussed with family
Assessment / Plan
Assessment / Plan
General: Well Developed, Well Nourished, No Apparent Distress
HEENT: NormoCephalic, Moist mucous membranes
Respiratory: Clear and Non Labored Respirations; No Wheezes, Rales or Rhonchi
Cardiac: S1/S2, Regular Rhythm, Peripheral Edema (bilateral lower extremity )
GI: Soft, Non Tender, Non Distended and Normal Bowel Sounds
Neuro: Awake and AO x 3
Psych: Calm and Intact Judgment/Insight
Critical left lower extremity arterial insufficiency
#Non-healing wound of left lower extremity
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
- Vascular Surgery following (did not believe needed heparin gtt)
- Consult Cardiology for surgical risk stratification. Echo pending
- last dose of Xarelto was Monday10/15/2025
- continue cephalexin until completed; last day 10/20
Ongoing workup per vascular and cardiology
Hyponatremia
resolved
Suspect cognitive impairment at times
Previous CT has shown atrophy
Currently with mild acute hospital-acquired delirium. Woke up with confusion however continued to improve throughout the day. Discussed with daughter, lets hold off on Seroquel for now. Continue to closely monitor. If agitated then might need
low-dose
#paroxysmal atrial fibrillation
- Xarelto on hold since 10/15/2025
- cardiology following
Chronic lower extremity wounds
- Patient is currently on cephalexin, will continue cephalexin for now,last day 10/20
- Wound care consultation
#hypercholesterolemia
- continue pravastatin
#hypertension
- continue verapamil
#iron deficiency anemia
monitor
- continue ferrous sulfate
#GERD
#Hx prostate cancer
Code status: full code
DVT prophylaxis:lovenox
Anticipated Discharge: > 48 hours
Subjective/Interval History
-
Date of Service: October 19, 2025
denies pain
Objective Data
-
Labs:
Laboratory Results
10/19/25
06:22
WBC 4.9
Hgb 11.2 L
Hct 34.7 L
Plt Count 250
Sodium 136
Potassium 3.3 L
Chloride 102
Carbon Dioxide 29
BUN 11
Creatinine 0.6 L
Glucose 93
Calcium 9.2
Total Bilirubin 0.6
AST 30
ALT 20
Alkaline Phosphatase 67
Vital Signs:
Vital Signs
Temp Pulse Resp BP Pulse Ox
98.2 F 72 16 124/60 95
10/19/25 08:29 10/19/25 08:29 10/19/25 08:29 10/19/25 08:29 10/19/25 10:32
I&O
10/18/25 10/19/25 10/20/25
06:59 06:59 06:59
Intake Total 300 / 300 200 / 200
Output Total 1100 / 1100 900 / 900
Balance -800 / -800 -700 / -700
[2025-10-19 12:17] VITALS: BP 107/60
[2025-10-19] MEDS: KCL 40 MEQ PO (12:28)
[2025-10-19 15:10] VITALS: BP 121/63
[2025-10-19] MEDS: CALAN EXTENDED RELEASE 120 MG PO (17:24)
[2025-10-19] MEDS: LOVENOX 40 MG SC (17:25)
[2025-10-19] MEDS: CALAN EXTENDED RELEASE 180 MG PO (17:25)
[2025-10-19 19:00] VITALS: BP 111/50
[2025-10-19 23:00] VITALS: BP 113/57
[2025-10-20 03:00] VITALS: BP 146/92
[2025-10-20 06:00] VITALS: BMI 26.0
[2025-10-20 07:00] VITALS: BP 117/67
[2025-10-20 07:05] LABS: Hematocrit 35.0 % (39.0-52.0); Hemoglobin 11.6 g/dL (13.0-18.0); Mean Corp Hgb Conc. 33.1 g/dL (33.0-37.0); Mean Corpuscular Volume 99.2 fL (80.0-94.0); Nucleated Red Blood Cells % 0 % (-); Platelet Count 242 10^3/uL (130-400); Red Cell Dist. Width 12.5 % (11.5-14.5)
[2025-10-20 07:11] LABS: ALT (SGPT) 20 U/L (0-50); AST (SGOT) 28 U/L (17-59); Albumin 4.0 g/dl (3.5-5.0); Alkaline Phosphatase 62 U/L (38-126); Blood Urea Nitrogen 16 mg/dl (9-20); Calcium 9.1 mg/dl (8.4-10.2); Carbon Dioxide 30 mmol/L (22-30); Chloride 102 mmol/L (98-107); Estimated Creatinine Clearance 101 ml/min; Glucose 108 mg/dl (70-99); Potassium 3.8 mmol/L (3.5-5.1); Sodium 139 mmol/L (135-145); Total Protein 6.5 g/dl (6.3-8.2); eGFR > 60.00
--- NOTE | 2025-10-20 08:20 | VNURNOTE ---
Chart reviewed. Patient is current with [facility]. Per CM note, appears goal is SNF. Will continue to follow hospital course and DC plans.
[2025-10-20] MEDS: KEFLEX 500 MG PO (08:39)
[2025-10-20] MEDS: FEOSOL 325 MG PO (08:39)
[2025-10-20] MEDS: PRAVACHOL 40 MG PO (08:40)
[2025-10-20] MEDS: LASIX 40 MG PO (08:40)
[2025-10-20] MEDS: TYLENOL 650 MG PO ×2 (08:41→19:34)
--- NOTE | 2025-10-20 09:55 | W.PN.HOSP.TC ---
Today's Communication/Plan
-
see A/P
Assessment / Plan
Assessment / Plan
A/P:
# Critical limb ischemia/ left lower extremity arterial insufficiency
# Non-healing wound of left lower extremity
arteriogram revealed complete occlusion of the popiteal artery
Vascular Surgery following (did not believe needed heparin gtt), plan for eventual bypass surgery left lower extremity.
Check vein mapping ultrasound
Cardiology on board for cardiac risk stratification.
Check Echo
last dose of Xarelto was Monday10/15/2025
s/p cephalexin
Ongoing workup per vascular and cardiology
# Hyponatremia, resolved
# Suspect cognitive impairment at times
Previous CT has shown atrophy
Currently with mild acute hospital-acquired delirium.
Wake up with confusion however MS improves throughout the day.
Dr Lee discussed with daughter, hold off on Seroquel for now. Continue to closely monitor. If agitated then might need low-dose
# paroxysmal atrial fibrillation
Xarelto on hold since 10/15/2025
cardiology following
# Chronic lower extremity wounds
s/p cephalexin
Wound care consulted
# hypercholesterolemia
continue pravastatin
# hypertension
continue verapamil
# iron deficiency anemia
continue ferrous sulfate
# GERD
# Hx prostate cancer
Code status: full code
DVT prophylaxis: lovenox SQ
DW CM
DW daughter at bedside in person
Anticipated Discharge: > 48 hours
Subjective/Interval History
-
Date of Service: October 20, 2025
Objective Data
-
Labs:
Laboratory Results
10/20/25
06:23
WBC 5.9
Hgb 11.6 L
Hct 35.0 L
Plt Count 242
Sodium 139
Potassium 3.8
Chloride 102
Carbon Dioxide 30
BUN 16
Creatinine 0.6 L
Glucose 108 H
Calcium 9.1
Total Bilirubin 0.6
AST 28
ALT 20
Alkaline Phosphatase 62
Vital Signs:
Vital Signs
Temp Pulse Resp BP Pulse Ox
36.7 C 74 18 117/67 95
10/20/25 07:00 10/20/25 08:40 10/20/25 07:00 10/20/25 08:40 10/20/25 07:00
I&O
10/19/25 10/20/25 10/21/25
06:59 06:59 06:59
Intake Total 300 / 300 1880 / 1880
Output Total 1100 / 1100 1000 / 1000
Balance -800 / -800 880 / 880
Review of Systems
-
History Source: Patient
All other systems: Reviewed and negative
Physical Exam
-
General: Well Developed, Well Nourished, No Apparent Distress, Comfortable and Conversant
HEENT: Normocephalic
Respiratory: Clear to Auscultation and Non Labored Respirations; Negative Accessory Resp Muscle Use
Cardiac: Regular Rhythm and S1/S2
GI: Soft, Nontender, Nondistended and Normal Bowel Sounds
Musculoskeletal: Other (Right foot in boot )
Neuro: Awake and Alert
Psych: Calm and Intact Judgement/Insight
Data Reviewed
-
Labs: Labs Reviewed by me
--- NOTE | 2025-10-20 10:16 | CM ---
Patient out of room when CM attempted to see patient at bedside on . Patient pending further work up and possible SNF when medically appropriate per chart review. Await update regarding next steps and will start looking for SNF when confirmed
per assesment. CM will continue to follow for discharge planning needs.
Plan; SNF
[2025-10-20 11:00] VITALS: BP 140/70
--- NOTE | 2025-10-20 12:05 | WOUNDNOTE ---
L LATERAL LOWER LEG
--- NOTE | 2025-10-20 12:08 | WOUNDNOTE ---
L POSTERIOR LOWER LEG
--- NOTE | 2025-10-20 12:10 | WOUNDNOTE ---
L 3RD PLANTAR TOE
--- NOTE | 2025-10-20 12:11 | WOUNDNOTE ---
WON RN note: Patient admitted with arterial occlusion to L leg and non healing wounds.
See H&P for complete history. Lives with at home.
PMH: Patient is a 85-year-old male with past medical history significant for hypercholesterolemia, hypertension, paroxysmal atrial fibrillation, iron deficiency anemia, GERD and Hx prostate cancer who presented to [facility] ED from vascular surgeries
office where he had arteriogram study completed. Patient was undergoing vascular workup for nonhealing wound to left leg. Arteriogram this afternoon revealed complete occlusion of the popiteal artery. Chronic venous leg ulcers, going to [facility]
wound care center for treatment.
Wound Location and type/assessment: Patient admitted with: L leg with venous ulcers, medial ankle, posterior and lateral leg. Scant pink, mostly slough, small drainage. L leg edema mainly in foot. For vascular mapping and eventual bypass of L lower
leg per vascular reports. Heels are intact, L lateral heel sore to touch, blanchable red. Nurse Sara states he is multiple assist with standing, saw sacrum and is intact. legs elevated on recliner chair.
Appetite:
Pressure redistribution devices in place:
Plan:
Will confirm orders with hospitalist and update nurse.
Updated care plan and will follow as needed.
Note to case management of equipment requested for discharge:
Recommend follow up at wound care center upon discharge.
--- NOTE | 2025-10-20 12:12 | WOUNDNOTE ---
WON RN note: Patient admitted with arterial occlusion to L leg and non healing wounds.
See H&P for complete history. Lives with at home.
PMH: Patient is a 85-year-old male with past medical history significant for hypercholesterolemia, hypertension, paroxysmal atrial fibrillation, iron deficiency anemia, GERD and Hx prostate cancer who presented to [facility] ED from vascular surgeries
office where he had arteriogram study completed. Patient was undergoing vascular workup for nonhealing wound to left leg. Arteriogram this afternoon revealed complete occlusion of the popiteal artery. Chronic venous leg ulcers, going to [facility]
wound care center for treatment.
Wound Location and type/assessment: Patient admitted with: L leg with venous ulcers, medial ankle, posterior and lateral leg. Scant pink, mostly slough, small drainage. L leg edema mainly in foot. For vascular mapping and eventual bypass of L lower
leg, per vascular reports. Heels are intact, L lateral heel sore to touch, blanchable red. Nurse Sara states he is multiple assist with standing, saw sacrum and is intact. legs elevated on recliner chair. Daughter Trisha at bedside and assisted
with lifting patient's L leg. Reviewed current wound care with wound care nurse Samreen at center. Patient also has a L plantar 3rd toe flat blood blister. Patient reports he goes to [employer] [facility]. Henderson who shaved down Callus there and ordered
offloading surgical shoe. Shoe is soiled and has an odor.
Appetite: Good, encouraged protein in diet.
Pressure redistribution devices in place: Advanta bed, if becomes difficult to turn apply air overlay to bed. Pillow placed under calves and adhesive foams applied to heels to protect.
Plan: Applied hydrogel to wounds followed by adaptic and dry dressing. Will order Santyl to start tomorrow and mineral oil for dry skin on legs. Called [employer] for extra large surgical shoe to use while here. Instructed patient and daughter to follow up
with Dr. Henderson and order new offloading shoe if one provided not adequate. Will order mineral oil for dry skin on both legs daily. Leg elevation when in chair. Will confirm orders with hospitalist and updated nurse Ruiz.
Updated care plan and will follow as needed.
Note to case management of equipment requested for discharge: VN if doesn't already have.
Recommend follow up at wound care center upon discharge.
--- NOTE | 2025-10-20 14:24 | CARDSERVLU ---
Echocardiogram with [facility] completed after protocol screening completed. Allergies verified.
Patent IV site: _left hand____
IV site flushed with 0.9% NaCl pre and post administration.
Diluted bolus method utilized to enhance visualization of ventricular harris.
Total volume given: _3.0___ mL
Patient tolerated all procedures well without complications.
--- NOTE | 2025-10-20 14:30 | W.PN.CARDCBS ---
Addendum entered and electronically signed by Eric Alonso MD 10/20/25 18:34:
85-year-old man with critical limb ischemia of the left lower extremity with nonhealing wound and occluded popliteal artery
PMH/PSH: PAF, currently in sinus rhythm on Xarelto, Possible cognitive impairment, GERD, history of prostate cancer status post XRT, hypertension, hypercholesterolemia, History of HFpEF
Medications: Reviewed, as outpatient furosemide is as needed-current meds: Iron, pravastatin 40 mg a day, verapamil ER 300 mg at bedtime, furosemide 40 mg daily, Lovenox. Xarelto on hold
Rest of history as below per Trisha Marcano. Reviewed in detail and agree, unless otherwise specified
He has some discomfort in the left leg, otherwise offers no complaints, may be mildly confused
140/70, pulse 73, respiratory rate 18, afebrile, sats 97%, weight is 86.8 kg, head neck exam unremarkable, lungs are clear, regular rate and rhythm, no obvious murmurs, JVD okay abdomen large umbilical hernia, 3+4+ edema on the left, 2+ on the
right, leg wrapped, neuro nonfocal
ECG 10/17/2025 sinus rhythm, normal ECG
No chest x-ray
Hemoglobin 11.6, white count is 5.9, BUN and creatinine are 16 and 0.6, potassium is 3.8
Echo: Pending
Impression:
As per Trisha Marcano below, reviewed in detail and agree, unless otherwise specified
Critical limb ischemia left lower extremity with occluded popliteal
Chronic HFpEF
Paroxysmal atrial fibrillation, currently sinus rhythm
History of prostate cancer status post XRT
Cognitive impairment
GERD
Plan:
At present, he appears stable from a cardiac standpoint.
Await echocardiogram. Anticipate this will show preserved LV function, similar to 202, without significant valvular heart disease.
Continue furosemide 40 mg a day.
Okay to proceed with left lower extremity revascularization at acceptable perioperative cardiac risk.
Original Note:
Today's Communication / Plan
-
Echo report pending
Impression / Plan
-
PCP:Ilir Morrison
[facility] Counsel[facility]: Dr. Harjeet Cota
Impression:
Presented with critical limb ischemia from arterial insufficiency 10/17/2025
PAD
Chronic lower extremity wounds/unhealing leg ulcers
Chronic HFpEF
hypercholesterolemia
hypertension
paroxysmal atrial fibrillation
Chronic anticoagulation on Xarelto
iron deficiency anemia
GERD
Hx prostate cancer status post radiation
Echo 04/05/2022: EF 50%. Stage I DD. Mild MR. PAP 27 mmHg
Echo 10/20/2025: Report pending
Plan:
-Presented 10/17/2025 with critical limb ischemia from arterial insufficiency from PAD with critical stenosis of femoral and popliteal arteries. Now being referred for invasive intervention/bypass with vascular surgery. Cardiology was consulted for
preoperative risk stratification
-Last echo was 04/05/2022 and repeat echo ordered for 10/20/2025, report pending
-EF previously preserved and no known history of CAD.
-Patient denies any chest pain or SOB. Patient felt to be at moderate cardiovascular risk and should proceed with planned peripheral vascular surgery following echo report, but if there is an urgent or emergent indication for surgery patient should
proceed prior to echo completion.
-Surgery has not been scheduled as of 10/20/2025, will update note with echo report to help with timing
-Outpatient dose of Lasix 40 mg PO daily has been continued
-Telemetry reviewed by me and patient remains in SR.
-Patient has known paroxysmal A-fib and outpatient dosing of verapamil 300 mg qHS has been continued
-Outpatient dose of Xarelto 20 mg daily is on hold in anticipation of surgery. Patient is not being bridged with heparin gtt and there is no history of thromboembolic event
HPI: 10/18/2025:
Patient is an 85-year-old male with past medical history significant for atrial fibrillation on anticoagulation, CHFpEF, GERD, hypertension, hyperlipidemia, prior history of prostate cancer status post radiation, presents to the emergency department
from vascular surgery clinic for evaluation of complete occlusion of the popliteal artery. He has chronic lower extremity swelling and a mixed picture of chronic lower extremity lymphedema and peripheral arterial occlusive disease and was
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 Plan is to undergo femoropopliteal bypass in the upcoming days. Timing to be determined. Currently Xarelto
placed on hold with last dose 10/15/2025. Cardiology being asked to see patient for preoperative cardiac risk assessment. Patient was seen on 09/30/2025 by outpatient director of construction Dr. Cota and was doing well at that time. His most recent echo
was in 2021 which showed preserved ejection fraction.
Progress Note - [facility] Counselor
Subjective
Date of Service: October 20, 2025
Denies chest pain
Objective
Labs:
10/20/25 06:23
10/20/25 06:23
Labs
Hgb 11.6 g/dL (13.0-18.0) L 10/20/25 06:23
Hct 35.0 % (39.0-52.0) L 10/20/25 06:23
Plt Count 242 10^3/uL (130-400) 10/20/25 06:23
PT 13.4 Sec (11.4-14.6) 10/17/25 20:55
INR 0.99 10/17/25 20:55
APTT 31.9 Sec (23.4-35.0) 10/17/25 20:55
Sodium 139 mmol/L (135-145) 10/20/25 06:23
Potassium 3.8 mmol/L (3.5-5.1) 10/20/25 06:23
BUN 16 mg/dl (9-20) 10/20/25 06:23
Creatinine 0.6 mg/dL (0.7-1.3) L 10/20/25 06:23
Glucose 108 mg/dl (70-99) H 10/20/25 06:23
Vital Signs and I&O:
Vital Signs
Temp Pulse Resp BP Pulse Ox
98.0 F 73 18 140/70 97
10/20/25 11:00 10/20/25 11:00 10/20/25 11:00 10/20/25 11:00 10/20/25 11:00
Vital Signs
Temp Pulse Resp BP Pulse Ox
98.0 F 73 18 140/70 97
10/20/25 11:00 10/20/25 11:00 10/20/25 11:00 10/20/25 11:00 10/20/25 11:00
Intake & Output
10/18/25 10/19/25 10/20/25 10/21/25
06:59 06:59 06:59 06:59
Intake Total 300 / 300 1880 / 1880
Output Total 1100 / 1100 1000 / 1000
Balance -800 / -800 880 / 880
Physical Exam
Physical Exam
GEN: NAD
LUNGS: RA. No audible wheeze.
CV: SR on telemetry.
EXT: Trace edema on right LE, +2 edema LLE with very edematous and red left foot
[2025-10-20 15:00] VITALS: BP 125/64
[2025-10-20] MEDS: CALAN EXTENDED RELEASE 180 MG PO (17:20)
[2025-10-20] MEDS: CALAN EXTENDED RELEASE 120 MG PO (17:20)
[2025-10-20] MEDS: LOVENOX 40 MG SC (17:20)
[2025-10-20 19:00] VITALS: BP 147/78
[2025-10-20 23:00] VITALS: BP 137/71
[2025-10-21 04:03] VITALS: BP 145/61
[2025-10-21 06:49] LABS: Hematocrit 33.1 % (39.0-52.0); Hemoglobin 11.2 g/dL (13.0-18.0); Mean Corp Hgb Conc. 33.8 g/dL (33.0-37.0); Mean Corpuscular Volume 99.1 fL (80.0-94.0); Platelet Count 200 10^3/uL (130-400); Red Cell Dist. Width 12.3 % (11.5-14.5)
[2025-10-21 07:42] VITALS: BP 138/60
[2025-10-21 08:22] LABS: Blood Urea Nitrogen 13 mg/dl (9-20); Calcium 8.9 mg/dl (8.4-10.2); Carbon Dioxide 30 mmol/L (22-30); Chloride 100 mmol/L (98-107); Estimated Creatinine Clearance 101 ml/min; Glucose 94 mg/dl (70-99); Magnesium 2.1 mg/dl (1.6-2.3); Potassium 3.7 mmol/L (3.5-5.1); Sodium 136 mmol/L (135-145); eGFR > 60.00
[2025-10-21] MEDS: LASIX 40 MG PO (09:10)
[2025-10-21] MEDS: SANTYL OINTMENT 1 APPLIC TOPICAL (09:10)
[2025-10-21] MEDS: HYDROPHOR 1 APPLIC TOPICAL (09:11)
[2025-10-21] MEDS: PRAVACHOL 40 MG PO (09:11)
[2025-10-21] MEDS: TYLENOL 650 MG PO ×2 (09:14→19:40)
--- NOTE | 2025-10-21 09:39 | CM ---
Patient seen at bedside dtr Trisha
PT rec SNF
[email or web address] information given to patient/dtr
PLAN: SNF when medically stable, CM to follow for needs
--- NOTE | 2025-10-21 09:40 | W.PN.HOSP.TC ---
Today's Communication/Plan
-
see AP
Assessment / Plan
Assessment / Plan
A/P:
# Critical limb ischemia/ left lower extremity arterial insufficiency
# Non-healing wound of left lower extremity
arteriogram revealed complete occlusion of the popiteal artery
Vascular Surgery following (did not believe needed heparin gtt), plan for eventual bypass surgery left lower extremity.
vein mapping ultrasound and echo obtained
now plan for cardiac stress test prior to bypass surgery
Cardiology on board
last dose of Xarelto was Monday10/15/2025
s/p cephalexin
Ongoing workup per vascular and cardiology
# Hyponatremia, resolved
# Suspect cognitive impairment at times
Previous CT has shown atrophy
Currently with mild acute hospital-acquired delirium.
Wake up with confusion however MS improves throughout the day.
Dr Lee discussed with daughter, hold off on Seroquel for now. Continue to closely monitor. If agitated then might need low-dose
# paroxysmal atrial fibrillation
Xarelto on hold since 10/15/2025
cardiology following
# Chronic lower extremity wounds
s/p cephalexin
Wound care consulted
# hypercholesterolemia
continue pravastatin
# hypertension
continue verapamil
# iron deficiency anemia
continue ferrous sulfate
# GERD
# Hx prostate cancer
# Insomnia
Start melatonin 5 mg HS
Code status: full code
DVT prophylaxis: lovenox SQ
DW vascular team
DW daughter at bedside
Anticipated Discharge: > 48 hours
Subjective/Interval History
-
Date of Service: October 21, 2025
Objective Data
-
Labs:
Laboratory Results
10/21/25
06:26
WBC 5.5
Hgb 11.2 L
Hct 33.1 L
Plt Count 200
Sodium 136
Potassium 3.7
Chloride 100
Carbon Dioxide 30
BUN 13
Creatinine 0.5 L
Glucose 94
Calcium 8.9
Vital Signs:
Vital Signs
Temp Pulse Resp BP Pulse Ox
36.8 C 71 16 138/60 93
10/21/25 07:42 10/21/25 09:10 10/21/25 07:42 10/21/25 09:10 10/21/25 07:42
I&O
10/20/25 10/21/25 10/22/25
06:59 06:59 06:59
Intake Total 1880 / 1880 960 / 960
Output Total 1000 / 1000 975 / 975
Balance 880 / 880 -15 / -15
Review of Systems
-
History Source: Patient
All other systems: Reviewed and negative
Physical Exam
-
General: Well Developed, Well Nourished, No Apparent Distress, Comfortable and Conversant
HEENT: Normocephalic
Respiratory: Clear to Auscultation and Non Labored Respirations; Negative Accessory Resp Muscle Use
Cardiac: Regular Rhythm and S1/S2
GI: Soft, Nontender, Nondistended and Normal Bowel Sounds
Musculoskeletal: Other (Right foot in boot )
Neuro: Awake and Alert
Psych: Calm and Intact Judgement/Insight
Data Reviewed
-
Labs: Labs Reviewed by me
--- NOTE | 2025-10-21 10:15 | W.PN.CARDCBS ---
Today's Communication / Plan
-
Given significant vascular surgery planned and timing of surgery and cardiac risks, check Lexiscan MIBI in Oct 22 for further risk stratification.
Echo without significant change from previous.
-EF previously preserved and no known history of CAD.
Appears euvolemic, outpatient dose of Lasix 40 mg PO daily has been continued
Remains in SR.
Patient has known paroxysmal A-fib and outpatient dosing of verapamil 300 mg qHS has been continued
Outpatient dose of Xarelto 20 mg daily is on hold in anticipation of surgery.
Patient is not being bridged with heparin gtt and there is no history of thromboembolic event
Impression / Plan
-
.
PCP:Ilir Morrison
Sas Programmer Analyst: Dr. Harjeet Cota
Impression:
Presented with critical limb ischemia from arterial insufficiency 10/17/2025
PAD
Chronic lower extremity wounds/unhealing leg ulcers
Chronic HFpEF
hypercholesterolemia
hypertension
paroxysmal atrial fibrillation on chronic anticoagulation on Xarelto as outpt
iron deficiency anemia
GERD
Hx prostate cancer status post radiation
Echo 04/05/2022: EF 50%. Stage I DD. Mild MR. PAP 27 mmHg
Echo 10/20/2025: Technically difficult and limited study. Lumason was utilized to improve endocardial definition. Left ventricular systolic function is visually estimated withing normal limits with no sizable regional wall motion abnormalities
noted. The estimated ejection fraction is estimated 60-65% by Borden's method of disc. Mild concentric LVH.No significant valve disease. Compared to prior echo from March 2022, there has been no significant change.
Plan:
-Presented 10/17/2025 with critical limb ischemia from arterial insufficiency from PAD with critical stenosis of femoral and popliteal arteries. Now being referred for invasive intervention/bypass with vascular surgery. Cardiology was consulted for
preoperative risk stratification
Given significant vascular surgery planned and timing of surgery and cardiac risks, check Lexiscan MIBI in Oct 22 for further risk stratification.
Echo without significant change from previous.
-EF previously preserved and no known history of CAD.
Appears euvolemic, outpatient dose of Lasix 40 mg PO daily has been continued
Remains in SR.
Patient has known paroxysmal A-fib and outpatient dosing of verapamil 300 mg qHS has been continued
Outpatient dose of Xarelto 20 mg daily is on hold in anticipation of surgery.
Patient is not being bridged with heparin gtt and there is no history of thromboembolic event
Discussed with vascular.
HPI: 10/18/2025:
Patient is an 85-year-old male with past medical history significant for atrial fibrillation on anticoagulation, CHFpEF, GERD, hypertension, hyperlipidemia, prior history of prostate cancer status post radiation, presents to the emergency department
from vascular surgery clinic for evaluation of complete occlusion of the popliteal artery. He has chronic lower extremity swelling and a mixed picture of chronic lower extremity lymphedema and peripheral arterial occlusive disease and was
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 Plan is to undergo femoropopliteal bypass in the upcoming days. Timing to be determined. Currently Xarelto
placed on hold with last dose 10/15/2025. Cardiology being asked to see patient for preoperative cardiac risk assessment. Patient was seen on 09/30/2025 by outpatient welder apprentice arc Dr. Cota and was doing well at that time. His most recent echo
was in 2021 which showed preserved ejection fraction.
Progress Note - Sas Programmer Analyst
Subjective
Date of Service: October 21, 2025
Pt seen and examined. No complaints other than leg pain. No chest pain or shortness of breath.
Objective
Labs:
10/21/25 06:26
10/21/25 06:
Labs
Hgb 11.2 g/dL (13.0-18.0) L 10/21/25 06:
Hct 33.1 % (39.0-52.0) L 10/21/25 06:26
Plt Count 200 10^3/uL (130-400) 10/21/25 06:26
PT 13.4 Sec (11.4-14.6) 10/17/25 20:55
INR 0.99 10/17/25 20:55
APTT 31.9 Sec (23.4-35.0) 10/17/25 20:55
Sodium 136 mmol/L (135-145) 10/21/25 06:26
Potassium 3.7 mmol/L (3.5-5.1) 10/21/25 06:26
BUN 13 mg/dl (9-20) 10/21/25 06:26
Creatinine 0.5 mg/dL (0.7-1.3) L 10/21/25 06:26
Glucose 94 mg/dl (70-99) 10/21/25 06:26
Vital Signs and I&O:
Vital Signs
Temp Pulse Resp BP Pulse Ox
98.3 F 71 16 138/60 93
10/21/25 07:42 10/21/25 09:10 10/21/25 07:42 10/21/25 09:10 10/21/25 07:42
Vital Signs
Temp Pulse Resp BP Pulse Ox
98.3 F 71 16 138/60 93
10/21/25 07:42 10/21/25 09:10 10/21/25 07:42 10/21/25 09:10 10/21/25 07:42
Intake & Output
10/19/25 10/20/25 10/21/25 10/22/25
06:59 06:59 06:59 06:59
Intake Total 300 / 300 1880 / 1880 960 / 960
Output Total 1100 / 1100 1000 / 1000 975 / 975
Balance -800 / -800 880 / 880 -15 / -15
Physical Exam
Physical Exam
General: No acute distress, AAOX3
Neck: Negative JVD
Heart: Regular, Negative S3 positive S1/S2, Negative S4, No murmur
Lungs: CTA b/l, negative wheezes/rales/rhonchi
Abd: Positive BS, NT/ND, neg rebound/rigidity/guarding
Ext: Negative cyanosis/clubbing. Mild b/l LE edema
Neuro: nonfocal
[2025-10-21 11:10] VITALS: BP 115/51
--- NOTE | 2025-10-21 11:45 | W.PN.VS ---
Addendum entered and electronically signed by Lonnie Denise III, MD 10/21/25 12:14:
Patient seen and examined
Daughter at bedside
Patient has significant calcified left common femoral artery plaque and densely calcified left popliteal artery occlusion. He has limb threatening ischemia with nonhealing wounds. He has significant lower extremity edema involving the distal calf,
ankle and foot. Failed attempt at endovascular intervention. Plan is for open revascularization with bypass.
Recommend full cardiac risk stratification in anticipation of lower extremity bypass. Surgery will include left common femoral endarterectomy with patch angioplasty and common femoral artery to below-knee popliteal artery bypass. Technical aspects
of this procedure were discussed with patient and his daughter in detail. The benefits and rationale for this approach were discussed with both of them in detail. Operative risks were discussed including but not limited to heart attack, bleeding,
infection, leg swelling, wound healing complications, bypass failure and the need for additional procedures.
Will plan for continued medical optimization.
Local wound care
Antibiotics
Piter wrap compression of his left lower extremity from the toes to the knee AT ALL TIMES
Elevate left lower extremity while at rest and avoid having leg in dependent position for prolonged periods of time to help alleviate lower extremity edema in anticipation of bypass
Will follow along with you
Timing of OR pending risk stratification workup and improvement in LE edema.
Lonnie Denise III, MD
Vascular Surgery
[facility]
Original Note:
Today's Communication / Plan
-
Patient seen at bedside with attending Dr. Lonnie Denise III, below plan reviewed with attending.
Assessment/Plan
-
Assessment: 85 year old male with PAD and left lower extremity wound who will require left lower extremity bypass
Plan:
Awaiting results of stress test for surgery timing.
Subjective Data
-
Date of Service: October 21, 2025
Patient seen at bedside, daughter also present. Patient continues to endorse bilateral leg swelling, and shortness of breath leading to difficulty with ambulating even just a few steps from bed to chair.
Objective Data
-
Vital Signs
Temp Pulse Resp BP Pulse Ox
98.2 F 71 16 115/51 93
10/21/25 11:10 10/21/25 11:10 10/21/25 11:10 10/21/25 11:10 10/21/25 11:10
Intake and Output
10/20/25 10/21/25 10/22/25
06:59 06:59 06:59
Intake Total 1880 / 1880 960 / 960
Output Total 1000 / 1000 975 / 975
Balance 880 / 880 -15 / -15
Intake:
Oral fluids 0 / 0 960 / 960
Output:
Urine, Voided 1000 / 1000 975 / 975
Other:
How many times incontinent 1
SATURATED amount urine
Number of approximated MODERATE 1
amounts of urine
Lab Results
10/21/25 06:26
10/21/25 06:26
Calcium 8.9 mg/dl (8.4-10.2) 10/21/25 06:26
Magnesium 2.1 mg/dl (1.6-2.3) 10/21/25 06:26
Total Bilirubin 0.6 mg/dl (0.2-1.3) 10/20/25 06:23
AST 28 U/L (17-59) 10/20/25 06:23
ALT 20 U/L (0-50) 10/20/25 06:23
Alkaline Phosphatase 62 U/L (38-126) 10/20/25 06:23
Total Protein 6.5 g/dl (6.3-8.2) 10/20/25 06:23
Albumin 4.0 g/dl (3.5-5.0) 10/20/25 06:23
Physical Exam
-
No apparent distress, resting in chair comfortably
No tachycardia
No dyspnea on room air
BL LE with +1 edema
[2025-10-21 15:14] VITALS: BP 107/59
[2025-10-21] MEDS: CALAN EXTENDED RELEASE 120 MG PO (17:51)
[2025-10-21] MEDS: LOVENOX 40 MG SC (17:55)
[2025-10-21] MEDS: CALAN EXTENDED RELEASE 180 MG PO (17:55)
[2025-10-21 19:00] VITALS: BP 131/62
[2025-10-21] MEDS: MELATONIN 5 MG PO (21:26)
[2025-10-21] MEDS: ULTRAM 25 MG PO (22:43)
[2025-10-21 23:00] VITALS: BP 117/50
[2025-10-22 03:00] VITALS: BP 121/56
--- NOTE | 2025-10-22 03:52 | PTCARENOTE ---
patient complained of LLE pain. PRN Tylenol given. See MAR for administration. patient continued to complained of 7/10 LLE pain. MURALI Mohamud notified. new orders received. see MAR for administration.
[2025-10-22] MEDS: TYLENOL 650 MG PO ×4 (05:41→22:24)
[2025-10-22 06:00] VITALS: BMI 28.3
[2025-10-22 07:07] LABS: Hematocrit 32.6 % (39.0-52.0); Hemoglobin 10.9 g/dL (13.0-18.0); Mean Corp Hgb Conc. 33.4 g/dL (33.0-37.0); Mean Corpuscular Volume 97.9 fL (80.0-94.0); Platelet Count 210 10^3/uL (130-400); Red Cell Dist. Width 12.4 % (11.5-14.5)
[2025-10-22 07:20] LABS: Blood Urea Nitrogen 14 mg/dl (9-20); Calcium 8.7 mg/dl (8.4-10.2); Carbon Dioxide 31 mmol/L (22-30); Chloride 99 mmol/L (98-107); Estimated Creatinine Clearance 101 ml/min; Glucose 91 mg/dl (70-99); Potassium 3.3 mmol/L (3.5-5.1); Sodium 136 mmol/L (135-145); eGFR > 60.00
[2025-10-22 07:22] VITALS: BP 137/64
[2025-10-22] MEDS: FEOSOL 325 MG PO (08:51)
[2025-10-22] MEDS: HYDROPHOR 1 APPLIC TOPICAL (08:52)
[2025-10-22] MEDS: LASIX 40 MG PO (08:52)
[2025-10-22] MEDS: SANTYL OINTMENT 1 APPLIC TOPICAL (08:52)
--- NOTE | 2025-10-22 08:55 | W.PN.CARDCBS ---
Addendum entered and electronically signed by Eric Alonso MD 10/22/25 17:49:
85-year-old man with critical limb ischemia of the left lower extremity with nonhealing wound and occluded popliteal artery. Currently only complaint is left lower extremity discomfort related to occluded popliteal
PMH/PSH: PAF, currently in sinus rhythm on Xarelto, Possible cognitive impairment, GERD, history of prostate cancer status post XRT, hypertension, hypercholesterolemia, History of HFpEF
Current meds: Iron, pravastatin, verapamil extended release 300 mg a day, furosemide 40 mg a day, Lovenox
137/64, pulse 66, respiratory rate 16, afebrile, sats 95%, seen in radiology, head neck exam unremarkable, lungs are relatively clear, no murmurs, regular rate/rhythm, JVD okay, some lower extremity edema, left leg is dressed
Lexiscan sestamibi 10/22/2025: Small mild fixed inferobasal and inferoapical defect without evidence of ischemia. EF 68%.
Hemoglobin 10.9, white count 4.0, platelets are 210, BUN and creatinine are 14 and 0.5
Impression:
Critical limb ischemia left lower extremity with occluded popliteal
Chronic HFpEF
Paroxysmal atrial fibrillation, currently sinus rhythm
History of prostate cancer status post XRT
Cognitive impairment
GERD
Other diagnoses as below. Note reviewed in detail and agree, unless otherwise specified.
Plan:
His sestamibi study is reassuring. There is no evidence of ischemia. His echocardiogram was also satisfactory. He can proceed to OR for left common femoral endarterectomy/patch angioplasty and common femoral to below-knee popliteal bypass at
elevated (largely related to age/frailty) but acceptable cardiac risk.
He is in sinus rhythm, so would not recommend heparin at this time. Postoperatively, resume Xarelto when safe from a cardiac standpoint. Currently not on aspirin, no objections to aspirin if vascular surgery deems this appropriate.
We will reassess postop, in the interval, please call if problems
Original Note:
Today's Communication / Plan
-
Lexiscan stress test this AM
Continue PO lasix
In SR. Continue Xarelto
Tentatively planned for surgery next week per pt.
Impression / Plan
-
PCP:Ilir Morrison
Rn Training: Dr. Cota
Impression:
Presented with critical limb ischemia from arterial insufficiency 10/17/2025
PAD
Chronic lower extremity wounds/unhealing leg ulcers
Chronic HFpEF
Hypercholesterolemia
Hypertension
Paroxysmal atrial fibrillation
Chronic anticoagulation w/ Xarelto
Iron deficiency anemia
GERD
h/o prostate cancer s/p radiation
Echo 04/05/2022: EF 50%. Stage I DD. Mild MR. PAP 27 mmHg
Echo 10/20/2025: Technically difficult and limited study. Lumason was utilized to improve endocardial definition. Left ventricular systolic function is visually estimated withing normal limits with no sizable regional wall motion abnormalities
noted. The estimated ejection fraction is estimated 60-65% by Borden's method of disc. Mild concentric LVH.No significant valve disease. Compared to prior echo from March 2022, there has been no significant change.
Plan:
-Presented 10/17/2025 with critical limb ischemia from arterial insufficiency from PAD with critical stenosis of femoral and popliteal arteries.
-Awaiting intervention/bypass w/ vascular surgery. Tentatively planned for 10/27.
-Cardiology consulted for preoperative risk stratification. Planned for lexiscan mibi this AM.
-Echo 10/20 with preserved EF, no significant change from prior.
-Appears euvolemic, Continue PO lasix 40mg daily.
-Remains in SR on review of telemetry. Continue verapamil 300mg daily.
-Xarelto on hold in anticipation of surgery.
HPI: Patient is an 85-year-old male with past medical history significant for atrial fibrillation on anticoagulation, CHFpEF, GERD, hypertension, hyperlipidemia, prior history of prostate cancer status post radiation, presents to the emergency
department from vascular surgery clinic for evaluation of complete occlusion of the popliteal artery. He has chronic lower extremity swelling and a mixed picture of chronic lower extremity lymphedema and peripheral arterial occlusive disease and
was referred for angiogram which demonstrated critical stenosis of femoral and popliteal arteries and concern for critical limb ischemia. Plan is to undergo femoropopliteal bypass in the upcoming days. Timing to be determined. Currently Xarelto
placed on hold with last dose 10/15/2025. Cardiology being asked to see patient for preoperative cardiac risk assessment. Patient was seen on 09/30/2025 by outpatient measurement psychologist Dr. Cota and was doing well at that time. His most recent echo
was in 2021 which showed preserved ejection fraction.
Progress Note - Rn Training
Subjective
Date of Service: October 22, 2025
Leg pain is only complaint. No chest pain or SOB.
Objective
Labs:
10/22/25 06:28
10/22/25 06:28
Labs
Hgb 10.9 g/dL (13.0-18.0) L 10/22/25 06:28
Hct 32.6 % (39.0-52.0) L 10/22/25 06:28
Plt Count 210 10^3/uL (130-400) 10/22/25 06:28
PT 13.4 Sec (11.4-14.6) 10/17/25 20:55
INR 0.99 10/17/25 20:55
APTT 31.9 Sec (23.4-35.0) 10/17/25 20:55
Sodium 136 mmol/L (135-145) 10/22/25 06:28
Potassium 3.3 mmol/L (3.5-5.1) L 10/22/25 06:28
BUN 14 mg/dl (9-20) 10/22/25 06:28
Creatinine 0.5 mg/dL (0.7-1.3) L 10/22/25 06:28
Glucose 91 mg/dl (70-99) 10/22/25 06:28
Vital Signs and I&O:
Vital Signs
Temp Pulse Resp BP Pulse Ox
97.4 F 66 16 137/64 95
10/22/25 07:22 10/22/25 07:22 10/22/25 07:22 10/22/25 07:22 10/22/25 07:22
Vital Signs
Temp Pulse Resp BP Pulse Ox
97.4 F 66 16 137/64 95
10/22/25 07:22 10/22/25 07:22 10/22/25 07:22 10/22/25 07:22 10/22/25 07:22
Intake & Output
10/20/25 10/21/25 10/22/25 10/23/25
06:59 06:59 06:59 06:59
Intake Total 1880 / 1880 960 / 960 480 / 480
Output Total 1000 / 1000 975 / 975 245 / 245
Balance 880 / 880 -15 / -15 235 / 235
Physical Exam
Physical Exam
GEN: No distress, awake, alert, oriented x3
HEENT: supple, anicteric, mmm
LUNGS: CTA b/l, no wheezes/rales
CV: Reg, S1/S2, no murmur
EXT: Piter wrap in place LLE
NEURO: Gross non-focal
SKIN: Warm, dry, no rash
--- NOTE | 2025-10-22 10:29 | W.PN.HOSP.TC ---
Today's Communication/Plan
-
see A/P
Assessment / Plan
Assessment / Plan
A/P:
# Critical limb ischemia/ left lower extremity arterial insufficiency
# Non-healing wound of left lower extremity
arteriogram revealed complete occlusion of the popiteal artery
Vascular Surgery following (did not believe needed heparin gtt), plan for eventual bypass surgery left lower extremity.
vein mapping ultrasound and echo obtained
s/p cardiac stress test prior to bypass surgery, follow report
Cardiology on board
last dose of Xarelto was Monday10/15/2025
s/p cephalexin
Ongoing workup per vascular and cardiology
# Hyponatremia, resolved
# Suspect cognitive impairment at times
Previous CT has shown atrophy
Currently with mild acute hospital-acquired delirium.
Wake up with confusion however MS improves throughout the day.
Dr Lee discussed with daughter, hold off on Seroquel for now. Continue to closely monitor. If agitated then might need low-dose
# paroxysmal atrial fibrillation
Xarelto on hold since 10/15/2025
cardiology following
# Chronic lower extremity wounds
s/p cephalexin
Wound care consulted
# hypercholesterolemia
continue pravastatin
# hypertension
continue verapamil
# iron deficiency anemia
continue ferrous sulfate
# GERD
# Hx prostate cancer
# Insomnia
Started melatonin 5 mg HS
Code status: full code
DVT prophylaxis: lovenox SQ
DW at bedside
Anticipated Discharge: > 48 hours
Subjective/Interval History
-
Date of Service: October 22, 2025
Objective Data
-
Labs:
Laboratory Results
10/22/25
06:28
WBC 4.0 L
Hgb 10.9 L
Hct 32.6 L
Plt Count 210
Sodium 136
Potassium 3.3 L
Chloride 99
Carbon Dioxide 31 H
BUN 14
Creatinine 0.5 L
Glucose 91
Calcium 8.7
Vital Signs:
Vital Signs
Temp Pulse Resp BP Pulse Ox
36.3 C 66 16 137/64 95
10/22/25 07:22 10/22/25 07:22 10/22/25 07:22 10/22/25 07:22 10/22/25 07:22
I&O
10/21/25 10/22/25 10/23/25
06:59 06:59 06:59
Intake Total 960 / 960 480 / 480
Output Total 975 / 975 245 / 245
Balance -15 / -15 235 / 235
Review of Systems
-
History Source: Patient
All other systems: Reviewed and negative
Physical Exam
-
General: Well Developed, Well Nourished, No Apparent Distress, Comfortable and Conversant
HEENT: Normocephalic
Respiratory: Clear to Auscultation and Non Labored Respirations; Negative Accessory Resp Muscle Use
Cardiac: Regular Rhythm and S1/S2
GI: Soft, Nontender, Nondistended and Normal Bowel Sounds
Musculoskeletal: Other (Right foot in boot )
Neuro: Awake and Alert
Psych: Calm and Intact Judgement/Insight
Data Reviewed
-
Labs: Labs Reviewed by me
[2025-10-22] MEDS: LEXISCAN 0.4 MG IV (11:08)
--- NOTE | 2025-10-22 11:09 | CM ---
patient chart reviewed
per vascular note - Awaiting results of stress test for surgery timing
PT rec SNF
Medicare[employer]gov list of SNF given to patient/dtr, follow up with options
PLAN: SNF, CM to continue to follow for discharge planning/needs
[2025-10-22] MEDS: AMINOPHYLLINE 75 MG IV (11:23)
--- NOTE | 2025-10-22 12:20 | PTCARENOTE ---
Pt tolerated Lexiscan Stress test well, offers no complaints. Report called to floor. Refer to Cardiac Services Monitoring Record for details and assessment.
[2025-10-22] MEDS: KCL 40 MEQ PO (12:26)
[2025-10-22] MEDS: PRAVACHOL 40 MG PO (12:34)
[2025-10-22 15:27] VITALS: BP 114/52
[2025-10-22] MEDS: LOVENOX 40 MG SC (17:18)
[2025-10-22] MEDS: CALAN EXTENDED RELEASE 180 MG PO (17:18)
[2025-10-22] MEDS: CALAN EXTENDED RELEASE 120 MG PO (17:18)
[2025-10-22 19:00] VITALS: BP 105/47
[2025-10-22] MEDS: MELATONIN 5 MG PO (21:02)
[2025-10-22 23:00] VITALS: BP 104/56
[2025-10-23] VITALS (7 sets, daily range): BP systolic 114–149; BP diastolic 54–69; PULSE 71; O2SAT 93; BMI 27.8
[2025-10-23] MEDS: TYLENOL 650 MG PO ×3 (02:46→19:49)
[2025-10-23] MEDS: PRAVACHOL 40 MG PO (08:19)
[2025-10-23] MEDS: LASIX 40 MG PO (08:19)
[2025-10-23 09:10] LABS: Hematocrit 34.9 % (39.0-52.0); Hemoglobin 11.4 g/dL (13.0-18.0); Mean Corp Hgb Conc. 32.7 g/dL (33.0-37.0); Mean Corpuscular Volume 99.4 fL (80.0-94.0); Platelet Count 239 10^3/uL (130-400); Red Cell Dist. Width 12.1 % (11.5-14.5)
[2025-10-23 10:04] LABS: Blood Urea Nitrogen 15 mg/dl (9-20); Calcium 9.2 mg/dl (8.4-10.2); Carbon Dioxide 33 mmol/L (22-30); Chloride 100 mmol/L (98-107); Estimated Creatinine Clearance 101 ml/min; Glucose 100 mg/dl (70-99); Magnesium 2.2 mg/dl (1.6-2.3); Potassium 3.6 mmol/L (3.5-5.1); Sodium 136 mmol/L (135-145); eGFR > 60.00
[2025-10-23] MEDS: HYDROPHOR 2 APPLIC TOPICAL (10:35)
[2025-10-23] MEDS: SANTYL OINTMENT 1 APPLIC TOPICAL (10:35)
--- NOTE | 2025-10-23 11:47 | W.PN.HOSP.TC ---
Today's Communication/Plan
-
see A/P
Assessment / Plan
Assessment / Plan
A/P:
# Critical limb ischemia/ left lower extremity arterial insufficiency
# Non-healing wound of left lower extremity
arteriogram revealed complete occlusion of the popiteal artery
Vascular Surgery following (did not believe needed heparin gtt), plan for bypass surgery left lower extremity, likely Saturday 10/27
vein mapping ultrasound and echo obtained
s/p cardiac stress 10/22: no evidence of ischemia
Cardiology on board for preop risk assessment
last dose of Xarelto was Monday10/15/2025
s/p cephalexin
Ongoing workup per vascular and cardiology
# Hyponatremia, resolved
# Suspect cognitive impairment at times
Previous CT has shown atrophy
mild hospital-acquired delirium at times, Wake up with confusion however MS improves throughout the day.
Continue to monitor MS for now. Pt has not needed medical management
# paroxysmal atrial fibrillation
Xarelto on hold since 10/15/2025
cardiology following
# Chronic lower extremity wounds
s/p cephalexin
Wound care consulted
# hypercholesterolemia
continue pravastatin
# hypertension
continue verapamil
# iron deficiency anemia
continue ferrous sulfate
# GERD
# Hx prostate cancer
# Insomnia
Started melatonin 5 mg HS
Code status: full code
DVT prophylaxis: Lovenox SQ
DW and daughter at bedside
Anticipated Discharge: > 48 hours
Subjective/Interval History
-
Date of Service: October 23, 2025
Objective Data
-
Labs:
Laboratory Results
10/23/25
08:37
WBC 3.5 L
Hgb 11.4 L
Hct 34.9 L
Plt Count 239
Sodium 136
Potassium 3.6
Chloride 100
Carbon Dioxide 33 H
BUN 15
Creatinine 0.6 L
Glucose 100 H
Calcium 9.2
Vital Signs:
Vital Signs
Temp Pulse Resp BP Pulse Ox
36.6 C 63 17 149/69 93
10/23/25 07:00 10/23/25 07:00 10/23/25 07:00 10/23/25 07:00 10/23/25 07:00
I&O
10/22/25 10/23/25 10/24/25
06:59 06:59 06:59
Intake Total 480 / 480 240 / 240
Output Total 245 / 245 755 / 755
Balance 235 / 235 -515 / -515
Review of Systems
-
History Source: Patient
All other systems: Reviewed and negative
Physical Exam
-
General: Well Developed, Well Nourished, No Apparent Distress, Comfortable and Conversant
HEENT: Normocephalic
Respiratory: Clear to Auscultation and Non Labored Respirations; Negative Accessory Resp Muscle Use
Cardiac: Regular Rhythm and S1/S2
GI: Soft, Nontender, Nondistended and Normal Bowel Sounds
Musculoskeletal: Other (Right foot in wound dressing )
Neuro: Awake and Alert
Psych: Calm and Intact Judgement/Insight
Data Reviewed
-
Labs: Labs Reviewed by me
[2025-10-23] MEDS: LOVENOX 40 MG SC (17:16)
[2025-10-23] MEDS: CALAN EXTENDED RELEASE 120 MG PO (17:20)
[2025-10-23] MEDS: CALAN EXTENDED RELEASE 180 MG PO (17:21)
[2025-10-23] MEDS: MELATONIN 5 MG PO (21:09)
[2025-10-24] VITALS (7 sets, daily range): BP systolic 105–141; BP diastolic 45–82; PULSE 67; O2SAT 93; BMI 27.1
[2025-10-24] MEDS: TYLENOL 650 MG PO (06:29)
[2025-10-24 06:34] LABS: Hematocrit 34.5 % (39.0-52.0); Hemoglobin 11.4 g/dL (13.0-18.0); Mean Corp Hgb Conc. 33.0 g/dL (33.0-37.0); Mean Corpuscular Volume 97.7 fL (80.0-94.0); Platelet Count 221 10^3/uL (130-400); Red Cell Dist. Width 12.2 % (11.5-14.5)
[2025-10-24 06:46] LABS: Blood Urea Nitrogen 15 mg/dl (9-20); Calcium 9.3 mg/dl (8.4-10.2); Carbon Dioxide 34 mmol/L (22-30); Chloride 100 mmol/L (98-107); Estimated Creatinine Clearance 101 ml/min; Glucose 97 mg/dl (70-99); Potassium 3.7 mmol/L (3.5-5.1); Sodium 137 mmol/L (135-145); eGFR > 60.00
--- NOTE | 2025-10-24 08:05 | PTCARENOTE ---
Pt c/o unresolved pain in bilateral heels and LLE. Reports 8/10 pain. MD made aware, new order provided, see MAR.
[2025-10-24] MEDS: LASIX 40 MG PO (08:06)
[2025-10-24] MEDS: SANTYL OINTMENT 1 APPLIC TOPICAL (08:06)
[2025-10-24] MEDS: FEOSOL 325 MG PO (08:07)
[2025-10-24] MEDS: PRAVACHOL 40 MG PO (08:07)
[2025-10-24] MEDS: HYDROPHOR 1 APPLIC TOPICAL (08:07)
[2025-10-24] MEDS: ROXICODONE 5 MG PO (09:10)
[2025-10-24] MEDS: LOW STRENGTH ASPIRIN 81 MG PO (09:32)
--- NOTE | 2025-10-24 09:34 | W.PN.VS ---
Addendum entered and electronically signed by Lonnie Denise III, MD 10/24/25 10:14:
This patient was seen and examined in collaboration with MURALI Mcclain. I agree with the history and physical exam as well as the assessment and plan. I have the following additions:
Had another surgical conversation with the patient.
Plan is for left lower extremity bypass Monday
Technical aspects of the procedure were again discussed with him in detail. The benefits and rationale were again discussed with him in detail. Operative risks were discussed with him in detail including but not limited to SC, bleeding, infection,
wound healing complications, limb swelling, bypass failure, ongoing ischemia and the need for additional procedures.
He expressed a clear understanding of our conversation and agrees to proceed with surgery Monday
Signed:
Lonnie Denise III, MD
Vascular Surgery
[facility]
Original Note:
Today's Communication / Plan
-
Patient seen and examined at bedside with Dr. Lonnie Denise III, below plan reviewed with attending.
Assessment/Plan
-
Assessment: 85 year old male with PAD and left lower extremity wound who will require left lower extremity bypass
Plan:
Cleared by cardiology to proceed with left lower extremity arterial bypass, plan for OR on Monday (10/27/25)
N.p.o. at midnight on 10/27
Subjective Data
-
Date of Service: October 24, 2025
Patient seen at bedside, updated on surgical plan and all questions and concerns addressed.
Objective Data
-
Vital Signs
Temp Pulse Resp BP Pulse Ox
98.5 F 65 16 141/66 96
10/24/25 07:32 10/24/25 08:06 10/24/25 07:32 10/24/25 08:06 10/24/25 07:32
Intake and Output
10/23/25 10/24/25 10/25/25
06:59 06:59 06:59
Intake Total 240 / 240 1080 / 1080
Output Total 755 / 755 625 / 625
Balance -515 / -515 455 / 455
Intake:
Oral fluids 240 / 240 1080 / 1080
Output:
Urine, Voided 755 / 755 625 / 625
Other:
How many times incontinent 1
SMALL amount urine
Lab Results
10/24/25 06:10
10/24/25 06:10
Calcium 9.3 mg/dl (8.4-10.2) 10/24/25 06:10
Magnesium 2.2 mg/dl (1.6-2.3) 10/23/25 08:37
Total Bilirubin 0.6 mg/dl (0.2-1.3) 10/20/25 06:23
AST 28 U/L (17-59) 10/20/25 06:23
ALT 20 U/L (0-50) 10/20/25 06:23
Alkaline Phosphatase 62 U/L (38-126) 10/20/25 06:23
Total Protein 6.5 g/dl (6.3-8.2) 10/20/25 06:23
Albumin 4.0 g/dl (3.5-5.0) 10/20/25 06:23
Physical Exam
-
No apparent distress, resting in chair comfortably
No tachycardia
No dyspnea on room air
BL LE with trace edema
--- NOTE | 2025-10-24 09:47 | W.PN.HOSP.TC ---
Today's Communication/Plan
-
see A/P
Assessment / Plan
Assessment / Plan
A/P:
# Critical limb ischemia/ left lower extremity arterial insufficiency
# Non-healing wound of left lower extremity
arteriogram revealed complete occlusion of the popiteal artery
Vascular Surgery following (did not believe needed heparin gtt), plan for bypass surgery left lower extremity, likely Saturday 10/27
vein mapping ultrasound and echo obtained. S/p cardiac stress 10/22: no evidence of ischemia
Cardiology on board for preop risk assessment
last dose of Xarelto was Monday10/15/2025
s/p cephalexin
Ongoing workup per vascular and cardiology
pain control with Tylenol, add ATC to PRN, also added oxycodone 5 mg PRN for mod pain
# Hyponatremia, resolved
# Suspect cognitive impairment at times
Previous CT has shown atrophy
mild hospital-acquired delirium at times, Wake up with confusion however MS improves throughout the day.
Continue to monitor MS for now. Pt has not needed medical management
# paroxysmal atrial fibrillation
Xarelto on hold since 10/15/2025
cardiology following
# Chronic lower extremity wounds
s/p cephalexin
Wound care consulted
# hypercholesterolemia
continue pravastatin
# hypertension
continue verapamil
# iron deficiency anemia
continue ferrous sulfate
# GERD
# Hx prostate cancer
# Insomnia
Started melatonin 5 mg HS
Code status: full code
DVT prophylaxis: Lovenox SQ
DW RN
Anticipated Discharge: > 48 hours
Subjective/Interval History
-
Date of Service: October 24, 2025
Objective Data
-
Labs:
Laboratory Results
10/24/25
06:10
WBC 4.6 L
Hgb 11.4 L
Hct 34.5 L
Plt Count 221
Sodium 137
Potassium 3.7
Chloride 100
Carbon Dioxide 34 H
BUN 15
Creatinine 0.5 L
Glucose 97
Calcium 9.3
Vital Signs:
Vital Signs
Temp Pulse Resp BP Pulse Ox
36.9 C 65 16 141/66 96
10/24/25 07:32 10/24/25 08:06 10/24/25 07:32 10/24/25 08:06 10/24/25 07:32
I&O
10/23/25 10/24/25 10/25/25
06:59 06:59 06:59
Intake Total 240 / 240 1080 / 1080
Output Total 755 / 755 625 / 625
Balance -515 / -515 455 / 455
Review of Systems
-
History Source: Patient
Musculoskeletal: Reports Joint Pain (L foot pain)
Physical Exam
-
General: Well Developed, Well Nourished, No Apparent Distress, Comfortable and Conversant
HEENT: Normocephalic
Respiratory: Clear to Auscultation and Non Labored Respirations; Negative Accessory Resp Muscle Use
Cardiac: Regular Rhythm and S1/S2
GI: Soft, Nontender, Nondistended and Normal Bowel Sounds
Musculoskeletal: Other (Right foot in wound dressing )
Neuro: Awake and Alert
Psych: Calm and Intact Judgement/Insight
Data Reviewed
-
Labs: Labs Reviewed by me
[2025-10-24] MEDS: TYLENOL 1000 MG PO ×2 (16:59→20:50)
[2025-10-24] MEDS: CALAN EXTENDED RELEASE 120 MG PO (17:08)
[2025-10-24] MEDS: CALAN EXTENDED RELEASE 180 MG PO (17:08)
[2025-10-24] MEDS: LOVENOX 40 MG SC (17:13)
[2025-10-24] MEDS: MELATONIN 5 MG PO (20:50)
[2025-10-25 03:00] VITALS: BP 106/57
[2025-10-25] MEDS: ULTRAM 25 MG PO ×3 (04:22→14:04)
[2025-10-25 06:00] VITALS: BMI 27.0
[2025-10-25 06:50] LABS: Hematocrit 32.8 % (39.0-52.0); Hemoglobin 11.0 g/dL (13.0-18.0); Mean Corp Hgb Conc. 33.5 g/dL (33.0-37.0); Mean Corpuscular Volume 98.8 fL (80.0-94.0); Platelet Count 222 10^3/uL (130-400); Red Cell Dist. Width 12.1 % (11.5-14.5)
[2025-10-25 07:13] LABS: Blood Urea Nitrogen 14 mg/dl (9-20); Calcium 8.9 mg/dl (8.4-10.2); Chloride 98 mmol/L (98-107); Estimated Creatinine Clearance 101 ml/min; Glucose 94 mg/dl (70-99); Potassium 3.6 mmol/L (3.5-5.1); Sodium 135 mmol/L (135-145); eGFR > 60.00
[2025-10-25 07:35] VITALS: BP 136/65
[2025-10-25] MEDS: SANTYL OINTMENT 1 APPLIC TOPICAL (08:44)
[2025-10-25] MEDS: LASIX 40 MG PO (08:45)
[2025-10-25] MEDS: LOW STRENGTH ASPIRIN 81 MG PO (08:45)
[2025-10-25] MEDS: TYLENOL 1000 MG PO ×3 (08:45→21:26)
[2025-10-25] MEDS: PRAVACHOL 40 MG PO (08:48)
[2025-10-25 09:08] LABS: Carbon Dioxide 32 mmol/L (22-30)
--- NOTE | 2025-10-25 09:09 | W.PN.HOSP.TC ---
Today's Communication/Plan
-
see A/P
Assessment / Plan
Assessment / Plan
A/P:
# Critical limb ischemia/ left lower extremity arterial insufficiency
# Non-healing wound of left lower extremity
arteriogram revealed complete occlusion of the popiteal artery
vein mapping ultrasound and echo obtained. S/p cardiac stress 10/22: no evidence of ischemia
Vascular Surgery following (did not believe needed heparin gtt), plan for bypass surgery left lower extremity, likely Saturday 10/27
Cardiology on board for preop risk assessment
last dose of Xarelto was Monday10/15/2025
s/p cephalexin
Ongoing workup per vascular and cardiology
pain control with Tylenol ATC and PRN, changed oxycodone to tramadol 25 mg PRN for mod pain per family request. Add gabapentin HS
# Hyponatremia, resolved
# Suspect cognitive impairment at times
Previous CT has shown atrophy
mild hospital-acquired delirium at times, Wake up with confusion however MS improves throughout the day.
Continue to monitor MS for now. Pt has not needed medical management
# paroxysmal atrial fibrillation
Xarelto on hold since 10/15/2025
cardiology following
# Chronic lower extremity wounds
s/p cephalexin
Wound care consulted
# hypercholesterolemia
continue pravastatin
# hypertension
continue verapamil
# iron deficiency anemia
continue ferrous sulfate
# GERD
# Hx prostate cancer
# Insomnia
Started melatonin 5 mg HS
Code status: full code
DVT prophylaxis: Lovenox SQ
DW RN
DW daughter at bedside and on the phone. Explained in detail, answered all questions.
total time spent 51 min
Anticipated Discharge: > 48 hours
Subjective/Interval History
-
Date of Service: October 25, 2025
Objective Data
-
Labs:
Laboratory Results
10/25/25
06:31
WBC 4.4 L
Hgb 11.0 L
Hct 32.8 L
Plt Count 222
Sodium 135
Potassium 3.6
Chloride 98
Carbon Dioxide 32 H
BUN 14
Creatinine 0.5 L
Glucose 94
Calcium 8.9
Vital Signs:
Vital Signs
Temp Pulse Resp BP Pulse Ox
36.8 C 63 16 136/65 92
10/25/25 07:35 10/25/25 07:35 10/25/25 07:35 10/25/25 07:35 10/25/25 07:35
I&O
10/24/25 10/25/25 10/26/25
06:59 06:59 06:59
Intake Total 1080 / 1080 960 / 960
Output Total 625 / 625
Balance 455 / 455 960 / 960
Review of Systems
-
History Source: Patient
Musculoskeletal: Reports Joint Pain (L leg pain)
Physical Exam
-
General: Well Developed, Well Nourished, No Apparent Distress, Comfortable and Conversant
HEENT: Normocephalic
Respiratory: Clear to Auscultation and Non Labored Respirations; Negative Accessory Resp Muscle Use
Cardiac: Regular Rhythm and S1/S2
GI: Soft, Nontender, Nondistended and Normal Bowel Sounds
Musculoskeletal: Other (left foot in wound dressing )
Neuro: Awake and Alert
Psych: Calm and Intact Judgement/Insight
Data Reviewed
-
Labs: Labs Reviewed by me
[2025-10-25] MEDS: HYDROPHOR 1 APPLIC TOPICAL (09:42)
[2025-10-25 11:15] VITALS: BP 122/70
[2025-10-25 15:00] VITALS: BP 111/59
[2025-10-25] MEDS: CALAN EXTENDED RELEASE PO ×2 (16:46→16:47)
[2025-10-25] MEDS: LOVENOX 40 MG SC (16:47)
[2025-10-25 19:00] VITALS: BP 123/59
[2025-10-25] MEDS: MELATONIN 5 MG PO (21:26)
[2025-10-25] MEDS: NEURONTIN 100 MG PO (21:26)
[2025-10-25 23:00] VITALS: BP 129/64
[2025-10-26 03:02] VITALS: BP 145/79
[2025-10-26 06:00] VITALS: BMI 27.4
[2025-10-26] MEDS: ULTRAM 25 MG PO ×3 (06:25→20:10)
[2025-10-26 06:33] LABS: Hematocrit 36.0 % (39.0-52.0); Hemoglobin 11.8 g/dL (13.0-18.0); Mean Corp Hgb Conc. 32.8 g/dL (33.0-37.0); Mean Corpuscular Volume 98.6 fL (80.0-94.0); Platelet Count 228 10^3/uL (130-400); Red Cell Dist. Width 12.0 % (11.5-14.5)
[2025-10-26 06:53] LABS: Blood Urea Nitrogen 15 mg/dl (9-20); Calcium 9.3 mg/dl (8.4-10.2); Chloride 98 mmol/L (98-107); Estimated Creatinine Clearance 101 ml/min; Glucose 91 mg/dl (70-99); Potassium 3.9 mmol/L (3.5-5.1); Sodium 135 mmol/L (135-145); eGFR > 60.00
[2025-10-26 07:00] VITALS: BP 119/63
[2025-10-26 07:01] LABS: Carbon Dioxide 33 mmol/L (22-30)
[2025-10-26] MEDS: TYLENOL 1000 MG PO ×3 (08:20→21:14)
[2025-10-26] MEDS: PRAVACHOL 40 MG PO (08:20)
[2025-10-26] MEDS: FEOSOL 325 MG PO (08:20)
[2025-10-26] MEDS: LASIX 40 MG PO (08:20)
[2025-10-26] MEDS: HYDROPHOR 1 APPLIC TOPICAL (08:21)
[2025-10-26] MEDS: SANTYL OINTMENT 1 APPLIC TOPICAL (08:21)
[2025-10-26] MEDS: LOW STRENGTH ASPIRIN 81 MG PO (08:21)
[2025-10-26] MEDS: MIRALAX 17 GRAMS PO (08:53)
[2025-10-26] MEDS: SENOKOT-S 1 TABLET PO ×2 (08:53→19:28)
--- NOTE | 2025-10-26 10:13 | W.PN.HOSP.TC ---
Today's Communication/Plan
-
see A/P
Assessment / Plan
Assessment / Plan
A/P:
# Critical limb ischemia/ left lower extremity arterial insufficiency
# Non-healing wound of left lower extremity
arteriogram revealed complete occlusion of the popiteal artery
vein mapping ultrasound and echo obtained. S/p cardiac stress 10/22: no evidence of ischemia
Vascular Surgery following (did not believe needed heparin gtt), plan for bypass surgery left lower extremity on Saturday 10/27
Cardiology on board for preop risk assessment
last dose of Xarelto was Monday10/15/2025
s/p cephalexin
Ongoing workup per vascular and cardiology
pain control with Tylenol ATC and PRN, changed oxycodone to tramadol 25 mg PRN for mod pain per family request. Added gabapentin HS
Senokot-S BID and Miralax daily while on opiate
# Hyponatremia, resolved
# Suspect cognitive impairment at times
Previous CT has shown atrophy
mild hospital-acquired delirium at times, Wake up with confusion however MS improves throughout the day.
Continue to monitor MS for now. Pt has not needed medical management
# paroxysmal atrial fibrillation
Xarelto on hold since 10/15/2025
cardiology following
# Chronic lower extremity wounds
s/p cephalexin
Wound care consulted
# hypercholesterolemia
continue pravastatin
# hypertension
continue verapamil
# iron deficiency anemia
continue ferrous sulfate
# GERD
# Hx prostate cancer
# Insomnia
Started melatonin 5 mg HS
Code status: full code
DVT prophylaxis: Lovenox SQ
DW and daughter at bedside.
Anticipated Discharge: > 48 hours
Subjective/Interval History
-
Date of Service: October 26, 2025
Objective Data
-
Labs:
Laboratory Results
10/26/25
05:59
WBC 4.1 L
Hgb 11.8 L
Hct 36.0 L
Plt Count 228
Sodium 135
Potassium 3.9
Chloride 98
Carbon Dioxide 33 H
BUN 15
Creatinine 0.6 L
Glucose 91
Calcium 9.3
Vital Signs:
Vital Signs
Temp Pulse Resp BP Pulse Ox
36.9 C 60 18 119/63 93
10/26/25 07:00 10/26/25 07:00 10/26/25 07:00 10/26/25 07:00 10/26/25 07:00
I&O
10/25/25 10/26/25 10/27/25
06:59 06:59 06:59
Intake Total 960 / 960 1620 / 1620
Output Total 325 / 325 200 / 200
Balance 960 / 960 1295 / 1295 -200 / -200
Review of Systems
-
History Source: Patient
Musculoskeletal: Reports Joint Pain (L leg pain)
Physical Exam
-
General: Well Developed, Well Nourished, No Apparent Distress, Comfortable and Conversant
HEENT: Normocephalic
Respiratory: Clear to Auscultation and Non Labored Respirations; Negative Accessory Resp Muscle Use
Cardiac: Regular Rhythm and S1/S2
GI: Soft, Nontender, Nondistended and Normal Bowel Sounds
Musculoskeletal: Other (left foot in wound dressing )
Neuro: Awake and Alert
Psych: Calm and Intact Judgement/Insight
Data Reviewed
-
Labs: Labs Reviewed by me
[2025-10-26 11:00] VITALS: BP 106/53
[2025-10-26 15:00] VITALS: BP 124/65
[2025-10-26] MEDS: CALAN EXTENDED RELEASE 180 MG PO (16:56)
[2025-10-26] MEDS: CALAN EXTENDED RELEASE 120 MG PO (16:57)
[2025-10-26] MEDS: LOVENOX 40 MG SC (16:57)
[2025-10-26 19:00] VITALS: BP 118/53
[2025-10-26] MEDS: MELATONIN 5 MG PO (21:15)
[2025-10-26] MEDS: NEURONTIN 100 MG PO (21:15)
[2025-10-26 23:00] VITALS: BP 120/62
[2025-10-27] VITALS (21 sets, daily range): BP systolic 85–149; BP diastolic 52–77; BMI 27.9
[2025-10-27] MEDS: ULTRAM 25 MG PO (05:45)
[2025-10-27 06:31] LABS: Hematocrit 33.7 % (39.0-52.0); Hemoglobin 11.2 g/dL (13.0-18.0); Mean Corp Hgb Conc. 33.2 g/dL (33.0-37.0); Mean Corpuscular Volume 99.1 fL (80.0-94.0); Platelet Count 244 10^3/uL (130-400); Red Cell Dist. Width 12.1 % (11.5-14.5)
[2025-10-27 07:34] LABS: Blood Urea Nitrogen 16 mg/dl (9-20); Calcium 9.0 mg/dl (8.4-10.2); Carbon Dioxide 33 mmol/L (22-30); Chloride 97 mmol/L (98-107); Estimated Creatinine Clearance 101 ml/min; Glucose 92 mg/dl (70-99); Potassium 3.6 mmol/L (3.5-5.1); Sodium 134 mmol/L (135-145); eGFR > 60.00
[2025-10-27] MEDS: HYDROPHOR TOPICAL (08:13)
[2025-10-27] MEDS: SENOKOT-S 1 TABLET PO ×2 (08:14→22:02)
[2025-10-27] MEDS: MIRALAX PO (08:14)
[2025-10-27] MEDS: SANTYL OINTMENT TOPICAL (08:14)
[2025-10-27] MEDS: PRAVACHOL 40 MG PO (08:14)
[2025-10-27] MEDS: LASIX 40 MG PO (08:15)
[2025-10-27] MEDS: TYLENOL 1000 MG PO ×2 (08:15→22:01)
[2025-10-27] MEDS: LOW STRENGTH ASPIRIN 81 MG PO (08:16)
--- NOTE | 2025-10-27 11:01 | W.PN.CARDCBS ---
Addendum entered and electronically signed by Harjeet Cota MD 10/27/25 11:28:
I saw and examined the patient.
The COMMUNICATION ELECTRONIC TECHNICIAN or PA's note was reviewed and I agree with the note.
Comment: General: Well developed, well nourished in NAD.
Neck: Supple, no JVD, HJR, carotids +2 B/L, no bruits bilaterally.
Heart: Non displaced PMI, RRR, no murmurs, No S3, S4, no rubs.
Lungs: Scattered rhonchi
Extremities: No clubbing, cyanosis or edema bilaterally.
Neuro: Grossly nonfocal, awake, alert and oriented x3.
Stable cardiology status for vascular surgery later today. Discussed with family at bedside. Eventually resume Xarelto.
Original Note:
Today's Communication / Plan
-
For vascular surgery later today
Will follow up post-op
Impression / Plan
-
PCP:Ilir Morrison
Surveyor Helper Rod: Dr. Cota
Impression:
Presented with critical limb ischemia from arterial insufficiency 10/17/2025
PAD
Chronic lower extremity wounds/unhealing leg ulcers
Chronic HFpEF
Hypercholesterolemia
Hypertension
Paroxysmal atrial fibrillation
Chronic anticoagulation w/ Xarelto
Iron deficiency anemia
GERD
h/o prostate cancer s/p radiation
Lexiscan stress test 10/22/2025: Small mild fixed inferobasilar and inferoapical defect consistent with infarct vs soft tissue attenuation. No evidence of ischemia. EF 68%.
Echo 04/05/2022: EF 50%. Stage I DD. Mild MR. PAP 27 mmHg
Echo 10/20/2025: Technically difficult and limited study. Lumason was utilized to improve endocardial definition. Left ventricular systolic function is visually estimated withing normal limits with no sizable regional wall motion abnormalities
noted. The estimated ejection fraction is estimated 60-65% by Borden's method of disc. Mild concentric LVH.No significant valve disease. Compared to prior echo from March 2022, there has been no significant change.
Plan:
-Presented 10/17/2025 with critical limb ischemia from arterial insufficiency from PAD with critical stenosis of femoral and popliteal arteries.
-Plan is for intervention/bypass w/ vascular surgery later today, 10/27.
-Underwent Lexiscan stress test 10/22 as part of pre-op risk stratification. No evidence of ischemia noted.
-Echo 10/20 with preserved EF, no significant change from prior.
-Appears euvolemic, Continue PO lasix 40mg daily.
-Remains in SR on review of telemetry. Continue verapamil 300mg daily.
-Xarelto on hold in anticipation of surgery, resume post-op once safe from surgical standpoint.
HPI: Patient is an 85-year-old male with past medical history significant for atrial fibrillation on anticoagulation, CHFpEF, GERD, hypertension, hyperlipidemia, prior history of prostate cancer status post radiation, presents to the emergency
department from vascular surgery clinic for evaluation of complete occlusion of the popliteal artery. He has chronic lower extremity swelling and a mixed picture of chronic lower extremity lymphedema and peripheral arterial occlusive disease and
was referred for angiogram which demonstrated critical stenosis of femoral and popliteal arteries and concern for critical limb ischemia. Plan is to undergo femoropopliteal bypass in the upcoming days. Timing to be determined. Currently Xarelto
placed on hold with last dose 10/15/2025. Cardiology being asked to see patient for preoperative cardiac risk assessment. Patient was seen on 09/30/2025 by outpatient architectural project manager Dr. Cota and was doing well at that time. His most recent echo
was in 2021 which showed preserved ejection fraction.
Progress Note - Surveyor Helper Rod
Subjective
Date of Service: October 27, 2025
No chest pain or SOB.
Objective
Labs:
10/27/25 06:14
10/27/25 06:14
Labs
Hgb 11.2 g/dL (13.0-18.0) L 10/27/25 06:14
Hct 33.7 % (39.0-52.0) L 10/27/25 06:14
Plt Count 244 10^3/uL (130-400) 10/27/25 06:14
PT 13.4 Sec (11.4-14.6) 10/17/25 20:55
INR 0.99 10/17/25 20:55
APTT 31.9 Sec (23.4-35.0) 10/17/25 20:55
Sodium 134 mmol/L (135-145) L 10/27/25 06:14
Potassium 3.6 mmol/L (3.5-5.1) 10/27/25 06:14
BUN 16 mg/dl (9-20) 10/27/25 06:14
Creatinine 0.5 mg/dL (0.7-1.3) L 10/27/25 06:14
Glucose 92 mg/dl (70-99) 10/27/25 06:14
Vital Signs and I&O:
Vital Signs
Temp Pulse Resp BP Pulse Ox
97.3 F 65 16 115/73 96
10/27/25 07:00 10/27/25 07:00 10/27/25 07:00 10/27/25 07:00 10/27/25 07:00
Vital Signs
Temp Pulse Resp BP Pulse Ox
97.3 F 65 16 115/73 96
10/27/25 07:00 10/27/25 07:00 10/27/25 07:00 10/27/25 07:00 10/27/25 07:00
Intake & Output
10/25/25 10/26/25 10/27/25 10/28/25
06:59 06:59 06:59 06:59
Intake Total 960 / 960 1620 / 1620 1320 / 1320
Output Total 325 / 325 900 / 900
Balance 960 / 960 1295 / 1295 420 / 420
Physical Exam
Physical Exam
GEN: No distress, awake, alert, oriented x3
HEENT: supple, anicteric, mmm
CV: SR on tele
[2025-10-27] MEDS: PERIDEX 0.12% ORAL RINSE 15 ML PO (11:50)
[2025-10-27] MEDS: BACTROBAN 2% OINTMENT 1 APPLIC NASAL (11:50)
--- NOTE | 2025-10-27 13:23 | W.PN.HOSP.TC ---
Today's Communication/Plan
-
Monitor vital signs see plan
Continue with gabapentin
Plan for OR today by vascular
Assessment / Plan
Assessment / Plan
General: Well Developed, Well Nourished, No Apparent Distress, Comfortable and Conversant
HEENT: Normocephalic
Respiratory: Clear to Auscultation and Non Labored Respirations; Negative Accessory Resp Muscle Use
Cardiac: Regular Rhythm and S1/S2
GI: Soft, Nontender, Nondistended and Normal Bowel Sounds
Musculoskeletal: Other (left foot in wound dressing )
Neuro: Awake and Alert
Psych: Calm and Intact Judgement/Insight
A/P:
# Critical limb ischemia/ left lower extremity arterial insufficiency
# Non-healing wound of left lower extremity
arteriogram revealed complete occlusion of the popiteal artery
vein mapping ultrasound and echo obtained. S/p cardiac stress 10/22: no evidence of ischemia
Vascular Surgery following (did not believe needed heparin gtt), plan for bypass surgery left lower extremity on Saturday 10/27
Cardiology on board for preop risk assessment
last dose of Xarelto was Monday10/15/2025
s/p cephalexin
Ongoing workup per vascular and cardiology
pain control with Tylenol ATC and PRN, changed oxycodone to tramadol 25 mg PRN for mod pain per family request. Added gabapentin HS
Senokot-S BID and Miralax daily while on opiate
# Hyponatremia
Monitor
# Suspect cognitive impairment at times
Previous CT has shown atrophy
mild hospital-acquired delirium at times, Wake up with confusion however MS improves throughout the day.
Continue to monitor MS for now. Pt has not needed medical management
# paroxysmal atrial fibrillation
Xarelto on hold since 10/15/2025
cardiology following
# Chronic lower extremity wounds
s/p cephalexin
Wound care consulted
# hypercholesterolemia
continue pravastatin
# hypertension
continue verapamil
# iron deficiency anemia
continue ferrous sulfate
# GERD
# Hx prostate cancer
# Insomnia
Started melatonin 5 mg HS
Code status: full code
DVT prophylaxis: Lovenox SQ
DW and daughter at bedside.
Anticipated Discharge: > 48 hours
Subjective/Interval History
-
Date of Service: October 27, 2025
Denies nausea
Objective Data
-
Labs:
Laboratory Results
10/27/25
06:14
WBC 4.3 L
Hgb 11.2 L
Hct 33.7 L
Plt Count 244
Sodium 134 L
Potassium 3.6
Chloride 97 L
Carbon Dioxide 33 H
BUN 16
Creatinine 0.5 L
Glucose 92
Calcium 9.0
Vital Signs:
Vital Signs
Temp Pulse Resp BP Pulse Ox
98.2 F 63 16 116/60 93
10/27/25 11:00 10/27/25 11:00 10/27/25 11:00 10/27/25 11:00 10/27/25 11:00
I&O
10/26/25 10/27/25 10/28/25
06:59 06:59 06:59
Intake Total 1620 / 1620 1320 / 1320
Output Total 325 / 325 900 / 900
Balance 1295 / 1295 420 / 420
[2025-10-27 15:13] LABS: ACT-LR - POC 310 Seconds (116-155)
[2025-10-27 16:12] LABS: ACT-LR - POC 263 Seconds (116-155)
[2025-10-27 17:17] LABS: ACT-LR - POC 226 Seconds (116-155)
--- NOTE | 2025-10-27 18:31 | OR.RPT ---
Operative Report
Operative Report
Date of Operation: 10/27/2025
Pre Op Diagnosis:
1. Limb threatening ischemia left lower extremity
2. [place] artery atherosclerosis with nonhealing left foot and ankle ulcerations
3. 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
Post Op Diagnosis:
1. Limb threatening ischemia left lower extremity
2. [place] artery atherosclerosis with nonhealing left foot and ankle ulcerations
3. 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
Procedure:
1. Left common femoral artery endarterectomy with patch angioplasty using bovine pericardium
2. Left common femoral artery to below the knee popliteal artery using ipsilateral nonreversed great saphenous vein
Surgeon: Lonnie Denise III, MD
Hogshead Stock Clerk: Tonja Hagen MD PGY-4
Anesthesia: General
Complications: None
Estimated Blood Loss: 100 cc
History and Indications for Procedure: 85-year-old male with limb threatening ischemia of his left lower extremity manifested by nonhealing foot and ankle ulcerations along with toe gangrene
Procedure in Detail: Augustine Solomon was correctly identified and placed supine on the operating table. After adequate induction of anesthesia the left great saphenous vein was imaged with ultrasound and marked from the groin to the mid calf. The
abdomen, pelvis and left lower extremity circumferentially were then prepped and draped in the usual sterile fashion. Preoperative antibiotics were administered. A timeout was performed with the nursing and anesthesia staff confirming the patients
identity as well as the nature and laterality of the procedure.
An incision was made from the groin to the mid calf over the left greater saphenous vein kalia. The vein was harvested along this entire course. All branches were ligated and divided between silk ties and metal clips. The vein appeared to be of
adequate caliber and quality to be used as a bypass conduit. The left common femoral, superficial femoral and profunda femoral arteries were then sharply dissected through the groin incision. Sharp dissection was continued under the inguinal
ligament and I obtained vessel loop control around the distal left external iliac artery at a soft spot proximal to the bulky calcified disease in the common femoral artery. Vessel loop control was obtained around the superficial femoral artery and
profunda femoral artery.
The below the knee popliteal artery was chosen as the distal target and was sharply exposed through the same proximal calf incision. The vessel was mildly calcified but was soft and I felt suitable for the distal anastomosis. Proximal and distal
control was obtained around the below knee popliteal artery with vessel loops.
An anatomic tunnel was then created between the below knee popliteal artery and the femoral vessels. The distal end of the vein was ligated with a silk tie and clip. The distal end of the vein was transected and then the vein was dilated with
heparinized saline. All branch points were closely inspected. The vein was marked for proper orientation. A clamp was placed at the saphenofemoral junction and the proximal end of the vein was transected. The SFJ stump was ligated with a silk tie.
The vein was placed in heparinized saline on the back table.
The patient was systemically heparinized.
The proximal and distal vessel loops were secured in the left groin. I replaced the proximal vessel loop with a Derra clamp. An 11-blade and Hand scissors were used to make and extend the arteriotomy on the common femoral artery. The arteriotomy
was carried distally to the proximal superficial femoral artery, just distal to the calcified plaque. The arteriotomy was extended up to the proximal common femoral artery. An endarterectomy was performed in the standard fashion with a [place]
elevator. The proximal extent of the plaque was transected and then additional elements of plaque were pulled out from the distal external iliac artery using forceps and clamps. The distal end of the plaque feathered nicely at the proximal
superficial femoral artery. The endarterectomy plane was then irrigated with heparinized saline solution and any loose fronds of tissue were removed. I brought onto the field a piece of bovine pericardium and this was fashioned appropriately to be
used as a patch. The patch was then sewn in place using a running 5-0 Prolene suture. Prior to the completion of the anastomosis, we allowed the arteries to forward bleed and backbleed temporarily. The anastomosis was then completed. I then made
a small slit in the bovine patch and extended this proximally distally with Hand scissors for the bypass anastomosis. The great saphenous vein was brought onto the field in a non-reversed fashion. The end of the vein was spatulated appropriately.
An end-to-side anastomosis was then performed to the bovine patch using a running 5-0 Prolene suture. The anastomosis was completed. The proximal clamp and distal vessel loops were then released. There was an excellent pulse in the common
femoral artery, proximal profunda femoral artery and the proximal superficial femoral artery. The suture lines were closely inspected for hemostasis which was achieved.
From the distal end of the vein I then passed the LeMaitre self-expanding valvulotome proximally towards the anastomosis. The valvulotome was positioned in the proximal vein graft and deployed in the vein graft in a location distal to the
anastomosis. The valvulotome was slowly and steadily pulled back through the vein graft. 3 separate passes were made through the vein graft. Following this the valvulotome was closed and removed. There was excellent pulsatile bleeding from the
distal end of the vein graft. The vein graft was marked for proper orientation and then carefully brought through the tunnel. A vascular clamp was placed on the proximal vein graft just off the anastomosis.
The below the knee popliteal artery proximal and distal vessel loops were secured. The vein was temporarily pressurized and shortened appropriately. An arteriotomy was made in the popliteal artery and extended proximally and distally with Hand
scissors. The proximal and distal artery was flushed with heparinized saline. The end of the vein conduit was spatulated and an end-to-side anastomosis created with a running 6-0 Prolene. Prior to the completion of the anastomosis the proximal
vascular clamp was temporarily released and the vein flushed. The area under the anastomosis was irrigated with heparinized saline and the anastomosis completed. The proximal clamp and then the vessel loops on the popliteal artery were released.
Immediately there was a good pulse in the vein conduit and the distal popliteal artery beyond the distal anastomosis. The suture lines were both inspected and hemostasis achieved.
Protamine was administered. Hemostasis was achieved in the wound beds. The wounds were irrigated with warm saline solution. The wounds were closed in layers. Sterile dressings were applied.
The patient tolerated the procedure well and was taken to the PACU in stable condition.
Attestation: I was present and responsible for the entire procedure
Signed:
Lonnie Denise III, MD
Vascular Surgery
[facility]
[2025-10-27] MEDS: LEVOPHED 250 IV (18:36)
[2025-10-27] MEDS: SUBLIMAZE 25 MCG IV ×4 (18:45→19:09)
[2025-10-27] MEDS: ZOFRAN 4 MG IV (18:45)
[2025-10-27 19:26] LABS: Blood Urea Nitrogen 14 mg/dl (9-20); Calcium 8.1 mg/dl (8.4-10.2); Carbon Dioxide 27 mmol/L (22-30); Chloride 98 mmol/L (98-107); Estimated Creatinine Clearance 86 ml/min; Glucose 188 mg/dl (70-99); Potassium 3.8 mmol/L (3.5-5.1); Sodium 133 mmol/L (135-145); eGFR > 60.00
[2025-10-27] MEDS: DILAUDID 0.5 MG IV (20:21)
--- NOTE | 2025-10-27 21:00 | PTCARENOTE ---
Resumed care of pt this evening. Received pt on levo at 2 mcg/min via right peripheral IV site. Pt is forgetful to place and time but arousable to verbal and tactile stimuli. Neurovascular checks performed, pulses present B/L DPs and PTs via
doppler. Surgical dressing intact with old drainage noted.
[2025-10-27] MEDS: CALAN EXTENDED RELEASE PO ×2 (21:52→21:53)
[2025-10-27] MEDS: TYLENOL PO (21:52)
[2025-10-27] MEDS: NEURONTIN 100 MG PO (22:01)
[2025-10-27] MEDS: MELATONIN 5 MG PO (22:02)
[2025-10-27] MEDS: NSS 1000 IV (22:28)
[2025-10-27] MEDS: LOVENOX SC (22:32)
[2025-10-28] VITALS (57 sets, daily range): BP systolic 79–154; BP diastolic 47–126; PULSE 81–82; O2SAT 94–95; BMI 26.7
--- NOTE | 2025-10-28 00:30 | PTCARENOTE ---
Neurovascular checks unchanged.
--- NOTE | 2025-10-28 04:30 | PTCARENOTE ---
Pt resting comfortably at this time. NV checks remain unchanged.
[2025-10-28 04:50] LABS: Hematocrit 31.8 % (39.0-52.0); Hemoglobin 10.6 g/dL (13.0-18.0); Mean Corp Hgb Conc. 33.3 g/dL (33.0-37.0); Mean Corpuscular Volume 98.1 fL (80.0-94.0); Nucleated Red Blood Cells % 0 % (-); Platelet Count 280 10^3/uL (130-400); Red Cell Dist. Width 12.1 % (11.5-14.5)
[2025-10-28 04:58] LABS: Blood Urea Nitrogen 17 mg/dl (9-20); Calcium 8.4 mg/dl (8.4-10.2); Carbon Dioxide 28 mmol/L (22-30); Chloride 101 mmol/L (98-107); Estimated Creatinine Clearance 101 ml/min; Glucose 141 mg/dl (70-99); Potassium 4.0 mmol/L (3.5-5.1); Sodium 135 mmol/L (135-145); eGFR > 60.00
[2025-10-28 04:59] LABS: APTT 34.8 Sec (23.4-35.0); INR 1.04; PT 13.7 Sec (11.4-14.6)
--- NOTE | 2025-10-28 07:19 | CON.INTV ---
Consultation
Consultation Request
Date/Time Consultation Requested: 10/27/25
Date/Time Consultation Performed: 10/28/25
Performing Provider: Loida
Reason for Consultation: Vasc Postop
Medical History
-
History of Present Illness:
85-year-old male with previous history of hypertension, hypercholesterolemia, PAF presenting from vascular office for nonhealing wound to the left leg. Undergone outpatient arteriogram demonstrating complete occlusion of the popliteal artery.
Admitted on 10/17/2025, underwent left common femoral artery endarterectomy with patch angioplasty using bovine pericardium on 10/27/2025. Postoperatively transferred to ICU for postoperative management.
Past Medical History
Past Medical History: Other (see list below)
Social History
Tobacco: Non-smoker
Alcohol: None
Drug: None
Allergies / Home Medications
Allergies
Allergy/AdvReac Type Severity Reaction Status Date / Time
No Known Allergies Allergy Verified 10/17/25 21:27
Home Medications
�Medication �Instructions �Recorded �Confirmed �Last Taken �Type
pravastatin 40 mg tablet 40 mg PO DAILY High cholesterol 06/06/12 10/17/25 10/17/25 History
cholecalciferol (vitamin D3) 50 2,000 unit PO DAILY Supplement 01/05/18 10/17/25 10/16/25 08:00 History
mcg (2,000 unit) tablet
acetaminophen 500 mg tablet 1,000 mg PO BIDPRN PRN mild pain 03/22/23 10/17/25 10/17/25 06:00 History
(Tylenol Extra Strength)
furosemide 40 mg tablet (Lasix) 40 mg PO DAILYPRN PRN Fluid 03/22/23 10/17/25 10/15/25 08:00 History
retention/Swelling
rivaroxaban 20 mg tablet (Xarelto) 20 mg PO QPM Blood clot 03/22/23 10/17/25 10/15/25 19:00 History
Held on 10/17/25. prevention/tx
Instructions: Resume on
10/18/25.
verapamil 300 mg capsule 24hr 300 mg PO QPM Blood pressure 03/22/23 10/17/25 10/16/25 19:[address],ext.release
cephalexin 500 mg capsule 500 mg PO BID Infection 10/17/25 10/17/25 10/16/25 17:00 History
cyanocobalamin (vitamin B-12) 1,000 mcg PO DAILY Supplement 10/17/25 10/17/25 Unknown History
1,000 mcg tablet
ferrous sulfate 325 mg (65 mg 325 mg PO Q48H Supplement 10/17/25 10/17/25 Unknown History
iron) tablet (FeroSul)
Review of Systems
-
History Source: Patient
All other systems: Negative unless noted
Vitals / Labs / Diagnostic Testing
Vital Signs
Temp Pulse Resp BP Pulse Ox
99.5 F 73 19 106/52 98
10/28/25 05:22 10/28/25 06:15 10/28/25 06:15 10/28/25 06:30 10/28/25 06:15
Lab Data
10/28/25 04:37
10/28/25 04:37
Laboratory Results
10/28/25
04:37
PT 13.7
INR 1.04
APTT 34.8
Diagnostic Testing:
Physical Exam
-
HEENT: Normocephalic, Anicteric and Moist Mucous Membranes
Cardiovascular: S1/S2 and Regular Rhythm
Respiratory: Clear and Non-Labored Respirations
GI: Soft, Non Distended and Non Tender
Neurology: Awake, Alert, Oriented and No Motor Deficits
Skin: Warm, Dry and Good Color
General: Comfortable and Other (NAD)
Assessment
-
85-year-old male with previous history of hypertension, hypercholesterolemia, PAF presenting from vascular office for nonhealing wound to the left leg. Undergone outpatient arteriogram demonstrating complete occlusion of the popliteal artery.
Admitted on 10/17/2025, underwent left common femoral artery endarterectomy with patch angioplasty using bovine pericardium on 10/27/2025. Postoperatively transferred to ICU for postoperative management.
Severe limb threatening ischemia left lower extremity status post left common femoral artery endarterectomy 10/27/2025
Nonhealing left lower extremity wounds
Hyponatremia, mild
Conditions present prior to admission
Hypertension
Paroxysmal atrial fibrillation
Hypercholesteremia
Gastroesophageal reflux disease without esophagitis
Dyslipidemia
Prostate cancer
Recurrent LE cellulitis
Former smoker
Plan
Patient is s/p FEA by vascular surgery service, POD #1
Continue observation following procedure
Follow neurovascular checks per protocol
ASA and statin on board
Follow BP monitoring and parameters as set by primary team
Cardiac history noted--PAF on Xarelto, HTN
Monitor on telemetry
Pain control per protocol
RASS goal 0
No prior history of pulmonary disease but was a former smoker
CXR reviewed indicating no acute disease
No prior PFTs for review
Encouraged IS
Diet advancement per protocol
Aspiration precautions
GI prophylaxis if indicated for stress ulcer prevention in the critically ill
Creat at baseline, follow UO
Critical I/Os
Void trials
Replete electrolytes as needed
No signs/symptoms suspicious for infectious etiology at this time
Will observe off antibiotics for now
Follow temperatures/CBC
Hb and platelets postoperatively stable
DVT prophylaxis recommended if not contraindicated based on procedural history -- heparin SQ and mechanical SCDs
Encouraged OOB/PT/OT/ambulation once cleared by surgical team
We will follow
Diagnostic Data
Chest X-Ray: 08/22/25- Relatively stable appearance of the chest. No acute cardiopulmonary process.
CT Scan: CHEST 05/24/25- Acute, nondisplaced fractures of the posterolateral right fourth, fifth, sixth ribs. Multiple chronic, healed right rib fracture deformities. Small right pleural effusion, slightly greater than simple fluid attenuation
suggesting a component of nonacute blood products. Severe coronary artery calcifications. Mottled appearance of the partially imaged left humeral diaphysis.
Echo: 10/20/25- 1. Technically difficult and limited study. Lumason was utilized to improve endocardial definition. Left ventricular systolic function is visually estimated within normal limits with no sizable regional wall motion abnormalities
noted. The estimated ejection fraction is estimated 60-65% by Borden's method of disc. Mild concentric LVH.
2. Trileaflet aortic valve. No aortic stenosis or aortic insufficiency.
3. Trace mitral valve regurgitation.
4. No tricuspid regurgitation.
5. When compared to the most recent echocardiogram from 04/05/2022, there has been no significant change.
PFT's:
Reports and relevant images were personally reviewed.
Critical Care time 50 mins -- The patient is admitted for acute critical illness for the treatment of vital organ failure and/or prevention of further life-threatening conditions. Total care includes time spent in review of history, physical exam,
medications, hemodynamic/ventilator parameters, laboratory data, imaging and discussion with house staff, pharmacy, respiratory therapy, software performance engineer, and nursing.
--- NOTE | 2025-10-28 07:45 | W.PN.VS ---
Addendum entered and electronically signed by Lonnie Denise III, MD 10/28/25 14:24:
This patient was seen and examined in collaboration with MURALI Mcclain. I agree with the history and physical exam as well as the assessment and plan. I have the following additions:
Doing well early postop
Dressings are clean and dry
Pulsatile Doppler signal over the left DP and PT
Okay to restart oral anticoagulation this evening
Continue aspirin
PT/OT and out of bed
Agree with gentle Piter wrap compression from the toes to the proximal thigh to manage postoperative edema
Signed:
Lonnie Denise III, MD
Vascular Surgery
[facility]
Original Note:
Today's Communication / Plan
-
Plan reviewed with on-call attending
Assessment/Plan
-
Assessment: 85 year old male with PAD, POD #1 Left common femoral artery endarterectomy with patch angioplasty using bovine pericardium and left common femoral artery to below the knee popliteal artery using ipsilateral nonreversed great saphenous
vein
Plan:
Patient remained n.p.o. overnight, negative fluid balance over 24 hours, with marginal urine output over the past several hours, advance diet to cholesterol-lowering and will give 500 mL NSS IV fluid bolus
Required Miguel Ángle-Synephrine overnight to aid in hemodynamic stability goal to wean off, hypotension should also improve with fluid resuscitation, and then discontinue arterial line
Discontinue Denise catheter
Out of bed to chair with progression to ambulation as tolerated
PT/OT eval and treat
Wound care nursing following appreciate recommendations for management of multiple skin tears
Recommend gentle Piter wrap to left lower extremity for decrease in peripheral edema, patient indicates that he struggles to tolerate compression, if patient cannot tolerate can be removed
Subjective Data
-
Date of Service: October 28, 2025
Patient seen and examined at bedside, reports adequate postoperative pain management. Denies nausea, vomiting, fever, and chills.
Objective Data
-
Vital Signs
Temp Pulse Resp BP Pulse Ox
99.5 F 73 19 106/52 98
10/28/25 07:21 10/28/25 06:15 10/28/25 06:15 10/28/25 06:30 10/28/25 06:15
Intake and Output
10/27/25 10/28/25 10/29/25
06:59 06:59 06:59
Intake Total 1320 / 1320 822.5 / 822.5
Output Total 900 / 900 1060 / 1060
Balance 420 / 420 -237.5 / -237.5
Intake:
Oral fluids 1320 / 1320
IV fluids (Total) 822.5 / 822.5
Levophed 82.5 / 82.5
Normosol 100 / 100
Nss 1,000 ml @ 80 mls/hr IV . 640 / 640
[id number] [facility] Rx#:[id number]
Output:
Urine, Denise 1060 / 1060
Urine, Voided 900 / 900
Other:
How many times incontinent 1
MODERATE amount urine
How many times incontinent 1
SATURATED amount urine
Number of approximated MODERATE 1
amounts of urine
Lab Results
10/28/25 04:37
10/28/25 04:37
Calcium 8.4 mg/dl (8.4-10.2) 10/28/25 04:37
Magnesium 2.2 mg/dl (1.6-2.3) 10/23/25 08:37
Total Bilirubin 0.6 mg/dl (0.2-1.3) 10/20/25 06:23
AST 28 U/L (17-59) 10/20/25 06:23
ALT 20 U/L (0-50) 10/20/25 06:23
Alkaline Phosphatase 62 U/L (38-126) 10/20/25 06:23
Total Protein 6.5 g/dl (6.3-8.2) 10/20/25 06:23
Albumin 4.0 g/dl (3.5-5.0) 10/20/25 06:23
Physical Exam
-
No apparent distress, resting in bed comfortably
No tachycardia
No dyspnea on 2 L nasal cannula
ABD flat, nontender, nondistended
Left lower extremity surgical dressing dry and intact, Doppler PT and DP signal,
[2025-10-28] MEDS: MIRALAX 17 GRAMS PO (07:49)
[2025-10-28] MEDS: SENOKOT-S 1 TABLET PO ×2 (07:49→21:21)
[2025-10-28] MEDS: FEOSOL 325 MG PO (07:49)
[2025-10-28] MEDS: TYLENOL 1000 MG PO ×3 (07:49→21:21)
[2025-10-28] MEDS: LOW STRENGTH ASPIRIN 81 MG PO (07:50)
[2025-10-28] MEDS: PRAVACHOL 40 MG PO (07:50)
[2025-10-28] MEDS: LASIX PO (08:00)
[2025-10-28] MEDS: NSS 500 IV (08:40)
--- NOTE | 2025-10-28 09:00 | PTCARENOTE ---
pt alert and oriented , NSR on monitor , on Levophed this am and weaned off , he is ordered 500 ml NSS bolus to improved low urine output overnight , co pain L leg at groin and surgical site , refused pain medication states he becomes confused with
opiodis , he was given Tylenol as ordered , he is now on a diet and tolerating well, plan for physical therapy to get oob and assess ambulation
--- NOTE | 2025-10-28 11:03 | W.PN.CARDCBS ---
Today's Communication / Plan
-
Stable cardiology status status post PVD surgery
Await surgical input to restart Xarelto
Remains in sinus rhythm
Impression / Plan
-
PCP:Ilir Morrison
Sliver Cutter: Dr. Cota
Impression:
Presented with critical limb ischemia from arterial insufficiency 10/17/2025/status post left common femoral endarterectomy with patch angioplasty and left common femoral to below-knee popliteal artery bypass 10/27/2025
PAD
Chronic lower extremity wounds/unhealing leg ulcers
Chronic HFpEF
Hypercholesterolemia
Hypertension
Paroxysmal atrial fibrillation
Chronic anticoagulation w/ Xarelto
Iron deficiency anemia
GERD
h/o prostate cancer s/p radiation
Lexiscan stress test 10/22/2025: Small mild fixed inferobasilar and inferoapical defect consistent with infarct vs soft tissue attenuation. No evidence of ischemia. EF 68%.
Echo 04/05/2022: EF 50%. Stage I DD. Mild MR. PAP 27 mmHg
Echo 10/20/2025: Technically difficult and limited study. Lumason was utilized to improve endocardial definition. Left ventricular systolic function is visually estimated withing normal limits with no sizable regional wall motion abnormalities
noted. The estimated ejection fraction is estimated 60-65% by Borden's method of disc. Mild concentric LVH.No significant valve disease. Compared to prior echo from March 2022, there has been no significant change.
Plan:
Stable cardiology status status post left lower extremity peripheral bypass surgery
Weight vascular surgery input to restart Xarelto
Remains in sinus rhythm
Discussed with nursing and family at bedside
HPI: Patient is an 85-year-old male with past medical history significant for atrial fibrillation on anticoagulation, CHFpEF, GERD, hypertension, hyperlipidemia, prior history of prostate cancer status post radiation, presents to the emergency
department from vascular surgery clinic for evaluation of complete occlusion of the popliteal artery. He has chronic lower extremity swelling and a mixed picture of chronic lower extremity lymphedema and peripheral arterial occlusive disease and
was referred for angiogram which demonstrated critical stenosis of femoral and popliteal arteries and concern for critical limb ischemia. Plan is to undergo femoropopliteal bypass in the upcoming days. Timing to be determined. Currently Xarelto
placed on hold with last dose 10/15/2025. Cardiology being asked to see patient for preoperative cardiac risk assessment. Patient was seen on 09/30/2025 by outpatient tire center manager Dr. Cota and was doing well at that time. His most recent echo
was in 2021 which showed preserved ejection fraction.
Progress Note - Sliver Cutter
Subjective
Date of Service: October 28, 2025
No complaints
Objective
Labs:
10/28/25 04:37
10/28/25 04:37
Labs
Hgb 10.6 g/dL (13.0-18.0) L 10/28/25 04:37
Hct 31.8 % (39.0-52.0) L 10/28/25 04:37
Plt Count 280 10^3/uL (130-400) 10/28/25 04:37
PT 13.7 Sec (11.4-14.6) 10/28/25 04:37
INR 1.04 10/28/25 04:37
APTT 34.8 Sec (23.4-35.0) 10/28/25 04:37
Sodium 135 mmol/L (135-145) 10/28/25 04:37
Potassium 4.0 mmol/L (3.5-5.1) 10/28/25 04:37
BUN 17 mg/dl (9-20) 10/28/25 04:37
Creatinine 0.6 mg/dL (0.7-1.3) L 10/28/25 04:37
Glucose 141 mg/dl (70-99) H 10/28/25 04:37
Vital Signs and I&O:
Vital Signs
Temp Pulse Resp BP Pulse Ox
99.5 F 73 19 106/52 98
10/28/25 07:21 10/28/25 06:15 10/28/25 06:15 10/28/25 06:30 10/28/25 06:15
Vital Signs
Temp Pulse Resp BP Pulse Ox
99.5 F 73 19 106/52 98
10/28/25 07:21 10/28/25 06:15 10/28/25 06:15 10/28/25 06:30 10/28/25 06:15
Intake & Output
10/26/25 10/27/25 10/28/25 10/29/25
06:59 06:59 06:59 06:59
Intake Total 1620 / 1620 1320 / 1320 822.5 / 822.5
Output Total 325 / 325 900 / 900 1060 / 1060
Balance 1295 / 1295 420 / 420 -237.5 / -237.5
Physical Exam
Physical Exam
General: Well developed, well nourished in NAD.
Neck: Supple, no JVD, HJR, carotids +2 B/L, no bruits bilaterally.
Heart: Non displaced PMI, RRR, no murmurs, No S3, S4, no rubs.
Lungs: Scattered rhonchi
Extremities: No clubbing, cyanosis or edema bilaterally.
Neuro: Grossly nonfocal, awake, alert and oriented x3.
--- NOTE | 2025-10-28 11:22 | WOUNDNOTE ---
L LATERAL LOWER LEG
--- NOTE | 2025-10-28 11:22 | WOUNDNOTE ---
L MEDIAL LOWER ANKLE
--- NOTE | 2025-10-28 11:23 | WOUNDNOTE ---
L POSTERIOR LOWER LEG
--- NOTE | 2025-10-28 11:25 | WOUNDNOTE ---
WON RN NOTE: Followed up today for L leg ulcers. Patient having pain in leg when elevating and difficult to lift leg on own. S/P angioplasty of L leg done yesterday. L lower leg wounds appear smaller and edema much less, dressings changed. Piter wraps
in use from forefoot to thigh placed by vascular. L plantar 3rd toe with same flat dried up blood blister. Color of skin pinker and warmer since circulation improved, suspect reason for darker spots on L lateral heel. Skin prep and adhesive foam
applied. L heel offloaded with several pillows under L leg. Asked nurse Anjali to assess sacrum and R heel next time turned for any changes in skin. Nursing will notify wound care of any changes. Will follow as needed, patient to follow with vascular
and wound care center post discharge.
[2025-10-28] MEDS: SANTYL OINTMENT 1 APPLIC TOPICAL (12:05)
[2025-10-28] MEDS: HYDROPHOR 1 APPLIC TOPICAL (12:05)
--- NOTE | 2025-10-28 12:56 | W.PN.HOSP.TC ---
Today's Communication/Plan
-
Monitor vitals
See plan
Restart Xarelto when okay with vascular surgery
DC Denise when able
Wean pressors as tolerated
Discussed with family at bedside
Assessment / Plan
Assessment / Plan
General: Well Developed, Well Nourished, No Apparent Distress, Comfortable and Conversant
HEENT: Normocephalic
Respiratory: Clear to Auscultation and Non Labored Respirations
Cardiac: Regular Rhythm and S1/S2
GI: Soft, Nontender, Nondistended and Normal Bowel Sounds
Musculoskeletal: Other (left foot in wound dressing )
Neuro: Awake and Alert
Psych: Calm and Intact Judgement/Insight
A/P:
# Critical limb ischemia/ left lower extremity arterial insufficiency
# Non-healing wound of left lower extremity
arteriogram revealed complete occlusion of the popiteal artery
vein mapping ultrasound and echo obtained. S/p cardiac stress 10/22: no evidence of ischemia
Vascular Surgery following, s/p FEA 10/27. Postop been in ICU. Started on low-dose mirta overnight for hypotension. Now off this morning. Responded to fluids.
Denise per vascular
Cardiology following
last dose of Xarelto was Monday10/15/2025, restart when okay with vascular surgery
s/p cephalexin
Ongoing workup per vascular and cardiology
pain control with Tylenol ATC and PRN, changed oxycodone to tramadol 25 mg PRN for mod pain per family request. Added gabapentin HS
Senokot-S BID and Miralax daily while on opiate
# Hyponatremia
Monitor
# Suspect cognitive impairment at times
Previous CT has shown atrophy
mild hospital-acquired delirium at times, Wake up with confusion however MS improves throughout the day.
Continue to monitor MS for now. Pt has not needed medical management
# paroxysmal atrial fibrillation
Xarelto on hold since 10/15/2025
cardiology following
# Chronic lower extremity wounds
s/p cephalexin
Wound care consulted
# hypercholesterolemia
continue pravastatin
# hypertension
continue verapamil
# iron deficiency anemia
continue ferrous sulfate
# GERD
# Hx prostate cancer
# Insomnia
Started melatonin 5 mg HS
Code status: full code
DVT prophylaxis: per vascular
DW and daughter at bedside.
I spent a total of 52 minutes with the patient or on the floor. More than 50% of this time involved counseling and coordination of care.
Anticipated Discharge: > 48 hours
Subjective/Interval History
-
Date of Service: October 28, 2025
denies nausea
Objective Data
-
Labs:
Laboratory Results
10/28/25
04:37
WBC 8.3
Hgb 10.6 L
Hct 31.8 L
Plt Count 280
PT 13.7
INR 1.04
APTT 34.8
Sodium 135
Potassium 4.0
Chloride 101
Carbon Dioxide 28
BUN 17
Creatinine 0.6 L
Glucose 141 H
Calcium 8.4
Vital Signs:
Vital Signs
Temp Pulse Resp BP Pulse Ox
99.5 F 88 19 110/57 98
10/28/25 07:21 10/28/25 08:00 10/28/25 06:15 10/28/25 08:00 10/28/25 06:15
I&O
10/27/25 10/28/25 10/29/25
06:59 06:59 06:59
Intake Total 1320 / 1320 822.5 / 822.5
Output Total 900 / 900 1060 / 1060
Balance 420 / 420 -237.5 / -237.5
[2025-10-28] MEDS: NSS IV (13:14)
--- NOTE | 2025-10-28 13:47 | CM ---
F/U: Patient had surgery yesterday. ROSEMARIE Baxter met with 2 daughters, , and the patient. Discussed SNF, they had list of SNF's, but no decision yet due to focusing on surgery. ROSEMARIE Baxter re-discussed SNF, provided another list, and ask them to
provide their choices, ROSEMARIE's cell number left with them. PLAN: SNF when ready.
--- NOTE | 2025-10-28 16:53 | W.PN.UPDATE ---
Update Note
Progress Note Update
Notified by nursing that patient went into atrial fibrillation with heart rates in the 110s to 130s. Patient presently asymptomatic. will give IV lopressor 5mg x1. will reassess BP post BB and if stable, will also give evening verapamil. if remains
in afib despite this, would consider initiation of amiodarone 200mg BID once xarelto resumed for post op period. d/w nursing. d/w patient and family at bedside.
[2025-10-28] MEDS: LOPRESSOR 5 MG IV (17:16)
[2025-10-28] MEDS: XARELTO 20 MG PO (17:22)
--- NOTE | 2025-10-28 18:00 | PTCARENOTE ---
pt oob to chair at 1430 with physical therapy he become pale and diaphoretic his HR in afib on monitor at a rate of 130-150 , he was placed back to bed and converted back to NSR within 10 min , at 1520 he again went into afib 1000-120s and his BP
80s - 90s , he was asymptomatic and vascular surgery DOUGH MACHINE OPERATOR notified along with cardiology , he was given 5mg of IV Lopressor at 1715 and his HR down to 90s continuing in Afib , he had a oral dose of verapamil with hold parameters , at 1830 his sbp was
109/83 and verapamil was not given at that time , he continues to be asymptomatic , he has good Doppler signal pulses as previous
[2025-10-28] MEDS: NEURONTIN 100 MG PO (21:21)
[2025-10-28] MEDS: MELATONIN 5 MG PO (21:21)
[2025-10-28] MEDS: CALAN EXTENDED RELEASE PO ×2 (21:41→21:42)
[2025-10-29] VITALS (22 sets, daily range): BP systolic 80–112; BP diastolic 41–69; BMI 27.1
[2025-10-29] MEDS: ULTRAM 50 MG PO ×2 (01:27→19:57)
[2025-10-29] MEDS: TYLENOL 1000 MG PO ×4 (05:41→21:42)
[2025-10-29 06:29] LABS: Hematocrit 28.6 % (39.0-52.0); Hemoglobin 9.3 g/dL (13.0-18.0); Mean Corp Hgb Conc. 32.5 g/dL (33.0-37.0); Mean Corpuscular Volume 98.3 fL (80.0-94.0); Nucleated Red Blood Cells % 0 % (-); Platelet Count 212 10^3/uL (130-400); Red Cell Dist. Width 12.2 % (11.5-14.5)
[2025-10-29 06:32] LABS: Blood Urea Nitrogen 22 mg/dl (9-20); Calcium 8.4 mg/dl (8.4-10.2); Carbon Dioxide 33 mmol/L (22-30); Chloride 99 mmol/L (98-107); Estimated Creatinine Clearance 101 ml/min; Glucose 111 mg/dl (70-99); Potassium 3.6 mmol/L (3.5-5.1); Sodium 134 mmol/L (135-145); eGFR > 60.00
--- NOTE | 2025-10-29 07:26 | W.PN.INTV ---
Today's Communication / Plan
Recommendations
Doing well, remains stable on RA, not on pressors
Pain control PRN
PT/OT, OOB as tolerated
Further postop care per team
Transfer to floors, we will sign off upon transfer
Assessment
-
85-year-old male with previous history of hypertension, hypercholesterolemia, PAF presenting from vascular office for nonhealing wound to the left leg. Undergone outpatient arteriogram demonstrating complete occlusion of the popliteal artery.
Admitted on 10/17/2025, underwent left common femoral artery endarterectomy with patch angioplasty using bovine pericardium on 10/27/2025. Postoperatively transferred to ICU for postoperative management.
Severe limb threatening ischemia left lower extremity status post left common femoral artery endarterectomy 10/27/2025
Nonhealing left lower extremity wounds
Hyponatremia, mild
Conditions present prior to admission
Hypertension
Paroxysmal atrial fibrillation
Hypercholesteremia
Gastroesophageal reflux disease without esophagitis
Dyslipidemia
Prostate cancer
Recurrent LE cellulitis
Former smoker
Plan
Patient is s/p FEA by vascular surgery service, POD #2
Continue observation following procedure
Follow neurovascular checks per protocol
ASA and statin on board
Follow BP monitoring and parameters as set by primary team
Cardiac history noted--PAF on Xarelto, HTN
Monitor on telemetry
Pain control per protocol
RASS goal 0
No prior history of pulmonary disease but was a former smoker
CXR reviewed indicating no acute disease
No prior PFTs for review
Encouraged IS
Diet advancement per protocol
Aspiration precautions
GI prophylaxis if indicated for stress ulcer prevention in the critically ill
Creat at baseline, follow UO
Critical I/Os
Void trials
Replete electrolytes as needed
No signs/symptoms suspicious for infectious etiology at this time
Will observe off antibiotics for now
Follow temperatures/CBC
Hb and platelets postoperatively stable
DVT prophylaxis recommended if not contraindicated based on procedural history -- heparin SQ and mechanical SCDs
Encouraged OOB/PT/OT/ambulation once cleared by surgical team
Transfer to floors per service
Diagnostic Data
Chest X-Ray: 08/22/25- Relatively stable appearance of the chest. No acute cardiopulmonary process.
CT Scan: CHEST 05/24/25- Acute, nondisplaced fractures of the posterolateral right fourth, fifth, sixth ribs. Multiple chronic, healed right rib fracture deformities. Small right pleural effusion, slightly greater than simple fluid attenuation
suggesting a component of nonacute blood products. Severe coronary artery calcifications. Mottled appearance of the partially imaged left humeral diaphysis.
Echo: 10/20/25- 1. Technically difficult and limited study. Lumason was utilized to improve endocardial definition. Left ventricular systolic function is visually estimated within normal limits with no sizable regional wall motion abnormalities
noted. The estimated ejection fraction is estimated 60-65% by Borden's method of disc. Mild concentric LVH.
2. Trileaflet aortic valve. No aortic stenosis or aortic insufficiency.
3. Trace mitral valve regurgitation.
4. No tricuspid regurgitation.
5. When compared to the most recent echocardiogram from 04/05/2022, there has been no significant change.
PFT's:
Reports and relevant images were personally reviewed.
Critical Care time 31 mins -- The patient is admitted for acute critical illness for the treatment of vital organ failure and/or prevention of further life-threatening conditions. Total care includes time spent in review of history, physical exam,
medications, hemodynamic/ventilator parameters, laboratory data, imaging and discussion with house staff, pharmacy, respiratory therapy, extruding press adjuster, and nursing.
Subjective Dataa
Subjective Data
Date of Service:
Date of Service: October 29, 2025
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
Subjective:
No new complaints, some pain but well managed on tylenol
Stable on RA, not on pressors
Objective Data
Data Reviewed
Vital Signs / I&O / Oxygen:
Vital Signs
Temp Pulse Resp BP Pulse Ox
98.1 F 94 21 97/48 96
10/29/25 07:19 10/29/25 06:00 10/29/25 06:00 10/29/25 06:00 10/29/25 06:00
Intake and Output
10/28/25 10/29/25 10/30/25
06:59 06:59 06:59
Intake Total 822.5 / 910.0 2065.0 / 2065.0
Output Total 1060 / 1075 595 / 595
Balance -237.5 / -165.0 1470.0 / 1470.0
SaO2 96
Nasal Cannula flow liters per 2
minute
Physical Exam
General: Comfortable and Other (NAD)
HEENT: Normocephalic, Anicteric and Moist Mucous Membranes
Cardiovascular: S1-S2 and Regular Rhythm
Respiratory: Clear and Non-Labored Respirations
GI: Soft, Non Distended and Non Tender
Neurology: Awake, Alert, Oriented and No Motor Deficits
Skin: Warm, Dry, Good Color and Other (Redness over L foot)
Labs/Micro/Reports
Lab Data
10/29/25 05:32
10/29/25 05:32
[2025-10-29] MEDS: SANTYL OINTMENT 1 APPLIC TOPICAL (09:25)
[2025-10-29] MEDS: HYDROPHOR 1 APPLIC TOPICAL (09:25)
[2025-10-29] MEDS: MIRALAX 17 GRAMS PO (09:25)
[2025-10-29] MEDS: SENOKOT-S 1 TABLET PO ×2 (09:26→19:55)
[2025-10-29] MEDS: LOW STRENGTH ASPIRIN 81 MG PO (09:26)
[2025-10-29] MEDS: PRAVACHOL 40 MG PO (09:26)
[2025-10-29] MEDS: KCL ELIXIR 40 MEQ PO (09:29)
--- NOTE | 2025-10-29 09:29 | W.PN.VS ---
Addendum entered and electronically signed by Daljit Clay MD 10/29/25 11:48:
Seen and examined with TELEVISION PRODUCER. Agree with findings and plan as discussed and noted below.
Original Note:
Today's Communication / Plan
-
Will apply reviewed with on-call vascular attending.
Assessment/Plan
-
Assessment: 85 year old male with PAD, POD #2 Left common femoral artery endarterectomy with patch angioplasty using bovine pericardium and left common femoral artery to below the knee popliteal artery using ipsilateral nonreversed great saphenous
vein
Plan:
Continue to encourage ambulation as tolerated
PT/OT eval and treat
Wound care nursing following appreciate recommendations for management of multiple skin tears
Recommend gentle Piter wrap to left lower extremity for decrease in peripheral edema, patient indicates that he struggles to tolerate compression, if patient cannot tolerate can be removed
Okay to continue oral anticoagulation from a vascular surgical perspective
Okay to downgrade from ICU from a vascular surgical perspective
Subjective Data
-
Date of Service: October 29, 2025
Patient seen and examined at bedside, reports well-managed postoperative pain with current pain medication regimen. Denies nausea, vomiting, fever, and chills.
Objective Data
-
Vital Signs
Temp Pulse Resp BP Pulse Ox
98.1 F 106 15 103/65 97
10/29/25 07:19 10/29/25 08:00 10/29/25 08:00 10/29/25 08:00 10/29/25 08:00
Intake and Output
10/28/25 10/29/25 10/30/25
06:59 06:59 06:59
Intake Total 822.5 / 910.0 2065.0 / 2065.0
Output Total 1060 / 1075 595 / 595
Balance -237.5 / -165.0 1470.0 / 1470.0
Intake:
Oral fluids 1150 / 1150
IV fluids (Total) 822.5 / 910.0 415.0 / 415.0
Levophed 82.5 / 90.0 15.0 / 15.0
Normosol 100 / 100
Nss 1,000 ml @ 80 mls/hr IV . 640 / 720 400 / 400
[id number] JOCELINE Rx#:[id number]
IV piggybacks 500 / 500
Output:
Urine, Denise 1060 / 1075 120 / 120
Urine, Voided 475 / 475
Lab Results
10/29/25 05:32
10/29/25 05:32
Calcium 8.4 mg/dl (8.4-10.2) 10/29/25 05:32
Magnesium 2.2 mg/dl (1.6-2.3) 10/23/25 08:37
Total Bilirubin 0.6 mg/dl (0.2-1.3) 10/20/25 06:23
AST 28 U/L (17-59) 10/20/25 06:23
ALT 20 U/L (0-50) 10/20/25 06:23
Alkaline Phosphatase 62 U/L (38-126) 10/20/25 06:23
Total Protein 6.5 g/dl (6.3-8.2) 10/20/25 06:23
Albumin 4.0 g/dl (3.5-5.0) 10/20/25 06:23
Physical Exam
-
No apparent distress, resting in bed comfortably
Irregular rhythm, heart rate elevated in 100-110's range, atrial fibrillation on monitor
No dyspnea on room air
ABD flat, nontender, nondistended
Left lower extremity surgical dressing dry and intact, Doppler PT and DP signal, all dressings removed staple sites well-approximated and clean, dry, and intact
[2025-10-29] MEDS: LASIX PO (09:35)
--- NOTE | 2025-10-29 09:44 | PTCARENOTE ---
Updated assessment, vital sign trends ongoing and as documented. Updates thru morning rounds with Vascular team, cardiology, hospitalist and fire apparatus engineer team. Plan to transfer to 2N/2s tele. Await cardiology follow up for medications. Dressing
changed this am with vascular team. Continue ongoing assessment follow up. Vascular team at bedside with patient. Await follow up with PT/OT.
--- NOTE | 2025-10-29 09:54 | W.PN.CARDCBS ---
Today's Communication / Plan
-
Start low-dose metoprolol for rate control of A-fib
Continue maintenance diuretic
Impression / Plan
-
PCP:Ilir Morrison
Bricklayer Apprentice: Dr. Cota
Impression:
Presented with critical limb ischemia from arterial insufficiency 10/17/2025/status post left common femoral endarterectomy with patch angioplasty and left common femoral to below-knee popliteal artery bypass 10/27/2025
PAD
Chronic lower extremity wounds/unhealing leg ulcers
Chronic HFpEF
Hypercholesterolemia
Hypertension
Paroxysmal atrial fibrillation
Chronic anticoagulation w/ Xarelto
Iron deficiency anemia
GERD
h/o prostate cancer s/p radiation
Lexiscan stress test 10/22/2025: Small mild fixed inferobasilar and inferoapical defect consistent with infarct vs soft tissue attenuation. No evidence of ischemia. EF 68%.
Echo 04/05/2022: EF 50%. Stage I DD. Mild MR. PAP 27 mmHg
Echo 10/20/2025: Technically difficult and limited study. Lumason was utilized to improve endocardial definition. Left ventricular systolic function is visually estimated withing normal limits with no sizable regional wall motion abnormalities
noted. The estimated ejection fraction is estimated 60-65% by Borden's method of disc. Mild concentric LVH.No significant valve disease. Compared to prior echo from March 2022, there has been no significant change.
Plan:
Underwent left lower extremity peripheral bypass surgery 10/27
Post procedure went into AFib. Does have a known history of paroxysmal AFib. Does not seem to be symptomatic.
Rates have been elevated at times, but home verapamil held for marginal BP.
Would try low dose metoprolol for rate control 12.5mg BID and titrate for goal HR<110 bpm
If AFib is persistent can arrange for outpatient DCCV, but would opt for rate control stategy in the short term.
Home Xarelto resumed
Would continue home lasix to keep I/O balance even or slightly negative
Discussed with nursing
HPI: Patient is an 85-year-old male with past medical history significant for atrial fibrillation on anticoagulation, CHFpEF, GERD, hypertension, hyperlipidemia, prior history of prostate cancer status post radiation, presents to the emergency
department from vascular surgery clinic for evaluation of complete occlusion of the popliteal artery. He has chronic lower extremity swelling and a mixed picture of chronic lower extremity lymphedema and peripheral arterial occlusive disease and
was referred for angiogram which demonstrated critical stenosis of femoral and popliteal arteries and concern for critical limb ischemia. Plan is to undergo femoropopliteal bypass in the upcoming days. Timing to be determined. Currently Xarelto
placed on hold with last dose 10/15/2025. Cardiology being asked to see patient for preoperative cardiac risk assessment. Patient was seen on 09/30/2025 by outpatient customer marketing manager Dr. Cota and was doing well at that time. His most recent echo
was in 2021 which showed preserved ejection fraction.
Progress Note - Bricklayer Apprentice
Subjective
Date of Service: October 29, 2025
Remains in AFib in the ICU. No cardiac complaints - no palps, CP or SOB.
Objective
Labs:
10/29/25 05:32
10/29/25 05:32
Labs
Hgb 9.3 g/dL (13.0-18.0) L 10/29/25 05:32
Hct 28.6 % (39.0-52.0) L 10/29/25 05:32
Plt Count 212 10^3/uL (130-400) D 10/29/25 05:32
PT 13.7 Sec (11.4-14.6) 10/28/25 04:37
INR 1.04 10/28/25 04:37
APTT 34.8 Sec (23.4-35.0) 10/28/25 04:37
Sodium 134 mmol/L (135-145) L 10/29/25 05:32
Potassium 3.6 mmol/L (3.5-5.1) 10/29/25 05:32
BUN 22 mg/dl (9-20) H 10/29/25 05:32
Creatinine 0.6 mg/dL (0.7-1.3) L 10/29/25 05:32
Glucose 111 mg/dl (70-99) H 10/29/25 05:32
Vital Signs and I&O:
Vital Signs
Temp Pulse Resp BP Pulse Ox
98.1 F 106 15 105/52 97
10/29/25 07:19 10/29/25 09:35 10/29/25 08:00 10/29/25 09:35 10/29/25 08:00
Vital Signs
Temp Pulse Resp BP Pulse Ox
98.1 F 106 15 105/52 97
10/29/25 07:19 10/29/25 09:35 10/29/25 08:00 10/29/25 09:35 10/29/25 08:00
Intake & Output
10/27/25 10/28/25 10/29/25 10/30/25
06:59 06:59 06:59 06:59
Intake Total 1320 / 1320 822.5 / 910.0 2065.0 / 2065.0
Output Total 900 / 900 1060 / 1075 595 / 595
Balance 420 / 420 -237.5 / -165.0 1470.0 / 1470.0
Physical Exam
Physical Exam
Gen: NAD, AAOx3
HEENT: NC/AT, sclera anicteric
Neck: No JVD
CV: Irregularly irregular, NL s1/s2, no M/R/G
Lungs: No increased WOB on 2L NC
Abd: S/ND
Ext: LLE CDI
Skin: Warm, dry
Neuro: Non-focal
[2025-10-29] MEDS: LOPRESSOR 12.5 MG PO ×2 (10:19→19:54)
--- NOTE | 2025-10-29 11:21 | PTCARENOTE ---
Out of bed to commode, then to chair two person moderate/heavy assist.Rolling walker in use. Patient verbalizes some mobility issues at home also with some use of rolling walker at home. Follow up with vascular team. Update with at bedside.
Continue with teaching and supportive cares.
--- NOTE | 2025-10-29 13:08 | W.PN.HOSP.TC ---
Today's Communication/Plan
-
Monitor vitals
See plan
PT
Continue with Xarelto
Continue with low-dose metoprolol
Transfer to telemetry
Assessment / Plan
Assessment / Plan
General: Well Developed, Well Nourished, No Apparent Distress, Comfortable and Conversant
HEENT: Normocephalic
Respiratory: Clear to Auscultation and Non Labored Respirations
Cardiac: Regular Rhythm and S1/S2
GI: Soft, Nontender, Nondistended and Normal Bowel Sounds
Musculoskeletal: Other (left foot in wound dressing )
Neuro: Awake and Alert
Psych: Calm and Intact Judgement/Insight
A/P:
# Critical limb ischemia/ left lower extremity arterial insufficiency
# Non-healing wound of left lower extremity
arteriogram revealed complete occlusion of the popiteal artery
vein mapping ultrasound and echo obtained. S/p cardiac stress 10/22: no evidence of ischemia
Vascular Surgery following, s/p FEA 10/27. Postop been in ICU. was on low-dose mirta post OP for hypotension. now has been off pressors
cordero il'ed, now voiding
Cardiology following
xarelto restarted 10/28
s/p cephalexin
Ongoing workup per vascular and cardiology
pain control with Tylenol ATC and PRN, changed oxycodone to tramadol 25 mg PRN for mod pain per family request. Added gabapentin HS
Senokot-S BID and Miralax daily while on opiate
# Hyponatremia
Monitor
# Suspect cognitive impairment at times
Previous CT has shown atrophy
mild hospital-acquired delirium at times, Wake up with confusion however MS improves throughout the day.
Continue to monitor MS for now. Pt has not needed medical management
# paroxysmal atrial fibrillation
went in afib 10/28
Xarelto
cardiology following
started low dose metoprolol. verapamil held
# Chronic lower extremity wounds
s/p cephalexin
Wound care
# hypercholesterolemia
continue pravastatin
# hypertension
continue verapamil
# iron deficiency anemia
continue ferrous sulfate
# GERD
# Hx prostate cancer
# Insomnia
Started melatonin 5 mg HS
Code status: full code
DVT prophylaxis: xarelto
PT recommended rehab
Anticipated Discharge: 24 - 48 hours
Subjective/Interval History
-
Date of Service: October 29, 2025
denies nausea
Objective Data
-
Labs:
Laboratory Results
10/29/25
05:32
WBC 7.3
Hgb 9.3 L
Hct 28.6 L
Plt Count 212 D
Sodium 134 L
Potassium 3.6
Chloride 99
Carbon Dioxide 33 H
BUN 22 H
Creatinine 0.6 L
Glucose 111 H
Calcium 8.4
Vital Signs:
Vital Signs
Temp Pulse Resp BP Pulse Ox
98.1 F 89 22 95/58 96
10/29/25 11:19 10/29/25 12:24 10/29/25 12:24 10/29/25 12:24 10/29/25 12:24
I&O
10/28/25 10/29/25 10/30/25
06:59 06:59 06:59
Intake Total 822.5 / 910.0 2065.0 / 2065.0 240 / 240
Output Total 1060 / 1075 595 / 595 250 / 250
Balance -237.5 / -165.0 1470.0 / 1470.0 -10 / -10
--- NOTE | 2025-10-29 14:33 | PTCARENOTE ---
Patient return to bed at this time. Two person assist (moderate to heavy). Skin cares completed Plan for transfer to [address] [place] [address] when available. Update with thru shift at bedside. Continue follow up mobility plan of cares.
[2025-10-29] MEDS: XARELTO 20 MG PO (18:48)
--- NOTE | 2025-10-29 18:59 | TRANSFER ---
Received patient from ICu via bed around 1740 in stable condition. Patient with tessie wrap to LLE. Doppler pulses b/l. Patient oriented to room. Call [facility] in reach.
[2025-10-29] MEDS: NEURONTIN 100 MG PO (21:41)
[2025-10-29] MEDS: MELATONIN 5 MG PO (21:42)
[2025-10-30] VITALS (8 sets, daily range): BP systolic 92–116; BP diastolic 48–63; PULSE 91; O2SAT 92; BMI 26.9
[2025-10-30] MEDS: ULTRAM 50 MG PO ×2 (02:01→22:17)
[2025-10-30 06:23] LABS: Hematocrit 25.5 % (39.0-52.0); Hemoglobin 8.4 g/dL (13.0-18.0); Mean Corp Hgb Conc. 32.9 g/dL (33.0-37.0); Mean Corpuscular Volume 100.0 fL (80.0-94.0); Nucleated Red Blood Cells % 0 % (-); Platelet Count 202 10^3/uL (130-400); Red Cell Dist. Width 12.2 % (11.5-14.5)
[2025-10-30 06:51] LABS: Blood Urea Nitrogen 19 mg/dl (9-20); Calcium 8.3 mg/dl (8.4-10.2); Carbon Dioxide 32 mmol/L (22-30); Chloride 98 mmol/L (98-107); Estimated Creatinine Clearance 101 ml/min; Glucose 96 mg/dl (70-99); Potassium 3.7 mmol/L (3.5-5.1); Sodium 133 mmol/L (135-145); eGFR > 60.00
[2025-10-30] MEDS: LASIX 40 MG PO (08:57)
[2025-10-30] MEDS: TYLENOL 1000 MG PO ×3 (08:57→22:16)
[2025-10-30] MEDS: SENOKOT-S 1 TABLET PO ×2 (08:57→19:53)
[2025-10-30] MEDS: LOW STRENGTH ASPIRIN 81 MG PO (08:57)
[2025-10-30] MEDS: MIRALAX 17 GRAMS PO (08:57)
[2025-10-30] MEDS: FEOSOL 325 MG PO (08:57)
[2025-10-30] MEDS: LOPRESSOR 12.5 MG PO ×2 (08:57→19:52)
[2025-10-30] MEDS: PRAVACHOL 40 MG PO (08:57)
[2025-10-30] MEDS: HYDROPHOR 1 APPLIC TOPICAL (08:58)
[2025-10-30] MEDS: SANTYL OINTMENT 1 APPLIC TOPICAL (08:58)
--- NOTE | 2025-10-30 11:46 | W.PN.HOSP.TC ---
Today's Communication/Plan
-
monitor vitals
see plan
monitor hgb
cw xarelto
PT
cw metoprol
Assessment / Plan
Assessment / Plan
General: Well Developed, Well Nourished, No Apparent Distress, Comfortable and Conversant
HEENT: Normocephalic
Respiratory: Clear to Auscultation and Non Labored Respirations
Cardiac: Regular Rhythm and S1/S2
GI: Soft, Nontender, Nondistended and Normal Bowel Sounds
Musculoskeletal: Other (left foot in wound dressing )
Neuro: Awake and Alert
Psych: Calm and Intact Judgement/Insight
A/P:
# Critical limb ischemia/ left lower extremity arterial insufficiency
# Non-healing wound of left lower extremity
arteriogram revealed complete occlusion of the popiteal artery
vein mapping ultrasound and echo obtained. S/p cardiac stress 10/22: no evidence of ischemia
Vascular Surgery following, s/p FEA 10/27. Postop was in ICU. was on low-dose mirta post OP for hypotension. now has been off pressors
cordero dc'ed, now voiding
Cardiology following
xarelto restarted 10/28
s/p cephalexin
Ongoing workup per vascular and cardiology
pain control with Tylenol ATC and PRN, changed oxycodone to tramadol 25 mg PRN for mod pain per family request. Added gabapentin HS
Senokot-S BID and Miralax daily while on opiate
# Hyponatremia
Monitor
# Suspect cognitive impairment at times
Previous CT has shown atrophy
mild hospital-acquired delirium at times, Wake up with confusion however MS improves throughout the day.
Continue to monitor MS for now. Pt has not needed medical management
Acute on chronic anemia likely secondary to acute blood loss from surgery
Continue to monitor
iron deficiency anemia
continue ferrous sulfate
# paroxysmal atrial fibrillation
went in afib 10/28
Xarelto
cardiology following
started low dose metoprolol. verapamil held
# Chronic lower extremity wounds
s/p cephalexin
Wound care
# hypercholesterolemia
continue pravastatin
# hypertension
now on metoprolol
# GERD
# Hx prostate cancer
# Insomnia
Started melatonin 5 mg HS
Code status: full code
DVT prophylaxis: xarelto
PT recommended rehab
Anticipated Discharge: Within 24 hours
Subjective/Interval History
-
Date of Service: October 30, 2025
Denies nausea
Objective Data
-
Labs:
Laboratory Results
10/30/25
05:43
WBC 5.9
Hgb 8.4 L
Hct 25.5 L
Plt Count 202
Sodium 133 L
Potassium 3.7
Chloride 98
Carbon Dioxide 32 H
BUN 19
Creatinine 0.5 L
Glucose 96
Calcium 8.3 L
Vital Signs:
Vital Signs
Temp Pulse Resp BP Pulse Ox
99.2 F 101 16 110/63 96
10/30/25 07:35 10/30/25 07:35 10/30/25 07:35 10/30/25 08:57 10/30/25 07:35
I&O
10/29/25 10/30/25 10/31/25
06:59 06:59 06:59
Intake Total 2065.0 / 2065.0 480 / 480
Output Total 595 / 595 600 / 600
Balance 1470.0 / 1470.0 -120 / -120
--- NOTE | 2025-10-30 11:50 | W.PN.VS ---
Addendum entered and electronically signed by Daljit Clay MD 10/30/25 16:36:
Seen and examined with SERVICE CASHIER. Agree with findings and plan as discussed and noted below.
Original Note:
Today's Communication / Plan
-
Seen and assessed with Dr Clay
Assessment/Plan
-
Assessment: 85 year old male with PAD, POD #3 Left common femoral artery endarterectomy with patch angioplasty using bovine pericardium and left common femoral artery to below the knee popliteal artery using ipsilateral nonreversed great saphenous
vein
Plan:
Continue to encourage ambulation as tolerated
PT/OT eval and treat
Wound care nursing following appreciate recommendations for management of multiple skin tears
Recommend gentle Piter wrap to left lower extremity for decrease in peripheral edema, patient indicates that he struggles to tolerate compression, if patient cannot tolerate can be removed
Okay to continue oral anticoagulation from a vascular surgical perspective
Subjective Data
-
Date of Service: October 30, 2025
Pt seen at bedside this am with Dr Clay. Pt transferring to chair with PT. Offers no complaints at this time. No events overnight.
Objective Data
-
Vital Signs
Temp Pulse Resp BP Pulse Ox
99.2 F 101 16 110/63 96
10/30/25 07:35 10/30/25 07:35 10/30/25 07:35 10/30/25 08:57 10/30/25 07:35
Intake and Output
10/29/25 10/30/25 10/31/25
06:59 06:59 06:59
Intake Total 2065.0 / 2065.0 480 / 480
Output Total 595 / 595 600 / 600
Balance 1470.0 / 1470.0 -120 / -120
Intake:
Oral fluids 1150 / 1150 480 / 480
IV fluids (Total) 415.0 / 415.0
Levophed 15.0 / 15.0
Nss 1,000 ml @ 80 mls/hr IV . 400 / 400
[id number] JOCELINE Rx#:[id number]
IV piggybacks 500 / 500
Output:
Urine, Denise 120 / 120
Urine, Voided 475 / 475 600 / 600
Lab Results
10/30/25 05:43
10/30/25 05:43
Calcium 8.3 mg/dl (8.4-10.2) L 10/30/25 05:43
Magnesium 2.2 mg/dl (1.6-2.3) 10/23/25 08:37
Total Bilirubin 0.6 mg/dl (0.2-1.3) 10/20/25 06:23
AST 28 U/L (17-59) 10/20/25 06:23
ALT 20 U/L (0-50) 10/20/25 06:23
Alkaline Phosphatase 62 U/L (38-126) 10/20/25 06:23
Total Protein 6.5 g/dl (6.3-8.2) 10/20/25 06:23
Albumin 4.0 g/dl (3.5-5.0) 10/20/25 06:23
Physical Exam
-
No apparent distress, resting comfortably in chair
No tachycardia
No dyspnea on room air
ABD flat, nontender, nondistended
Left lower extremity with scant drainage to dressing, Doppler PT and DP signal, staple sites well-approximated and clean, dry, and intact
--- NOTE | 2025-10-30 11:56 | CM ---
Addendum entered by Karo Lobo 10/30/25 16:07:
Patient's choice is [facility]; facility notified; can accept tomorrow pending Auth approval
Addendum entered by Karo Lobo 10/30/25 15:53:
Both [facility] and [facility] accepted referrals; patient decision pending; family will discuss when they arrive
Original Note:
PT recommended SNF; family/patient agreeable with plan yesterday
Spoke with patient's via phone; SNF preference are [facility]
Referrals sent via [facility]
Plan; Discharge to SNF when medically stable pending bed availability and Auth approval
--- NOTE | 2025-10-30 12:55 | W.PN.CARDCBS ---
Today's Communication / Plan
-
Stable cardiac status
No changes.
Given that patient just restarted Xarelto, would favor continued rate control and anticoagulation
As outpatient, we can consider cardioversion.
Okay for discharge planning
See below for medication recommendations
We will sign off, please call if questions
Impression / Plan
-
PCP:Ilir Morrison
Trimming Cutter Machine: Dr. Cota
Impression:
Presented with critical limb ischemia from arterial insufficiency 10/17/2025/status post left common femoral endarterectomy with patch angioplasty and left common femoral to below-knee popliteal artery bypass 10/27/2025
PAD
Chronic lower extremity wounds/unhealing leg ulcers
Chronic HFpEF
Hypercholesterolemia
Hypertension
Paroxysmal atrial fibrillation
Chronic anticoagulation w/ Xarelto
Iron deficiency anemia
GERD
h/o prostate cancer s/p radiation
Lexiscan stress test 10/22/2025: Small mild fixed inferobasilar and inferoapical defect consistent with infarct vs soft tissue attenuation. No evidence of ischemia. EF 68%.
Echo 04/05/2022: EF 50%. Stage I DD. Mild MR. PAP 27 mmHg
Echo 10/20/2025: Technically difficult and limited study. Lumason was utilized to improve endocardial definition. Left ventricular systolic function is visually estimated withing normal limits with no sizable regional wall motion abnormalities
noted. The estimated ejection fraction is estimated 60-65% by Borden's method of disc. Mild concentric LVH.No significant valve disease. Compared to prior echo from March 2022, there has been no significant change.
Plan:
Overall he looks reasonably well now postop day 3 from endarterectomy and femoropopliteal bypass
He remains in atrial fibrillation but his rate is controlled and he is asymptomatic.
Volume status looks good at this time.
No medication changes at present.
Will pursue a strategy of rate control and anticoagulation and consider cardioversion as an outpatient
Okay to proceed with discharge planning
We will arrange for cardiac follow-up. Will sign off. Please call if questions.
Recommended cardiac meds at discharge: Pravastatin 40 mg a day
Furosemide 40 mg a day
Aspirin 81 mg a day per vascular surgery
Rivaroxaban 20 mg a day
Metoprolol to tartrate 12.5 mg twice daily
HPI: Patient is an 85-year-old male with past medical history significant for atrial fibrillation on anticoagulation, CHFpEF, GERD, hypertension, hyperlipidemia, prior history of prostate cancer status post radiation, presents to the emergency
department from vascular surgery clinic for evaluation of complete occlusion of the popliteal artery. He has chronic lower extremity swelling and a mixed picture of chronic lower extremity lymphedema and peripheral arterial occlusive disease and
was referred for angiogram which demonstrated critical stenosis of femoral and popliteal arteries and concern for critical limb ischemia. Plan is to undergo femoropopliteal bypass in the upcoming days. Timing to be determined. Currently Xarelto
placed on hold with last dose 10/15/2025. Cardiology being asked to see patient for preoperative cardiac risk assessment. Patient was seen on 09/30/2025 by outpatient experience design director Dr. Cota and was doing well at that time. His most recent echo
was in 2021 which showed preserved ejection fraction.
Progress Note - Trimming Cutter Machine
Subjective
Date of Service: October 30, 2025:
Medications reviewed. First dose of Xarelto was last night
92/52, 110/63, pulse 89, rate controlled, respiratory 16, lungs are clear, irregular rate and rhythm, no obvious murmurs, abdomen benign extremities wrapped, feet are warm, pulses likely palpable in the left lower extremity. He seems comfortable,
daughter at bedside
Sodium 133, potassium 3.7, BUN/creatinine 19 and 0.5
Objective
Labs:
10/30/25 05:43
10/30/25 05:43
Labs
Hgb 8.4 g/dL (13.0-18.0) L 10/30/25 05:43
Hct 25.5 % (39.0-52.0) L 10/30/25 05:43
Plt Count 202 10^3/uL (130-400) 10/30/25 05:43
PT 13.7 Sec (11.4-14.6) 10/28/25 04:37
INR 1.04 10/28/25 04:37
APTT 34.8 Sec (23.4-35.0) 10/28/25 04:37
Sodium 133 mmol/L (135-145) L 10/30/25 05:43
Potassium 3.7 mmol/L (3.5-5.1) 10/30/25 05:43
BUN 19 mg/dl (9-20) 10/30/25 05:43
Creatinine 0.5 mg/dL (0.7-1.3) L 10/30/25 05:43
Glucose 96 mg/dl (70-99) 10/30/25 05:43
Vital Signs and I&O:
Vital Signs
Temp Pulse Resp BP Pulse Ox
36.5 C 89 16 92/52 92
10/30/25 11:35 10/30/25 11:35 10/30/25 11:35 10/30/25 11:35 10/30/25 11:35
Vital Signs
Temp Pulse Resp BP Pulse Ox
36.5 C 89 16 92/52 92
10/30/25 11:35 10/30/25 11:35 10/30/25 11:35 10/30/25 11:35 10/30/25 11:35
Intake & Output
10/28/25 10/29/25 10/30/25 10/31/25
07:59 07:59 07:59 07:59
Intake Total 910.0 / 997.5 1977.5 / 1976.5 480 / 480
Output Total 1075 / 1090 580 / 580 600 / 600
Balance -165.0 / -92.5 1397.5 / 1397.5 -120 / -120
Physical Exam
Physical Exam
See above
[2025-10-30] MEDS: XARELTO 20 MG PO (18:37)
[2025-10-30] MEDS: MELATONIN 5 MG PO (22:17)
[2025-10-30] MEDS: NEURONTIN 100 MG PO (22:17)
[2025-10-31 03:00] VITALS: BP 104/57
[2025-10-31 06:00] VITALS: BMI 27.0
[2025-10-31 08:00] VITALS: BP 105/56
[2025-10-31 08:04] LABS: Hematocrit 24.6 % (39.0-52.0); Hemoglobin 8.1 g/dL (13.0-18.0); Mean Corp Hgb Conc. 32.9 g/dL (33.0-37.0); Mean Corpuscular Volume 97.6 fL (80.0-94.0); Nucleated Red Blood Cells % 0 % (-); Platelet Count 223 10^3/uL (130-400); Red Cell Dist. Width 12.3 % (11.5-14.5)
[2025-10-31 08:15] LABS: Blood Urea Nitrogen 16 mg/dl (9-20); Calcium 8.3 mg/dl (8.4-10.2); Carbon Dioxide 32 mmol/L (22-30); Chloride 100 mmol/L (98-107); Estimated Creatinine Clearance 101 ml/min; Glucose 97 mg/dl (70-99); Potassium 3.6 mmol/L (3.5-5.1); Sodium 133 mmol/L (135-145); eGFR > 60.00
--- NOTE | 2025-10-31 09:33 | W.PN.VS ---
Addendum entered and electronically signed by Lonnie Denise III, MD 10/31/25 14:03:
This patient was seen and examined in collaboration with MURALI Nayak. I agree with the history and physical exam as well as the assessment and plan. I have the following additions:
[Doing well overall
Left foot is warm with intact Doppler signals
Wound healing nicely
Plan for placement
Continue PT/OT/ambulation
Agree with gentle Piter wrap compression at all times and leg elevation while in bed
Antiplatelet therapy along with anticoagulation
Follow-up with me in the office after discharge
Call with questions/concerns
Signed:
Lonnie Denise III, MD
Vascular Surgery
[facility]
Original Note:
Today's Communication / Plan
-
Seen and assessed with Dr. Denise
Assessment/Plan
-
Assessment: 85 year old male with PAD, POD #4 Left common femoral artery endarterectomy with patch angioplasty using bovine pericardium and left common femoral artery to below the knee popliteal artery using ipsilateral nonreversed great saphenous
vein
Plan:
Continue to encourage ambulation as tolerated
PT/OT
Recommend gentle Piter wrap to left lower extremity for decrease in peripheral edema, patient indicates that he struggles to tolerate compression, if patient cannot tolerate can be removed
I will add follow-up to discharge instructions
Subjective Data
-
Date of Service: October 31, 2025
Patient seen at bedside with Dr. Denise this a.m. Patient resting comfortably in bed. No complaints at this time. No events overnight.
Objective Data
-
Vital Signs
Temp Pulse Resp BP Pulse Ox
98.2 F 91 16 105/56 96
10/31/25 08:00 10/31/25 08:00 10/31/25 08:00 10/31/25 08:00 10/31/25 08:00
Intake and Output
10/30/25 10/31/25 11/01/25
06:59 06:59 06:59
Intake Total 480 / 480 676 / 676
Output Total 600 / 600 600 / 600
Balance -120 / -120 76 / 76
Intake:
Oral fluids 480 / 480 676 / 676
Output:
Urine, Voided 600 / 600 600 / 600
Lab Results
10/31/25 07:18
10/31/25 07:18
Calcium 8.3 mg/dl (8.4-10.2) L 10/31/25 07:18
Magnesium 2.2 mg/dl (1.6-2.3) 10/23/25 08:37
Total Bilirubin 0.6 mg/dl (0.2-1.3) 10/20/25 06:23
AST 28 U/L (17-59) 10/20/25 06:23
ALT 20 U/L (0-50) 10/20/25 06:23
Alkaline Phosphatase 62 U/L (38-126) 10/20/25 06:23
Total Protein 6.5 g/dl (6.3-8.2) 10/20/25 06:23
Albumin 4.0 g/dl (3.5-5.0) 10/20/25 06:23
Physical Exam
-
No apparent distress, resting comfortably in bed
No tachycardia
No dyspnea on room air
ABD flat, nontender, nondistended
Left lower extremity staple sites well-approximated and clean, dry, and intact
Doppler PT and DP signal
--- NOTE | 2025-10-31 09:45 | CM ---
Addendum entered by Karo Lobo 10/31/25 13:08:
ambulance pick up worker scheduled for 1400; facility and family notified
Addendum entered by Karo Lobo 10/31/25 11:53:
Plan: Discharge to [facility] today via ambulance; facility can accept anytime
Report # [phone]

Addendum entered by Karo Lobo 10/31/25 11:47:
Per Attending, patient is stable for discharge today
Addendum entered by Karo Lobo 10/31/25 11:39:
Authorization for [facility] approved starting today, 10/31/25 through 11/06; Next Review 11/07;
Authorization # [id number]
Original Note:
[facility] for [facility]; Demographics and Clinicals Faxed to # [phone]
Pending reference ID # [id number]
[2025-10-31] MEDS: TYLENOL 1000 MG PO (10:54)
[2025-10-31] MEDS: LOPRESSOR 12.5 MG PO (10:54)
[2025-10-31] MEDS: MIRALAX 17 GRAMS PO (10:54)
[2025-10-31] MEDS: SENOKOT-S 1 TABLET PO (10:55)
[2025-10-31] MEDS: PRAVACHOL 40 MG PO (10:55)
[2025-10-31] MEDS: LASIX 40 MG PO (10:55)
[2025-10-31] MEDS: LOW STRENGTH ASPIRIN 81 MG PO (10:55)
[2025-10-31] MEDS: SANTYL OINTMENT 1 APPLIC TOPICAL (10:55)
[2025-10-31] MEDS: HYDROPHOR 1 APPLIC TOPICAL (11:22)
[2025-10-31 11:30] VITALS: BP 118/67
--- NOTE | 2025-10-31 11:38 | W.PN.HOSP.TC ---
Today's Communication/Plan
-
Monitor vital signs see plan
Discussed with vascular surgery, okay to discharge to rehab from their standpoint
Monitor hemoglobin
Continue with Xarelto
Discharge today to rehab
Discussed with daughter over the phone
Time of discharge 39 minutes
Assessment / Plan
Assessment / Plan
General: Well Developed, Well Nourished, No Apparent Distress, Comfortable and Conversant
HEENT: Normocephalic
Respiratory: Clear to Auscultation and Non Labored Respirations
Cardiac: Regular Rhythm and S1/S2
GI: Soft, Nontender, Nondistended and Normal Bowel Sounds
Musculoskeletal: Other (left foot in wound dressing )
Neuro: Awake and Alert
Psych: Calm and Intact Judgement/Insight
A/P:
# Critical limb ischemia/ left lower extremity arterial insufficiency
# Non-healing wound of left lower extremity
arteriogram revealed complete occlusion of the popiteal artery
vein mapping ultrasound and echo obtained. S/p cardiac stress 10/22: no evidence of ischemia
Vascular Surgery following, s/p FEA 10/27. Postop was in ICU. was on low-dose mirta post OP for hypotension. now has been off pressors
[facility], now voiding
Cardiology following
xarelto restarted 10/28
s/p cephalexin
Ongoing workup per vascular and cardiology
pain control with Tylenol ATC and PRN, changed oxycodone to tramadol 25 mg PRN for mod pain per family request. Added gabapentin HS
Senokot-S BID and Miralax daily while on opiate
# Hyponatremia
Monitor
# Suspect cognitive impairment at times
Previous CT has shown atrophy
mild hospital-acquired delirium at times, Wake up with confusion however MS improves throughout the day.
Continue to monitor MS for now. Pt has not needed medical management
Acute on chronic anemia likely secondary to acute blood loss from surgery
Continue to monitor
iron deficiency anemia
continue ferrous sulfate
# paroxysmal atrial fibrillation
went in afib 10/28
Xarelto
cardiology following
started low dose metoprolol. verapamil held
# Chronic lower extremity wounds
s/p cephalexin
Wound care
# hypercholesterolemia
continue pravastatin
# hypertension
now on metoprolol
# GERD
# Hx prostate cancer
# Insomnia
Started melatonin 5 mg HS
Code status: full code
DVT prophylaxis: xarelto
PT recommended rehab
Anticipated Discharge: Today
Subjective/Interval History
-
Date of Service: October 31, 2025
Denies pain
Objective Data
-
Labs:
Laboratory Results
10/31/25
07:18
WBC 4.5 L
Hgb 8.1 L
Hct 24.6 L
Plt Count 223
Sodium 133 L
Potassium 3.6
Chloride 100
Carbon Dioxide 32 H
BUN 16
Creatinine 0.5 L
Glucose 97
Calcium 8.3 L
Vital Signs:
Vital Signs
Temp Pulse Resp BP Pulse Ox
98.2 F 91 16 105/56 96
10/31/25 08:00 10/31/25 08:00 10/31/25 08:00 10/31/25 08:00 10/31/25 08:00
I&O
10/30/25 10/31/25 11/01/25
06:59 06:59 06:59
Intake Total 480 / 480 676 / 676
Output Total 600 / 600 600 / 600
Balance -120 / -120 76 / 76
--- NOTE | 2025-10-31 11:55 | W.DCSUMMARY ---
Discharge Summary
Discharge Data
Date of Admission: 10/17/25
Date of Discharge: 10/31/25
-
Pending Results: No
Hospital Course
85-year-old male with past medical history of paroxysmal atrial fibrillation, chronic lower extremity wound, hyperlipidemia, hypertension, GERD, prostate cancer, insomnia, possible cognitive impairment came to the hospital with critical limb
ischemia with left lower extremity arterial insufficiency along with nonhealing wound on the left lower extremity. Patient was seen by vascular throughout hospitalization. Arteriogram showed complete occlusion of popliteal artery. Patient was
also seen by cardiology for preop. Patient was seen by vascular surgery throughout hospitalization and was taken for femoral artery enterectomy. Postop patient continued to improve over time. Patient was seen by physical therapy who recommended
rehab.. While patient was in the hospital he also went into atrial fibrillation and was seen by cardiology. Verapamil was discontinued and patient was started on metoprolol. Once patient symptoms continue to improve, he was then discharged to
rehab with instructions to follow-up with all his physicians outpatient.
Discharge Plan
-
Patient Disposition: [facility]/SNF
Discharge Diagnosis/Procedures: Critical limb ischemia/ left lower extremity arterial insufficiency
Non-healing wound of left lower extremity
Left common femoral artery endarterectomy with patch angioplasty using bovine pericardium and left common femoral artery to below the knee popliteal artery using ipsilateral nonreversed great saphenous vein
Diet: As tolerated
Activity: No strenuous activity
Driving Restrictions: No driving for 2 weeks
Bathing Restrictions: OK to Shower
Wound Care: Surgical incisions should be kept dry, all should be clean daily and may be left open to air except for groin incision which should be covered by clean, dry gauze daily. If the groin incision begins draining, has increased redness or
swelling please call vascular office immediately.
Recommend gentle Piter wrap to left lower extremity for decrease in peripheral edema, patient indicates that he struggles to tolerate compression, if patient cannot tolerate can be removed
Activity Restrictions/Additional Instructions:
Wound Care Instructions
L le open ulcers- clean with saline, apply Santyl then adaptic, abd pad and clarissa, change daily and prn drainage.
L plantar 3rd toe: skin prep daily, if drainage apply silicone foam and change daily.
Heels: skin prep and adhesive foams, change q 3 days and prn soilage.
Mineral oil to legs after bathing daily
increase protien in diet
Leg elevation when sitting
offloading shoe to L foot
Follow up with Dr. Henderson
Follow up at wound care center call for an appointment.
Recommend keeping toes with gauze or lambswool
Stand Alone Forms: Vascular Surg Discharge Instr
Referrals:
Jayda Samuel PA-C [Specified Professional Personl, Vascular Surgery] - 11/17/25 2:30 pm
Referral Note: Vascular surgery office follow up
Ilir Morrison MD [Family Provider, Internal Medicine]
Miranda Figueroa MD [Active, Cardiology]
Prescriptions:
New
Aquaphor Healing 41 % Ointment
1 applic topical DAILY Qty: 0 0RF
polyethylene glycol 3350 17 gram Powder In Packet
17 g PO DAILY Qty: 0 0RF
sennosides-docusate sodium [Senna Plus] 8.6-50 mg Tablet
1 tab PO BID Qty: 0 0RF
acetaminophen [Tylenol Extra Strength] 500 mg Tablet
1,000 mg PO TID Qty: 0 0RF
Santyl 250 unit/gram Ointment
1 applic topical DAILY Qty: 30 0RF
metoprolol tartrate 25 mg Tablet
12.5 mg PO BID Qty: 0 0RF
tramadol 50 mg Tablet
50 mg PO Q6HPRN PRN (Reason: Moderate to severe pain) Qty: 10 0RF
aspirin 81 mg Tablet,Chewable
81 mg PO DAILY Qty: 0 0RF
gabapentin 100 mg Capsule
100 mg PO HS Qty: 0 0RF
Continued
pravastatin 40 MG tablet
40 mg PO DAILY
cholecalciferol (vitamin D3) 2,000 UNITS tablet
2,000 unit PO DAILY
Xarelto 20 MG tablet
20 mg PO QPM
cyanocobalamin (vitamin B-12) 1,000 mcg tablet
1,000 mcg PO DAILY
ferrous sulfate [FeroSul] 325 mg (65 mg iron) tablet
325 mg PO Q48H
Changed
furosemide [Lasix] 40 mg Tablet
40 mg PO DAILY Qty: 0 0RF
Discontinued
acetaminophen [Tylenol Extra Strength] 500 mg Tablet
1,000 mg PO BIDPRN PRN (Reason: mild pain)
verapamil 300 mg capsule, [address]
300 mg PO QPM
cephalexin 500 mg capsule
500 mg PO BID
Rx Instructions:
for 7 days starting 10/10/25
Discharge Orders:
Discharge Patient (As Directed); Ordered 10/31/25
Ordered By: Davon Lee
Discharge Date and Time
Discharge Date/Time: 10/31/25 14:32
Print Language: ROMANIAN
== END 2025-10-31 14:32 | DRG 253 ==
LOC: 2 SOUTH 22:43
PROVIDERS: Internal Medicine; Nurse Practitioner; Surgery Vascular Surgery; ADMITTING PHYSICIAN Internal Medicine; ATTENDING PHYSICIAN Internal Medicine; EMERGENCY PHYSICIAN Emergency Medicine; FAMILY PHYSICIAN Internal Medicine; OTHER PHYSICIAN Internal Medicine; OTHER PHYSICIAN Internal Medicine Cardiovascular Disease
PROC: 04UL0KZ Supplement Left Femoral Artery with Nonautologous Tissue Substitute, Open Approach (ICD-10-PCS; 2025-10-27)
PROC: 04CL0ZZ Extirpation of Matter from Left Femoral Artery, Open Approach (ICD-10-PCS; 2025-10-27)
PROC: 041L09L Bypass Left Femoral Artery to Popliteal Artery with Autologous Venous Tissue, Open Approach (ICD-10-PCS; 2025-10-27)
DX: I70.243 Atherosclerosis of native arteries of left leg with ulceration of ankle (principal); D62 Acute posthemorrhagic anemia; E87.1 Hypo-osmolality and hyponatremia; I50.32 Chronic diastolic (congestive) heart failure; I70.92 Chronic total occlusion of artery of the extremities; I11.0 Hypertensive heart disease with heart failure; I48.0 Paroxysmal atrial fibrillation; M79.89 Other specified soft tissue disorders; Z87.891 Personal history of nicotine dependence; Z79.01 Long term (current) use of anticoagulants; K21.9 Gastro-esophageal reflux disease without esophagitis; E78.00 Pure hypercholesterolemia, unspecified; I70.244 Atherosclerosis of native arteries of left leg with ulceration of heel and midfoot
CPT/HCPCS: 35556; 78452; 80048; 80053; 83735; 85025; 85027; 85610; 85730; 86850; 86900; 86901; 87070; 88304; 88311; 93005; 93017; 93306; 93970; 97110; 97116; 97163; 97164; 97167; 97530; 99284; A9500; J2785; Q9950

== ENCOUNTER → 2025-11-03 09:52 | Outpatient (REF) | payer OTHER, SELFPAY ==
[2025-11-03 11:34] LABS: Hematocrit 26.5 % (39.0-52.0); Hemoglobin 8.3 g/dL (13.0-18.0); Mean Corp Hgb Conc. 31.3 g/dL (33.0-37.0); Mean Corpuscular Volume 104.3 fL (80.0-94.0); Nucleated Red Blood Cells % 0.3 % (-); Platelet Count 321 10^3/uL (130-400); Red Cell Dist. Width 12.6 % (11.5-14.5)
[2025-11-03 11:42] LABS: Blood Urea Nitrogen 17 mg/dl (9-20); Calcium 8.4 mg/dl (8.4-10.2); Carbon Dioxide 29 mmol/L (22-30); Chloride 102 mmol/L (98-107); Glucose 100 mg/dl (70-99); Potassium 3.8 mmol/L (3.5-5.1); Sodium 134 mmol/L (135-145); eGFR > 60.00
== END ==
LOC: OLABP 09:52
PROVIDERS: ATTENDING PHYSICIAN Family Medicine
DX: Z48.812 Encounter for surgical aftercare following surgery on the circulatory system (principal); I70.221 Atherosclerosis of native arteries of extremities with rest pain, right leg; S81.802D Unspecified open wound, left lower leg, subsequent encounter; D64.9 Anemia, unspecified; I73.9 Peripheral vascular disease, unspecified; I48.0 Paroxysmal atrial fibrillation; I10 Essential (primary) hypertension; E78.5 Hyperlipidemia, unspecified; K21.9 Gastro-esophageal reflux disease without esophagitis; Z85.46 Personal history of malignant neoplasm of prostate; G47.00 Insomnia, unspecified; E87.1 Hypo-osmolality and hyponatremia
CPT/HCPCS: 36415; 80048; 85025

== ENCOUNTER → 2025-11-04 12:18 | Outpatient (REF) | payer OTHER, SELFPAY ==
[2025-11-04 12:38] LABS: Hematocrit 27.7 % (39.0-52.0); Hemoglobin 8.4 g/dL (13.0-18.0); Mean Corp Hgb Conc. 30.3 g/dL (33.0-37.0); Mean Corpuscular Volume 104.9 fL (80.0-94.0); Nucleated Red Blood Cells % 0.4 % (-); Platelet Count 389 10^3/uL (130-400); Red Cell Dist. Width 13.0 % (11.5-14.5)
== END ==
LOC: OLABP 12:18
PROVIDERS: ATTENDING PHYSICIAN Family Medicine
DX: I10 Essential (primary) hypertension (principal); E87.1 Hypo-osmolality and hyponatremia; G47.00 Insomnia, unspecified; K21.9 Gastro-esophageal reflux disease without esophagitis
CPT/HCPCS: 36415; 85025

== ENCOUNTER 2025-11-06 02:45 | Emergency (ER) | payer OTHER, SELFPAY ==
[2025-11-06 02:52] VITALS: BP 124/72
[2025-11-06 02:54] VITALS: BMI 28.0
[2025-11-06 02:55] VITALS: BP 124/72
[2025-11-06 03:00] VITALS: BP 134/75
--- NOTE | 2025-11-06 03:24 | ED.GENMED ---
History of Present Illness
General
Chief Complaint: Extremity Pain (non-traumatic)
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
Exam Limitations: none
Time Seen by Provider: 11/06/25 02:49
Nursing documentation reviewed up to this point in time: agreed with
History of Present Illness
History of Present Illness:
This is an 85-year-old gentleman with history of paroxysmal atrial fibrillation, chronically maintained on Xarelto. History of hypertension, hyperlipidemia, iron deficiency anemia, GERD, prostate cancer. He also has history of chronic bilateral
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
On October 27 he underwent left common femoral artery endarterectomy. Left common femoral artery to below the knee popliteal artery saphenous vein graft.
Discharged to [facility] facility on October 31.
He has known left lower extremity edema, intolerant to compression stockings but recommended to utilize Piter wrap to left lower extremity at all times while lying or sitting in bed.
He presents tonight from long-term with complaints of continued, worsening left lower extremity swelling most noted dorsal foot. No Piter wrap's in place.
There is apparently also concern with some redness to surgical incision site along the left medial leg. He was started on Augmentin November 04 for potential cellulitis. He has been prescribed tramadol for pain, last dose at 9 PM last night.
He has not had a fever. No cough no shortness of breath.
He has been participating in physical therapy, getting up and ambulating with a walker.
He was evaluated by wound care on Monday, 2 days ago.
He has a follow-up with vascular surgery, Dr. Denise November 17.
Past History
Past History
ED Past Medical History: Arrthythmia (Atrial fib), Cancer (prostate CA with 44 radiation txs, last 02/2022), CHF, GERD, HTN, Hypercholesterolemia, Other (Back and neck pain, Neuropathy, Diverticulitis, GI bleeding. Hep B, Iron def anemia,
Pneumothorax as child), Other (Peripheral vascular disease, left femoropopliteal bypass October 27, 2025) and Other (fall, hemothorax, chest tube 2017)
ED Past Surgical History: Orthopedic (Left bicep repair ) and Other (Hernia repair, )
Patient has exhibited threatening behavior?: No
PSI?: No
Social History
Tobacco: Former smoker
Alcohol: Occasional (Whisky or Vodka or beer 2 daily)
Drug: None
Personal:
Living: with family
Employment: Retired
Family History
Family History: Negative Diabetes, Hypertension or CAD
Phy Exam
Physical Exam
Physical Exam:
GENERAL: 85-year-old gentleman appears his stated age, awake and alert, oriented x 3, appears in no acute distress. and daughter are accompanying.
EYE: pupils equal and reactive. anicteric
NECK: Supple, nontender, no meningismus, no significant adenopathy.
ENT: oral mucosa is moist. No rhinorrhea.
CARDIAC: Regular rate and rhythm. no murmur.
LUNGS: Clear breath sounds bilaterally, no acute respiratory distress, no wheezes/rales/rhonchi
ABDOMEN: Soft, nondistended, without focal tenderness, normoactive BS.
NEUROLOGICAL: Alert and oriented x3, no focal neuro deficits.
SKIN: Warm and dry, mildly pale in color. Left medial ankle wound with dry and intact square bandage.
MUSCULOSKELETAL: +3-4 pitting edema most noted dorsal left foot but also moderate edema noted left lower leg and mildly to the left thigh. Stapled incision that runs from the left groin medial thigh to the medial proximal knee region. There is
very mild focal erythema but no drainage. No palpable heat. No fluctuance. Minimal local incisional tenderness to palpation. Dorsalis pedis posterior popliteal pulses are present bilaterally with Doppler. Distal extremities are warm. Rapid
capillary refill.
PSYCH: Normal and appropriate interaction.
Course
Orders/Labs/Results
Orders:
Orders
11/06/25 03:21
US Periph Venous LOWER Ext LT Urgent
Comment:
Reason For Exam: LLE progressive edema, pain
11/06/25 03:47
Complete Blood Count/With Diff Urgent
Comprehensive Metabolic Panel Urgent
Abnormal Lab Results
11/06/25
03:47
RBC 2.75 L 10^6/uL
(4.70-6.10)
Hgb 8.6 L g/dL
(13.0-18.0)
Hct 26.8 L %
(39.0-52.0)
MCV 97.5 H fL
(80.0-94.0)
MCH 31.3 H pg
(27.0-31.0)
MCHC 32.1 L g/dL
(33.0-37.0)
Abs Immat Gran (auto) 0.1 H 10^3/uL
(0-0.05)
Absolute Lymphs (auto) 0.9 L 10^3/uL
(1.2-3.4)
Immature Gran % 1.2 H %
(0-0.5)
Lymphocytes % 17.7 L %
(20.5-51.1)
Monocytes % 9.9 H %
(1.7-9.3)
Creatinine 0.6 L mg/dL
(0.7-1.3)
Total Protein 6.1 L g/dl
(6.3-8.2)
11/06/25 03:47
11/06/25 03:47
Vital Signs
Initial and Last Documented VS:
Initial Vital Signs
BP
124/72
11/06/25 02:52
Last Documented Vital Signs
Temp Pulse Resp BP Pulse Ox
98.3 F 86 15 134/75 96
11/06/25 02:55 11/06/25 03:00 11/06/25 02:56 11/06/25 03:00 11/06/25 03:26
MDM/Problems Addressed
Differential Diagnosis Includes:
DIFFERENTIAL DIAGNOSIS
The Differential Diagnosis includes, in no particular order and is not limited to:
1. Post-surgical edema
2. Cellulitis
3. Deep vein thrombosis
4. Venous insufficiency
5. Congestive heart failure
6. Lymphedema
7. Hematoma
8. Blood clot
9. Allergic reaction to medications or dressings
10. Dermatological conditions (such as eczema or dermatitis)
MDM/Problems Addressed:
PROBLEM LIST
Acute:
- Leg swelling post-surgery
- Wound management
Patient has history of chronic lower extremity edema. Currently not wearing Piter wrap's and at this point unclear as to the element of compliance with Piter wrap to left lower extremity.
There is mild erythema at stapled incision site but no definitive evidence of cellulitis. Was started on Augmentin November 04 for potential cellulitis. There has been no reported fever.
Recent laboratory studies reviewed, moderate but stable anemia. Will plan to recheck now. Normal white blood cell count.
Unremarkable chemistries.
Will check venous Doppler left lower extremity assess for potential DVT.
No evidence of arterial ischemia/insufficiency on exam.
Chronic conditions affecting care:
Chronic venous stasis bilateral lower extremities
Chronic conditions affecting care: Arrhythmia (Atrial fibrillation-chronically maintained on Xarelto)
*Radiology
Radiology exam reviewed: radiology read reviewed
*Pulse Oximetry
SaO2: 96
Oxygen Mode of Delivery: Room air
Patient hypoxic: no
*Critical Care Note
Total Time (30-74mins, 75-104mins- exclusive of procedures): Not Applicable
Update Note
Update Note:
05:15
Ultrasound is negative for DVT.
Labs are reassuring with mild anemia that is slowly improving. Normal white blood cell count. Unremarkable chemistries.
Left lower extremity edema appears postoperative in nature along with chronic lower extremity edema.
Lungs are clear to auscultation, he has had no shortness of breath. Nothing to suggest CHF.
There is no definitive evidence of cellulitis, wound infection, however patient already started on Augmentin 2 days ago, can continue for now.
Recommend continuing tramadol as needed for pain.
Recommend continuing Piter wrap to left lower extremity wrapping from foot up to the knee.
Follow-up with vascular surgery for recheck.
ED Attending Note
-
Portions of this chart may have been created with voice recognition software.� Occasional wrong word or��sound alike� substitutions may have occurred due to the inherent limitations of voice recognition software.
Discharge Plan
Departure
Patient Disposition: Correction/SNF
Date of Disposition: 11/06/25
Time of Disposition: 05:15
Condition: Good
Discharge Problem:
Postoperative dependent edema, Post-operative pain
Instructions: Swelling
Prescriptions:
No Action
pravastatin 40 MG tablet
40 mg PO DAILY
cholecalciferol (vitamin D3) 2,000 UNITS tablet
2,000 unit PO DAILY
Xarelto 20 MG tablet
20 mg PO QPM
cyanocobalamin (vitamin B-12) 1,000 mcg tablet
1,000 mcg PO DAILY
ferrous sulfate [FeroSul] 325 mg (65 mg iron) tablet
325 mg PO Q48H
Aquaphor Healing 41 % Ointment
1 applic topical DAILY Qty: 0 0RF
polyethylene glycol 3350 17 gram Powder In Packet
17 g PO DAILY Qty: 0 0RF
sennosides-docusate sodium [Senna Plus] 8.6-50 mg Tablet
1 tab PO BID Qty: 0 0RF
acetaminophen [Tylenol Extra Strength] 500 mg Tablet
1,000 mg PO TID Qty: 0 0RF
Santyl 250 unit/gram Ointment
1 applic topical DAILY Qty: 30 0RF
metoprolol tartrate 25 mg Tablet
12.5 mg PO BID Qty: 0 0RF
tramadol 50 mg Tablet
50 mg PO Q6HPRN PRN (Reason: Moderate to severe pain) Qty: 10 0RF
aspirin 81 mg Tablet,Chewable
81 mg PO DAILY Qty: 0 0RF
gabapentin 100 mg Capsule
100 mg PO HS Qty: 0 0RF
furosemide [Lasix] 40 mg Tablet
40 mg PO DAILY Qty: 0 0RF
Referrals:
Ilir Morrison MD [Family Provider, Internal Medicine]
Lonnie Denise III, MD [Active, Vascular Surgery] - Call in 1-3 days for appt
Activity Restrictions/Additional Instructions:
Continue with Piter wrap to left lower extremity from foot to knee.
Continue current medications.
Follow-up with vascular surgery/Dr. Denise for recheck.
Interventions
Interventions:
*Risk Screen - Suicide Last Done: 11/06/25 02:55
*General Assessment Last Done: 11/06/25 02:55
*Neglect/Abuse Screening Last Done: 11/06/25 02:55
*ED COVID-19 Vaccine History Last Done: 11/06/25 02:55
*ED Influenza Vaccine History Last Done: 11/06/25 02:55
ED-Skin Assessment Last Done: 11/06/25 03:03
ED-Peripheral Vascular Assessment Last Done: 11/06/25 03:03
ED-Musculoskeletal Assessment Last Done: 11/06/25 03:03
Discharge Date and Time
Print Language: TANZANIAN
[2025-11-06 03:57] LABS: Hematocrit 26.8 % (39.0-52.0); Hemoglobin 8.6 g/dL (13.0-18.0); Mean Corp Hgb Conc. 32.1 g/dL (33.0-37.0); Mean Corpuscular Volume 97.5 fL (80.0-94.0); Nucleated Red Blood Cells % 0 % (-); Platelet Count 383 10^3/uL (130-400); Red Cell Dist. Width 13.1 % (11.5-14.5)
[2025-11-06 04:13] LABS: ALT (SGPT) 15 U/L (0-50); AST (SGOT) 22 U/L (17-59); Albumin 3.6 g/dl (3.5-5.0); Alkaline Phosphatase 72 U/L (38-126); Blood Urea Nitrogen 17 mg/dl (9-20); Calcium 8.9 mg/dl (8.4-10.2); Carbon Dioxide 28 mmol/L (22-30); Chloride 98 mmol/L (98-107); Estimated Creatinine Clearance 101 ml/min; Glucose 98 mg/dl (70-99); Potassium 3.8 mmol/L (3.5-5.1); Sodium 135 mmol/L (135-145); Total Protein 6.1 g/dl (6.3-8.2); eGFR > 60.00
== END 2025-11-06 06:08 ==
LOC: EMR 02:45
PROVIDERS: EMERGENCY PHYSICIAN Emergency Medicine; FAMILY PHYSICIAN Internal Medicine
DX: T81.89XA Other complications of procedures, not elsewhere classified, initial encounter (principal); R60.0 Localized edema; I87.8 Other specified disorders of veins; G89.18 Other acute postprocedural pain; D64.9 Anemia, unspecified; I48.0 Paroxysmal atrial fibrillation; I11.0 Hypertensive heart disease with heart failure; I50.9 Heart failure, unspecified; E78.00 Pure hypercholesterolemia, unspecified; I73.9 Peripheral vascular disease, unspecified; L97.329 Non-pressure chronic ulcer of left ankle with unspecified severity; K21.9 Gastro-esophageal reflux disease without esophagitis; G62.9 Polyneuropathy, unspecified; Z79.01 Long term (current) use of anticoagulants; Z79.82 Long term (current) use of aspirin; Z87.891 Personal history of nicotine dependence; Z85.46 Personal history of malignant neoplasm of prostate
CPT/HCPCS: 99284; 80053; 85025; 93971

== ENCOUNTER → 2025-11-07 10:39 | Outpatient (REF) | payer OTHER, SELFPAY ==
[2025-11-07 11:18] LABS: Hematocrit 25.5 % (39.0-52.0); Hemoglobin 7.6 g/dL (13.0-18.0); Mean Corp Hgb Conc. 29.8 g/dL (33.0-37.0); Mean Corpuscular Volume 105.4 fL (80.0-94.0); Nucleated Red Blood Cells % 0.4 % (-); Platelet Count 340 10^3/uL (130-400); Red Cell Dist. Width 13.2 % (11.5-14.5)
[2025-11-07 11:44] LABS: Blood Urea Nitrogen 17 mg/dl (9-20); Calcium 8.3 mg/dl (8.4-10.2); Carbon Dioxide 27 mmol/L (22-30); Chloride 101 mmol/L (98-107); Glucose 88 mg/dl (70-99); Potassium 3.7 mmol/L (3.5-5.1); Sodium 135 mmol/L (135-145); eGFR > 60.00
== END ==
LOC: OLABP 10:39
PROVIDERS: ATTENDING PHYSICIAN Family Medicine
DX: I10 Essential (primary) hypertension (principal); Z48.812 Encounter for surgical aftercare following surgery on the circulatory system; I70.221 Atherosclerosis of native arteries of extremities with rest pain, right leg; S81.802D Unspecified open wound, left lower leg, subsequent encounter; I73.9 Peripheral vascular disease, unspecified; D64.9 Anemia, unspecified; I48.0 Paroxysmal atrial fibrillation; E78.5 Hyperlipidemia, unspecified; K21.9 Gastro-esophageal reflux disease without esophagitis; Z85.46 Personal history of malignant neoplasm of prostate; G47.00 Insomnia, unspecified; E87.1 Hypo-osmolality and hyponatremia
CPT/HCPCS: 36415; 80048; 85025

== ENCOUNTER → 2025-11-08 10:31 | Outpatient (REF) | payer OTHER, SELFPAY ==
[2025-11-08 12:05] LABS: Hematocrit 26.6 % (39.0-52.0); Hemoglobin 8.2 g/dL (13.0-18.0); Mean Corp Hgb Conc. 30.8 g/dL (33.0-37.0); Mean Corpuscular Volume 105.1 fL (80.0-94.0); Nucleated Red Blood Cells % 0 % (-); Platelet Count 366 10^3/uL (130-400); Red Cell Dist. Width 13.4 % (11.5-14.5)
== END ==
LOC: OLABP 10:31
PROVIDERS: ATTENDING PHYSICIAN Family Medicine
DX: Z48.812 Encounter for surgical aftercare following surgery on the circulatory system (principal); I70.221 Atherosclerosis of native arteries of extremities with rest pain, right leg; S81.802D Unspecified open wound, left lower leg, subsequent encounter; D64.9 Anemia, unspecified; I10 Essential (primary) hypertension; I48.0 Paroxysmal atrial fibrillation; E78.5 Hyperlipidemia, unspecified; K21.9 Gastro-esophageal reflux disease without esophagitis; Z85.46 Personal history of malignant neoplasm of prostate; G47.00 Insomnia, unspecified; E87.1 Hypo-osmolality and hyponatremia
CPT/HCPCS: 36415; 85025

== ENCOUNTER → 2025-11-12 11:16 | Outpatient (REF) | payer OTHER, SELFPAY ==
[2025-11-12 12:08] LABS: Hematocrit 23.8 % (39.0-52.0); Hemoglobin 7.2 g/dL (13.0-18.0); Mean Corp Hgb Conc. 30.3 g/dL (33.0-37.0); Mean Corpuscular Volume 101.3 fL (80.0-94.0); Nucleated Red Blood Cells % 0 % (-); Platelet Count 329 10^3/uL (130-400); Red Cell Dist. Width 13.6 % (11.5-14.5)
[2025-11-12 13:26] LABS: ALT (SGPT) 12 U/L (0-50); AST (SGOT) 18 U/L (17-59); Albumin 3.1 g/dl (3.5-5.0); Alkaline Phosphatase 64 U/L (38-126); Blood Urea Nitrogen 39 mg/dl (9-20); Calcium 8.3 mg/dl (8.4-10.2); Carbon Dioxide 25 mmol/L (22-30); Chloride 101 mmol/L (98-107); Glucose 123 mg/dl (70-99); Potassium 4.5 mmol/L (3.5-5.1); Sodium 132 mmol/L (135-145); Total Protein 5.7 g/dl (6.3-8.2); eGFR > 60.00
== END ==
LOC: OLABP 11:16
PROVIDERS: ATTENDING PHYSICIAN Family Medicine
DX: Z48.812 Encounter for surgical aftercare following surgery on the circulatory system (principal); I70.221 Atherosclerosis of native arteries of extremities with rest pain, right leg; S81.802D Unspecified open wound, left lower leg, subsequent encounter; I73.9 Peripheral vascular disease, unspecified; D64.9 Anemia, unspecified; I10 Essential (primary) hypertension; I48.0 Paroxysmal atrial fibrillation; E78.5 Hyperlipidemia, unspecified; K21.9 Gastro-esophageal reflux disease without esophagitis; Z85.46 Personal history of malignant neoplasm of prostate; G47.00 Insomnia, unspecified; E87.1 Hypo-osmolality and hyponatremia
CPT/HCPCS: 36415; 80053; 85025

== ENCOUNTER 2025-11-13 12:10 | Inpatient (IN) | payer OTHER, SELFPAY ==
[2025-11-13] VITALS (83 sets, daily range): BP systolic 79–140; BP diastolic 41–117; BMI 28.0
[2025-11-13] MEDS: LEVOPHED 250 IV ×2 (09:10→17:43)
--- NOTE | 2025-11-13 09:18 | ED.GENMED ---
History of Present Illness
General
Chief Complaint: Blood Pressure Problem
Time Seen by Provider: 11/13/25 08:57
History of Present Illness
History of Present Illness:
85-year-old male with history of A-fib on Xarelto, hypertension, hyperlipidemia, GERD, cognitive impairment presenting to the emergency department for confusion and low blood pressure. Patient presented to the hospital on 10/17 with critical
ischemia to his left lower extremity with occlusion to his popliteal artery, status post femoral arterial enterectomy. Patient had been discharged on 10/31. Per rehab facility, has been more confused in the past few days. arrives at bedside,
notes confused yesterday, however did receive tramadol which she usually makes him slightly more confused. Nursing facility noted a low-grade temperature yesterday which also was present today. Unclear if patient received Tylenol prior to arrival.
The rehab facility did administer 2 L of fluid prior to his arrival to the hospital, and medics had initiated norepinephrine due to systolic blood pressures in the 60s. Patient on arrival does admit to some shortness of breath, denies any cough.
Denies any abdominal pain. Does note some chronic pain to the left lower extremity, known chronic edema as well. notes that he seems much less confused presently. Patient denies any chest pain. Denies additional acute medical complaints
Past History
Past History
ED Past Medical History: Arrthythmia (Atrial fib), Cancer (prostate CA with 44 radiation txs, last 02/2022), CHF, GERD, HTN, Hypercholesterolemia, Other (Back and neck pain, Neuropathy, Diverticulitis, GI bleeding. Hep B, Iron def anemia,
Pneumothorax as child), Other (Peripheral vascular disease, left femoropopliteal bypass October 27, 2025) and Other (fall, hemothorax, chest tube 2017)
ED Past Surgical History: Orthopedic (Left bicep repair ) and Other (Hernia repair, )
Patient has exhibited threatening behavior?: No
PSI?: No
Social History
Tobacco: Former smoker
Alcohol: Occasional (Whisky or Vodka or beer 2 daily)
Drug: None
Personal:
Living: with family
Employment: Retired
Family History
Family History: Negative Diabetes, Hypertension or CAD
Phy Exam
Physical Exam
Physical Exam:
General: Pale
HEENT: protecting airway
Neck: appears supple
CV: Tachycardic, irregularly irregular rhythm
Resp: No accessory muscle use, no increased work of breathing, lungs clear to auscultation bilaterally
Abd: Soft and non-distended, no tenderness to palpation
Extremities: 3+ pitting edema to the left lower extremity. Incisions in the inguinal region, medial calf, medial popliteal. No significant erythema or drainage, however there is small area of dehiscence at the inguinal region. There is additional
area of ecchymosis and swelling at the proximal region of the medial calf, firm to palpation without palpable fluctuance. Dopplerable PT and DP pulses
Neuro: alert, no focal neurologic deficit
: deferred
Rectal: Melanotic stool, Hemoccult positive
Psych: Normal affect
Skin: Intact
Course
Orders/Labs/Results
Orders:
Orders
11/13/25 09:04
NORepinephrine 4 MG/250 ML [Levophed] 4 mg in 250 ml .ROUTE .STK-MED
11/13/25 09:11
EKG [Electrocardiogram (*1)] Urgent
Reason for Study: Tachycardia
11/13/25 09:15
NORepinephrine 4 MG/250 ML [Levophed] 4 mg in 250 ml IV PER PROTOCOL
Initial dose in mcg/min, then titrate:: 1
Titrate to keep:: MAP > 65 mmHg
Titrate by mcg/min:: 1-2 mcg/min
Frequency of titrations (minutes):: 5
Maximum dose in ICU in mcg/min:: 30
Maximum dose in IMU in mcg/min:: 8
Maximum dose in IVU in mcg/min:: 4
Begin to taper infusion when:: Remained at goal for 4hrs
Taper by mcg/min:: 1-2 mcg/min
Frequency of taper (minutes) if patient maintains goal:: 30
Taper to off?: Yes
If infusion off & no longer maintaining goal:: Contact Provider
11/13/25 09:17
0.9% Sodium Chloride 1000 ml [Nss] 1,000 ml IV BOLUS
CR Chest Portable - 1 View Urgent
Comment:
Reason For Exam: SOB, sepsis
Reason Study Needs to be Portable: Patient Unstable
11/13/25 09:20
Acetaminophen [Tylenol] 650 mg PO NOW STA
11/13/25 09:31
Type And Crossmatch [Type+Screen] Urgent
Complete Blood Count/With Diff Urgent
Comprehensive Metabolic Panel Urgent
Ferritin Urgent
Comment: ADD ON
Folate Urgent
Comment: ADD ON
Iron Urgent
Comment: ADD ON
Lactic Acid Urgent
PTT Urgent
Total Iron Binding Urgent
Comment: ADD ON
Troponin I Urgent
Vitamin B12 Urgent
Comment: ADD ON
Blood Culture Urgent
MARK Source: Blood/Venous
Specimen Description:
Blood Culture Urgent
MARK Source: Blood/Venous
Specimen Description:
Influenza A+B Rapid Molecular Urgent
MARK Source: Nasal Swab
Specimen Description:
11/13/25 09:32
COVID-19 Antigen Urgent
Source: Nasal Swab
11/13/25 09:54
Acetaminophen 1000MG/100Ml [Ofirmev] 1,000 mg in 100 ml .ROUTE .STK-MED
11/13/25 09:57
Acetaminophen 1000MG/100Ml [Ofirmev] 1,000 mg IV NOW STA
11/13/25 Lunch
NPO
Allow oral meds: Yes
Allow clear liquids: No
11/13/25 10:07
* Blood Bank Products Urgent
Blood Bank Products: *Packed RBC Leuko (PRBC's
Quantity: 2
Transfuse Today: Yes
Reason: Bleeding
11/13/25 10:08
Pantoprazole 80 mg/100 ml Nss [Protonix] 80 mg in 100 ml IV NOW
11/13/25 10:29
Cefepime HCl [Maxipime] 2,000 mg IV NOW STA
Vancomycin [Vancocin] 2,000 mg 0.9% Sodium Chloride 500 ml [Nss] 500 ml IV NOW
11/13/25 10:38
Sterile Water [Sterile Water For Injection] 10 ml .ROUTE .STK-MED ONE
11/13/25 10:49
CT Abd Aorta Angio W/ Run Off Urgent
Comment:
Reason For Exam: assess FEA/bypass, r/o bleed
Periph Venous Lwr Ext Left US [US Periph Venous LOWER Ext LT] Urgent
Comment:
Reason For Exam: r/o dvt
11/13/25 10:53
Admit Patient As Directed
Co-Sign Provider:
Level of Care: Inpatient admission
Assign to:: ICU
Physician / Group:
Diagnosis: Anemia, fever
Reason for Hospitalization: fatty atrophy of the pancreas
Expected length of stay greater than two midnights?: Yes
ELOS- Estimated Length of Stay in days: 3
I certify the patient meets the requirements for IP care: Yes
PRN Pain Medication Management As Directed
May give lesser potent ordered pain med per pt: Yes
preference::
Protocol:: Medication orders for pain may be administered in a
manner that supports deferring to patient preference
when the pt is:
- Requesting an ordered lesser potent pain medication.
Least to most potent pain medications are defined
as: acetaminophen < NSAID < tramadol < opioids
(morphine, oxycodone, hydromorphone).
- Requesting a lesser dose of the same medication IF
ORDERED.
- Requesting a less intrusive route of administration
if both routes are prescribed by the provider (PO <
IV).
11/13/25 10:55
Strategy Lead Consult Routine
Consulting Provider: Angela Rascon
Was physician already notified: Yes
Pneumatic Compression Sleeves As Directed
Type: Knee high
DX Deep Vein Thrombosis Video Routine
11/13/25 10:56
GASTROINTESTINAL CONSULT Routine
Consulting Provider: Dwaine Tineo
Was physician already notified: Yes
Vascular Surgery Consult Routine
Consulting Provider: Daljit Clay
Was physician already notified: Yes
11/13/25 11:07
Add On- LAB Urgent
Tests Added?: ferritin, iron level, TIBC, B12 level, folate level
11/13/25 11:25
INFECTIOUS DISEASE CONSULT Routine
Consulting Provider: Randolph Patricia
Was physician already notified: Yes
11/13/25 11:36
Code Status As Directed
Resuscitation Status: Full Code
Acetaminophen [Tylenol] 650 mg PO Q4HPRN PRN
Bisacodyl [Dulcolax] 10 mg RECTAL [id number] PRN
Docusate W/Senna [Senokot-S] 1 tablet PO BIDPRN PRN
Polyethylene Glycol Powder [Miralax] 17 grams PO DAILYPRN PRN
Activity As Directed
Activity Level: As Tolerated
Vital Signs As Directed
Frequency: Per unit guidelines
11/13/25 11:38
Pneumatic Compression Sleeves As Directed
Type: Knee high
DX Deep Vein Thrombosis Video Routine
11/13/25 11:40
Bisacodyl [Dulcolax] 10 mg RECTAL DAILYPRN PRN IF MOM IS INEFFECTIVE GIVE ON DAY 5 IF NO BM
Magnesium Hydroxide [Milk of Magnesia] 30 ml PO DAILYPRN PRN IF NO BM X 3 DAYS GIVE ON DAY 4
Phosphate Enema [Fleet Phosphate Enema-Adult] 135 ml RECTAL DAILYPRN PRN IF DULCOLAX IS INEFFECTIVE GIVE ON DAY 6
Tramadol HCl [Ultram] 50 mg PO Q6HPRN PRN Moderate to severe pain
11/13/25 11:45
0.9% Sodium Chloride 1000 ml [Nss] 1,000 ml IV 50 mls/hr
11/13/25 16:00
Acetaminophen [Tylenol] 1,000 mg PO TID
11/13/25 18:00
Midodrine [ProAmatine] 5 mg PO BID@0800,1800
11/13/25 18:29
H&H Routine
Lactic Acid Routine
11/13/25 20:00
Docusate W/Senna [Senokot-S] 1 tablet PO BID
Ferrous Sulfate [Feosol] 325 mg PO Q48H
Metoprolol [Lopressor] 12.5 mg PO BID
11/13/25 22:00
Gabapentin [Neurontin] 100 mg PO HS
Pravastatin Sodium [Pravachol] 40 mg PO HS
11/14/25 02:23
Complete Blood Count/With Diff IN AM
Comprehensive Metabolic Panel IN AM
Troponin I IN AM
11/14/25 08:00
Cholecalciferol (Vitamin D3) [VITAMIN D3 (cholecalciferol)] 50 mcg PO DAILY
Cyanocobalamin [Vitamin B-12] 1,000 mcg PO DAILY
Furosemide [Lasix] 40 mg PO DAILY
Petrolatum/Mineral Oil [Hydrophor] See Dose Instructions TOPICAL DAILY
Polyethylene Glycol Powder [Miralax] 17 grams PO DAILY
11/15/25 01:00
Complete Blood Count/With Diff IN AM
Comprehensive Metabolic Panel IN AM
11/16/25 06:00
Complete Blood Count/With Diff IN AM
Comprehensive Metabolic Panel IN AM
Abnormal Lab Results
11/13/25
09:31
RBC 1.55 L 10^6/uL
(4.70-6.10)
Hgb 4.7 L* D g/dL
(13.0-18.0)
Hct 14.9 L* %
(39.0-52.0)
MCV 96.1 H fL
(80.0-94.0)
MCHC 31.5 L g/dL
(33.0-37.0)
MPV 10.8 H fL
(7.4-10.4)
Abs Immat Gran (auto) 0.1 H 10^3/uL
(0-0.05)
Absolute Neuts (auto) 6.8 H 10^3/uL
(1.4-6.5)
Absolute Lymphs (auto) 1.0 L 10^3/uL
(1.2-3.4)
Immature Gran % 0.6 H %
(0-0.5)
Neutrophils % 80.2 H %
(42.2-75.2)
Lymphocytes % 11.4 L %
(20.5-51.1)
APTT 57.6 H Sec
(23.4-35.0)
Carbon Dioxide 19 L mmol/L
(22-30)
BUN 62 H mg/dl
(9-20)
Glucose 138 H mg/dl
(70-99)
Lactic Acid 4.2 H* mmol/L
(0.7-2.0)
Calcium 7.8 L mg/dl
(8.4-10.2)
Iron 30 L ug/dl
(49-181)
TIBC 250 L ug/dl
(261-462)
% Saturation 12 L %
(20-50)
Total Protein 4.8 L g/dl
(6.3-8.2)
Albumin 2.5 L g/dl
(3.5-5.0)
Vitamin B12 970 H pg/ml
(196-931)
Crossmatch IS Only See Detail
11/13/25 09:31
11/13/25 09:31
Vital Signs
Initial and Last Documented VS:
Initial Vital Signs
Temp Pulse Resp BP Pulse Ox
98.0 F 120 23 83/51 88
11/13/25 08:55 11/13/25 08:55 11/13/25 08:55 11/13/25 08:55 11/13/25 08:55
Last Documented Vital Signs
Temp Pulse Resp BP Pulse Ox
97.9 F 105 21 99/85 96
11/15/25 05:23 11/15/25 08:30 11/15/25 08:30 11/15/25 08:29 11/15/25 08:15
MDM/Problems Addressed
MDM/Problems Addressed:
85-year-old male with history of A-fib on Xarelto, hypertension, hyperlipidemia, GERD, cognitive impairment presenting to the emergency department for confusion and low blood pressure. Vital signs on arrival significant for hypotension and
tachycardia, as well as low-grade temperature.
On exam, patient is in no acute distress, however is very pale in appearance. He is awake and alert. at bedside confirms his baseline mental status. Vital signs however at this time are concerning for sepsis, particularly septic shock.
Patient did receive 2 L of IV fluids prior to arrival with persistent hypotension. For this reason will continue Levophed which had been initiated by medics. Will continue IV fluids. Unclear source of infection. Lower suspicion for infection to
left lower extremity. Does appear edematous, however known history of edema, no significant erythema with dopplerable pulses. Will consult with vascular surgery. Lower suspicion for DVT, recent negative DVT ultrasound in 11/06. Patient does note
some dyspnea, so we will obtain chest x-ray imaging. Lower suspicion for PE given anticoagulation status. On rectal exam, melanotic stool, heme positive. Additional concern at this time is for GI bleed, which could be contributing to hypotension.
Hemoglobin yesterday was 7.2. Will recheck with plan for transfusion. Will continue to closely monitor
10:30 -patient's labs are grossly abnormal with hemoglobin of 4.7. Patient consented for blood, and GI made aware. Will start on Protonix drip. Lactic acid is 4.2, likely from volume losses versus septic shock. No leukocytosis. Chest x-ray
shows possible right lower lobe infiltrate. Given presenting symptoms of low-grade fever and lactic acid, will start broad-spectrum antibiotics in the setting of septic shock. Patient did receive appropriate fluid resuscitation. Vascular surgery
also made aware, will come and evaluate. Plan for admission
*Pulse Oximetry
SaO2: 88
Oxygen Mode of Delivery: Room air
Patient hypoxic: no
*Critical Care Note
Total Time (30-74mins, 75-104mins- exclusive of procedures): 55
comment:
The high probability of a clinically significant, sudden or life threatening deterioration of the gastrointestinal, cardiovascular system(s), GI bleed/septic shock, required my full and direct attention, intervention and personal management. The
aggregate critical care time was 55 minutes. This time is in addition to time spent performing reported procedures but includes the following:
[x] Data Review and interpretation
[x] Patient assessment and monitoring of vital signs
[x] Documentation
[x] Medication orders and management
ED Attending Note
-
Portions of this chart may have been created with voice recognition software.� Occasional wrong word or��sound alike� substitutions may have occurred due to the inherent limitations of voice recognition software.
Discharge Plan
Departure
Patient Disposition: Admit
Date of Disposition: 11/13/25
Time of Disposition: 10:37
Presentation/result/management discussed w/ accepting MD/DO: Hospitalist
Patient with high blood pressure during this ER visit?: No
Condition: Critical
Discharge Problem:
GI bleed, Anemia, Hypotension, Septic shock
Interventions
Interventions:
*General Assessment Last Done: 11/13/25 09:07
*Neglect/Abuse Screening Last Done: 11/13/25 08:55
*ED Influenza Vaccine History Last Done: 11/13/25 09:46
[facility] Risk Assessment Tool Last Done: 11/13/25 10:06
*Risk Screen - Suicide (C-SSRS) Last Done: 11/13/25 08:55
*Nursing Disposition Last Done: 11/13/25 13:16
ED- Cardiac Assessment Last Done: 11/13/25 10:03
ED- Neurological Assessment Last Done: 11/13/25 10:04
ED- Pulmonary Assessment Last Done: 11/13/25 10:04
Discharge Date and Time
Discharge Date/Time: 11/13/25 14:39
[2025-11-13] MEDS: NSS 1000 IV ×3 (09:50→20:25)
[2025-11-13 09:59] LABS: APTT 57.6 Sec (23.4-35.0)
[2025-11-13] MEDS: OFIRMEV 1000 MG IV (09:59)
[2025-11-13 10:00] LABS: Hematocrit 14.9 % (39.0-52.0); Hemoglobin 4.7 g/dL (13.0-18.0); Mean Corp Hgb Conc. 31.5 g/dL (33.0-37.0); Mean Corpuscular Volume 96.1 fL (80.0-94.0); Nucleated Red Blood Cells % 0.4 % (-); Platelet Count 334 10^3/uL (130-400); Red Cell Dist. Width 14.0 % (11.5-14.5)
[2025-11-13 10:04] LABS: ALT (SGPT) 12 U/L (0-50); AST (SGOT) 17 U/L (17-59); Albumin 2.5 g/dl (3.5-5.0); Alkaline Phosphatase 44 U/L (38-126); Blood Urea Nitrogen 62 mg/dl (9-20); Calcium 7.8 mg/dl (8.4-10.2); Carbon Dioxide 19 mmol/L (22-30); Chloride 106 mmol/L (98-107); Estimated Creatinine Clearance 98 ml/min; Glucose 138 mg/dl (70-99); Potassium 4.3 mmol/L (3.5-5.1); Sodium 135 mmol/L (135-145); Total Protein 4.8 g/dl (6.3-8.2); eGFR > 60.00
[2025-11-13 10:13] LABS: Troponin I 0.016 ng/ml
[2025-11-13 10:18] LABS: COVID-19 Antigen Negative (Negative)
[2025-11-13] MEDS: PROTONIX 100 IV ×2 (10:30→20:25)
[2025-11-13] MEDS: MAXIPIME 2000 MG IV ×2 (10:40→23:05)
--- NOTE | 2025-11-13 10:48 | CON.VAS ---
Addendum entered and electronically signed by Daljit Clay MD 11/13/25 13:51:
Seen and examined with DENNIS Farrell. Agree with findings as noted below.
Recent extensive revascularization left sided endarterectomy and bypass with vein conduit.
Presented to the emergency room with confusion and hypotension. Found to have hemoglobin in the 4 range.
Rectal exam was positive in the emergency room for melanotic stool and heme positive per report.
Being transfused now.
Left lower extremity groin incision slightly dehisced. No purulence. No significant erythema. No pulsatile mass. Remainder of thigh and calf incisions are intact. Below the knee calf incision is intact. There is blistering of the skin and some
swelling suggestive of subcutaneous or deeper hematoma. No pulsatile mass. Foot is warm.
Plan/ Agree with transfusion, possible GI source of bleed. He has significant edema throughout the limb and findings in the groin and below the knee as noted above. I think likely will require washout of the groin and/or below the knee site as
well. I do not think his edema is collected blood as it is relatively soft. Therefore I think the bleeding source more likely would be GI. However to be sure we will obtain CTA of the aorta with runoff. That way could assess surgical sites as
well including the groin and the below the knee site. Discussed with patient and his family at the bedside.
Original Note:
Consultation
Consultation Request
Date/Time Consultation Performed: 11/13/2025 at 1045
Performing Provider: Obed
Reason for Consultation: Low hemoglobin
Medical History
-
Chief Complaint: Low hemoglobin
History of Present Illness:
85-year-old male with past medical history significant for A-fib on Xarelto, hypertension, hyperlipidemia, GERD, cognitive impairment presenting to the ER today with for low hemoglobin, increased left lower extremity swelling and new wound to
medial left calf. Patient is status post left common femoral endarterectomy with patch angioplasty and fem to below-knee pop artery bypass with vein graft by Dr. Denise on 10/27/2025. Was discharged on 10/31/2025. In the ER patient was noted to have
melanotic stool, heme positive. Vascular consult for left lower extremity wounds. Patient seen at bedside this a.m. in the emergency room.
Patient states his left lower extremity became swollen about 2 days ago. He was unaware of the wound to his left medial calf. Denies trauma or injury.
Left medial calf
Left groin
Past Medical History
Past Medical History: Other (A-fib on Eliquis, prostate CA, CHF, GERD, hypertension, hyperlipidemia, neuropathy, diverticulitis, GI bleeding, hep B, iron deficiency anemia, PVD)
Past Surgical History: Other (Left common femoral endarterectomy with patch angioplasty and left common femoral to below-knee pop artery bypass with vein graft 10/27/2025)
Social History
Personal:
Living: With Family
Family History
Family History: Reviewed & Not Pertinent
Allergies / Home Medications
Allergy/AdvReac Type Severity Reaction Status Date / Time
No Known Allergies Allergy Verified 11/13/25 09:51
�Medication �Instructions �Recorded �Confirmed �Type
pravastatin 40 mg tablet 40 mg PO HS High cholesterol 06/06/12 11/13/25 History
cholecalciferol (vitamin D3) 50 2,000 unit PO DAILY Supplement 01/05/18 11/13/25 History
mcg (2,000 unit) tablet
rivaroxaban 20 mg tablet (Xarelto) 20 mg PO QPM Blood clot 03/22/23 11/13/25 History
prevention/tx
cyanocobalamin (vitamin B-12) 1,000 mcg PO DAILY Supplement 10/17/25 11/13/25 History
1,000 mcg tablet
ferrous sulfate 325 mg (65 mg 325 mg PO Q48H Supplement 10/17/25 11/13/25 History
iron) tablet (FeroSul)
tramadol 50 mg tablet 50 mg PO Q6HPRN PRN Moderate to 10/31/25 11/13/25 Rx
severe pain #10 tabs
acetaminophen 500 mg tablet 1,000 mg PO TID Anti-Inflammatory 11/13/25 11/13/25 History
(Tylenol Extra Strength)
amoxicillin 875 mg-potassium 1 tab PO BID 11/13/25 11/13/25 History
clavulanate 125 mg tablet
aspirin 81 mg chewable tablet 81 mg PO DAILY Blood Clot 11/13/25 11/13/25 History
Prevention/Tx
bisacodyl 10 mg rectal suppository 10 mg TX DAILYPRN PRN IF MOM IS 11/13/25 11/13/25 History
(Dulcolax (bisacodyl)) INEFFECTIVE GIVE ON DAY 5 IF NO BM
furosemide 40 mg tablet (Lasix) 40 mg PO DAILY Fluid 11/13/25 11/13/25 History
Retention/Swelling
gabapentin 100 mg capsule 100 mg PO HS Neurological Condition 11/13/25 11/13/25 History
magnesium hydroxide 400 mg/5 mL 30 ml PO DAILYPRN PRN IF NO BM X 3 11/13/25 11/13/25 History
oral suspension (Milk of Magnesia) DAYS GIVE ON DAY 4
metoprolol tartrate 25 mg tablet 12.5 mg PO BID Heart 11/13/25 11/13/25 History
Disease/Condition
midodrine 2.5 mg tablet 5 mg PO BID 11/13/25 11/13/25 History
polyethylene glycol 3350 17 gram 17 g PO DAILY Constipation 11/13/25 11/13/25 History
oral powder packet
sennosides 8.6 mg-docusate sodium 1 tab PO BID Constipation 11/13/25 11/13/25 History
50 mg tablet (Senna Plus)
sodium phosphates 19 gram-7 118 ml TX DAILYPRN PRN IF DULCOLAX 11/13/25 11/13/25 History
gram/118 mL enema (Fleet Enema) IS INEFFECTIVE GIVE ON DAY 6
white petrolatum 41 % topical 1 applic topical DAILY BLLE 11/13/25 11/13/25 History
ointment (Aquaphor Healing) EXTREMITIES
Review of Systems
-
History Source: Patient
All other systems: Negative unless noted
Constitutional: Reports Fever
EENT: Reports No Symptoms
Respiratory: Reports Other (dyspnea)
Cardiac: Reports No Symptoms
Vascular: Denies Leg Pain / Claudication
Abdomen/GI: Reports No Symptoms
: Reports No Symptoms
Musculoskeletal: Reports Edema
Skin: Reports Other (Slight dehiscence at groin site, skin breakdown at left medial calf)
Physical Exam
Vital Signs
Temp Pulse Resp BP Pulse Ox
99.0 F 117 20 109/46 91
11/13/25 09:35 11/13/25 10:45 11/13/25 10:45 11/13/25 10:45 11/13/25 09:35
Lab Results
11/13/25 09:31
11/13/25 09:31
Troponin I 0.016 ng/ml 11/13/25 09:31
Physical Exam
General: No Apparent Distress
HEENT: Normocephalic and Atraumatic
Respiratory: Non Labored Respirations
Cardiac: Negative JVD
GI: Soft and Non Tender
Musculoskeletal: No Clubbing, No Cyanosis and Edema (Left +3)
Skin: Warm and Other (See images above)
Neuro: Awake, Alert and Oriented
Psych: Calm
Assessment / Plan
-
85-year-old male status post left FEA and bypass with vein graft on 10/27/[address] Denise
Discharged on 11/03/2025
Presenting today with hemoglobin 4.7, increased left lower extremity swelling, new wounds
Plan:
CT angio aorta with runoff
Left lower extremity DVT study
Will follow-up with patient and family when scans complete
Data Reviewed
-
Labs: Labs Reviewed by me
--- NOTE | 2025-11-13 10:51 | HPS.HSE ---
Addendum entered and electronically signed by Linda Maria MD 11/13/25 13:29:
CC time 40 min
Addendum entered and electronically signed by Linda Maria MD 11/13/25 13:27:
HPI: 85 year old male with PMH A-fib on Xarelto, hypertension, hyperlipidemia, GERD, cognitive impairment, critical limb ischemia s/p recent left common femoral endarterectomy with patch angioplasty and fem to below-knee pop artery bypass with vein
graft by Dr. Deinse on 10/27/2025, who presented for [facility] for anemia, low grade temp and hypotension.
Levophed was started en route to the ED.
In the ED, his Hgb was noted to be low at 4.7 (from baseline 7-8). 2 units PRBC ordered to be given.
A/P:
# shock unclear which type, hemorrhagic vs septic (although felt less likely but could not rule out currently with history of 'low grade fever')
# Lactic acidosis POA due to shock state
Cont Levophed for BP support and wean as tolerated
Check CT Angio in setting of recent left femoral endarterectomy on 10/27/25
BL LE US neg for DVT
CXR no acute cardiopulmonary process with findings stable from prior study
Lactic acid 4.7 on admission, cont IVF and trend lactate
Follow culture results
Cont empiric Abx cefepime/Vanc
Cont [employer] midodrine
Admit to ICU with microfilm clerk consult
vascular surgery consulted
ID CS as cannot r/o septic shock
# Acute on chronic anemia (see below)
Hb 4.7 on admission, from baseline 7-8, transfuse 2 units PRBC and follow H/H, additional transfusion if needed
Follow iron panel
continue PPI
GI consulted by ED
# paroxysmal atrial fibrillation with RVR
hold [employer] xarelto
hold [employer] metoprolol in setting of shock
# HLD
Continue statin
Code: Full
DVT: holding Xarelto, use SCD for now
DW and daughter at bedside
Original Note:
Family Physician
-
Family Physician: Ilir Morrison
Chief Complaint
-
Low grade fever, low hemoglobin
History of Present Illness
This is an 85 year old female patient with past medical history of A-fib on Xarelto, hypertension, hyperlipidemia, GERD, cognitive impairment presenting to the hospital for concerns of low grade fever and low hemoglobin. He currently lives at [place]
Run status post left common femoral endarterectomy on 10/27/2025. and daughter states that patient had a low-grade fever last night and was looking very pale. At alf, he was found to have low hemoglobin and to be hypotensive. He was
administered 2 L of fluid. The facility offered blood transfusion but after discussion with patient and family, family wished to go to the hospital. EMS services started Levophed due to systolic BP in the 60s.
Medical History
Past Medical History
Past Medical History: Reports Other
Additional Past Medical History:
hypercholesterolemia
hypertension
paroxysmal atrial fibrillation
iron deficiency anemia
GERD
Hx prostate cancer
Past Surgical History: Reports Other
Additional Past Surgical History:
colonoscopy 08/2023
orthopedic - left arm tendon repair
Social History
Tobacco: Former Smoker
Alcohol: Daily (1-2 cocktails per day (whiskey or vodka))
Drug: None
Personal:
Living: With Family
Employment: Retired
Family History
Family History: Not pertinent
Allergies / Home Medications
Allergies reflects when Allergies were last updated in [employer].
Home Medications with original date entered in [employer]
Allergy/Medication List:
Allergies
Allergy/AdvReac Type Severity Reaction Status Date / Time
No Known Allergies Allergy Verified 11/13/25 09:51
Home Medications
pravastatin 40 mg tablet 40 mg PO HS High cholesterol 06/06/12
cholecalciferol (vitamin D3) 50 mcg (2,000 unit) tablet 2,000 unit PO DAILY Supplement 01/05/18
rivaroxaban 20 mg tablet (Xarelto) 20 mg PO QPM Blood clot prevention/tx 03/22/23
cyanocobalamin (vitamin B-12) 1,000 mcg tablet 1,000 mcg PO DAILY Supplement 10/17/25
ferrous sulfate 325 mg (65 mg iron) tablet (FeroSul) 325 mg PO Q48H Supplement 10/17/25
tramadol 50 mg tablet 50 mg PO Q6HPRN PRN Moderate to severe pain #10 tabs 10/31/25
acetaminophen 500 mg tablet (Tylenol Extra Strength) 1,000 mg PO TID Anti-Inflammatory 11/13/25
amoxicillin 875 mg-potassium clavulanate 125 mg tablet 1 tab PO BID 11/13/25
aspirin 81 mg chewable tablet 81 mg PO DAILY Blood Clot Prevention/Tx 11/13/25
bisacodyl 10 mg rectal suppository (Dulcolax (bisacodyl)) 10 mg NM DAILYPRN PRN IF MOM IS INEFFECTIVE GIVE ON DAY 5 IF NO BM 11/13/25
furosemide 40 mg tablet (Lasix) 40 mg PO DAILY Fluid Retention/Swelling 11/13/25
gabapentin 100 mg capsule 100 mg PO HS Neurological Condition 11/13/25
magnesium hydroxide 400 mg/5 mL oral suspension (Milk of Magnesia) 30 ml PO DAILYPRN PRN IF NO BM X 3 DAYS GIVE ON DAY 4 11/13/25
metoprolol tartrate 25 mg tablet 12.5 mg PO BID Heart Disease/Condition 11/13/25
midodrine 2.5 mg tablet 5 mg PO BID 11/13/25
polyethylene glycol 3350 17 gram oral powder packet 17 g PO DAILY Constipation 11/13/25
sennosides 8.6 mg-docusate sodium 50 mg tablet (Senna Plus) 1 tab PO BID Constipation 11/13/25
sodium phosphates 19 gram-7 gram/118 mL enema (Fleet Enema) 118 ml NM DAILYPRN PRN IF DULCOLAX IS INEFFECTIVE GIVE ON DAY 6 12/18/25
white petrolatum 41 % topical ointment (Aquaphor Healing) 1 applic topical DAILY BLLE EXTREMITIES 11/13/25
Review of Systems
-
A 12 point ROS was completed and negative except as noted: Yes
Neurological: Reports Weakness
Physical Exam
Vital Signs
Vital Signs
Temp Pulse Resp BP Pulse Ox
99.0 F 117 20 109/46 91
11/13/25 09:35 11/13/25 10:45 11/13/25 10:45 11/13/25 10:45 11/13/25 09:35
Physical Exam
General: Conversant and Appears Chronically Ill
HEENT: NormoCephalic
Respiratory: Clear
Cardiac: S1/S2 and Regular Rhythm
Musculoskeletal: Edema, Left Lower Extremity and Edema, Right Lower Extremity
Skin: Warm, Dry and Other (Incisions present on left medial calf and left groin)
Neuro: Awake, Alert and Oriented
Psych: Calm
Laboratory Results
-
11/13/25 09:31
11/13/25 09:31
Laboratory Results
APTT 57.6 Sec (23.4-35.0) H 11/13/25 09:31
Lactic Acid 4.2 mmol/L (0.7-2.0) H* 11/13/25 09:31
Total Bilirubin 0.4 mg/dl (0.2-1.3) 11/13/25 09:31
AST 17 U/L (17-59) 11/13/25 09:31
ALT 12 U/L (0-50) 11/13/25 09:31
Alkaline Phosphatase 44 U/L (38-126) 11/13/25 09:31
Troponin I 0.016 ng/ml 11/13/25 09:31
Impression/Plan
-
IMPRESSION:This is an 85 year old female patient with past medical history of A-fib on Xarelto, hypertension, hyperlipidemia, GERD, cognitive impairment presenting to the hospital for concerns of low grade fever and low hemoglobin
PLAN:
#Septic shock with hypotension on pressor
- S/p left femoral endarterectomy on 10/27/25
- CXR: no acute cardiopulmonary process with findings stable from prior study
- US LLE: No evidence of left lower extremity deep venous thrombosis from the common femoral through the upper calf veins.
- LA 4.7, trop 0.016 will repeat in evening
- Levophed currently on 10mg
- continue midodrine
- microfilm clerk consulted
- vascular surgery consulted
- blood cultures pending
- ID consulted
- Will continue IV vanc and IV cefepime
- start IVF
#Anemia likely due to recent
#GERD
- Hb 4.7
- 2untis prbc ordered by ER
- will recheck H&H in evening
-continue PPI
- GI consulted
- continue ferrous sulphate
#paroxsymal atrial fibrillation
- hold xarelto at this time
- continue metoprolol
#HLD
- continue statin
Code: Full
DVT: holding xarelto, SCDs
[2025-11-13] MEDS: VANCOCIN 540 MG IV (11:18)
[2025-11-13 11:43] LABS: Iron 30 ug/dl (49-181)
[2025-11-13 11:53] LABS: Total Iron Binding Capacity 250 ug/dl (261-462)
--- NOTE | 2025-11-13 12:32 | CON.INTV ---
Consultation
Consultation Request
Date/Time Consultation Requested: 11/13/2025
Date/Time Consultation Performed: 11/13/2025
Medical History
-
Chief Complaint: Leg swelling
History of Present Illness:
Patient is an 85-year-old female with past medical history significant for atrial fibrillation on chronic anticoagulation with Xarelto, who presents to the hospital with low-grade fever as well as drop in hemoglobin level. Patient was recently
admitted to the hospital about 3 weeks ago with critical limb ischemia and had left common femoral endarterectomy followed by fem to below-knee popliteal artery bypass surgery. Patient was recovering at [facility]. Reportedly patient was
developing low-grade fever overnight and appeared quite pale. Patient also noted increased left lower extremity swelling and a new wound to the medial left calf area. Lab work suggested low hemoglobin and patient also noted to be hypotensive.
Patient was referred to emergency room. Initial resuscitation included 2 L of IV fluid bolus followed by initiation of Levophed along with broad-spectrum antibiotic. In addition patient reported melanotic stool which were heme positive with noted
elevated BUN/creatinine ratio on lab work. Of note patient has been on chronic aspirin and Xarelto dual therapy.
Past Medical History
hypercholesterolemia
hypertension
paroxysmal atrial fibrillation
iron deficiency anemia
GERD
Hx prostate cancer
Past Surgical History: Reports Other
Additional Past Surgical History:
colonoscopy 08/2023
orthopedic - left arm tendon repair
Social History
Tobacco: Former Smoker
Alcohol: Daily (1-2 cocktails per day (whiskey or vodka))
Drug: None
Personal:
Living: With Family
Employment: Retired
Family History
Family History: Not pertinent
Allergies / Home Medications
Allergies / Home Medications
Allergies
Allergy/AdvReac Type Severity Reaction Status Date / Time
No Known Allergies Allergy Verified 11/13/25 09:51
Home Medications
�Medication �Instructions �Recorded �Confirmed �Last Taken �Type
pravastatin 40 mg tablet 40 mg PO HS High cholesterol 06/06/12 11/13/25 11/11/25 History
cholecalciferol (vitamin D3) 50 2,000 unit PO DAILY Supplement 01/05/18 11/13/25 11/12/25 History
mcg (2,000 unit) tablet
rivaroxaban 20 mg tablet (Xarelto) 20 mg PO QPM Blood clot 03/22/23 11/13/25 11/11/25 History
prevention/tx
cyanocobalamin (vitamin B-12) 1,000 mcg PO DAILY Supplement 10/17/25 11/13/25 11/12/25 History
1,000 mcg tablet
ferrous sulfate 325 mg (65 mg 325 mg PO Q48H Supplement 10/17/25 11/13/25 11/11/25 History
iron) tablet (FeroSul)
tramadol 50 mg tablet 50 mg PO Q6HPRN PRN Moderate to 10/31/25 11/13/25 11/11/25 Rx
severe pain #10 tabs
acetaminophen 500 mg tablet 1,000 mg PO TID Anti-Inflammatory 11/13/25 11/13/25 11/12/25 History
(Tylenol Extra Strength)
amoxicillin 875 mg-potassium 1 tab PO BID 11/13/25 11/13/25 11/12/25 History
clavulanate 125 mg tablet
aspirin 81 mg chewable tablet 81 mg PO DAILY Blood Clot 11/13/25 11/13/25 11/12/25 History
Prevention/Tx
bisacodyl 10 mg rectal suppository 10 mg MS DAILYPRN PRN IF MOM IS 11/13/25 11/13/25 Unknown History
(Dulcolax (bisacodyl)) INEFFECTIVE GIVE ON DAY 5 IF NO BM
furosemide 40 mg tablet (Lasix) 40 mg PO DAILY Fluid 11/13/25 11/13/25 11/12/25 History
Retention/Swelling
gabapentin 100 mg capsule 100 mg PO HS Neurological Condition 11/13/25 11/13/25 11/11/25 History
magnesium hydroxide 400 mg/5 mL 30 ml PO DAILYPRN PRN IF NO BM X 3 11/13/25 11/13/25 Unknown History
oral suspension (Milk of Magnesia) DAYS GIVE ON DAY 4
metoprolol tartrate 25 mg tablet 12.5 mg PO BID Heart 11/13/25 11/13/25 11/11/25 History
Disease/Condition
midodrine 2.5 mg tablet 5 mg PO BID 11/13/25 11/13/25 11/12/25 History
polyethylene glycol 3350 17 gram 17 g PO DAILY Constipation 11/13/25 11/13/25 11/12/25 History
oral powder packet
sennosides 8.6 mg-docusate sodium 1 tab PO BID Constipation 11/13/25 11/13/25 11/12/25 History
50 mg tablet (Senna Plus)
sodium phosphates 19 gram-7 118 ml MS DAILYPRN PRN IF DULCOLAX 11/13/25 11/13/25 Unknown History
gram/118 mL enema (Fleet Enema) IS INEFFECTIVE GIVE ON DAY 6
white petrolatum 41 % topical 1 applic topical DAILY BLLE 11/13/25 11/13/25 11/12/25 History
ointment (Aquaphor Healing) EXTREMITIES
Review of Systems
-
Hematologic/Lymphatic: Other (All 14 systems reviewed and negative except as stated above in the history of present illness.)
Vitals / Labs / Diagnostic Testing
Vital Signs
Temp Pulse Resp BP Pulse Ox
97.8 F 130 24 119/81 95
11/13/25 11:51 11/13/25 12:25 11/13/25 12:25 11/13/25 12:20 11/13/25 12:21
Lab Data
11/13/25 09:31
Laboratory Results
11/13/25
09:31
APTT 57.6 H
Microbiology
11/13/25 09:31 Nasal Swab Influenza Types A & B (GARIMA) - Final
Negative for Influenza A & B, NAAT
Negative results must be combined with clinical observations
and patient history.
Nucleic Acid Amplification test (NAAT)performed on the
[employer] platform.
Diagnostic Testing:
Physical Exam
-
HEENT: Normocephalic and Other (Pale conjunctiva)
Cardiovascular: S1/S2 and Other (Left leg appears to be edematous, small area of wound dehiscence. Otherwise no cyanosis noted, foot appears to be well-perfused.)
Respiratory: Clear and Other
GI: Soft, Non Distended and Non Tender
Neurology: Awake, Alert and Oriented
Skin: Warm
General: Comfortable
Assessment
-
#1. Shock with lactic acidosis, suspect hemorrhagic with acute blood loss anemia/septic
- Lactate elevated at 4.2. troponin negative
- Influenza A, B, COVID-19 screen negative. Blood cultures pending. MRSA screen in 09/2025 was negative. Patient is afebrile and has normal WBC count.
- Hold metoprolol and furosemide
- Status post 2 L IV fluid resuscitation, continue vasopressors as needed to keep MAP above 65
- Continue broad-spectrum antibiotic, currently on vancomycin and cefepime
- Blood transfusion stat, x 2 units, serial H&H
- Check VBG/ABG and serial lactate
#2. Acute on chronic anemia, suspect blood loss
- Hb 7.2 > 4.7 in 24 hrs
- BUN/Cr elevated, also melanotic stool, concerning for upper GI bleed
- With increased leg swelling, concern for bleeding as well, however GI bleed seems to be more likely etiology. Await CTA lower extremity.
#3. Suspect GI bleed, upper
- BUN/creatinine ratio elevated, melanotic stool, heme positive
- Patient has been on aspirin and Xarelto chronically, hold both medications
- Continue Protonix infusion, serial H&H, transfuse as needed to keep hemoglobin 7 or above
- Gastroenterology consult
#4. Paroxysmal Atrial Fibrillation
- Currently rate controlled
- Hold Xarelto in view of acute anemia, hold metoprolol in view of shock requiring Levophed infusion
#5. H/o critical limb ischemia
- S/p extensive revascularization with left-sided endarterectomy and bypass with vein conduit, 10/27/2025.
- Foot appears to be well-perfused, vascular surgery service on case
- Await CT angio
Other medical diagnoses:
- Hypertension
- Hyperlipidemia
- Gastroesophageal reflux disease
- History of prostate cancer, s/p radiation therapy
- Heart failure with preserved ejection fraction
- Peripheral vascular disease
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
- History of smoking
Critical Care time 65 mins -- The patient is admitted for acute critical illness for the treatment of vital organ failure and/or prevention of further life-threatening conditions. Total care includes time spent in review of history, physical exam,
medications, hemodynamic/ventilator parameters, laboratory data, imaging and discussion with house staff, pharmacy, respiratory therapy, supervisor advice, and nursing.
Data:
CXR 10/2025: Unremarkable
LE US 10/2025: Negative for any DVT
Lexiscan 09/2025: Lexiscan nuclear stress test showing small mild fixed inferobasilar and inferoapical defect consistent with infarct versus soft tissue attenuation with no evidence of ischemia.
Inconclusive ECG for ischemia given the pharmacological study.
Systolic function is normal. The ejection fraction is 68%.
ECHO 09/2025: 1. Technically difficult and limited study. Lumason was utilized to improve endocardial definition. Left ventricular systolic function is visually estimated withing normal limits with no sizable regional wall motion abnormalities
noted. The estimated ejection fraction is estimated 60-65% by Borden's method of disc. Mild concentric LVH.
2. Trileaflet aortic valve. No aortic stenosis or aortic insufficiency.
3. Trace mitral valve regurgitation.
4. No tricuspid regurgitation.
5. When compared to the most recent echocardiogram from 04/05/2022, there has been no significant change.
Colonoscopy 03/2024: Hemorrhoids, status post polypectomy and diverticulosis.
[2025-11-13 12:33] LABS: Ferritin 91.7 ng/ml (17.9-464.0)
[2025-11-13 13:04] LABS: Folate 5.3 ng/ml (2.76-20); Vitamin B12 970 pg/ml (239-931)
--- NOTE | 2025-11-13 14:28 | PHA.VAN.IN ---
Assessment
- Assessment
Renal Function: Appears similar to baseline
Concomitant Antimicrobials: cefepime
AUC Dosing Plan
- Dosing Variables
Dosing Weight (kg): 104
Dosing CrCl (ml/min): 98
Vd coefficient (L/kg): 0.7
- Empiric Dosing
Initial / Loading Dose: 2000mg - 11/13 11:18
Maintenance Regimen: Vanc 1250mg Q12H starting 11/14 0600
Estimated AUC (mcg*h/mL): 426
Estimated Peak (mcg*h/mL): 26.7
Estimated Trough (mcg/ml): 10.9
Estimated Half Life (H): 8.1
Give 500mg x1 at 1800 to maintain levels
- Monitoring
No levels ordered at this time: consider levels in next few days
Pharmacokinetics Vancomycin I
- -
Patient Age: 85
Patient Sex: Male
Vancomycin Day #: 1
Indication: Bacteremia
Requesting Provider: Dr. Castillo (resident)
Pertinent Antimicrobial Allergies:
NKDA
Height / Weight:
Height 6 ft
Actual Weight 104 kg
Pertinent Past Medical History: BMI ~31
- Vital Signs / Lab Results
Temp Pulse Resp BP Pulse Ox
97.8 F 126 22 110/79 95
11/13/25 11:51 11/13/25 13:15 11/13/25 13:15 11/13/25 13:15 11/13/25 12:21
Lab Results - Hematology
11/13/25
09:31
WBC 8.4
Lab Results - Chemistry
11/13/25
09:31
BUN 62 H
Creatinine 0.7
Estimated Creat Clear 98
Albumin 2.5 L
11/13/25
09:31
Lactic Acid 4.2 H*
Microbiology Results
11/13/25 09:31 Influenza Types A & B (GARIMA) - Final
Nasal Swab Negative for Influenza A & B, NAAT
Negative results must be combined with clinical observations
and patient history.
Nucleic Acid Amplification test (NAAT)performed on the
[employer] platform.
--- NOTE | 2025-11-13 15:23 | CON.ID ---
Consultation
-
Date/Time Consultation Requested: 11/13/2025 1125
Date/Time Consultation Performed: 11/13/2025 1520
Requesting Provider: Dr. Castillo
Performing Provider: Dr. Patricia
Reason for Consultation: Clinical sepsis
Chief Complaint / Past History
History of Present Illness
Augustine Solomon is an 85-year-old man with significant past medical history of PAD being evaluated at the request of Dr. Castillo regarding possible left lower extremity SSTI. History is obtained from chart review, along with patient interview.
Additional history was obtained from the patient's who was at the bedside.
The patient is approximately 3 weeks s/p left common femoral endarterectomy and fem�distal popliteal bypass secondary to critical limb ischemia. Following his hospitalization he was transferred to [facility] for further rehab. Yesterday he was found
to be anemic, and the patient reportedly developed a fever overnight. Earlier this morning, he looked poorly to the nurse and he was sent to the ER for further evaluation. Here, he he was found to have a hemoglobin of 4.7, noting that his
hemoglobin yesterday was reportedly 7.
The patient reports that over the past week he has had increasing swelling of the left lower extremity, and he more recently has developed pain along the midportion of his prior left medial leg incision.
Past History
Additional Past Medical History:
P A-fib (on Xarelto)
Hx prostate CA with XRT
HTN
HLD
Diverticulitis
Umbilical hernia
Additional Past Surgical History:
Left leg fem-pop
Hemorrhoidal banding
Allergy History:
No Known Allergies Allergy (Verified 11/13/25 09:51)
Medications Reviewed: Yes
Current Antibiotics:
Vancomycin (dosing per pharmacy)
Cefepime 2 gm IV q.12 hours
Social History
Tobacco: Non-Smoker
Alcohol: Occasional
Drug: None
Personal:
Living: With Family
Employment: Retired
Family History
Family History: Not Pertinent
Review of Systems
Vital Signs
Temp Pulse Resp BP Pulse Ox
97.8 F 134 22 116/65 95
11/13/25 11:51 11/13/25 14:20 11/13/25 14:20 11/13/25 14:20 11/13/25 12:21
Physical Exam
Physical Exam
Constitutional: No Acute Distress, Comfortable, Chronically Ill, Non-toxic and Obese
Eyes: No Conjunctival Hemorrhage and Sclera Anicteric
Oral: No Thrush and No Ulcers
Cardiovascular: Irregular Rate (Tachycardic) and S1/S2; Negative S3/S4
Pulmonary: Clear; Negative Wheezes, Rales or Rhonchi
Gastrointestinal: Soft, Non Tender, Non Distended and Normal Bowel Sounds
Extremities: Edema (4+ edema left lower extremity, 3+ edema right lower extremity)
Wound: Other (Left groin with surgical incision with overall dehiscence. [place] in place. Left medial leg surgical incision. Mid incisional duskiness.)
Neurological: Awake and Alert
Psychological: Calm
Lab / Diagnostic Study Results
11/13/25 09:31
Abs Immat Gran (auto) 0.1 10^3/uL (0-0.05) H 11/13/25 09:31
Absolute Neuts (auto) 6.8 10^3/uL (1.4-6.5) H 11/13/25 09:31
Absolute Lymphs (auto) 1.0 10^3/uL (1.2-3.4) L 11/13/25 09:31
Absolute Monos (auto) 0.6 10^3/uL (0.1-0.6) 11/13/25 09:31
Absolute Basos (auto) 0.0 10^3/uL (0-0.2) 11/13/25 09:31
Immature Gran % 0.6 % (0-0.5) H 11/13/25 09:31
Neutrophils % 80.2 % (42.2-75.2) H 11/13/25:
Lymphocytes % 11.4 % (20.5-51.1) L 11/13/25:
Monocytes % 7.5 % (1.7-9.3) 11/13/25:
Eosinophils % 0.2 % (0-6) 11/13/25:
Basophils % 0.1 % (0-2) 11/13/25:
Lactic Acid 4.2 mmol/L (0.7-2.0) H* 11/13/25:
Microbiology Results
Micro:
11/13/25 Influenza Types A & B (GARIMA) - Final
Nasal Swab Negative for Influenza A & B, NAAT
Negative results must be combined with clinical observations
and patient history.
Nucleic Acid Amplification test (NAAT)performed on the
[employer] platform.
11/13/25 09: Blood Culture - Pending
Blood/Venous
11/13/25: Blood Culture - Pending
Blood/Venous
Assessment / Plan
Acute blood loss anemia
Reported fever
Left lower extremity hematoma/seroma
Hypotension
Wound dehiscence left groin
P A-fib (on Xarelto)
Hx prostate CA with XRT
HTN
HLD
Diverticulitis
Umbilical hernia
Recommendations:
At present, not clear whether wounds are infected or not. Patient is without leukocytosis although does have a left shift.
If not infected, the left groin is at risk for infection given its dehiscence.
Continue with empiric antibiotics for the present (vancomycin, cefepime)
Monitor vancomycin levels closely to prevent nephrotoxicity.
Begin Dakin's solution application to the left groin wound. Given appearance, may need debridement at some point.
Monitor white count and temperature curve.
Monitor hemoglobin.
Further recommendations as additional data is returned.
Care Review
Plan reviewed with: Other Provider (Vascular Surgery SUPERVISOR HOT DIP PLATING)
--- NOTE | 2025-11-13 15:43 | CON.GI ---
Consultation
-
Date/Time Consultation Requested: 11/13/25 10:17am
Date/Time Consultation Performed: 11/13/25 3:45pm
Requesting Provider: Brandy Naidu
Performing Provider: Dwaine Tineo
Reason for Consultation: Melena
Medical History
Chief Complaint / HPI
Chief Complaint: Melena
History of Present Illness:
Pt is an 83yo with hx afib on Xarelto, prostate CA with radiation and chronic lupron, prior hemorrhoidal banding presents with low grade fever, drop Hgb to 4.7 from 7.2 yesterday. Recently had L RETAIL LOSS PREVENTION SPECIALIST endarterectomy for critical limb ischemia
followed by bypass on 10/27. Was sent from [place] yesterday for low grade fever, LLE swelling and wound. On presentation to ER he was noted to pass black stools, heme positive. Denies NSAIDs. Last xarelto last night. He did not notice black
stools himself. Denies abd pain. Had large 3cm cecal polyp removed piecemeal in 2022 and subsequently sent to to remove residual polyp in cecum. Last colonoscopy in March 2024 showed small polyps in colon but no residual polyp in cecum.
Past Medical History
Past Medical History: Arrhythmias (PAF on Xarelto), Cancer (prostate CA with prior radiation), HTN, Hypercholesterolemia and Other (umbilical hernia, diverticulitis, LE swelling, hx colon polyps)
Past Surgical History: Other (hemorrhoidal banding, bicep muscle repair)
Social History
Tobacco: Non-Smoker
Alcohol: Daily (1-2 drinks)
Drug: None
Personal:
Living: With Family
Employment: Retired
Family History
Family History: Other (no family hx colon CA or polyps)
Allergies / Home Medications
Allergy/AdvReac Type Severity Reaction Status Date / Time
No Known Allergies Allergy Verified 11/13/25 09:51
�Medication �Instructions �Recorded
pravastatin 40 mg tablet 40 mg PO HS High cholesterol 06/06/12
cholecalciferol (vitamin D3) 50 2,000 unit PO DAILY Supplement 01/05/18
mcg (2,000 unit) tablet
rivaroxaban 20 mg tablet (Xarelto) 20 mg PO QPM Blood clot 03/22/23
prevention/tx
cyanocobalamin (vitamin B-12) 1,000 mcg PO DAILY Supplement 10/17/25
1,000 mcg tablet
ferrous sulfate 325 mg (65 mg 325 mg PO Q48H Supplement 10/17/25
iron) tablet (FeroSul)
tramadol 50 mg tablet 50 mg PO Q6HPRN PRN Moderate to 10/31/25
severe pain #10 tabs
acetaminophen 500 mg tablet 1,000 mg PO TID Anti-Inflammatory 11/13/25
(Tylenol Extra Strength)
amoxicillin 875 mg-potassium 1 tab PO BID 11/13/25
clavulanate 125 mg tablet
aspirin 81 mg chewable tablet 81 mg PO DAILY Blood Clot 11/13/25
Prevention/Tx
bisacodyl 10 mg rectal suppository 10 mg NC DAILYPRN PRN IF MOM IS 11/13/25
(Dulcolax (bisacodyl)) INEFFECTIVE GIVE ON DAY 5 IF NO BM
furosemide 40 mg tablet (Lasix) 40 mg PO DAILY Fluid 11/13/25
Retention/Swelling
gabapentin 100 mg capsule 100 mg PO HS Neurological Condition 11/13/25
magnesium hydroxide 400 mg/5 mL 30 ml PO DAILYPRN PRN IF NO BM X 3 11/13/25
oral suspension (Milk of Magnesia) DAYS GIVE ON DAY 4
metoprolol tartrate 25 mg tablet 12.5 mg PO BID Heart 11/13/25
Disease/Condition
midodrine 2.5 mg tablet 5 mg PO BID 11/13/25
polyethylene glycol 3350 17 gram 17 g PO DAILY Constipation 11/13/25
oral powder packet
sennosides 8.6 mg-docusate sodium 1 tab PO BID Constipation 11/13/25
50 mg tablet (Senna Plus)
sodium phosphates 19 gram-7 118 ml NC DAILYPRN PRN IF DULCOLAX 11/13/25
gram/118 mL enema (Fleet Enema) IS INEFFECTIVE GIVE ON DAY 6
white petrolatum 41 % topical 1 applic topical DAILY BLLE 11/13/25
ointment (Aquaphor Healing) EXTREMITIES
Review of Systems
-
All other systems: A 12 pt ROS was Negative except as stated above in HPI
Vital Signs
Temp Pulse Resp BP Pulse Ox
98.3 F 137 27 116/87 95
11/13/25 15:15 11/13/25 15:15 11/13/25 15:15 11/13/25 15:15 11/13/25 12:21
Physical Exam
Exam
General: No Apparent Distress
HEENT: Normocephalic and Atraumatic
Respiratory: Non Labored Respirations
GI: Soft, Non Tender and Non Distended
Rectal: Black and Hem Positive
Results
WBC 8.4 10^3/uL (4.8-10.8) 11/13/25 09:31
Hgb 4.7 g/dL (13.0-18.0) L* D 11/13/25 09:31
Hct 14.9 % (39.0-52.0) L* 11/13/25 09:31
MCV 96.1 fL (80.0-94.0) H 11/13/25 09:31
Plt Count 334 10^3/uL (130-400) 11/13/25 09:31
Absolute Neuts (auto) 6.8 10^3/uL (1.4-6.5) H 11/13/25 09:31
APTT 57.6 Sec (23.4-35.0) H 11/13/25 09:31
Sodium 135 mmol/L (135-145) 11/13/25 09:31
Potassium 4.3 mmol/L (3.5-5.1) 11/13/25 09:31
Chloride 106 mmol/L (98-107) 11/13/25 09:
Carbon Dioxide 19 mmol/L (22-30) L 11/13/25:
BUN 62 mg/dl (9-20) H 11/13/25:
Creatinine 0.7 mg/dL (0.7-1.3) 11/13/25:
Calcium 7.8 mg/dl (8.4-10.2) L 11/13/25:
Total Bilirubin 0.4 mg/dl (0.2-1.3) 11/13/25:
AST 17 U/L (17-59) 11/13/25:
ALT 12 U/L (0-50) 11/13/25:
Alkaline Phosphatase 44 U/L (38-126) 11/13/25:
Diagnostic Image Results:
Prior GI Procedures:
EGD:
Colonoscopy:
Assessment / Plan
-
Summary: 85yo male presents with low grade fever, LLE swelling and new wound s/p LLE endarterectomy and bypass for critical limb ischemia 10/27. Hgb 4.7. Noted to pass black stool heme positive in ER. CTA shows L calf hematoma or seroma 3.1 x 2.7
x 13.3cm. Last colonoscopy March 2024 showing no residual polyp following EMR of 3cm cecal polyp and further resection by for residual polyp in 2022. No prior EGD
Impression:
Acute blood loss anemia
LLE hematoma/seroma s/p endarterectomy/bypass 10/27
Melena
Afib on Xarelto last dose 11/12 PM
Recommendations:
Agree with protonix gtt
Anemia multifactorial due to LLE hematoma and GI bleeding
Hold xarelto
Monitor BMs
EGD after xarelto washout and pending Vascular Surgery plans
Will follow
-
-
Thank you for consultation and allowing me to participate in the patient's care. Please call the cloud solutions architect GI physician during the after hours with any questions or concerns.
--- NOTE | 2025-11-13 16:00 | PTCARENOTE ---
received pt from ED , on Levophed at 10mcg weaned down to 6mcg map of 65, alert and oriented , afib on monitor , currntly recieving 1st unit of PRBC for hemoglobin 4.7 , he is asymptomatic armandoetly , and daughter at bedside, pt had black stool
heme positive , Dr Tineo at bedside
[2025-11-13] MEDS: OFIRMEV 100 IV (17:50)
[2025-11-13] MEDS: VANCOCIN HCL 500 MG 100 IV (18:05)
--- NOTE | 2025-11-13 18:47 | PTCARENOTE ---
pt completed 2nd unit of PRBC , continues on levophed at 6mcg , found multiple wounds on admission , repeat labs done at 1815 awaiting for results
[2025-11-13 18:48] LABS: INR 3.60; PT 35.4 Sec (11.4-14.6)
[2025-11-13 18:55] LABS: Hematocrit 18.5 % (39.0-52.0); Hemoglobin 6.1 g/dL (13.0-18.0)
[2025-11-13 18:59] LABS: Magnesium 2.1 mg/dl (1.6-2.3)
[2025-11-13] MEDS: SENOKOT-S PO ×2 (20:24→22:48)
[2025-11-13] MEDS: FEOSOL PO ×2 (20:25→22:49)
[2025-11-13] MEDS: DAKIN'S SOLUTION 0.125% 1/4 STRENGTH 473 ML TOPICAL (20:25)
[2025-11-13 22:35] LABS: Hematocrit 20.2 % (39.0-52.0); Hemoglobin 6.8 g/dL (13.0-18.0)
--- NOTE | 2025-11-13 22:43 | PTCARENOTE ---
Addendum entered by Yohan Alonso RN 11/13/25 22:49:
Reports difficulty swallowing at baseline, states normally medications are crushed and placed in applesauce. Ordered ok for PO meds however NPO, unable to place in applesauce.
ICU DERIK notified, no order adjustments.
Original Note:
x2 PRBC transfused. --> Rpt H/H 6.8
ICU DERIK notified --> Orders for x1 PRBC + Calc.
Norepi titrating down.
[2025-11-13] MEDS: NEURONTIN PO (22:48)
[2025-11-13] MEDS: STERILE WATER FOR INJECTION 10 ML IV (23:05)
[2025-11-13] MEDS: CALCIUM GLUCONATE 130 MG IV (23:06)
[2025-11-14] VITALS (51 sets, daily range): BP systolic 73–166; BP diastolic 46–105; BMI 28.1
--- NOTE | 2025-11-14 02:55 | PTCARENOTE ---
Yrn weaned down.
Repeat H/H after 3rd uU --> 7.0 --> ICU DERIK notified repeat H/H 0800.
[2025-11-14 03:01] LABS: ALT (SGPT) 11 U/L (0-50); AST (SGOT) 15 U/L (17-59); Albumin 2.3 g/dl (3.5-5.0); Alkaline Phosphatase 43 U/L (38-126); Blood Urea Nitrogen 52 mg/dl (9-20); Calcium 8.3 mg/dl (8.4-10.2); Carbon Dioxide 22 mmol/L (22-30); Chloride 110 mmol/L (98-107); Estimated Creatinine Clearance 86 ml/min; Glucose 119 mg/dl (70-99); Potassium 3.4 mmol/L (3.5-5.1); Sodium 137 mmol/L (135-145); Total Protein 4.4 g/dl (6.3-8.2); eGFR > 60.00
[2025-11-14 03:11] LABS: Troponin I 0.034 ng/ml
[2025-11-14 03:15] LABS: Hematocrit 20.8 % (39.0-52.0); Hemoglobin 7.0 g/dL (13.0-18.0); Mean Corp Hgb Conc. 33.7 g/dL (33.0-37.0); Mean Corpuscular Volume 88.5 fL (80.0-94.0); Nucleated Red Blood Cells % 0.4 % (-); Platelet Count 230 10^3/uL (130-400); Red Cell Dist. Width 15.8 % (11.5-14.5)
[2025-11-14] MEDS: OFIRMEV 100 IV ×4 (03:34→23:11)
[2025-11-14] MEDS: KCL 270 MEQ IV (03:34)
[2025-11-14] MEDS: VANCOCIN 275 MG IV ×2 (06:11→18:29)
--- NOTE | 2025-11-14 06:35 | W.PN.GI.CBS2 ---
Addendum entered and electronically signed by Aleksey Li, DO 11/14/25 12:03:
Agree with FFP for given INR 3.60 (2/2 recent xarelto), favor 2 units of FFP.
Original Note:
Today's Communication / Plan
-
Keep NPO and continue IV PPI gtt. Plan for EGD today. Rest of care as outlined below.
Assessment / Plan
-
Summary: 85yo male presents with low grade fever, LLE swelling and new wound s/p LLE endarterectomy and bypass for critical limb ischemia 10/27. Hgb 4.7. Noted to pass black stool heme positive in ER. CTA shows L calf hematoma or seroma 3.1 x 2.7
x 13.3cm. Last colonoscopy March 2024 showing no residual polyp following EMR of 3cm cecal polyp and further resection by for residual polyp in 2022. No prior EGD
#Acute blood loss anemia
#LLE hematoma/seroma s/p endarterectomy/bypass 10/27
#Melena f/ UGIB
#Afib on Xarelto last dose 11/12 PM
- S/p 2 uPRBCs on 11/13/25 for Hgb 4.7 -> 7.0 this AM, BUN 62 -> 52. Briefly off Levo overnight, now on Levo 4 early this AM concerning for sepsis and component of anemia. Still suspect anemia is multifactorial in setting of anemia and known
hematoma however given his melena and pressor requirement still favor pursuing an EGD although therapy would be limited given prior xarelto (11/12).
Recommendations:
- Keep NPO, ensure two large bore IVs
- IV PPI gtt x 72 hrs
- Wean pressors as able as per ICU team
- Trend Hgb with serial CBC, transfuse for goal Hgb > 8.0
- Still suspect anemia multifactorial due to LLE hematoma and GI bleeding
- Favor pursuing an EGD later this afternoon on 11/14 given his melena and pressor requirement although without any recent melena in 24 hrs which is reassuring. Therapy would be limited given recent xarelto however still could potentially treat
with epi injection, clipping and/or hemospray. Favor pursuing EGD as well prior to holiday weekend
- Discussed benefits and risks of procedure at bedside with patient. Amenable in regards to pursuing EGD today
- Continue to hold xarelto (11/12- )
- Rest of care as per primary ICU team
Discussed with primary team this AM. GI will continue to follow.
Subjective
Subjective
Date of Service: November 14, 2025
- Remains on IV PPI gtt
- S/p 2 uPRBCs on 11/13/25 for Hgb 4.7 -> 7.0 this AM, BUN 62 -> 52
- Briefly off Levo overnight, now on Levo 4 early this AM
- Otherwise, no acute events overnight
Feeling well and resting comfortably this AM. No melena reported overnight or yesterday in discussion with nursing. Resting comfortably and denies any abdominal pain or discomfort. No other nausea/vomiting.
Objective
Data Reviewed
Laboratory Data:
Laboratory Results
11/14/25 02:23
Laboratory Results
PT 35.4 Sec (11.4-14.6) H 11/13/25 18:29
INR 3.60 11/13/25 18:29
APTT 57.6 Sec (23.4-35.0) H 11/13/25 09:31
Phosphorus 3.1 mg/dl (2.5-4.5) 11/13/25 18:29
Magnesium 2.1 mg/dl (1.6-2.3) 11/13/25 18:29
Total Bilirubin 1.0 mg/dl (0.2-1.3) 11/14/25 02:23
AST 15 U/L (17-59) L 11/14/25 02:23
ALT 11 U/L (0-50) 11/14/25 02:23
Alkaline Phosphatase 43 U/L (38-126) 11/14/25 02:23
Vital Signs and I&O:
Vital Signs
Temp Pulse Resp BP Pulse Ox
98.2 F 124 21 118/91 97
11/14/25 03:07 11/14/25 04:30 11/14/25 04:30 11/14/25 04:30 11/14/25 02:00
I&O
11/12/25 11/13/25 11/14/25
06:59 06:59 06:59
Intake Total 3953.8 / 3953.8
Output Total 2039 / 2039
Balance 1913.8 / 3.8
Physical Exam
Physical Exam
HEENT: Anicteric and Moist mucous membranes
Cardiology: Other (Tachy on tele)
Pulmonary: Other (Normal WOB)
GI: Soft, Non Distended and Non Tender
Neuro: Non Focal
--- NOTE | 2025-11-14 08:23 | VNURNOTE ---
Chart reviewed. Patient is current with [facility]. Will continue to follow hospital course and DC plans.
--- NOTE | 2025-11-14 08:32 | W.PN.HOSP.TC ---
Addendum entered and electronically signed by Linda Maria MD 11/14/25 12:54:
# GI bleed is related to/associated with/exacerbated by Xarelto.
# 2 stage 3 PI to left heel (measured as cluster),
# stage 1 PI to right heel, dry, necrotic yellow medial left ankle wound, left bypass vein graft site with blistered area on lower leg and necrotic appearing dehiscence to left groin, black necrotic areas to 2nd and 3rd left toes.
# Hypokalemia
Original Note:
Today's Communication/Plan
-
see A/P
Assessment / Plan
Assessment / Plan
HPI: 85 year old male with PMH A-fib on Xarelto, hypertension, hyperlipidemia, GERD, cognitive impairment, critical limb ischemia s/p recent left common femoral endarterectomy with patch angioplasty and fem to below-knee pop artery bypass with vein
graft by Dr. Denise on 10/27/2025, who presented for [facility] for anemia, low grade temp and hypotension.
Levophed was started en route to the ED.
In the ED, his Hgb was noted to be low at 4.7 (from baseline 7-8). 2 units PRBC ordered to be given.
Admission CT Angio:
1. Fluid collection within the soft tissues of the medial left calf, measuring 3.1 x 2.7 x 13.3 cm, with internal bubbles of air. This likely represents a postoperative hematoma or seroma. Infection of this collection should be excluded clinically.
2. No evidence of pseudoaneurysm formation.
3. Left lower extremity bypass graft is patent, without evidence of significant stenosis.
4. Bilateral peripheral arterial disease as above.
A/P:
# shock unclear type, hemorrhagic/hypovolemic vs septic (although felt less likely but could not rule out currently with history of 'low grade fever')
# Lactic acidosis POA due to shock state, resolved
Cont Levophed for BP support and wean as tolerated , down from 10 to 4 mcg today
[address] Angio was obtained in setting of recent left femoral endarterectomy on 10/27/25, showed fluid collection in medial calf, likely postoperative hematoma or seroma
Lactic acidosis at 4.7 on admission -> 1.2 with IVF
Cont IVF and adjust to gentle at 60 cc/hr in setting of BL LE edema, cont while NPO
Follow blood culture results
Cont empiric cefepime/Vanc
Cont RECORDS MANAGEMENT SPECIALIST midodrine
Cont ICU level of care
Appreciate manager leasing input
Appreciate vascular surgery input, recc possible washout of the groin and/or below the knee site
Appreciate ID input
# Acute on chronic anemia, ?GIB
Hb 4.7 on admission, from baseline 7-8, transfused 2 units PRBC with improvement of Hgb to 7.0, transfuse additional third unit prior to EGD
Iron panel suggest BENITO, start IV iron
continue PPI drip
GI on board, plan for EGD today 11/14
Card CS for risk stratification
# paroxysmal atrial fibrillation with RVR
hold RECORDS MANAGEMENT SPECIALIST xarelto
hold RECORDS MANAGEMENT SPECIALIST metoprolol in setting of shock
Card CS for current A fib RVR
# HLD
Continue statin
Code: Full
DVT: holding Xarelto, use SCD for now if able
DW GI
DW RN
DW Geochemist
updated Isabell on the phone
CC time 40 min
Anticipated Discharge: > 48 hours
Subjective/Interval History
-
Date of Service: November 14, 2025
Objective Data
-
Labs:
Laboratory Results
11/13/25 11/14/25 11/14/25
22:22 02:23 08:00
WBC 7.2
Hgb 6.8 L* 7.0 L Pending
Hct 20.2 L* 20.8 L* Pending
Plt Count 230 D
Sodium 137
Potassium 3.4 L
Chloride 110 H
Carbon Dioxide 22
BUN 52 H
Creatinine 0.7
Glucose 119 H
Calcium 8.3 L
Total Bilirubin 1.0
AST 15 L
ALT 11
Alkaline Phosphatase 43
11/14/25
14:00
WBC
Hgb Pending
Hct Pending
Plt Count
Sodium
Potassium
Chloride
Carbon Dioxide
BUN
Creatinine
Glucose
Calcium
Total Bilirubin
AST
ALT
Alkaline Phosphatase
Vital Signs:
Vital Signs
Temp Pulse Resp BP Pulse Ox
36.8 C 124 21 118/91 97
11/14/25 03:07 11/14/25 04:30 11/14/25 04:30 11/14/25 04:30 11/14/25 02:00
I&O
11/13/25 11/14/25 11/15/25
06:59 06:59 06:59
Intake Total 3953.8 / 3953.8
Output Total 2039 / 2039
Balance 1913.8 / 1913.8
Review of Systems
-
History Source: Patient
All other systems: Reviewed and negative
Physical Exam
-
General: Well Developed, Well Nourished, Comfortable, Conversant and Appears Chronically Ill
HEENT: Normocephalic and Oxygen (2L NC)
Respiratory: Clear to Auscultation and Non Labored Respirations; Negative Accessory Resp Muscle Use
Cardiac: S1/S2, Irregular Rhythm and Tachycardic
GI: Soft, Nontender, Nondistended and Normal Bowel Sounds
Musculoskeletal: Edema, Right Lower Extrem and Edema, Left Lower Extrem
Skin: Lesions (see wound care note)
Neuro: Awake and Alert
Psych: Calm and Intact Judgement/Insight (somewhat)
Data Reviewed
-
Labs: Labs Reviewed by me
[2025-11-14] MEDS: NSS 1000 IV ×2 (08:34→23:18)
[2025-11-14] MEDS: DAKIN'S SOLUTION 0.125% 1/4 STRENGTH 473 ML TOPICAL (08:37)
[2025-11-14] MEDS: SENOKOT-S 1 TABLET PO (08:50)
--- NOTE | 2025-11-14 09:12 | W.PN.VS ---
Addendum entered and electronically signed by Lonnie Denise III, MD 11/14/25 15:47:
This patient was seen and examined in collaboration with MURALI Nayak. I agree with the history and physical exam as well as the assessment and plan.
VAC Left groin
Local wound care to left calf skin wound
Robust Doppler signals in left foot
Piter wrap the left foot/calf and elevate while in bed
Will follow along
Signed:
Lonnie Denise III, MD
Vascular Surgery
[facility]
Original Note:
Today's Communication / Plan
-
Seen and assessed with Dr Denise
Assessment/Plan
-
Pt admitted for GI bleed
s/p LLE bypass
Plan:
I will return to remove leandra/sutures and place wound vac to groin site
PITER wrap LLE, elevation for edema
Subjective Data
-
Date of Service: November 14, 2025
Pt seen at bedside this am with Dr Denise. Pt offers no complaints at this time. No events overnight.
Objective Data
-
Vital Signs
Temp Pulse Resp BP Pulse Ox
98.2 F 124 21 118/91 97
11/14/25 03:07 11/14/25 04:30 11/14/25 04:30 11/14/25 04:30 11/14/25 02:00
Intake and Output
11/13/25 11/14/25 11/15/25
06:59 06:59 06:59
Intake Total 3953.8 / 3953.8
Output Total 2039 / 2039
Balance 1913.8 / 1913.8
Intake:
IV fluids (Total) 1628.8 / 1628.8
Nss 1,000 ml @ 100 mls/hr IV . 1300 / 1300
Q10H JOCELINE Rx#:[id number]
levophed gtt 198.8 / 198.8
protonix gtt 130 / 130
IV piggybacks 575 / 575
Blood Products 750 / 750
Packed red blood cells 750 / 750
Blood Product Amount Infused ( 1000 / 1000
mL)
Packed Rbc Leukoreduced Unit 250 / 250
[id number]
Packed Rbc Leukoreduced Unit 250 / 250
[id number]
Packed Rbc Leukoreduced Unit 250 / 250
[id number]
Packed Rbc Leukoreduced Unit 250 / 250
[id number]
Output:
Urine, Voided 2039
Lab Results
11/14/25 02:23
Calcium 8.3 mg/dl (8.4-10.2) L 11/14/25 02:23
Phosphorus 3.1 mg/dl (2.5-4.5) 11/13/25 18:29
Magnesium 2.1 mg/dl (1.6-2.3) 11/13/25 18:29
Total Bilirubin 1.0 mg/dl (0.2-1.3) 11/14/25 02:23
AST 15 U/L (17-59) L 11/14/25 02:23
ALT 11 U/L (0-50) 11/14/25 02:23
Alkaline Phosphatase 43 U/L (38-126) 11/14/25 02:23
Total Protein 4.4 g/dl (6.3-8.2) L 11/14/25 02:23
Albumin 2.3 g/dl (3.5-5.0) L 11/14/25 02:23
Physical Exam
-
AAOx3
No tachypnea on NC
No tachycardia
Abd soft
Groin site unchanged with scant serous drainage
Lower leg wrapped
+3 pitting edema to the left leg
--- NOTE | 2025-11-14 09:14 | PHA.VAN.FU ---
Vancomycin Assessment / Plan
- Assessment
Renal Function: Stable
WBC's are: WNL
In the past 24 hrs, patient has been: Afebrile
Concomitant Antimicrobials: cefepime
- Dosing Plan
Continue: Vanc 1250mg Q12H
- Monitoring Plan
No level(s) ordered at this time: consider levels in next few days
- Follow Up
Pharmacy will continue to follow.
Vancomycin Follow UP
- -
Patient Age: 85
Patient Sex: Male
Vancomycin Day #: 2
Indication: Bacteremia
Requesting Provider: Dr. Castillo (resident)
Pertinent Antimicrobial Allergies:
NKDA
Height / Weight:
Height 6 ft
Actual Weight 94 kg
Pertinent Past Medical History: BMI ~31
- Vital Signs / Lab Results
Temp Pulse Resp BP Pulse Ox
98.2 F 124 21 118/91 97
11/14/25 03:07 11/14/25 04:30 11/14/25 04:30 11/14/25 04:30 11/14/25 02:00
Lab Results - Hematology
11/13/25 11/14/25
09:31 02:23
WBC 8.4 7.2
Lab Results - Chemistry
11/13/25 11/14/25
09:31 02:23
BUN 62 H 52 H
Creatinine 0.7 0.7
Estimated Creat Clear 98 86
Albumin 2.5 L 2.3 L
11/13/25 11/13/25
09:31 18:29
Lactic Acid 4.2 H* 1.2
Microbiology Results
11/13/25 09:31 Influenza Types A & B (GARIMA) - Final
Nasal Swab Negative for Influenza A & B, NAAT
Negative results must be combined with clinical observations
and patient history.
Nucleic Acid Amplification test (NAAT)performed on the
[employer] platform.
--- NOTE | 2025-11-14 10:00 | PTCARENOTE ---
pt awake and oriented , forgetful at times , restless , A fib on monitor , on levophed for BP goal map 65 currently on 4mcg , hemoglobin 7.0 , plan for 1 unit of PBRC and 2 FFP , platelets , 1st unit of FFP running now , no further melema stools
overnight , plan for EGD this afternoon , pt seen by vascular PETROLEUM ENGINEERING TEACHER and plan to place wound vac on L groin surgical site and remove leandra from previous surgery , WOC RN here at bedside with rec on wound care
--- NOTE | 2025-11-14 10:00 | PTCARENOTE ---
alert , forgetful at times , restless , Afib on monitor 100-120s , on Levophed at 4mcg for goal map of 65, vascular SECURITY INVESTIGATOR placed wound vac on L groin and removed leandra, WOC RN here to assess and give recs for wounds , pt receiving 2 units of FFP ,
and to have 1 unit PRBC , no further stools overnight , pt daughter at bedside and updated
--- NOTE | 2025-11-14 10:23 | W.PN.ID1 ---
Date of Service
Date of Service: November 14, 2025
Today's Communication
Continue Vancomycin/cefepime for now.
Assessment / Plan
Acute blood loss anemia
Reported fever - resolved
Left lower extremity hematoma/seroma
Hypotension
Wound dehiscence left groin
P A-fib (on Xarelto)
Hx prostate CA with XRT
HTN
HLD
Diverticulitis
Umbilical hernia
Recommendations:
Blood cx's neg to date.
At present, not clear whether wounds are infected or not. Patient is without leukocytosis although does have a left shift.
If not infected, the left groin is at risk for infection given its dehiscence.
Continue with empiric antibiotics for the present (vancomycin, cefepime)
Monitor vancomycin levels closely to prevent nephrotoxicity.
Begin Dakin's solution application to the left groin wound. Given appearance, may need debridement at some point.
Vascular planning to place wound vac to groin.
Monitor white count and temperature curve.
Monitor hemoglobin.
Chief Complaint
-: Cellulitis
Subjective / Review of Systems
No new complaints.
Vital Signs / Physical Exam
Vital Signs
Vital Signs
Temp Pulse Resp BP Pulse Ox
98.3 F 120 23 128/46 97
11/14/25 10:03 11/14/25 10:03 11/14/25 10:03 11/14/25 10:03 11/14/25 02:00
Physical Exam
Constitutional: No Acute Distress
Eyes: No Conjunctival Hemorrhage and Sclera Anicteric
Cardiovascular: Irregular Rate (tachycardic)
Pulmonary: Clear (anteriorly) and Non Labored
Gastrointestinal: Soft, Non Tender, Non Distended, Normal Bowel Sounds and Other (+ ventral hernia)
Extremities: Edema (LLE 3-4+ edema foot to groin), Erythema (LLE erythema calf to groin around incision) and Other (LLE warm)
Wound: Other (Left groin dehisced wound with leandra, dry; left calf area of dark dusky wound inferior to stapled incision)
Neurological: AO x 3
Objective Data
Lab Data
Lab Results
11/14/25 02:23
PT 35.4 Sec (11.4-14.6) H 11/13/25 18:
INR 3.60 11/13/25 18:
APTT 57.6 Sec (23.4-35.0) H 11/13/25 09:31
Estimated Creat Clear 86 ml/min 11/14/25 02:23
Lactic Acid 1.2 mmol/L (0.7-2.0) 11/13/25 18:
Total Bilirubin 1.0 mg/dl (0.2-1.3) 11/14/25 02:23
AST 15 U/L (17-59) L 11/14/25 02:23
ALT 11 U/L (0-50) 11/14/25 02:23
Alkaline Phosphatase 43 U/L (38-126) 11/14/25 02:23
Most recent labs reviewed.
Micro Results:
11/13/25 09:31 Blood Culture - Preliminary
Blood/Venous No Growth in 24 hours- Final report to follow
11/13/25 09:31 Blood Culture - Preliminary
Blood/Venous No Growth in 24 hours- Final report to follow
11/13/25 09:31 Influenza Types A & B (GARIMA) - Final
Nasal Swab Negative for Influenza A & B, NAAT
Negative results must be combined with clinical observations
and patient history.
Nucleic Acid Amplification test (NAAT)performed on the
[email or web address] platform.
Care Review
Plan reviewed with: Nurse (Wound nurse)
[2025-11-14] MEDS: PROTONIX 100 IV ×2 (10:30→20:26)
--- NOTE | 2025-11-14 10:39 | WOUNDNOTE ---
LEFT HEEL STAGE 3 PI 1941, [id number]
--- NOTE | 2025-11-14 10:39 | WOUNDNOTE ---
LEFT LEG GRAFT INCISION
--- NOTE | 2025-11-14 10:39 | WOUNDNOTE ---
LEFT MEDIAL LEG
--- NOTE | 2025-11-14 10:39 | WOUNDNOTE ---
LEFT MEDIAL ANKLE
--- NOTE | 2025-11-14 10:39 | WOUNDNOTE ---
RIGHT UPPER THIGH SKIN TEAR
--- NOTE | 2025-11-14 10:39 | WOUNDNOTE ---
LEFT 2nd AND 3rd TOES
--- NOTE | 2025-11-14 10:39 | WOUNDNOTE ---
ZENAIDA RN note: Patient admitted GI bleed, s/p LLE bypass (vascular following).
See H&P for complete history. Lives with at home.
PMH: 5 year old male with PMH A-fib on Xarelto, hypertension, hyperlipidemia, GERD, cognitive impairment, critical limb ischemia s/p recent left common femoral endarterectomy with patch angioplasty and fem to below-knee pop artery bypass with vein
graft by Dr. Denise on 10/27/2025, who presented for [facility] for anemia, low grade temp and hypotension.
Levophed was started en route to the ED.
In the ED, his Hgb was noted to be low at 4.7 (from baseline 7-8). 2 units PRBC ordered to be given. Chronic venous leg ulcers, going to [facility] wound care center for treatment.
Wound Location and type/assessment: Patient admitted with 2 stage 3 PI to left heel (measured as cluster), stage 1 PI to right heel, dry, necrotic yellow medial left ankle wound, left bypass vein graft site with blistered area on lower leg and
necrotic appearing dehiscence to left groin, black necrotic areas to 2nd and 3rd left toes. See worklist for details and measurements. Plan is for vascular to apply wound vac to groin today per chart review. Left leg with stage +3 edema. Sacrum is
intact and blanchable. Sacral foam applied to sacrum for protection. Male external catheter applied.
Appetite: NPO.
Pressure redistribution devices in place: Patient on Centrella Pro. Will be transferred with air mattress. Turning schedule. Patient positioned on right semi-side lying position with heels off-loaded.
Plan: Pictures of left leg wound sent to [facility]. Will recommend Honey Gel for left heel wounds. All other wound care provided as ordered and documented in worklist. VERO Alba given update. Will confirm orders with Hospitalist. Patient has
several comorbidities including GI bleed, anemia, hemorrhagic vs septic shock, and poor mobility. Wounds may worsen and new wounds may develop even with optimal care.
Note to case management of equipment requested for discharge:
Recommend follow up at wound care center upon discharge.
[2025-11-14] MEDS: STERILE WATER FOR INJECTION 10 ML IV ×3 (11:16→23:12)
[2025-11-14] MEDS: MAXIPIME 1000 MG IV ×3 (11:16→23:12)
--- NOTE | 2025-11-14 11:33 | CON.CAR ---
Addendum entered and electronically signed by Edison Jackman MD 11/14/25 15:34:
I saw and examined the patient.
The Director Of Dietary's note was reviewed and I agree with the note.
Comment: Briefly, 85-year-old man past medical history of heart failure preserved ejection fraction, paroxysmal atrial fibrillation on Xarelto and PAD with recent femoral endarterectomy and bypass 10/27/2025 who presents with symptomatic transfusion
dependent anemia (hemoglobin 4.7). Ongoing workup for GI source of bleed. Cardiology is consulted for management of atrial fibrillation.
Patient has been in atrial fibrillation with rapid ventricular response here
With treatment of underlying anemia has had some improvement in his heart rate trend
Will add low-dose Lopressor IV as needed for average heart rate goal 110 bpm
Xarelto remains on hold given transfusion dependent anemia. Would resume once safe from GI standpoint. Ultimately may be a good candidate for Watchman.
Rest per Tabby Shelby
Original Note:
Consultation
Consultation Request
Date/Time Consultation Performed: 11/14/25
Requesting Provider: Dr. Maria
Performing Provider: Tabby Shelby PA-C for Dr. Jackman
Reason for Consultation: afib with RVR
Medical History
-
Chief Complaint: hypotension, confusion
History of Present Illness:
Patient is an 85-year-old male with recent admission to [facility] 10/17 - 10/31/2025 with critical limb ischemia status post left common femoral endarterectomy with patch angioplasty and left common femoral to below-knee popliteal artery bypass. During
that admission cardiology had seen patient for atrial fibrillation. Plan was for rate control. His outpatient Xarelto was resumed postoperatively, and vascular surgery had added aspirin. He then presented back to [facility] on 11/13/2025 due to
confusion and low blood pressure. Noted to have hemoglobin of 4.9. CT of the abdomen without clear evidence of postsurgical bleed. Concern for GI source and is planned for EGD today. Cardiology consulted for assistance with rate control in the
setting of A-fib. Main complaint is back pain and leg pain. Denies palpitations.
Past medical history:
PAD
Chronic lower extremity wounds/unhealing leg ulcers
Critical limb ischemia status post left common femoral endarterectomy with patch angioplasty and left common femoral to below-knee popliteal artery bypass 10/27/2025
Chronic HFpEF
Hypercholesterolemia
Hypertension
Paroxysmal atrial fibrillation
Chronic anticoagulation w/ Xarelto
Iron deficiency anemia
GERD
h/o prostate cancer s/p radiation
Past Medical History
Past Medical History: Other (See HPI)
Past Surgical History: Orthopedic (Left arm tendon repair)
Social History
Tobacco: Former Smoker
Drug: None
Personal:
Employment: Retired
Family History
Family History: Reviewed & Not Pertinent
Allergies / Home Medications
Allergy/AdvReac Type Severity Reaction Status Date / Time
No Known Allergies Allergy Verified 11/13/25 09:51
�Medication �Instructions �Recorded �Confirmed �Type
pravastatin 40 mg tablet 40 mg PO HS High cholesterol 06/06/12 11/13/25 History
cholecalciferol (vitamin D3) 50 2,000 unit PO DAILY Supplement 01/05/18 11/13/25 History
mcg (2,000 unit) tablet
rivaroxaban 20 mg tablet (Xarelto) 20 mg PO QPM Blood clot 03/22/23 11/13/25 History
prevention/tx
cyanocobalamin (vitamin B-12) 1,000 mcg PO DAILY Supplement 10/17/25 11/13/25 History
1,000 mcg tablet
ferrous sulfate 325 mg (65 mg 325 mg PO Q48H Supplement 10/17/25 11/13/25 History
iron) tablet (FeroSul)
tramadol 50 mg tablet 50 mg PO Q6HPRN PRN Moderate to 10/31/25 11/13/25 Rx
severe pain #10 tabs
acetaminophen 500 mg tablet 1,000 mg PO TID Anti-Inflammatory 11/13/25 11/13/25 History
(Tylenol Extra Strength)
amoxicillin 875 mg-potassium 1 tab PO BID Infection 11/13/25 11/13/25 History
clavulanate 125 mg tablet
aspirin 81 mg chewable tablet 81 mg PO DAILY Blood Clot 11/13/25 11/13/25 History
Prevention/Tx
bisacodyl 10 mg rectal suppository 10 mg MT DAILYPRN PRN IF MOM IS 11/13/25 11/13/25 History
(Dulcolax (bisacodyl)) INEFFECTIVE GIVE ON DAY 5 IF NO BM
furosemide 40 mg tablet (Lasix) 40 mg PO DAILY Fluid 11/13/25 11/13/25 History
Retention/Swelling
gabapentin 100 mg capsule 100 mg PO HS Neurological Condition 11/13/25 11/13/25 History
magnesium hydroxide 400 mg/5 mL 30 ml PO DAILYPRN PRN IF NO BM X 3 11/13/25 11/13/25 History
oral suspension (Milk of Magnesia) DAYS GIVE ON DAY 4
metoprolol tartrate 25 mg tablet 12.5 mg PO BID Heart 11/13/25 11/13/25 History
Disease/Condition
midodrine 2.5 mg tablet 5 mg PO BID Blood Pressure 11/13/25 11/13/25 History
polyethylene glycol 3350 17 gram 17 g PO DAILY Constipation 11/13/25 11/13/25 History
oral powder packet
sennosides 8.6 mg-docusate sodium 1 tab PO BID Constipation 11/13/25 11/13/25 History
50 mg tablet (Senna Plus)
sodium phosphates 19 gram-7 118 ml MT DAILYPRN PRN IF DULCOLAX 11/13/25 11/13/25 History
gram/118 mL enema (Fleet Enema) IS INEFFECTIVE GIVE ON DAY 6
white petrolatum 41 % topical 1 applic topical DAILY BLLE 11/13/25 11/13/25 History
ointment (Aquaphor Healing) EXTREMITIES
Review of Systems
-
History Source: Patient and Family
All other systems: Negative unless noted
Physical Exam
Vital Signs
Temp Pulse Resp BP Pulse Ox
98.4 F 109 20 140/73 97
11/14/25 10:20 11/14/25 10:20 11/14/25 10:20 11/14/25 10:20 11/14/25 02:00
Lab Results
11/14/25 02:23
Troponin I 0.034 ng/ml 11/14/25 02:23
Physical Exam
General: No Apparent Distress, Comfortable and Other (on supp O2)
HEENT: Normocephalic and Anicteric
Respiratory: Crackles (few) and Non Labored Respirations
Cardiac: S1/S2 and Irregular Rhythm
GI: Soft, Non Tender, Non Distended and Normal Bowel Sounds
Musculoskeletal: No Clubbing, No Cyanosis and Edema (1+ of LLE, trace RLE)
Skin: Warm, Dry and Other (LLE incision)
Neuro: AO x 3
Impression / Plan
-
Primary Toxicology Supervisor: Dr. Cota
Assessment:
Presentation with confusion, hypotension
Shock
Lactic acidosis
Hypotension requiring pressors
Acute anemia, suspected GI source
L calf hematoma vs seroma by CT angio
PAD
Chronic lower extremity wounds/unhealing leg ulcers
Critical limb ischemia status post left common femoral endarterectomy with patch angioplasty and left common femoral to below-knee popliteal artery bypass 10/27/2025
Paroxysmal atrial fibrillation, presently with RVR
Chronic anticoagulation w/ Xarelto
Chronic HFpEF
Hypercholesterolemia
Hypertension
Iron deficiency anemia
GERD
h/o prostate cancer s/p radiation
Echo 10/20/2025: Technically difficult and limited study. Lumason was utilized to improve endocardial definition. Left ventricular systolic function is visually estimated withing normal limits with no sizable regional wall motion abnormalities
noted. The estimated ejection fraction is estimated 60-65% by Borden's method of disc. Mild concentric LVH.No significant valve disease. Compared to prior echo from March 2022, there has been no significant change.
Plan:
- Patient presented with confusion and hypotension and found to be in shock, suspected hypovolemic versus hemorrhagic with hemoglobin of 4.7
- Presently requiring levo, however weaning per nursing
- Was on aspirin, Xarelto upon discharge 10/31. Both placed on hold at present
- Vascular surgery following. Underwent CT abdomen with runoff which was negative for retroperitoneal hematoma. did note area of hematoma vs seroma of L calf, however not felt to explain level of anemia
- Cardiology consulted due to A-fib with RVR. Patient asymptomatic. Suspected secondary to acute anemia and will improve with blood products and fluids. Will order IV Lopressor 2.5 mg as needed for sustained heart rates greater than 120
- EKG with evidence of inferior lateral T wave inversion compared to prior from 09/2025. Suspected secondary to acute anemia. Will repeat EKG today for reassessment. Troponin was 0.023, and no complaints of chest pain.
- Okay to proceed with EGD at elevated risk, however given urgency, risk is not prohibitive
- With rapid A-fib and initiation of additional volume, will need to follow volume status closely, and may require diuresis at some point this admission. EF normal by echo 09/2025
- Discussed with nursing. Discussed with patient and daughter at bedside
Data Reviewed
-
EKG: Tracing Personally Visualized and interpreted
CT Scan: Report Reviewed by me
Medical Tests (Nuc Med, Echo etc): Report Reviewed by me
Labs: Labs Reviewed by me
Old Records: Reviewed
--- NOTE | 2025-11-14 11:39 | PN.CDI ---
CDI
- -
CDI:
Physician Documentation Request
Admit Date: 11/13/25 12:10
Dear Doctor,
Patient admitted for hypotension.
11/14 Hospitalist PN: 'Acute on chronic anemia, ?GIB
Hb 4.7 on admission, from baseline 7-8, transfused 2 units PRBC with improvement of Hgb to 7.0, transfuse additional third unit prior to EGD, Iron panel suggest BENITO, start IV iron, continue PPI drip, GI on board, plan for EGD today 11/14...hold SUPERVISOR FABRICATION AND ASSEMBLY
xarelto'
11/14 GI PN: 'Hgb 4.7. Noted to pass black stool heme positive in ER...Continue to hold xarelto (11/12- )'
Please clarify the relationship between these conditions:
Yes, GI bleed is related to/associated with/exacerbated by Xarelto.
No, GI bleed is not related to/associated with/exacerbated by Xarelto but it is due to ___. (Please specify)
Unable to determine
Use of terms such as suspected, likely, concern for, or probable (associated with a specific diagnosis that is being evaluated, monitored, or treated as if it exists) are acceptable and can be coded in the inpatient setting, when documented at the
time of discharge.
Thank you,
Belinda Reyes RN, BSN
CDI Specialist
Available via [employer] text
Please use your independent medical judgment in providing your response.
--- NOTE | 2025-11-14 11:51 | PN.CDI ---
CDI
- -
CDI:
Physician Documentation Request
Admit Date: 11/13/25 12:10
Dear Doctor,
Patient admitted for hypotension.
11/14 Wound Care Note: 'Patient admitted with 2 stage 3 PI to left heel (measured as cluster), stage 1 PI to right heel, dry, necrotic yellow medial left ankle wound, left bypass vein graft site with blistered area on lower leg and necrotic
appearing dehiscence to left groin, black necrotic areas to 2nd and 3rd left toes.'
Physician documentation of the type and location of wounds is required for compliant documentation. Based on the above clinical findings and your assessment, please provide the following in your progress note:
1. Location of the ulcer/wound, including laterality.
2. Type (etiology) of ulcer/wound:
- Diabetic ulcer
- Arterial (ischemic) ulcer
- Traumatic wound
- Venous stasis ulcer
- Pressure (decubitus) ulcer
- Non-healing surgical wound
- Other
- Unable to determine
3. For a non-pressure ulcer, please indicate the depth/severity:
- Limited to the breakdown of skin
- With fat layer exposed
- With necrosis of muscle
- With necrosis of bone
- Other
- Unable to determine
4. If a pressure ulcer, please also include the stage* of the ulcer:
- Stage 1 - Skin intact, non-blanchable redness
- Stage 2 - Partial thickness loss of dermis, includes intact or open blister
- Stage 3 - Full thickness tissue not including bone, tendon or muscle
- Stage 4 - Full thickness tissue loss, including exposed bone, tendon or muscle
- Unstageable - Full thickness loss in which the base of the ulcer is covered by slough (yellow, zelaya, amin, green or brown) and/or eschar (zelaya, brown or black) in the wound bed.
- Unable to determine
Use of terms such as suspected, likely, concern for, or probable (associated with a specific diagnosis that is being evaluated, monitored, or treated as if it exists) are acceptable and can be coded in the inpatient setting, when documented at the
time of discharge.
Thank you,
Belinda Reyes RN, BSN
CDI Specialist
Available via [employer] text
Please use your independent medical judgment in providing your response.
*Source: National Pressure Ulcer Advisory Panel (NPUAP)
--- NOTE | 2025-11-14 11:59 | W.PN.INTV ---
Today's Communication / Plan
Recommendations
- Transfuse fifth unit of PRBC along with 1 unit of platelets as well as 2 units of FFP's
- Continue to wean Levophed as tolerated
- Serial H&H
Assessment
-
Patient is an 85-year-old female with past medical history significant for atrial fibrillation on chronic anticoagulation with Xarelto, who presents to the hospital with low-grade fever as well as drop in hemoglobin level. Patient was recently
admitted to the hospital about 3 weeks ago with critical limb ischemia and had left common femoral endarterectomy followed by fem to below-knee popliteal artery bypass surgery. Patient was recovering at [facility]. Reportedly patient was
developing low-grade fever overnight and appeared quite pale. Patient also noted increased left lower extremity swelling and a new wound to the medial left calf area. Lab work suggested low hemoglobin and patient also noted to be hypotensive.
Patient was referred to emergency room. Initial resuscitation included 2 L of IV fluid bolus followed by initiation of Levophed along with broad-spectrum antibiotic. In addition patient reported melanotic stool which were heme positive with noted
elevated BUN/creatinine ratio on lab work. Of note patient has been on chronic aspirin and Xarelto dual therapy.
#1. Shock with lactic acidosis, suspect hemorrhagic with acute blood loss anemia/septic
- Lactate elevated at 4.2. troponin negative, serial lactate improving
- Influenza A, B, COVID-19 screen negative. Blood cultures pending. MRSA screen in 09/2025 was negative. Patient is afebrile and has normal WBC count.
- Holding metoprolol and furosemide
- Status post 2 L IV fluid resuscitation, continue vasopressors as needed to keep MAP above 65. Levophed infusing at 4. MAP of 84. Saturating 96% on 2 L.
- Continue broad-spectrum antibiotic, currently on vancomycin and cefepime
- s/p 4 units of PRBCs, scheduled to receive 5th unit.
#2. Acute on chronic anemia, suspect GI bleed
- Hb 7.2 > 4.7 in 24 hrs, s/p 4 units PRBC, scheduled for 5th unit
- BUN/Cr elevated, also melanotic stool, concerning for upper GI bleed
- With 5th unit of PRBC scheduled to be transfused in less than 24 hrs, will give platelets and 2 units of FFPs as well.
#3. Suspect GI bleed, upper
- BUN/creatinine ratio elevated, melanotic stool, heme positive
- Patient has been on aspirin and Xarelto chronically, hold both medications
- Continue Protonix infusion, serial H&H, transfuse as needed to keep hemoglobin > 7
- Gastroenterology consult, scheduled for EGD today.
#4. Paroxysmal Atrial Fibrillation
- Currently rate controlled
- Hold Xarelto in view of acute anemia, hold metoprolol in view of shock requiring Levophed infusion
#5. H/o critical limb ischemia
- S/p extensive revascularization with left-sided endarterectomy and bypass with vein conduit, 10/27/2025.
- Foot appears to be well-perfused, vascular surgery service on case
- CT suggestive of hematoma vs seroma/ Vascular surgeru service on case.
Other medical diagnoses:
- Hypertension
- Hyperlipidemia
- Gastroesophageal reflux disease
- History of prostate cancer, s/p radiation therapy
- Heart failure with preserved ejection fraction
- Peripheral vascular disease
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
- History of smoking
Critical Care time 45 mins -- The patient is admitted for acute critical illness for the treatment of vital organ failure and/or prevention of further life-threatening conditions. Total care includes time spent in review of history, physical exam,
medications, hemodynamic/ventilator parameters, laboratory data, imaging and discussion with house staff, pharmacy, respiratory therapy, manager of customer billing, and nursing.
Data:
CXR 10/2025: Unremarkable
LE US 10/2025: Negative for any DVT
Lexiscan 09/2025: Lexiscan nuclear stress test showing small mild fixed inferobasilar and inferoapical defect consistent with infarct versus soft tissue attenuation with no evidence of ischemia.
Inconclusive ECG for ischemia given the pharmacological study.
Systolic function is normal. The ejection fraction is 68%.
ECHO 09/2025: 1. Technically difficult and limited study. Lumason was utilized to improve endocardial definition. Left ventricular systolic function is visually estimated withing normal limits with no sizable regional wall motion abnormalities
noted. The estimated ejection fraction is estimated 60-65% by Borden's method of disc. Mild concentric LVH.
2. Trileaflet aortic valve. No aortic stenosis or aortic insufficiency.
3. Trace mitral valve regurgitation.
4. No tricuspid regurgitation.
5. When compared to the most recent echocardiogram from 04/05/2022, there has been no significant change.
Colonoscopy 03/2024: Hemorrhoids, status post polypectomy and diverticulosis.
Subjective Dataa
Subjective Data
Date of Service:
Date of Service: November 14, 2025
Subjective:
Patient comfortably lying in bed in no acute distress.
Review of Systems
Genitourinary: Other (No new symptoms reported.)
Objective Data
Data Reviewed
Vital Signs / I&O / Oxygen:
Vital Signs
Temp Pulse Resp BP Pulse Ox
98.4 F 109 20 140/73 97
11/14/25 10:20 11/14/25 10:20 11/14/25 10:20 11/14/25 10:20 11/14/25 02:00
Intake and Output
11/13/25 11/14/25 11/15/25
06:59 06:59 06:59
Intake Total 3953.8 / 3953.8 0 / 0
Output Total 2039 / 2039
Balance 1913.8 / 1913.8 0 / 0
SaO2 97
Nasal Cannula flow liters per 2
minute
Physical Exam
General: Comfortable
HEENT: Normocephalic and Other (Pale conjunctiva)
Cardiovascular: S1-S2
Respiratory: Clear and Non-Labored Respirations
GI: Soft and Non Distended
Neurology: Awake and Alert
Skin: Warm
Labs/Micro/Reports
Lab Data
11/14/25 02:23
Laboratory Results
11/13/25
18:29
PT 35.4 H
INR 3.60
Microbiology
11/13/25 09:31 Blood/Venous Blood Culture - Preliminary
No Growth in 24 hours- Final report to follow
11/13/25 09:31 Blood/Venous Blood Culture - Preliminary
No Growth in 24 hours- Final report to follow
11/13/25 09:31 Nasal Swab Influenza Types A & B (GARIMA) - Final
Negative for Influenza A & B, NAAT
Negative results must be combined with clinical observations
and patient history.
Nucleic Acid Amplification test (NAAT)performed on the
[employer] platform.
--- NOTE | 2025-11-14 12:02 | PN.CDI ---
CDI
- -
CDI:
Physician Documentation Request
Admit Date: 11/13/25 12:10
Dear Doctor,
Patient admitted for hypotension.
11/14 Potassium level: 3.4
11/14 Potassium chloride 40 meq IV administered
Based on the above, could you clarify in the progress notes, the appropriate diagnosis, if significant, that supports the above abnormalities and additional evaluation, monitoring and/or treatment rendered:
Hypokalemia
Abnormal lab value insignificant
Other
Use of terms such as suspected, likely, concern for, or probable (associated with a specific diagnosis that is being evaluated, monitored, or treated as if it exists) are acceptable and can be coded in the inpatient setting, when documented at the
time of discharge.
Thank you,
Belinda Reyes RN, BSN
CDI Specialist
Available via [place] text
Please use your independent medical judgment in providing your response.
--- NOTE | 2025-11-14 12:08 | WOUNDNOTE ---
LEFT MEDIAL ANKLE
--- NOTE | 2025-11-14 12:09 | WOUNDNOTE ---
RIGHT UPPER THIGH SKIN TEAR
--- NOTE | 2025-11-14 12:12 | WOUNDNOTE ---
LEFT HEEL STAGE 3 PI 1941, [id number]
--- NOTE | 2025-11-14 12:23 | W.PN.UPDATE ---
Update Note
Progress Note Update
d/w GI Dr Li.
He would like additional 2 units FFP prior to EGD.
2 units FFP ordered by myself.
--- NOTE | 2025-11-14 13:35 | W.PN.UPDATE ---
Update Note
Progress Note Update
Wound VAC placed at bedside. Patient tolerated well. 7 x 2 x 2, small black foam
Next change Monday, then hopefully discharge
--- NOTE | 2025-11-14 13:57 | CM ---
Addendum entered by Vee Connors 11/14/25 17:24:
Wound care texted that patient will need Wound VAC [id number] small black vac foam, pump settings 125mmhg, change 48-72 hours at SNF.
Original Note:
I.A: Completed By ROSEMARIE Baxter. Patient admitted from [facility] w/ anemia, low grade temp and hypotension.
Patient lives with his in a 2 STH with with 1 CAPRI and an additional 4 STI to the main floor of the home. There are 17 STI as well to the main floor. DME: RW, Rollator, Shower Chair, and Knee brace.
Patient was just admitted 10/17 to 10/31, went to [facility], daughter said that the PT/OT was good, but the Care needs/ attention was lacking. Daughter shared her concerns with the DON there, and she was appreciative of the response they provided her
and will do an investigation. Daughter said that she wants to hold the bed there because the PT/OT was good and he was making strides, but want to decide closer to [place].
PLAN: Home PT, but anticipate back to [facility]- [facility] or another.
--- NOTE | 2025-11-14 15:56 | PTCARENOTE ---
pt currently in GI lab , Levophed weaned off at 1345 , pt completed 2 units FFP , pt currently has PRBC infusing , he is more alert than previous , will repeat labs when blood is transfused
[2025-11-14] MEDS: FERRLECIT IV (16:47)
--- NOTE | 2025-11-14 17:09 | W.PN.UPDATE ---
Update Note
Progress Note Update
Brief GI Update Note:
Discussed findings from EGD and recommendations with both patient's and family at bedside this afternoon.
[2025-11-14] MEDS: HYDROPHOR 1 APPLIC TOPICAL (17:11)
--- NOTE | 2025-11-14 17:25 | WOUNDNOTE ---
WOC RN Note: Michael Connors re: patient will need a wound vac for his L groin wound at SNF. Wound [id number], small black vac foam, pump setting 125mmhg, change q 48-72 hours. Possible discharge on Monday as per vascular�s note.
[2025-11-14 18:08] LABS: Hematocrit 20.7 % (39.0-52.0); Hemoglobin 7.1 g/dL (13.0-18.0)
[2025-11-14] MEDS: FERRLECIT 110 MG IV (18:16)
[2025-11-14] MEDS: DAKIN'S SOLUTION 0.125% 1/4 STRENGTH TOPICAL (20:28)
--- NOTE | 2025-11-14 22:50 | PTCARENOTE ---
Patient complaining of pain in his left leg, offered repositioning, a stronger pain medication and to loosen his Piter wrap. Pt denied pain medication and will only take Tylenol. Repositioned multiple times, Piter wrap taken down and wound care
completed. Piter wrap reapplied. Tylenol to be given when its due.
[2025-11-15] VITALS (28 sets, daily range): BP systolic 91–156; BP diastolic 29–130; BMI 29.2
[2025-11-15 01:32] LABS: ALT (SGPT) 11 U/L (0-50); AST (SGOT) 17 U/L (17-59); Albumin 2.6 g/dl (3.5-5.0); Alkaline Phosphatase 53 U/L (38-126); Blood Urea Nitrogen 28 mg/dl (9-20); Calcium 8.0 mg/dl (8.4-10.2); Carbon Dioxide 21 mmol/L (22-30); Chloride 113 mmol/L (98-107); Estimated Creatinine Clearance 101 ml/min; Glucose 95 mg/dl (70-99); Potassium 3.1 mmol/L (3.5-5.1); Sodium 141 mmol/L (135-145); Total Protein 5.0 g/dl (6.3-8.2); eGFR > 60.00
[2025-11-15 02:02] LABS: Hematocrit 20.5 % (39.0-52.0); Hemoglobin 6.8 g/dL (13.0-18.0); Mean Corp Hgb Conc. 33.2 g/dL (33.0-37.0); Mean Corpuscular Volume 89.9 fL (80.0-94.0); Nucleated Red Blood Cells % 0.8 % (-); Platelet Count 204 10^3/uL (130-400); Red Cell Dist. Width 15.9 % (11.5-14.5)
[2025-11-15] MEDS: KCL 270 MEQ IV (02:19)
--- NOTE | 2025-11-15 03:19 | PTCARENOTE ---
Pt hemoglobin 6.8, 1unit PRBC hung; Potassium 3.1, 40meq infusing. No overt signs of bleeding.
[2025-11-15 03:42] LABS: Magnesium 2.1 mg/dl (1.6-2.3)
[2025-11-15] MEDS: OFIRMEV 100 IV (05:26)
[2025-11-15] MEDS: STERILE WATER FOR INJECTION 10 ML IV ×3 (05:27→17:46)
[2025-11-15] MEDS: MAXIPIME 1000 MG IV ×3 (05:27→17:46)
[2025-11-15] MEDS: PROTONIX 100 IV ×2 (05:33→15:01)
[2025-11-15] MEDS: VANCOCIN 275 MG IV ×2 (06:31→17:52)
--- NOTE | 2025-11-15 06:57 | W.PN.GI.CBS2 ---
Today's Communication / Plan
-
No signs to suggest recurrent active GI bleeding since recent EGD s/p hemospray of PUD. Agree with repeat H/h after additional 1 uPRBC. Okay to start CLD later this afternoon. Continue to hold ASA and xarelto if able. See rest of care as outlined
below.
Assessment / Plan
-
Summary: 85yo male presents with low grade fever, LLE swelling and new wound s/p LLE endarterectomy and bypass for critical limb ischemia 10/27. Hgb 4.7. Noted to pass black stool heme positive in ER. CTA shows L calf hematoma or seroma 3.1 x 2.7
x 13.3cm. Last colonoscopy March 2024 showing no residual polyp following EMR of 3cm cecal polyp and further resection by for residual polyp in 2022. No prior EGD
#Hemorrhagic Shock
#Acute blood loss anemia (multifactorial 2/2 GI Bleed and Hematoma)
#Multiple Gastric and Duodenal Ulcers (s/p Hemospray 11/14- )
#LA Grade C Esophagitis
#LLE hematoma/seroma s/p endarterectomy/bypass 10/27
#Afib on Xarelto (last dose 11/12- )
S/p EGD 11/14/25: LA Grade C esophagitis, few well-healed small gastric ulcers (FC III), one medium sized cratered duodenal ulcer with flat pigmented spot (FC IIc) along with few other well-healed duodenal ulcers (FC III), otherwise no old/fresh
blood throughout upper GI tract.
No signs to suggest recurrent active bleeding, down-trending BUN, and currently off pressors which is further reassuring. H/h has not responded appropriately to transfusions with Hgb 7.1 -> 6.8 and transfused an additional 1 uPRBC on 11/15 (total of
6 uPRBCs since admission). Suspect anemia multifactorial as without any recent BM in 48 hrs and suspect component of known hematoma.
Recommendations:
- Okay to start CLD this afternoon for lunch, defer from advancing given recent hemospray
- IV PPI gtt x 72 hrs, transition to IV PPI 40 mg BiD tomorrow
- Currently off pressors
- F/u post-transfusion CBC. Transfuse for goal Hgb > 8.0
- Trend Hgb with serial CBC q 12 hrs
- Still suspect anemia multifactorial due to LLE hematoma and prior UGI bleeding
- Monitor for signs of recurrent GI bleeding, melena to be expected over next 24-48 hrs
- Will need an eventual repeat EGD in 8-12 weeks to assess healing of gastric ulcers and larger duodenal ulcer
- Continue to hold ASA and xarelto given ongoing transfusion requirements
- Rest of care as per primary ICU team
GI will continue to follow, please call with questions/concerns.
Subjective
Subjective
Date of Service: November 15, 2025
- S/p EGD 11/14/25: LA Grade C esophagitis, few well-healed small gastric ulcers (FC III), one medium sized cratered duodenal ulcer with flat pigmented spot (FC IIc) along with few other well-healed duodenal ulcers (FC III), otherwise no old/fresh
blood throughout upper GI tract
- S/p total of 5 uPRBCs and 2 uFFP since admission
- Hgb 7.1 -> 6.8 ; BUN down-trending 62 -> 52 -> 28
- Otherwise, no acute events overnight
Ordered additional 1 uPRBC this AM (6th unit). Remains off Levo/pressors. Resting comfortably and denies any melena or bloody stools. No recent BM in 48 hours. Hoping for liquids later this afternoon. Otherwise, no other abdominal pain or
nausea/vomiting. Discussed with patient's family yesterday evening.
Objective
Data Reviewed
Laboratory Data:
Laboratory Results
PT 35.4 Sec (11.4-14.6) H 11/13/25 18:29
INR 3.60 11/13/25 18:29
APTT 57.6 Sec (23.4-35.0) H 11/13/25 09:31
Phosphorus 3.1 mg/dl (2.5-4.5) 11/13/25 18:29
Magnesium 2.1 mg/dl (1.6-2.3) 11/15/25 01:00
Total Bilirubin 0.6 mg/dl (0.2-1.3) 11/15/25 01:00
AST 17 U/L (17-59) 11/15/25 01:00
ALT 11 U/L (0-50) 11/15/25 01:00
Alkaline Phosphatase 53 U/L (38-126) 11/15/25 01:00
Vital Signs and I&O:
Vital Signs
Temp Pulse Resp BP Pulse Ox
97.9 F 114 19 115/96 97
11/15/25 05:23 11/15/25 05:23 11/15/25 05:23 11/15/25 05:23 11/15/25 05:15
I&O
11/13/25 11/14/25 11/15/25
06:59 06:59 06:59
Intake Total 3953.8 / 4078.8 3727.5 / 3727.5
Output Total 2039 / 2039 1949 / 1949
Balance 1913.8 / 2038.8 1777.5 / 1777.5
Physical Exam
Physical Exam
HEENT: Anicteric and Moist mucous membranes
Cardiology: Other (Tachy on tele)
Pulmonary: Other (Normal WOB)
GI: Soft, Non Distended and Non Tender
Neuro: Non Focal
--- NOTE | 2025-11-15 07:30 | PTCARENOTE ---
Received pt in the bed. Informed him of the plan of care regarding turning, repositioning, use of call atwood and allowable ice chips. He is aware he is to call if worsening SOB, abdominal pain, numbness or tingling of his lower extremities. He
verbalized his understanding. Right FA #20g protective catheter flushed and patent. Left FA and left upper arm IV with 0.9nss@ 60ml/hr and Protonix drip @8mg/hr. Good radial pulses. +L/E edema left >right. Doppler DP pulses. Left L/E warmer than the
right. Piter wrap dressing from his foot to just above his knee intact. Left SBD to his heel intact, right heel adhesive foam dressing CDI. Left hand SBD CDI. Left mid FA with dry dressing, removed with NSS, skin tear present, cleansed with saline,
skin barrier to surrounding skin applied and covered with SBD. Scattered ecchymosis of his arms. +BSX4. C/O hunger and thirst. He is asking for ice chips. Tolerating them well. He was instructed on the importance of NPO after gastric procedure to
limit gastric acid production to allow the area to heal. He is aware the Protonix drip is also indicated for gastric acid to allow his ulcer to heal. He verbalized his understanding. Thorough mouth care provided. Male external catheter in place.
Scrotum edematous. Moisture barrier cream applied to his sacrum and scrotum. Sacral SBD CDI. Partial CHG bath provided along with back rub. Heels elevated on a pillow. Safe environment maintained. Will continue to monitor.
--- NOTE | 2025-11-15 07:38 | W.PN.INTV ---
Today's Communication / Plan
Recommendations
- Add tramadol 50 mg every 6 as needed pain
- Lower IV fluids to 50 mL/h, can DC once he starts to take p.o.
- Serial H&H, hold off initiation of aspirin in view of hemoglobin below 7
- Patient is off pressors, on room air, can transfer to IMU
- Order Caller service will sign off, please call as needed
Assessment
-
Patient is an 85-year-old female with past medical history significant for atrial fibrillation on chronic anticoagulation with Xarelto, who presents to the hospital with low-grade fever as well as drop in hemoglobin level. Patient was recently
admitted to the hospital about 3 weeks ago with critical limb ischemia and had left common femoral endarterectomy followed by fem to below-knee popliteal artery bypass surgery. Patient was recovering at [facility]. Reportedly patient was
developing low-grade fever overnight and appeared quite pale. Patient also noted increased left lower extremity swelling and a new wound to the medial left calf area. Lab work suggested low hemoglobin and patient also noted to be hypotensive.
Patient was referred to emergency room. Initial resuscitation included 2 L of IV fluid bolus followed by initiation of Levophed along with broad-spectrum antibiotic. In addition patient reported melanotic stool which were heme positive with noted
elevated BUN/creatinine ratio on lab work. Of note patient has been on chronic aspirin and Xarelto dual therapy.
#1. Shock with lactic acidosis, suspect hemorrhagic with acute blood loss anemia/septic
- Shock resolved as of 11/15. Off Levophed. Serial lactate improved.
- Influenza A, B, COVID-19 screen negative. Blood cultures pending. MRSA screen in 09/2025 was negative. Patient is afebrile and has normal WBC count.
- Holding metoprolol and furosemide
- Status post 2 L IV fluid resuscitation, lower maintenance fluids to 50 cc an hour, off Levophed now.
- Continue broad-spectrum antibiotic, currently on vancomycin and cefepime
- s/p 6 units of PRBCs
- Currently patient is off Levophed since 2 AM, saturating well on room air, normal MAP, stable for transfer out of ICU to IMU.
#2. Acute on chronic anemia, upper GI bleed
- Patient s/p 6 units of PRBC. No ongoing melena noted. Hemodynamically stable, off Levophed.
- EGD reviewed, multiple ulcers noted, continue PPI infusion. GI service on case
- 11/14, patient was also given platelet and FFP in view of concern for transfusion related coagulopathy.
#3. Upper GI bleed
- Continue PPI infusion as ordered, serial H&H. Aspirin and Xarelto continued to be on hold. GI service on case
#4. Paroxysmal Atrial Fibrillation
- Currently rate controlled
- Holding Xarelto in view of acute anemia, holding metoprolol in view of shock requiring Levophed infusion
#5. H/o critical limb ischemia
- S/p extensive revascularization with left-sided endarterectomy and bypass with vein conduit, 10/27/2025.
- Foot appears to be well-perfused, vascular surgery service on case
- CT suggestive of hematoma vs seroma/ Vascular surgery service on case.
Other medical diagnoses:
- Hypertension
- Hyperlipidemia
- Gastroesophageal reflux disease
- History of prostate cancer, s/p radiation therapy
- Heart failure with preserved ejection fraction
- Peripheral vascular disease
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
- History of smoking
Critical Care time 42 mins -- The patient is admitted for acute critical illness for the treatment of vital organ failure and/or prevention of further life-threatening conditions. Total care includes time spent in review of history, physical exam,
medications, hemodynamic/ventilator parameters, laboratory data, imaging and discussion with house staff, pharmacy, respiratory therapy, wafer abrading machine tender, and nursing.
Data:
CXR 10/2025: Unremarkable
LE US 10/2025: Negative for any DVT
Lexiscan 09/2025: Lexiscan nuclear stress test showing small mild fixed inferobasilar and inferoapical defect consistent with infarct versus soft tissue attenuation with no evidence of ischemia.
Inconclusive ECG for ischemia given the pharmacological study.
Systolic function is normal. The ejection fraction is 68%.
ECHO 09/2025: 1. Technically difficult and limited study. Lumason was utilized to improve endocardial definition. Left ventricular systolic function is visually estimated withing normal limits with no sizable regional wall motion abnormalities
noted. The estimated ejection fraction is estimated 60-65% by Borden's method of disc. Mild concentric LVH.
2. Trileaflet aortic valve. No aortic stenosis or aortic insufficiency.
3. Trace mitral valve regurgitation.
4. No tricuspid regurgitation.
5. When compared to the most recent echocardiogram from 04/05/2022, there has been no significant change.
Colonoscopy 03/2024: Hemorrhoids, status post polypectomy and diverticulosis.
Subjective Dataa
Subjective Data
Date of Service:
Date of Service: November 15, 2025
Subjective:
Comfortably lying in bed in no acute distress.
Review of Systems
Genitourinary: Other (All 14 systems reviewed and negative except as stated above in the history of present illness.)
Objective Data
Data Reviewed
Vital Signs / I&O / Oxygen:
Vital Signs
Temp Pulse Resp BP Pulse Ox
97.9 F 114 19 115/96 97
11/15/25 05:23 11/15/25 05:23 11/15/25 05:23 11/15/25 05:23 11/15/25 05:15
Intake and Output
11/14/25 11/15/25 11/16/25
06:59 06:59 06:59
Intake Total 3953.8 / 4078.8 3727.5 / 3797.5 70 / 70
Output Total 2039 / 1949
Balance 1913.8 / 2038.8 1777.5 / 1847.5 70 / 70
SaO2 97
Nasal Cannula flow liters per 2
minute
Physical Exam
General: Comfortable
HEENT: Normocephalic and Other (Pale conjunctiva)
Cardiovascular: S1-S2
Respiratory: Clear and Non-Labored Respirations
GI: Soft and Non Distended
Neurology: Awake and Alert
Skin: Warm
Labs/Micro/Reports
Microbiology
11/13/25 09:31 Blood/Venous Blood Culture - Preliminary
No Growth in 24 hours- Final report to follow
11/13/25 09:31 Blood/Venous Blood Culture - Preliminary
No Growth in 24 hours- Final report to follow
11/13/25 09:31 Nasal Swab Influenza Types A & B (GARIMA) - Final
Negative for Influenza A & B, NAAT
Negative results must be combined with clinical observations
and patient history.
Nucleic Acid Amplification test (NAAT)performed on the
[email or web address] platform.
--- NOTE | 2025-11-15 08:23 | W.PN.HOSP.TC ---
Today's Communication/Plan
-
See plan
Assessment / Plan
Assessment / Plan
Physical Exam
General: No Apparent Distress, Comfortable and Other (on supp O2)
HEENT: Normocephalic
Respiratory: Mild crackles
Cardiac: S1/S2 and Irregular Rhythm
GI: Soft, Non Tender, Non Distended and Normal Bowel Sounds
Musculoskeletal: No Cyanosis. Edema (1+ of LLE, trace RLE)
Skin: Warm, Dry and Other (LLE incision)
Neuro: AO x 3
HPI: 85 year old male with PMH A-fib on Xarelto, hypertension, hyperlipidemia, GERD, cognitive impairment, critical limb ischemia s/p recent left common femoral endarterectomy with patch angioplasty and fem to below-knee pop artery bypass with vein
graft by Dr. Denise on 10/27/2025, who presented for [facility] for anemia, low grade temp and hypotension.
Levophed was started en route to the ED.
In the ED, his Hgb was noted to be low at 4.7 (from baseline 7-8). 2 units PRBC ordered to be given.
Admission CT Angio:
1. Fluid collection within the soft tissues of the medial left calf, measuring 3.1 x 2.7 x 13.3 cm, with internal bubbles of air. This likely represents a postoperative hematoma or seroma. Infection of this collection should be excluded clinically.
2. No evidence of pseudoaneurysm formation.
3. Left lower extremity bypass graft is patent, without evidence of significant stenosis.
4. Bilateral peripheral arterial disease as above.
A/P:
# shock unclear type, hemorrhagic/hypovolemic vs septic (although felt less likely but could not rule out currently with history of 'low grade fever')
# Lactic acidosis POA due to shock state, resolved
Levophed weaned off on 11/14/[address] Angio was obtained in setting of recent left femoral endarterectomy on 10/27/25, showed fluid collection in medial calf, likely postoperative hematoma or seroma
Lactic acidosis at 4.7 on admission -> 1.2 with IVF
Iv fluids given this admission
Blood cultures with no growth to date
Cont empiric Cefepime/Vancomycin
Cont COOK APPRENTICE midodrine
Appreciate card runner input
Appreciate vascular surgery input, recc possible washout of the groin and/or below the knee site
Appreciate ID input
Monitor CBC
#Recent left common femoral endarterectomy for critical limb ischemia.
-CT showed fluid collection of L calf. Started wound vac by vascular today. Vascular was planning for wash out
# Acute on chronic anemia, ?GIB
Hb 4.7 on admission, from baseline 7-8, transfused 2 units PRBC with improvement of Hgb to 7.0, transfuse additional third unit prior to EGD
Iron panel suggest BENITO, was recently started on IV iron
continue PPI drip, can transition to PPI IV 40 mg Q12H
Patient was ordered 2 units of FFP by Dr. Maria, before the EGD was done
GI on board, EGD showed esophagitis, ulcers in stomach
Card CS for risk stratification
Continue to hold Aspirin and Xarelto
# paroxysmal atrial fibrillation with RVR
hold COOK APPRENTICE xarelto
hold COOK APPRENTICE metoprolol in setting of shock
Card CS for current A fib RVR
# HLD
Continue statin
Code: Full
DVT: holding Xarelto, use SCD for now if able
Anticipated Discharge: > 48 hours
Subjective/Interval History
-
Date of Service: November 15, 2025
Patient was seen and examined. No new symptoms.
Objective Data
-
Labs:
Laboratory Results
11/15/25 11/15/25
01:00 12:00
WBC 5.3
Hgb 6.8 L* Pending
Hct 20.5 L* Pending
Plt Count 204
Sodium 141 Pending
Potassium 3.1 L Pending
Chloride 113 H Pending
Carbon Dioxide 21 L Pending
BUN 28 H Pending
Creatinine 0.5 L Pending
Glucose 95 Pending
Calcium 8.0 L Pending
Total Bilirubin 0.6
AST 17
ALT 11
Alkaline Phosphatase 53
Vital Signs:
Vital Signs
Temp Pulse Resp BP Pulse Ox
97.9 F 114 19 115/96 97
11/15/25 05:23 11/15/25 05:23 11/15/25 05:23 11/15/25 05:23 11/15/25 05:15
I&O
11/14/25 11/15/25 11/16/25
06:59 06:59 06:59
Intake Total 3953.8 / 4078.8 3727.5 / 3797.5 70 / 70
Output Total 2039 / 2039 1950 / 1949
Balance 1913.8 / 8.8 1777.5 / 1847.5 70 / 70
[2025-11-15] MEDS: HYDROPHOR 1 APPLIC TOPICAL (08:29)
--- NOTE | 2025-11-15 09:21 | PHA.VAN.FU ---
Vancomycin Assessment / Plan
- Assessment
Renal Function: SCR Decreasing
WBC's are: WNL
In the past 24 hrs, patient has been: Afebrile
Concomitant Antimicrobials: CEFEPIME
- Dosing Plan
Continue: VANCO 1250MG Q12H
- Monitoring Plan
Peak Level: 11/15 @2100
Trough Level: 11/16 @0530
- Follow Up
Pharmacy will continue to follow.
Vancomycin Follow UP
- -
Patient Age: 85
Patient Sex: Male
Vancomycin Day #: 3
Indication: Bacteremia
Requesting Provider: Dr. Castillo (resident)
Pertinent Antimicrobial Allergies:
NKDA
Height / Weight:
Height 6 ft
Actual Weight 97.5 kg
Pertinent Past Medical History: BMI ~31
- Vital Signs / Lab Results
Temp Pulse Resp BP Pulse Ox
97.9 F 105 21 99/85 96
11/15/25 05:23 11/15/25 08:30 11/15/25 08:30 11/15/25 08:29 11/15/25 08:15
Lab Results - Hematology
11/13/25 11/14/25 11/15/25
09:31 02:23 01:00
WBC 8.4 7.2 5.3
Lab Results - Chemistry
11/13/25 11/14/25 11/15/25
09: 02:23 01:00
BUN 62 H 52 H 28 H
Creatinine 0.7 0.7 0.5 L
Estimated Creat Clear 98 86 101
Albumin 2.5 L 2.3 L 2.6 L
11/13/25 11/13/25
09:31 18:29
Lactic Acid 4.2 H* 1.2
Microbiology Results
11/13/25 09:31 Blood Culture - Preliminary
Blood/Venous No Growth in 24 hours- Final report to follow
11/13/25 09:31 Blood Culture - Preliminary
Blood/Venous No Growth in 24 hours- Final report to follow
11/13/25 09:31 Influenza Types A & B (GARIMA) - Final
Nasal Swab Negative for Influenza A & B, NAAT
Negative results must be combined with clinical observations
and patient history.
Nucleic Acid Amplification test (NAAT)performed on the
[employer] platform.
--- NOTE | 2025-11-15 09:34 | W.PN.CARDCBS ---
Today's Communication / Plan
-
Xarelto remains on hold given transfusion dependent anemia. Would resume once safe from GI standpoint. Ultimately may be a good candidate for Watchman.
Maintain current rate control strategy
Impression / Plan
-
Primary Card Processing Clerk: Dr. Cota
Assessment:
Presentation with confusion, hypotension
Shock
Lactic acidosis
Hypotension requiring pressors
Acute anemia, suspected GI source
L calf hematoma vs seroma by CT angio
PAD
Chronic lower extremity wounds/unhealing leg ulcers
Critical limb ischemia status post left common femoral endarterectomy with patch angioplasty and left common femoral to below-knee popliteal artery bypass 10/27/2025
Paroxysmal atrial fibrillation, presently with RVR
Chronic anticoagulation w/ Xarelto
Chronic HFpEF
Hypercholesterolemia
Hypertension
Iron deficiency anemia
GERD
h/o prostate cancer s/p radiation
Echo 10/20/2025: Technically difficult and limited study. Lumason was utilized to improve endocardial definition. Left ventricular systolic function is visually estimated withing normal limits with no sizable regional wall motion abnormalities
noted. The estimated ejection fraction is estimated 60-65% by Borden's method of disc. Mild concentric LVH.No significant valve disease. Compared to prior echo from March 2022, there has been no significant change.
EGD 11/14/25: LA Grade C esophagitis, few well-healed small gastric ulcers (FC III), one medium sized cratered duodenal ulcer with flat pigmented spot (FC IIc) along with few other well-healed duodenal ulcers (FC III), otherwise no old/fresh blood
throughout upper GI tract.
Plan:
Acute blood loss anemia and hemorrhagic shock with suspected GI source as well as left lower extremity hematoma and hemoglobin as low as 4.7.
He was found to have multiple gastric and duodenal ulcers (s/p Hemospray 11/14)
Has received packed red blood cell transfusions. Hemoglobin from today 11/15/2025 is up to 6.8. Planned for additional packed red blood cell transfusion today (has received a total of 6 units packed red blood cell transfusions)
Overall clinically improving, now off pressors.
Patient has been in atrial fibrillation with rapid ventricular response here
With treatment of underlying anemia has had some improvement in his heart rate trend
Have added low-dose Lopressor IV as needed for average heart rate goal 110 bpm
Review of telemetry finds average heart rates approximately 100-110.
Asymptomatic
Timo remains on hold given transfusion dependent anemia. Would resume once safe from GI standpoint. Ultimately may be a good candidate for Watchman.
Presenting EKG with evidence of inferior lateral ST and T abn compared to prior from 09/2025. Subsequent ECG 11/14/[address] and T abnormalities
Suspected secondary to acute anemia as well as atrial fibrillation with rapid ventricular rates.
No chest pain or other clinical evidence of unstable coronary syndrome. Troponin peak is 0.034
At this point there is no need for further cardiac ischemic evaluation.
Improvement in anemia and better control of ventricular rates in atrial fibrillation is the goal at present
Discussed with ICU nursing, the patient as well as the patient's and all of their questions have been answered.
Total time spent today was 50 minutes in preparing to see the patient, seeing the patient and coordination of care. This included review of recent laboratory evaluations, cardiact testing, imaging studies, primary care rtecords, specialty
consultations, hospital records, as well as personally interviewing and examining the patient, which included discussion of their tests, review/ordering medications, and communicating with other healthcare professionals and also treatment planning
as well as counseling.
Total time does not include separately billed tests performed on this date of service.
Progress Note - Card Processing Clerk
Subjective
Date of Service: November 15, 2025
He tells me he has no chest pain or shortness of breath, no sensations of palpitations
Objective
Labs:
Labs
Hgb 6.8 g/dL (13.0-18.0) L* 11/15/25 01:00
Hct 20.5 % (39.0-52.0) L* 11/15/25 01:00
Plt Count 204 10^3/uL (130-400) 11/15/25 01:00
PT 35.4 Sec (11.4-14.6) H 11/13/25 18:29
INR 3.60 11/13/25 18:29
APTT 57.6 Sec (23.4-35.0) H 11/13/25 09:31
Sodium 141 mmol/L (135-145) 11/15/25 01:00
Potassium 3.1 mmol/L (3.5-5.1) L 11/15/25 01:00
BUN 28 mg/dl (9-20) H 11/15/25 01:00
Creatinine 0.5 mg/dL (0.7-1.3) L 11/15/25 01:00
Glucose 95 mg/dl (70-99) 11/15/25 01:00
Troponins
11/13/25 11/14/25
09:31 02:23
Troponin I 0.016 0.034
Vital Signs and I&O:
Vital Signs
Temp Pulse Resp BP Pulse Ox
98.8 F 105 21 99/85 96
11/15/25 07:30 11/15/25 08:30 11/15/25 08:30 11/15/25 08:29 11/15/25 08:15
Vital Signs
Temp Pulse Resp BP Pulse Ox
98.8 F 105 21 99/85 96
11/15/25 07:30 11/15/25 08:30 11/15/25 08:30 11/15/25 08:29 11/15/25 08:15
Intake & Output
11/13/25 11/14/25 11/15/25 11/16/25
06:59 06:59 06:59 06:59
Intake Total 3953.8 / 4078.8 3727.5 / 3797.5 130 / 130
Output Total 2039 / 2039 1950 / 1950
Balance 1913.8 / 2037.8 1777.5 / 7.5 130 / 130
Physical Exam
Physical Exam
General: No Apparent Distress, Comfortable and Other (on supp O2)
HEENT: Normocephalic and Anicteric
Respiratory: Crackles (few) and Non Labored Respirations
Cardiac: S1/S2 and Irregular Rhythm
GI: Soft, Non Tender, Non Distended and Normal Bowel Sounds
Musculoskeletal: No Clubbing, No Cyanosis and Edema (1+ of LLE, trace RLE)
Skin: Warm, Dry and Other (LLE incision)
Neuro: AO x 3
--- NOTE | 2025-11-15 10:59 | W.PN.ID1 ---
Date of Service
Date of Service: November 15, 2025
Today's Communication
Continue empiric antibiotics.
Assessment / Plan
Acute blood loss anemia
s/p EGD: gastritis, nonbleeding stomach and duodenal ulcers
Reported fever - resolved
Left lower extremity hematoma/seroma
Hypotension
Wound dehiscence left groin
P A-fib (on Xarelto)
Hx prostate CA with XRT
HTN
HLD
Diverticulitis
Umbilical hernia
Recommendations:
Blood cx's neg to date.
At present, not clear whether wounds are infected or not. Patient is without leukocytosis although does have a left shift.
If not infected, the left groin is at risk for infection given its dehiscence.
Continue with empiric antibiotics for the present (vancomycin, cefepime)
Monitor vancomycin levels closely to prevent nephrotoxicity.
Vascular placed wound vac to groin.
Monitor white count and temperature curve.
Monitor hemoglobin.
Chief Complaint
-: Cellulitis
Subjective / Review of Systems
c/o compression too tight last night
Vital Signs / Physical Exam
Vital Signs
Vital Signs
Temp Pulse Resp BP Pulse Ox
98.8 F 105 21 99/85 96
11/15/25 07:30 11/15/25 08:30 11/15/25 08:30 11/15/25 08:29 11/15/25 08:15
Physical Exam
Constitutional: Chronically Ill
Cardiovascular: Irregular Rate and S1/S2 (tachycardic)
Pulmonary: Clear (anteriorly)
Extremities: Edema (BLE)
Wound: Other (R groin wound vac in place)
Neurological: AO x 3
Objective Data
Lab Data
PT 35.4 Sec (11.4-14.6) H 11/13/25 18:29
INR 3.60 11/13/25 18:29
APTT 57.6 Sec (23.4-35.0) H 11/13/25 09:31
Estimated Creat Clear 101 ml/min 11/15/25 01:00
Lactic Acid 1.2 mmol/L (0.7-2.0) 11/13/25 18:
Total Bilirubin 0.6 mg/dl (0.2-1.3) 11/15/25 01:00
AST 17 U/L (17-59) 11/15/25 01:00
ALT 11 U/L (0-50) 11/15/25 01:00
Alkaline Phosphatase 53 U/L (38-126) 11/15/25 01:00
Most recent labs reviewed.
Micro Results:
11/13/25 09:31 Blood Culture - Preliminary
Blood/Venous No Growth in 48 hours- Final report to follow
11/13/25 09:31 Blood Culture - Preliminary
Blood/Venous No Growth in 48 hours- Final report to follow
11/13/25 09:31 Influenza Types A & B (GARIMA) - Final
Nasal Swab Negative for Influenza A & B, NAAT
Negative results must be combined with clinical observations
and patient history.
Nucleic Acid Amplification test (NAAT)performed on the
[employer] platform.
11/13/25 CTA abdomen:
1. Fluid collection within the soft tissues of the medial left calf, measuring 3.1 x 2.7 x 13.3 cm, with internal bubbles of air. This likely represents a postoperative hematoma or seroma. Infection of this collection should be excluded clinically.
2. No evidence of pseudoaneurysm formation.
3. Left lower extremity bypass graft is patent, without evidence of significant stenosis.
[2025-11-15 12:26] LABS: Hematocrit 24.1 % (39.0-52.0); Hemoglobin 8.2 g/dL (13.0-18.0)
[2025-11-15 13:00] LABS: Blood Urea Nitrogen 21 mg/dl (9-20); Calcium 8.2 mg/dl (8.4-10.2); Carbon Dioxide 23 mmol/L (22-30); Chloride 114 mmol/L (98-107); Estimated Creatinine Clearance 101 ml/min; Glucose 91 mg/dl (70-99); Potassium 4.0 mmol/L (3.5-5.1); Sodium 142 mmol/L (135-145); eGFR > 60.00
[2025-11-15] MEDS: TYLENOL ORAL SOLUTION 650 MG PO ×2 (13:34→20:38)
--- NOTE | 2025-11-15 15:00 | PTCARENOTE ---
Left L/E medial dressing changed, Copious purulent drainage on the dressing, wound cleansed & redressed as ordered. Distal medial dressing changed, minimal purulent drainage noted, wound cleansed & redressed as ordered. Betading applied to left 2nd
& 3rd toes as ordered. Repositioned in the bed. Family remains at the bedside. Safe environment maintained.
[2025-11-15] MEDS: FERRLECIT 110 MG IV (15:01)
[2025-11-15] MEDS: DAKIN'S SOLUTION 0.125% 1/4 STRENGTH 473 ML TOPICAL ×2 (15:32→20:38)
[2025-11-15] MEDS: NSS IV (18:28)
[2025-11-15 20:58] LABS: Hematocrit 24.4 % (39.0-52.0); Hemoglobin 8.1 g/dL (13.0-18.0); Mean Corp Hgb Conc. 33.2 g/dL (33.0-37.0); Mean Corpuscular Volume 90.4 fL (80.0-94.0); Platelet Count 236 10^3/uL (130-400); Red Cell Dist. Width 16.2 % (11.5-14.5)
[2025-11-16] VITALS (13 sets, daily range): BP systolic 98–129; BP diastolic 52–83; BMI 29.9
[2025-11-16] MEDS: PROTONIX 100 IV (00:04)
[2025-11-16] MEDS: NEURONTIN 100 MG PO ×2 (00:04→21:50)
[2025-11-16] MEDS: MAXIPIME 1000 MG IV ×4 (00:14→17:59)
[2025-11-16] MEDS: STERILE WATER FOR INJECTION 10 ML IV ×4 (00:14→17:56)
[2025-11-16] MEDS: VANCOCIN 275 MG IV ×2 (06:24→17:50)
--- NOTE | 2025-11-16 06:38 | PTCARENOTE ---
Patient is Aox3, has periods of confusion where patient is aware hes confused. Uncontrolled Afib on monitor with PVCs. Wound care complete, CHG bath complete. 2 IVs removed due to leaking, 2 new IVs placed. q2 turns with pillows. heels elevated off
bed.
[2025-11-16 06:43] LABS: Hematocrit 25.2 % (39.0-52.0); Hemoglobin 8.3 g/dL (13.0-18.0); Mean Corp Hgb Conc. 32.9 g/dL (33.0-37.0); Mean Corpuscular Volume 90.6 fL (80.0-94.0); Nucleated Red Blood Cells % 0.6 % (-); Platelet Count 255 10^3/uL (130-400); Red Cell Dist. Width 16.4 % (11.5-14.5)
[2025-11-16 06:55] LABS: ALT (SGPT) 11 U/L (0-50); AST (SGOT) 21 U/L (17-59); Albumin 2.7 g/dl (3.5-5.0); Alkaline Phosphatase 54 U/L (38-126); Blood Urea Nitrogen 17 mg/dl (9-20); Calcium 8.1 mg/dl (8.4-10.2); Carbon Dioxide 17 mmol/L (22-30); Chloride 116 mmol/L (98-107); Estimated Creatinine Clearance 101 ml/min; Glucose 95 mg/dl (70-99); Potassium 3.4 mmol/L (3.5-5.1); Sodium 141 mmol/L (135-145); Total Protein 5.2 g/dl (6.3-8.2); eGFR > 60.00
--- NOTE | 2025-11-16 06:57 | W.PN.GI.CBS2 ---
Addendum entered and electronically signed by Aleksey Li DO 11/16/25 10:57:
Sent message to GI lead front end developer to coordinate close outpatient f/u after discharge.
Original Note:
Today's Communication / Plan
-
No signs of recurrent GI bleeding since EGD. Discussed with family this AM. Okay to restart daily Aspirin today and favor resuming a/c tomorrow. Continue to monitor closely while a/c restarted and will need eventual repeat EGD in 3 months as
outpatient. Rest as outlined below. GI will s/off, please re-contact with questions/concerns.
Assessment / Plan
-
Summary: 85yo male presents with low grade fever, LLE swelling and new wound s/p LLE endarterectomy and bypass for critical limb ischemia 10/27. Hgb 4.7. Noted to pass black stool heme positive in ER. CTA shows L calf hematoma or seroma 3.1 x 2.7
x 13.3cm. Last colonoscopy March 2024 showing no residual polyp following EMR of 3cm cecal polyp and further resection by for residual polyp in 2022. No prior EGD
#Hemorrhagic Shock
#Acute blood loss anemia (multifactorial 2/2 GI Bleed and Hematoma)
#Multiple Gastric and Duodenal Ulcers (s/p Hemospray 11/14- )
#LA Grade C Esophagitis
#LLE hematoma/seroma s/p endarterectomy/bypass 10/27
#Afib on Xarelto (last dose 11/12- )
S/p EGD 11/14/25: LA Grade C esophagitis, few well-healed small gastric ulcers (FC III), one medium sized cratered duodenal ulcer with flat pigmented spot (FC IIc) along with few other well-healed duodenal ulcers (FC III), otherwise no old/fresh
blood throughout upper GI tract.
No signs to suggest recurrent active bleeding, down-trending BUN, and currently off pressors which is further reassuring. H/h has not responded appropriately to transfusions with Hgb 7.1 -> 6.8 and transfused an additional 1 uPRBC on 11/15 (total of
6 uPRBCs since admission). Suspect anemia multifactorial as without any recent BM in 48 hrs and suspect component of known hematoma.
- Hgb stable 8s with 8.2 -> 8.1 -> 8.3 along with normalization of BUN 62 -> 52 -> 28 -> 21 -> 17. S/p total of 6 uPRBCs and 2 uFFP since admission without further melena since EGD.
Recommendations:
- Continue CLD, may advance diet to regular diet later this afternoon/evening
- IV PPI gtt x 72 hrs, transition to IV PPI 40 mg BiD today. Would continue PPI 40 mg BiD after discharge
- Hgb stable in 8s, continue to trend with serial CBC q daily
- Still suspect anemia multifactorial due to LLE hematoma and prior UGI bleeding
- Fortunately, no signs to suggest recurrent bleeding since EGD with normalization of BUN which is further reassuring
- Continue to closely monitor for signs of recurrent GI bleeding
- Okay to restart patient's Aspirin 81 mg today
- Favor restarting xarelto tomorrow, 11/17/25, if able
- Will need an eventual repeat EGD in 12 weeks to assess healing of gastric ulcers and larger duodenal ulcer
- Outpatient f/u with GI in 6-8 weeks after discharge in our office to coordinate eventual repeat EGD
- Strict avoidance of all NSAIDs
- Rest of care as per primary ICU team
Discussed recommendations with both patient and patient's family this AM. GI will s/off, please re-contact with questions/concerns.
Subjective
Subjective
Date of Service: November 16, 2025
- Hgb stable 8s with 8.2 -> 8.1 -> 8.3 along with normalization of BUN 62 -> 52 -> 28 -> 21 -> 17
- S/p total of 6 uPRBCs and 2 uFFP since admission
- No signs of recurrent GI bleeding, otherwise no acute events overnight
Resting comfortably and without any recent BM in 72 hours. Continues to deny any abdominal pain or nausea/vomiting. Discussed with patient's daughter at bedside via phone this AM.
Objective
Data Reviewed
Laboratory Data:
Laboratory Results
11/16/25 06:09
11/16/25 06:09
Laboratory Results
PT 35.4 Sec (11.4-14.6) H 11/13/25 18:29
INR 3.60 11/13/25 18:29
APTT 57.6 Sec (23.4-35.0) H 11/13/25 09:31
Phosphorus 3.1 mg/dl (2.5-4.5) 11/13/25 18:29
Magnesium 2.1 mg/dl (1.6-2.3) 11/15/25 01:00
Total Bilirubin 0.8 mg/dl (0.2-1.3) 11/16/25 06:09
AST 21 U/L (17-59) 11/16/25 06:09
ALT 11 U/L (0-50) 11/16/25 06:09
Alkaline Phosphatase 54 U/L (38-126) 11/16/25 06:09
Vital Signs and I&O:
Vital Signs
Temp Pulse Resp BP Pulse Ox
98.0 F 112 18 118/65 95
11/16/25 03:45 11/16/25 06:30 11/16/25 06:30 11/16/25 06:00 11/16/25 06:30
I&O
11/14/25 11/15/25 11/16/25
06:59 06:59 06:59
Intake Total 3953.8 / 4078.8 3727.5 / 3797.5 2094
Output Total 2039 1950 / 1950 1250 / 1250
Balance 1913.8 / 2038.8 1777.5 / 1847.5 845 / 845
Physical Exam
Physical Exam
HEENT: Anicteric and Moist mucous membranes
Cardiology: Other (Tachy on tele)
Pulmonary: Other (Normal WOB)
GI: Soft, Non Distended and Non Tender
Extremities: No Edema
Neuro: Non Focal
--- NOTE | 2025-11-16 08:02 | PHA.VAN.FU ---
Vancomycin Assessment / Plan
- Assessment
Renal Function: Stable
WBC's are: WNL
In the past 24 hrs, patient has been: Afebrile
Concomitant Antimicrobials: CEFEPIME
- Assessment - Therapeutic Drug Monitoring
Extrapolated Cmax (mcg/mL): 25.8
Peak level was drawn: Appropriately
Extrapolated Cmin (mcg/mL): 12.7
Trough Drawn: Appropriately
Levels were drawn: At steady state
Calculated AUC (mcg*h/mL): 447
Calculated ke: 0.0673
Calculated half life (H): 10.3
Calculated Vd (L): 83.09
Calculated Vanc CL (ml/min): 93.19
- Dosing Plan
Continue: VANCO 1250MG Q12H
- Monitoring Plan
Level(s) appropriate: Recheck trough at minimum of weekly intervals, Repeat sooner for changes in renal function or clinical status
- Follow Up
Pharmacy will continue to follow.
Vancomycin Follow UP
- -
Patient Age: 85
Patient Sex: Male
Vancomycin Day #: 4
Indication: Bacteremia
Requesting Provider: Dr. Castillo (resident), DR. SWARTZ
Pertinent Antimicrobial Allergies:
NKDA
Height / Weight:
Height 6 ft
Actual Weight 99.8 kg
Pertinent Past Medical History: BMI ~31
- Vital Signs / Lab Results
Temp Pulse Resp BP Pulse Ox
98.4 F 101 17 118/65 96
11/16/25 07:29 11/16/25 07:30 11/16/25 07:30 11/16/25 06:00 11/16/25 07:30
Lab Results - Hematology
11/13/25 11/14/25 11/15/25
09:31 02:23 01:00
WBC 8.4 7.2 5.3
11/15/25 11/16/25
20:50 06:09
WBC 7.4 8.1
Lab Results - Chemistry
11/13/25 11/14/25 11/15/25
09:31 02:23 01:00
BUN 62 H 52 H 28 H
Creatinine 0.7 0.7 0.5 L
Estimated Creat Clear 98 86 101
Albumin 2.5 L 2.3 L 2.6 L
11/15/25 11/16/25
11:41 06:09
BUN 21 H 17
Creatinine 0.5 L 0.5 L
Estimated Creat Clear 101 101
Albumin 2.7 L
11/13/25 11/13/25
09:31 18:29
Lactic Acid 4.2 H* 1.2
Microbiology Results
11/13/25 09:31 Blood Culture - Preliminary
Blood/Venous No Growth in 48 hours- Final report to follow
11/13/25 09:31 Blood Culture - Preliminary
Blood/Venous No Growth in 48 hours- Final report to follow
Therapeutic Drug Monitoring
Vancomycin Peak 23.4 ug/ml (18-26) 11/15/25 20:50
Vancomycin Trough 12.5 ug/ml (5-20) 11/16/25 06:09
--- NOTE | 2025-11-16 08:36 | W.PN.HOSP.TC ---
Today's Communication/Plan
-
Transfer to telemetry
See plan
Assessment / Plan
Assessment / Plan
Physical Exam
General: No Apparent Distress, Comfortable and Other (on supp O2)
HEENT: Normocephalic
Respiratory: Mild crackles
Cardiac: S1/S2 and Irregular Rhythm
GI: Soft, Non Tender, Non Distended and Normal Bowel Sounds
Musculoskeletal: No Cyanosis. Edema (1+ of LLE, trace RLE)
Skin: Warm, Dry and Other (LLE incision)
Neuro: AO x 3
HPI: 85 year old male with PMH A-fib on Xarelto, hypertension, hyperlipidemia, GERD, cognitive impairment, critical limb ischemia s/p recent left common femoral endarterectomy with patch angioplasty and fem to below-knee pop artery bypass with vein
graft by Dr. Denise on 10/27/2025, who presented for [facility] for anemia, low grade temp and hypotension.
Levophed was started en route to the ED.
In the ED, his Hgb was noted to be low at 4.7 (from baseline 7-8). 2 units PRBC ordered to be given.
Admission CT Angio:
1. Fluid collection within the soft tissues of the medial left calf, measuring 3.1 x 2.7 x 13.3 cm, with internal bubbles of air. This likely represents a postoperative hematoma or seroma. Infection of this collection should be excluded clinically.
2. No evidence of pseudoaneurysm formation.
3. Left lower extremity bypass graft is patent, without evidence of significant stenosis.
4. Bilateral peripheral arterial disease as above.
A/P:
# shock unclear type, hemorrhagic/hypovolemic vs septic (although felt less likely but could not rule out currently with history of 'low grade fever')
# Lactic acidosis POA due to shock state, resolved
Levophed weaned off on 11/14/[address] Angio was obtained in setting of recent left femoral endarterectomy on 10/27/25, showed fluid collection in medial calf, likely postoperative hematoma or seroma
Lactic acidosis at 4.7 on admission -> 1.2 with IVF
Iv fluids given this admission
Blood cultures with no growth to date
Cont empiric Cefepime/Vancomycin -- currently not clear whether wounds are infected or not -- if not infected, the left groin is at risk for infection given its dehiscence.
Cont FLANGER midodrine
Appreciate medical assistant dermatology input
Appreciate vascular surgery input, recc possible washout of the groin and/or below the knee site
Appreciate ID input
Monitor CBC
#Recent left common femoral endarterectomy for critical limb ischemia.
#Left lower extremity hematoma/seroma
#Wound dehiscence left groin
-CT showed fluid collection of L calf. Started wound vac by vascular. Vascular was planning for wash out
-Okay to resume patient's home Aspirin 81 mg daily today 11/16/25 (please see below)
# Acute on chronic anemia -- suspect anemia multifactorial due to LLE hematoma and prior UGI bleeding
Hb 4.7 on admission, from baseline 7-8, patient received several blood transfusions this hospitalization
Iron panel suggest BENITO, was recently started on IV iron
Patient was ordered 2 units of FFP by Dr. Maria, before the EGD was done
GI on board, EGD showed esophagitis, ulcers in stomach
As of 11/16/25, no signs of recurrent GI bleeding since EGD.
Transition PPI drip to IV PPI 40 mg BiD on 11/16/25 -- continue PPI 40 mg BiD after discharge
Advance diet as tolerated to regular solid diet
Okay to restart daily Aspirin on 11/16/25 and favor resuming anticoagulation/Xarelto tomorrow -- continue to monitor closely while anticoagulation restarted
Patient will need eventual repeat EGD in 3 months as outpatient (to reassess healing of gastric ulcers and larger duodenal ulcer)
Dr. Li of GI sent message to gastroenterology desk top publisher to coordinate close outpatient follow-up after discharge.
Card CS for risk stratification
Strict avoidance of all NSAIDs
# paroxysmal atrial fibrillation with RVR
hold FLANGER xarelto -- but can resume Xarelto tomorrow 11/17 as above
hold FLANGER metoprolol in setting of recent shock
Card CS for current A fib RVR
# HLD
Continue statin
Code: Full
DVT: holding Xarelto, use SCD for now if able
On 11/16/25, I spoke with patient's and daughter inside patient's room, and I answered all of their questions and concerns to satisfaction.
Anticipated Discharge: 24 - 48 hours
Subjective/Interval History
-
Date of Service: November 16, 2025
Patient was seen and examined. He reported no new symptoms or complaints.
Objective Data
-
Labs:
Laboratory Results
11/15/25 11/16/25
20:50 06:09
WBC 7.4 8.1
Hgb 8.1 L 8.3 L
Hct 24.4 L 25.2 L
Plt Count 236 255
Sodium 141
Potassium 3.4 L
Chloride 116 H
Carbon Dioxide 17 L
BUN 17
Creatinine 0.5 L
Glucose 95
Calcium 8.1 L
Total Bilirubin 0.8
AST 21
ALT 11
Alkaline Phosphatase 54
Vital Signs:
Vital Signs
Temp Pulse Resp BP Pulse Ox
98.4 F 101 17 118/65 96
11/16/25 07:29 11/16/25 07:30 11/16/25 07:30 11/16/25 06:00 11/16/25 07:30
I&O
11/15/25 11/16/25 11/17/25
06:59 06:59 06:59
Intake Total 3727.5 / 3797.5 2095 / 2380 285 / 285
Output Total 1950 / 1950 1250 / 1250
Balance 1777.5 / 1847.5 845 / 1130 285 / 285
[2025-11-16] MEDS: HYDROPHOR 1 APPLIC TOPICAL (09:20)
[2025-11-16] MEDS: PROTONIX IV 40 MG IV ×2 (09:38→19:35)
[2025-11-16] MEDS: NSS (PRESERVATIVE FREE) 10 ML IV ×2 (09:38→19:35)
--- NOTE | 2025-11-16 10:08 | W.PN.ID1 ---
Date of Service
Date of Service: November 16, 2025
Today's Communication
Continue vanco and cefepime.
Assessment / Plan
Acute blood loss anemia
s/p EGD: gastritis, nonbleeding stomach and duodenal ulcers
Reported fever - resolved
Left lower extremity hematoma/seroma
Hypotension
Wound dehiscence left groin
P A-fib (on Xarelto)
Hx prostate CA with XRT
HTN
HLD
Diverticulitis
Umbilical hernia
Recommendations:
Blood cx's neg to date.
At present, not clear whether wounds are infected or not.
If not infected, the left groin is at risk for infection given its dehiscence.
Continue with empiric antibiotics for the present (vancomycin, cefepime)
Monitor vancomycin levels closely to prevent nephrotoxicity.
Vascular placed wound vac to groin.
Monitor white count and temperature curve.
Monitor hemoglobin.
Chief Complaint
-: Cellulitis
Subjective / Review of Systems
No new complaints.
Vital Signs / Physical Exam
Vital Signs
Vital Signs
Temp Pulse Resp BP Pulse Ox
98.4 F 122 17 98/53 96
11/16/25 07:29 11/16/25 09:19 11/16/25 07:30 11/16/25 09:19 11/16/25 07:30
Physical Exam
Constitutional: Chronically Ill
Cardiovascular: Irregular Rate and S1/S2 (tachycardic)
Pulmonary: Clear (anteriorly)
Gastrointestinal: Non Tender
Extremities: Edema (BLE decreasing)
Wound: Other (R groin wound vac in place)
Neurological: AO x 3
Objective Data
Lab Data
Lab Results
11/16/25 06:09
11/16/25 06:09
PT 35.4 Sec (11.4-14.6) H 11/13/25 18:29
INR 3.60 11/13/25 18:
APTT 57.6 Sec (23.4-35.0) H 11/13/25 09:31
Estimated Creat Clear 101 ml/min 11/16/25 06:09
Lactic Acid 1.2 mmol/L (0.7-2.0) 11/13/25 18:
Total Bilirubin 0.8 mg/dl (0.2-1.3) 11/16/25 06:09
AST 21 U/L (17-59) 11/16/25 06:09
ALT 11 U/L (0-50) 11/16/25 06:09
Alkaline Phosphatase 54 U/L (38-126) 11/16/25 06:09
Most recent labs reviewed.
Micro Results:
11/13/25 09:31 Blood Culture - Preliminary
Blood/Venous No Growth in 72 hours- Final report to follow
11/13/25 09:31 Blood Culture - Preliminary
Blood/Venous No Growth in 72 hours- Final report to follow
11/13/25 09:31 Influenza Types A & B (GARIMA) - Final
Nasal Swab Negative for Influenza A & B, NAAT
Negative results must be combined with clinical observations
and patient history.
Nucleic Acid Amplification test (NAAT)performed on the
[employer] platform.
11/13/25 CTA abdomen:
1. Fluid collection within the soft tissues of the medial left calf, measuring 3.1 x 2.7 x 13.3 cm, with internal bubbles of air. This likely represents a postoperative hematoma or seroma. Infection of this collection should be excluded clinically.
2. No evidence of pseudoaneurysm formation.
3. Left lower extremity bypass graft is patent, without evidence of significant stenosis.
[2025-11-16] MEDS: PROTONIX IV (11:06)
--- NOTE | 2025-11-16 12:00 | PTCARENOTE ---
3 moderate assist to the chair w/walker. Pt had small black tarry heme positive stool. Katalina care provided. Soon after he got in the chair he was able to take a short nap with his daughter and at the bedside. Dr. Bradley notified that he needs
a PT/OT order. Lungs CTA. HR peaked @ 153 during transfer but quickly came down to 119. BP remained stable and he did c/o dizziness initially that resolved quickly. Supportive care provided. Safe environment maintained.
[2025-11-16] MEDS: DAKIN'S SOLUTION 0.125% 1/4 STRENGTH 1 ML TOPICAL (15:00)
[2025-11-16] MEDS: FERRLECIT 110 MG IV (15:27)
[2025-11-16] MEDS: TYLENOL ORAL SOLUTION 650 MG PO ×2 (15:49→21:50)
[2025-11-16] MEDS: KCL 40 MEQ PO (17:59)
[2025-11-16] MEDS: DAKIN'S SOLUTION 0.125% 1/4 STRENGTH 473 ML TOPICAL (19:35)
[2025-11-17] VITALS (21 sets, daily range): BP systolic 95–138; BP diastolic 54–96; PULSE 108; O2SAT 98; BMI 29.6
[2025-11-17] MEDS: STERILE WATER FOR INJECTION 10 ML IV ×5 (00:54→23:58)
[2025-11-17] MEDS: MAXIPIME 1000 MG IV ×5 (00:54→23:58)
[2025-11-17] MEDS: TYLENOL ORAL SOLUTION 650 MG PO (05:33)
[2025-11-17] MEDS: VANCOCIN 275 MG IV ×2 (05:34→19:12)
[2025-11-17 05:44] LABS: Hematocrit 28.3 % (39.0-52.0); Hemoglobin 9.2 g/dL (13.0-18.0); Mean Corp Hgb Conc. 32.5 g/dL (33.0-37.0); Mean Corpuscular Volume 91.3 fL (80.0-94.0); Platelet Count 253 10^3/uL (130-400); Red Cell Dist. Width 16.2 % (11.5-14.5)
[2025-11-17 06:22] LABS: Blood Urea Nitrogen 13 mg/dl (9-20); Calcium 8.5 mg/dl (8.4-10.2); Carbon Dioxide 23 mmol/L (22-30); Chloride 116 mmol/L (98-107); Estimated Creatinine Clearance 101 ml/min; Glucose 92 mg/dl (70-99); Magnesium 2.3 mg/dl (1.6-2.3); Potassium 3.6 mmol/L (3.5-5.1); Sodium 143 mmol/L (135-145); eGFR > 60.00
[2025-11-17] MEDS: ELIQUIS 5 MG PO (08:00)
--- NOTE | 2025-11-17 08:10 | W.PN.HOSP.TC ---
Addendum entered and electronically signed by Linda Maria MD 11/17/25 10:45:
d/w Vascular team, dressing changed today, and likely will plan for washout tmr of the calf.
Will hold further Eliquis for now
Original Note:
Today's Communication/Plan
-
see A/P
Assessment / Plan
Assessment / Plan
HPI: 85 year old male with PMH A-fib on Xarelto, hypertension, hyperlipidemia, GERD, cognitive impairment, critical limb ischemia s/p recent left common femoral endarterectomy with patch angioplasty and fem to below-knee pop artery bypass with vein
graft by Dr. Denise on 10/27/2025, who presented for [facility] for anemia, low grade temp and hypotension.
Levophed was started en route to the ED.
In the ED, his Hgb was noted to be low at 4.7 (from baseline 7-8).
Admission CT Angio:
1. Fluid collection within the soft tissues of the medial left calf, measuring 3.1 x 2.7 x 13.3 cm, with internal bubbles of air. This likely represents a postoperative hematoma or seroma. Infection of this collection should be excluded clinically.
2. No evidence of pseudoaneurysm formation.
3. Left lower extremity bypass graft is patent, without evidence of significant stenosis.
4. Bilateral peripheral arterial disease as above.
A/P:
# shock unclear type, hemorrhagic/hypovolemic vs septic (although felt less likely but could not rule out currently with history of 'low grade fever')
# Lactic acidosis POA due to shock state, resolved
Levophed weaned off on 11/14/[address] Angio was obtained in setting of recent left femoral endarterectomy on 10/27/25, showed fluid collection in medial calf, likely postoperative hematoma or seroma
Lactic acidosis at 4.7 on admission -> 1.2 with IVF
Blood cultures negative
Cont empiric Cefepime/Vancomycin as currently not clear whether wounds are infected or not
Cont STREET CONTRACTOR midodrine
ID on board
# Recent left common femoral endarterectomy for critical limb ischemia.
# Left lower extremity hematoma/seroma
# Wound dehiscence left groin
CT showed fluid collection of L calf.
Started wound vac by vascular.
Resumed STREET CONTRACTOR Aspirin
# Acute on chronic anemia, suspect multifactorial due to LLE hematoma and UGI bleeding
# esophagitis and ulcers in stomach
Hgb 4.7 on admission, from baseline 7-8, s/p 6 units PRBC transfusion,
Hgb now stable, at 9.2 today
Iron panel suggest BENITO, started IV iron
s/p 2 units of FFP prior EGD
EGD showed esophagitis, ulcers in stomach
Transitioned PPI drip to IV PPI 40 mg BID, continue PPI 40 mg BID after discharge
Advanced diet to regular solid diet
Restarted daily Aspirin
OK to resume OAC per GI
Patient will need eventual repeat EGD in 3 months as outpatient (to reassess healing of gastric ulcers and larger duodenal ulcer)
# paroxysmal atrial fibrillation with RVR
resume STREET CONTRACTOR STREET CONTRACTOR Lopressor 12.5 mg BID with hold parameter
family has concern about combination use of ASA with OAC Xarelto, which is understandable.
discussed with Card Dr Cota, can try Eliquis and recc [address] of Xarelto
Card on board
# HLD
Continue statin
Code: Full
DVT: Start Eliquis 5 mg BID
Dispo: PT OT eval
DW RN
DW Card
updated and daughter on the phone. Extensive discussion, answered all questions.
total time 51 min
Anticipated Discharge: 24 - 48 hours
Subjective/Interval History
-
Date of Service: November 17, 2025
Objective Data
-
Labs:
Laboratory Results
11/17/25
05:31
WBC 6.7
Hgb 9.2 L
Hct 28.3 L
Plt Count 253
Sodium 143
Potassium 3.6
Chloride 116 H
Carbon Dioxide 23
BUN 13
Creatinine 0.5 L
Glucose 92
Calcium 8.5
Vital Signs:
Vital Signs
Temp Pulse Resp BP Pulse Ox
36.4 C 110 25 116/70 97
11/17/25 07:27 11/17/25 07:00 11/17/25 07:00 11/17/25 06:00 11/17/25 06:15
I&O
11/16/25 11/17/25 11/18/25
06:59 06:59 06:59
Intake Total 2095 / 2380 1650 / 1650
Output Total 1250 / 1250 300 / 300
Balance 845 / 1130 1350 / 1350
Review of Systems
-
History Source: Patient
All other systems: Reviewed and negative
Physical Exam
-
General: Well Developed, Well Nourished, No Apparent Distress, Comfortable, Conversant and Appears Chronically Ill
HEENT: Normocephalic
Respiratory: Clear to Auscultation and Non Labored Respirations; Negative Accessory Resp Muscle Use
Cardiac: S1/S2, Irregular Rhythm and Tachycardic
GI: Soft, Nontender, Nondistended and Normal Bowel Sounds
Musculoskeletal: Edema, Right Lower Extrem and Edema, Left Lower Extrem
Skin: Lesions (see wound care note) and Other (Wound vac to L groin)
Neuro: Awake and Alert
Psych: Calm and Intact Judgement/Insight (somewhat)
Data Reviewed
-
Labs: Labs Reviewed by me
--- NOTE | 2025-11-17 09:08 | W.PN.CARDCBS ---
Today's Communication / Plan
-
Start Eliquis in place of Eliquis and follow-up for bleeding
Increase Lopressor for rate control of A-fib if blood pressure tolerates as he is on midodrine
May need to consider amiodarone for heart rate control
Impression / Plan
-
Primary Press Writer: Dr. Cota
Assessment:
Presentation with confusion, hypotension
Shock
Lactic acidosis
Hypotension requiring pressors
Acute anemia, suspected GI source
L calf hematoma vs seroma by CT angio
PAD
Chronic lower extremity wounds/unhealing leg ulcers
Critical limb ischemia status post left common femoral endarterectomy with patch angioplasty and left common femoral to below-knee popliteal artery bypass 10/27/2025
Paroxysmal atrial fibrillation, presently with RVR
Chronic anticoagulation
Chronic HFpEF
Hypercholesterolemia
Hypertension
Iron deficiency anemia
GERD
h/o prostate cancer s/p radiation
Echo 10/20/2025: Technically difficult and limited study. Lumason was utilized to improve endocardial definition. Left ventricular systolic function is visually estimated withing normal limits with no sizable regional wall motion abnormalities
noted. The estimated ejection fraction is estimated 60-65% by Borden's method of disc. Mild concentric LVH.No significant valve disease. Compared to prior echo from March 2022, there has been no significant change.
EGD 11/14/25: LA Grade C esophagitis, few well-healed small gastric ulcers (FC III), one medium sized cratered duodenal ulcer with flat pigmented spot (FC IIc) along with few other well-healed duodenal ulcers (FC III), otherwise no old/fresh blood
throughout upper GI tract.
Plan:
Rate control suboptimal in atrial fibrillation
Will try increasing Lopressor although blood pressure requiring midodrine may limit increasing Lopressor
May need to consider adding amiodarone
Discussed with primary service and will try Eliquis 5 mg p.o. twice daily with less bleeding risk compared to Xarelto
Volume status reasonable on no diuretics
Discussed with nursing and primary service
Progress Note - Press Writer
Subjective
Date of Service: November 17, 2025
No complaints
Objective
Labs:
11/17/25 05:31
11/17/25 05:31
Labs
Hgb 9.2 g/dL (13.0-18.0) L 11/17/25 05:31
Hct 28.3 % (39.0-52.0) L 11/17/25 05:31
Plt Count 253 10^3/uL (130-400) 11/17/25 05:31
PT 35.4 Sec (11.4-14.6) H 11/13/25 18:29
INR 3.60 11/13/25 18:29
APTT 57.6 Sec (23.4-35.0) H 11/13/25 09:31
Sodium 143 mmol/L (135-145) 11/17/25 05:31
Potassium 3.6 mmol/L (3.5-5.1) 11/17/25 05:31
BUN 13 mg/dl (9-20) 11/17/25 05:31
Creatinine 0.5 mg/dL (0.7-1.3) L 11/17/25 05:31
Glucose 92 mg/dl (70-99) 11/17/25 05:31
Vital Signs and I&O:
Vital Signs
Temp Pulse Resp BP Pulse Ox
97.5 F 113 26 125/72 99
11/17/25 07:27 11/17/25 08:00 11/17/25 08:00 11/17/25 08:00 11/17/25 08:00
Vital Signs
Temp Pulse Resp BP Pulse Ox
97.5 F 113 26 125/72 99
11/17/25 07:27 11/17/25 08:00 11/17/25 08:00 11/17/25 08:00 11/17/25 08:00
Intake & Output
11/15/25 11/16/25 11/17/25 11/18/25
06:59 06:59 06:59 06:59
Intake Total 3727.5 / 3797.5 2095 / 2380 1650 / 1650
Output Total 1950 / 1950 1250 / 1250 300 / 300
Balance 1777.5 / 1847.5 845 / 1130 1350 / 1350
Physical Exam
Physical Exam
General: Well developed, well nourished in NAD.
Neck: Supple, no JVD, HJR, carotids +2 B/L, no bruits bilaterally.
Heart: Non displaced PMI, irregular, no murmurs, No S3, S4, no rubs.
Lungs: Scattered rhonchi
Extremities: No clubbing, cyanosis or edema bilaterally.
Neuro: Grossly nonfocal, awake, alert and oriented x3.
--- NOTE | 2025-11-17 09:24 | W.PN.ID1 ---
Date of Service
Date of Service: November 17, 2025
Today's Communication
Continue antibiotics. Await dressing change later today.
Assessment / Plan
Acute blood loss anemia
s/p EGD: gastritis, nonbleeding stomach and duodenal ulcers
Reported fever - resolved
Left lower extremity hematoma/seroma
Hypotension
Wound dehiscence left groin
P A-fib (on Xarelto)
Hx prostate CA with XRT
HTN
HLD
Diverticulitis
Umbilical hernia
Recommendations:
Blood cx's neg to date.
Patient remains afebrile
Will review left groin wound and left calf wound with dressing change later today. If no evidence of infection, will discontinue further antibiotics.
Vascular placed wound vac to groin. Continue with local care to left calf wound.
Monitor white count and temperature curve.
Monitor hemoglobin.
����������������������������������������������������������
Chief Complaint
-: Cellulitis
Subjective / Review of Systems
Review of Systems: No Fever and No Chills
Vital Signs / Physical Exam
Vital Signs
Vital Signs
Temp Pulse Resp BP Pulse Ox
97.5 F 113 26 125/72 99
11/17/25 07:27 11/17/25 08:00 11/17/25 08:00 11/17/25 08:00 11/17/25 08:00
Physical Exam
Constitutional: No Acute Distress, Comfortable and Non-toxic
Cardiovascular: Irregular Rate and S1/S2 (tachycardic)
Pulmonary: Clear (anteriorly)
Gastrointestinal: Non Tender
Extremities: Edema (B/L LE decreasing)
Wound: Other ((R) groin wound with vac in place)
Neurological: AO x 3
Psychological: Calm
Objective Data
Lab Data
Lab Results
11/17/25 05:31
11/17/25 05:31
PT 35.4 Sec (11.4-14.6) H 11/13/25 18:29
INR 3.60 11/13/25 18:29
APTT 57.6 Sec (23.4-35.0) H 11/13/25 09:31
Estimated Creat Clear 101 ml/min 11/17/25 05:31
Lactic Acid 1.2 mmol/L (0.7-2.0) 11/13/25 18:29
Total Bilirubin 0.8 mg/dl (0.2-1.3) 11/16/25 06:09
AST 21 U/L (17-59) 11/16/25 06:09
ALT 11 U/L (0-50) 11/16/25 06:09
Alkaline Phosphatase 54 U/L (38-126) 11/16/25 06:09
Most recent labs reviewed.
Micro Results:
11/13/25 09:31 Blood Culture - Preliminary
Blood/Venous No Growth in 72 hours- Final report to follow
11/13/25 09:31 Blood Culture - Preliminary
Blood/Venous No Growth in 72 hours- Final report to follow
11/13/25 09:31 Influenza Types A & B (GARIMA) - Final
Nasal Swab Negative for Influenza A & B, NAAT
Negative results must be combined with clinical observations
and patient history.
Nucleic Acid Amplification test (NAAT)performed on the
[employer] platform.
11/13/25 CTA abdomen:
1. Fluid collection within the soft tissues of the medial left calf, measuring 3.1 x 2.7 x 13.3 cm, with internal bubbles of air. This likely represents a postoperative hematoma or seroma. Infection of this collection should be excluded clinically.
2. No evidence of pseudoaneurysm formation.
3. Left lower extremity bypass graft is patent, without evidence of significant stenosis.
--- NOTE | 2025-11-17 09:44 | PHA.VAN.FU ---
Vancomycin Assessment / Plan
- Assessment
Renal Function: Stable
WBC's are: Stable
In the past 24 hrs, patient has been: Afebrile
Concomitant Antimicrobials: Cefepime
- Dosing Plan
Continue: 1250MG Q12H
- Monitoring Plan
No level(s) ordered at this time: Weekly troughs for surveillance, next due 11/23/25
- Follow Up
Pharmacy will continue to follow.
Vancomycin Follow UP
- -
Patient Age: 85
Patient Sex: Male
Vancomycin Day #: 5
Indication: Bacteremia
Requesting Provider: Dr. Castillo (resident), DR. SWARTZ
Pertinent Antimicrobial Allergies:
NKDA
Height / Weight:
Height 6 ft
Actual Weight 99 kg
Pertinent Past Medical History: BMI ~31
- Vital Signs / Lab Results
Temp Pulse Resp BP Pulse Ox
97.5 F 113 26 125/72 99
11/17/25 07:27 11/17/25 08:00 11/17/25 08:00 11/17/25 08:00 11/17/25 08:00
Lab Results - Hematology
11/15/25 11/15/25 11/16/25
01:00 20:50 06:09
WBC 5.3 7.4 8.1
11/17/25
05:31
WBC 6.7
Lab Results - Chemistry
11/15/25 11/15/25 11/16/25
01:00 11:41 06:09
BUN 28 H 21 H 17
Creatinine 0.5 L 0.5 L 0.5 L
Estimated Creat Clear 101 101 101
Albumin 2.6 L 2.7 L
11/17/25
05:31
BUN 13
Creatinine 0.5 L
Estimated Creat Clear 101
Albumin
Microbiology Results
11/13/25 09:31 Blood Culture - Preliminary
Blood/Venous No Growth in 72 hours- Final report to follow
11/13/25 09:31 Blood Culture - Preliminary
Blood/Venous No Growth in 72 hours- Final report to follow
Therapeutic Drug Monitoring
Vancomycin Peak 23.4 ug/ml (18-26) 11/15/25 20:50
Vancomycin Trough 12.5 ug/ml (5-20) 11/16/25 06:09
[2025-11-17] MEDS: PROTONIX IV 40 MG IV ×2 (09:51→19:58)
[2025-11-17] MEDS: NSS (PRESERVATIVE FREE) 10 ML IV ×2 (09:53→19:59)
[2025-11-17] MEDS: DAKIN'S SOLUTION 0.125% 1/4 STRENGTH 473 ML TOPICAL (09:54)
[2025-11-17] MEDS: HYDROPHOR 1 APPLIC TOPICAL (09:55)
--- NOTE | 2025-11-17 10:33 | PTCARENOTE ---
Pt seen by vascular cap lining machine operator along with ID Dr. Patricia this am, wounds assessed, cultures sent as per ID order, pt now NPO pending assessment by vascular surgeon.
--- NOTE | 2025-11-17 10:56 | W.PN.VS ---
Addendum entered and electronically signed by Daljit Clay MD 11/17/25 14:11:
Seen and examined with BRIQUETTE MOLDER. Agree with findings as noted below except that we will wash him out in OR today.
Original Note:
Today's Communication / Plan
-
Seen and assessed with Dr Clay
Assessment/Plan
-
Pt admitted for GI bleed
s/p LLE bypass
Plan:
I removed a few leandra at medial knee site and packed. Culture swabs sent
Cont VAC therapy
NPO for tomorrow incase washout needed
Subjective Data
-
Date of Service: November 17, 2025
Pt seen at bedside this am with Dr Clay. Pt offers no complaints at this time. No events overnight.
Objective Data
-
Vital Signs
Temp Pulse Resp BP Pulse Ox
97.5 F 113 23 125/72 99
11/17/25 07:27 11/17/25 10:00 11/17/25 10:00 11/17/25 08:00 11/17/25 10:00
Intake and Output
11/16/25 11/17/25 11/18/25
06:59 06:59 06:59
Intake Total 2095 / 2380 1650 / 1650
Output Total 1250 / 1250 300 / 300
Balance 845 / 1130 1350 / 1350
Intake:
Oral fluids 960 / 960 1080 / 1080
IV fluids (Total) 750 / 760 20 / 20
Nss 1,000 ml @ 50 mls/hr IV . 510 / 510
Q20H JOCELINE Rx#:[id number]
protonix gtt 240 / 250 20 / 20
IV piggybacks 385 / 660 550 / 550
Output:
Urine, Voided 1250 / 1250 300 / 300
Other:
How many times incontinent 1
SMALL amount urine
How many times incontinent 2
SATURATED amount urine
Number of approximated SMALL 1
amounts of urine
Lab Results
11/17/25 05:31
11/17/25 05:31
Calcium 8.5 mg/dl (8.4-10.2) 11/17/25 05:31
Phosphorus 3.1 mg/dl (2.5-4.5) 11/13/25 18:29
Magnesium 2.3 mg/dl (1.6-2.3) 11/17/25 05:31
Total Bilirubin 0.8 mg/dl (0.2-1.3) 11/16/25 06:09
AST 21 U/L (17-59) 11/16/25 06:09
ALT 11 U/L (0-50) 11/16/25 06:09
Alkaline Phosphatase 54 U/L (38-126) 11/16/25 06:09
Total Protein 5.2 g/dl (6.3-8.2) L 11/16/25 06:09
Albumin 2.7 g/dl (3.5-5.0) L 11/16/25 06:09
Physical Exam
-
AAOx3
No tachypnea on NC
No tachycardia
Abd soft
Groin site vac removed, wound bed unchanged, shallow, some granulation tissue, some slough- VAC placed
Lower leg wrapped medial knee area with drainage, expressed ~10cc serous fluid, small amount of purulence - packed and MALDONADO wrapped
+2 pitting edema to the left leg
[2025-11-17] MEDS: LOPRESSOR 25 MG PO ×2 (11:58→19:58)
--- NOTE | 2025-11-17 12:00 | PTCARENOTE ---
Pt oob to chair with PT/OT, large black formed BM on bedpan during transfer. Pt tolerating being in chair well at this time.
--- NOTE | 2025-11-17 13:05 | CM ---
Addendum entered by Vee Connors 11/17/25 14:52:
ROSEMARIE Baxter was called by daughter Noemí, she shared that [facility] will not hold the bed, but will consider their father again. ROSEMARIE sent message to the Phlebotomist Prn. ROSEMARIE gave some other options so family will consider those and let CM know where
else to refer to.
Original Note:
F/U: Patient now has a wound VAC on his calf area, patient having I.D. follow for antibiotics, possible washout tomorrow. ROSEMARIE Baxter sent referral to [facility] as the family are still, as of now, interested in a possible return. CM will obtain more
choices. PLAN: SNF when ready.
--- NOTE | 2025-11-17 14:45 | PTCARENOTE ---
Pt sent to vascular OR for washout LLE.
--- NOTE | 2025-11-17 15:41 | W.SUR.POST ---
Surgical Immediate Post Op
Note
Pre Op Diagnosis: LLE seroma
Post Op Diagnosis: same
Procedure Performed: LLE washout and VAC placement
Primary Surgeon: Obed
Assist: Jami CARRION
Anesthesia: LMA
Estimated Blood Loss: 10cc
Fluids: see anesthesia flow sheet
Drains/Shunts: none
Specimens/Cultures: none
Doppler/Duplex/Angio (Y/N): N
Complications: none
Operative Findings: 16x5x4, no bone or graft exposed, medium black sponge used
--- NOTE | 2025-11-17 16:23 | PTCARENOTE ---
Pt rec'd back into [id number] from OR, new wound vac sites assessed, patent, VSS, pt awakens to voice, repositioned and linens placed, remainder of wound care completed. Pt with new room assigned on -will call report when able. Pt resting
comfortably.
[2025-11-17] MEDS: FERRLECIT 110 MG IV (16:32)
--- NOTE | 2025-11-17 17:00 | TRANSFER ---
Pt transferred to [id number] with all belongings - and daughter following along.
--- NOTE | 2025-11-17 17:15 | W.PN.UPDATE ---
Update Note
Progress Note Update
Will sign off, call with questions
--- NOTE | 2025-11-17 17:30 | PTCARENOTE ---
Patient transferred from ICU to [address] [place] [address] in bed from ICU. Wound VAC intact. Patient complaining of 10 out of 10 pain in his back. Patient aaox3. Messaged Dr Maria for verbal pain medication change. Patient declined pain medication. Pain now 5/10 with
movement changes completed with pillows and head of bed. VSS. Call [facility] in reach
--- NOTE | 2025-11-17 17:46 | OR.RPT ---
Operative Report
Operative Report
PROCEDURE DATE: 11/17/2025
Preoperative diagnosis: Infected fluid collection left calf status post left lower extremity arterial bypass.
Postoperative diagnosis: Same
Procedure: Incision and drainage and washout of left calf superficial wound infection. Placement of wound VAC left below the knee superficial wound.
Surgeon: Obed
Steam Fitter Supervisor: DENNIS Farrell, required for aspects of procedure including assistance with traction/countertraction and placement of VAC.
Complications: None
Anesthesia: General
Indications for procedure:
Patient had a fluid collection in the left calf status post left lower extremity arterial bypass. Started draining pus today. Therefore was brought for washout. Risk/benefits/alternatives also discussed. Patient understood all wish to proceed.
Description of procedure:
Patient was identified brought to the operating room placed on the table in supine position. After the adequate administration of anesthesia he was prepped and draped in the standard surgical fashion. A standard preoperative timeout was undertaken
and everybody was in agreement the plan. I removed all the leandra and suture in the vicinity of the site that was draining. The tissues just deep to the closure were undermined and I could put my finger in that space. Therefore I opened the skin
and subcutaneous tissue here. The deeper tissues now I could examine were all closed. However there was still some purulent fluid collection here. This was all drained out. The wound was widely opened. There was some loose fibrinous debris that
was cleared out. I then again inspected the deeper tissues and they were all adherent. There was no exposed graft or other. There was no tunneling deep or superiorly or inferiorly. I had now unroofed the entirety of the infection pocket. Pulse
lavage irrigation was then used to thoroughly pulse lavage/irrigate the site with 3 L of saline solution. Hemostasis was then achieved. Wound VAC was then placed. 16 cm x 5 cm x 4 cm VAC. The patient tolerated the procedure well.
[2025-11-17] MEDS: DAKIN'S SOLUTION 0.125% 1/4 STRENGTH TOPICAL (19:56)
[2025-11-17] MEDS: NEURONTIN 100 MG PO (21:32)
--- NOTE | 2025-11-17 21:46 | VATNOTE ---
called to restart IV due to vanco infiltrate on right forearm. Difficult to assess degree of infiltrate since left arm has same 'pocket' of tissue and dependant edema as right forearm. pt. denies pain in right forearm; ice applied by PCN who also
removed IV where Vanco was infusing. IV restarted left wrist.
[2025-11-18 03:32] VITALS: BP 114/73
[2025-11-18] MEDS: STERILE WATER FOR INJECTION 10 ML IV ×3 (05:31→17:32)
[2025-11-18] MEDS: MAXIPIME 1000 MG IV ×3 (05:32→17:33)
[2025-11-18] MEDS: VANCOCIN 275 MG IV (06:19)
[2025-11-18 07:53] VITALS: BP 121/69
[2025-11-18 08:09] LABS: Hematocrit 26.3 % (39.0-52.0); Hemoglobin 8.7 g/dL (13.0-18.0); Mean Corp Hgb Conc. 33.1 g/dL (33.0-37.0); Mean Corpuscular Volume 94.3 fL (80.0-94.0); Platelet Count 272 10^3/uL (130-400); Red Cell Dist. Width 16.8 % (11.5-14.5)
[2025-11-18 08:38] LABS: Blood Urea Nitrogen 14 mg/dl (9-20); Calcium 8.2 mg/dl (8.4-10.2); Carbon Dioxide 21 mmol/L (22-30); Chloride 113 mmol/L (98-107); Estimated Creatinine Clearance 101 ml/min; Glucose 114 mg/dl (70-99); Potassium 4.1 mmol/L (3.5-5.1); Sodium 140 mmol/L (135-145); eGFR > 60.00
[2025-11-18] MEDS: LOPRESSOR 25 MG PO ×2 (08:47→20:27)
[2025-11-18] MEDS: NSS (PRESERVATIVE FREE) 10 ML IV ×2 (08:48→20:27)
[2025-11-18] MEDS: PROTONIX IV 40 MG IV ×2 (08:49→20:27)
--- NOTE | 2025-11-18 08:50 | PHA.VAN.FU ---
Vancomycin Assessment / Plan
- Assessment
Renal Function: Stable
WBC's are: Stable (5.8 from 6.7)
In the past 24 hrs, patient has been: Afebrile
Concomitant Antimicrobials: Cefepime
- Dosing Plan
Continue: 1250MG Q12H
- Monitoring Plan
Next Level Due (Date): 11/23/25
- Follow Up
Pharmacy will continue to follow.
Vancomycin Follow UP
- -
Patient Age: 85
Patient Sex: Male
Vancomycin Day #: 6
Indication: Bacteremia
Requesting Provider: Dr. Castillo (resident), DR. SWARTZ
Pertinent Antimicrobial Allergies:
NKDA
Height / Weight:
Height 6 ft
Actual Weight 99 kg
Pertinent Past Medical History: BMI ~31
- Vital Signs / Lab Results
Temp Pulse Resp BP Pulse Ox
97.8 F 83 18 121/69 96
11/18/25 07:53 11/18/25 07:53 11/18/25 07:53 11/18/25 07:53 11/18/25 07:53
Lab Results - Hematology
11/15/25 11/16/25 11/17/25
20:50 06:09 05:31
WBC 7.4 8.1 6.7
11/18/25
07:44
WBC 5.8
Lab Results - Chemistry
11/15/25 11/16/25 11/17/25
11:41 06:09 05:31
BUN 21 H 17 13
Creatinine 0.5 L 0.5 L 0.5 L
Estimated Creat Clear 101 101 101
Albumin 2.7 L
11/18/25
07:44
BUN 14
Creatinine 0.5 L
Estimated Creat Clear 101
Albumin
Microbiology Results
11/17/25 10:13 Gram Stain - Preliminary
Leg - Left
11/13/25 09:31 Blood Culture - Preliminary
Blood/Venous No Growth in 4 days- Final report to follow
11/13/25 09:31 Blood Culture - Preliminary
Blood/Venous No Growth in 4 days- Final report to follow
Therapeutic Drug Monitoring
Vancomycin Peak 23.4 ug/ml (18-26) 11/15/25 20:50
Vancomycin Trough 12.5 ug/ml (5-20) 11/16/25 06:09
--- NOTE | 2025-11-18 09:21 | W.PN.VS ---
Addendum entered and electronically signed by Lonnie Denise III, MD 11/18/25 10:58:
This patient was seen and examined in collaboration with MURALI Mcclain. I agree with the history and physical exam as well as the assessment and plan. I have the following additions:
Overall doing well
Left lower extremity edema
VACs in place groin and calf
VAC changes tomorrow
ABX
Leg elevation and compression at all times while in bed
OK for PT/OT/ambulate
Resume anticoagulation and continue antiplatelet
Signed:
Lonnie Denise III, MD
Vascular Surgery
[facility]
Original Note:
Today's Communication / Plan
-
Reviewed below plan with on-call attending.
Assessment/Plan
-
Pt admitted for GI bleed
s/p LLE bypass, POD #1 Incision and drainage and washout of left calf superficial wound infection. Placement of wound VAC left below the knee superficial wound.
Plan:
Continue wound VAC, wound care nursing consulted
Vascular surgery team will change VAC tomorrow
Continue compression to left lower extremity via Piter wrap
Consultation to nutrition for recommendations to enhance nutritional intake for wound healing
Subjective Data
-
Date of Service: November 18, 2025
Patient seen examined at bedside, offers no complaints. Denies nausea, vomiting, fever, and chills.
Objective Data
-
Vital Signs
Temp Pulse Resp BP Pulse Ox
97.8 F 83 18 121/69 96
11/18/25 07:53 11/18/25 08:47 11/18/25 07:53 11/18/25 08:47 11/18/25 07:53
Intake and Output
11/17/25 11/18/25 11/19/25
06:59 06:59 06:59
Intake Total 1650 / 1650 120 / 120
Output Total 300 / 300 650 / 650
Balance 1350 / 1350 -530 / -530
Intake:
Oral fluids 1080 / 1080 120 / 120
IV fluids (Total)
protonix gtt
IV piggybacks 550 / 550
Output:
Urine, Voided 300 / 300 650 / 650
Other:
How many times incontinent 1
SMALL amount urine
How many times incontinent 2
SATURATED amount urine
Number of approximated SMALL 1
amounts of urine
Lab Results
11/18/25 07:44
11/18/25 07:44
Calcium 8.2 mg/dl (8.4-10.2) L 11/18/25 07:44
Phosphorus 3.1 mg/dl (2.5-4.5) 11/13/25 18:29
Magnesium 2.3 mg/dl (1.6-2.3) 11/17/25 05:31
Total Bilirubin 0.8 mg/dl (0.2-1.3) 11/16/25 06:09
AST 21 U/L (17-59) 11/16/25 06:09
ALT 11 U/L (0-50) 11/16/25 06:09
Alkaline Phosphatase 54 U/L (38-126) 11/16/25 06:09
Total Protein 5.2 g/dl (6.3-8.2) L 11/16/25 06:09
Albumin 2.7 g/dl (3.5-5.0) L 11/16/25 06:09
Physical Exam
-
AAOx3
No tachypnea on NC
No tachycardia
Abd soft
Groin and left lower extremity calf VAC sites clean, dry, and intact
+3 pitting edema to the left leg
--- NOTE | 2025-11-18 10:08 | VATNOTE ---
Follow up on possible Vanco infiltrate in rt. forearm on 11/17. Multiple reddened and ecchymotic areas over bilateral arms. No swelling or warmth of forearms noted. Did note bags of dependent edema in bilateral upper arms. Pt. offers no
complaints.
--- NOTE | 2025-11-18 10:11 | W.PN.HOSP.TC ---
Addendum entered and electronically signed by Linda Maria MD 11/18/25 12:18:
updated daughter on the phone
Original Note:
Today's Communication/Plan
-
see A/P
Assessment / Plan
Assessment / Plan
HPI: 85 year old male with PMH A-fib on Xarelto, hypertension, hyperlipidemia, GERD, cognitive impairment, critical limb ischemia s/p recent left common femoral endarterectomy with patch angioplasty and fem to below-knee pop artery bypass with vein
graft by Dr. Denise on 10/27/2025, who presented for OR SNF for anemia, low grade temp and hypotension.
Levophed was started en route to the ED.
In the ED, his Hgb was noted to be low at 4.7 (from baseline 7-8).
Admission CT Angio:
1. Fluid collection within the soft tissues of the medial left calf, measuring 3.1 x 2.7 x 13.3 cm, with internal bubbles of air. This likely represents a postoperative hematoma or seroma. Infection of this collection should be excluded clinically.
2. No evidence of pseudoaneurysm formation.
3. Left lower extremity bypass graft is patent, without evidence of significant stenosis.
4. Bilateral peripheral arterial disease as above.
A/P:
# shock unclear type, hemorrhagic/hypovolemic vs septic (although felt less likely but could not rule out currently with history of 'low grade fever')
# Lactic acidosis POA due to shock state, resolved
Levophed weaned off on 11/14/[address] Angio was obtained in setting of recent left femoral endarterectomy on 10/27/25, showed fluid collection in medial calf, likely postoperative hematoma or seroma
Lactic acidosis at 4.7 on admission -> 1.2 with IVF
Blood cultures negative
Cont empiric Cefepime/Vancomycin
Follow wound culture from washout 11/17
Defer Abx to ID
Cont GENERAL INTERN midodrine with hold parameter
ID on board
# Recent left common femoral endarterectomy for critical limb ischemia.
# Left lower extremity hematoma/seroma
# Wound dehiscence left groin
CT showed fluid collection of L calf.
s/p I/D and washout of left calf superficial wound infection with replacement of wound VAC 11/17
Follow wound culture from washout 11/17
Ok to resume OAC per vascular
# Acute on chronic anemia, suspect multifactorial due to LLE hematoma and UGI bleeding
# esophagitis and ulcers in stomach
Hgb 4.7 on admission, from baseline 7-8, s/p 6 units PRBC transfusion,
Hgb now stable, today at 8.7 (small drop likely due to washout)
Iron panel suggest BENITO, IV iron x5 days then cont GENERAL INTERN PO iron
s/p 2 units of FFP prior EGD
EGD showed esophagitis, ulcers in stomach
Transitioned PPI drip to IV PPI 40 mg BID, continue PPI 40 mg BID after discharge
Advanced diet to regular solid diet
Restarted daily Aspirin. OK to resume OAC per GI
Patient will need eventual repeat EGD in 3 months as outpatient (to reassess healing of gastric ulcers and larger duodenal ulcer)
# paroxysmal atrial fibrillation with RVR
resume GENERAL INTERN Lopressor increased to 25 mg BID with hold parameter
family has concern about combination use of ASA with OAC Xarelto, which is understandable.
discussed with Card Dr Cota, can try Eliquis and recc [address] of GENERAL INTERN Xarelto
Card on board
# HLD
Continue statin
Code: Full
DVT: Eliquis 5 mg BID
Dispo: PT OT eval
DW CM
DW vascular
Attempt to update family, called all numbers several times, calls not answered
total time 51 min
Anticipated Discharge: 24 - 48 hours
Subjective/Interval History
-
Date of Service: November 18, 2025
Objective Data
-
Labs:
Laboratory Results
11/18/25
07:44
WBC 5.8
Hgb 8.7 L
Hct 26.3 L
Plt Count 272
Sodium 140
Potassium 4.1
Chloride 113 H
Carbon Dioxide 21 L
BUN 14
Creatinine 0.5 L
Glucose 114 H
Calcium 8.2 L
Vital Signs:
Vital Signs
Temp Pulse Resp BP Pulse Ox
36.6 C 83 18 121/69 96
11/18/25 07:53 11/18/25 08:47 11/18/25 07:53 11/18/25 08:47 11/18/25 07:53
I&O
11/17/25 11/18/25 11/19/25
06:59 06:59 06:59
Intake Total 1650 / 1650 120 / 120
Output Total 300 / 300 650 / 650
Balance 1350 / 1350 -530 / -530
Review of Systems
-
History Source: Patient
All other systems: Reviewed and negative
Physical Exam
-
General: Well Developed, Well Nourished, No Apparent Distress, Comfortable, Conversant and Appears Chronically Ill
HEENT: Normocephalic and Oxygen (1-2L NC)
Respiratory: Clear to Auscultation and Non Labored Respirations; Negative Accessory Resp Muscle Use
Cardiac: S1/S2 and Irregular Rhythm
GI: Soft, Nontender, Nondistended and Normal Bowel Sounds
Musculoskeletal: Edema, Right Lower Extrem and Edema, Left Lower Extrem
Skin: Lesions (see wound care note) and Other (Wound vac to L leg)
Neuro: Awake and Alert
Psych: Calm and Intact Judgement/Insight (somewhat)
Data Reviewed
-
Labs: Labs Reviewed by me
[2025-11-18 11:43] VITALS: BP 113/65
[2025-11-18] MEDS: DAKIN'S SOLUTION 0.125% 1/4 STRENGTH TOPICAL ×2 (12:24→20:58)
[2025-11-18] MEDS: HYDROPHOR 1 APPLIC TOPICAL (12:24)
--- NOTE | 2025-11-18 13:06 | CM ---
CM reviewed pt with attending- ready for dc in the next day or two
Discussion with [facility] liaison- will likely be able to offer bed on Fri given acuity of care
Wound vac info faxed to SNF via [facility]
ID following for possible bax- watch for possible abx on dc
Update to ciror/Noemí and VM for spouse
Discharge Disposition - anticipate [facility] Fri with wound vac, possible abx
--- NOTE | 2025-11-18 13:11 | PTCARENOTE ---
Wound vac canister changed; was at level 400.
[2025-11-18] MEDS: FERRLECIT 110 MG IV (13:16)
--- NOTE | 2025-11-18 13:39 | W.PN.ID1 ---
Date of Service
Date of Service: November 18, 2025
Today's Communication
Continue cefepime. Discontinue further vancomycin.
Assessment / Plan
Acute blood loss anemia
s/p EGD: gastritis, nonbleeding stomach and duodenal ulcers
Reported fever - resolved
Left lower extremity seroma vs. abscess. s/p washout 11/17/2025
Hypotension
Wound dehiscence left groin
P A-fib (on Xarelto)
Hx prostate CA with XRT
HTN
HLD
Diverticulitis
Umbilical hernia
Recommendations:
Blood cx's neg to date.
Patient remains afebrile
Culture of left calf wound drainage pending; gram-negative rods seen on microscopy.
Await final culture and susceptibility data to guide further antimicrobial selection/potential de-escalation.
No MRSA recovered; will discontinue further vancomycin.
Monitor white count and temperature curve.
Monitor hemoglobin.
����������������������������������������������������������
Chief Complaint
-: Cellulitis and Other (Left calf collection)
Subjective / Review of Systems
Patient seen and examined. Reports feeling well today. Chart reviewed; patient underwent left lower extremity washout yesterday. A VAC has been placed.
Vital Signs / Physical Exam
Vital Signs
Vital Signs
Temp Pulse Resp BP Pulse Ox
98.2 F 77 18 113/65 99
11/18/25 11:43 11/18/25 11:43 11/18/25 11:43 11/18/25 11:43 11/18/25 11:43
Physical Exam
Constitutional: No Acute Distress and Non-toxic
Eyes: Sclera Anicteric
Cardiovascular: S1/S2; Negative S3/S4
Pulmonary: Non Labored
Gastrointestinal: Soft and Non Tender
Extremities: Other (Left groin with VAC in place. Left medial calf area with VAC in place.)
Neurological: Awake and Alert
Psychological: Calm
Objective Data
Lab Data
Lab Results
11/18/25 07:44
11/18/25 07:44
PT 35.4 Sec (11.4-14.6) H 11/13/25 18:29
INR 3.60 11/13/25 18:29
APTT 57.6 Sec (23.4-35.0) H 11/13/25 09:31
Estimated Creat Clear 101 ml/min 11/18/25 07:44
Lactic Acid 1.2 mmol/L (0.7-2.0) 11/13/25 18:29
Total Bilirubin 0.8 mg/dl (0.2-1.3) 11/16/25 06:09
AST 21 U/L (17-59) 11/16/25 06:09
ALT 11 U/L (0-50) 11/16/25 06:09
Alkaline Phosphatase 54 U/L (38-126) 11/16/25 06:09
Most recent labs reviewed.
Micro Results:
11/13/25 09:31 Blood Culture - Final
Blood/Venous No Growth - Final Report
11/13/25 09:31 Blood Culture - Final
Blood/Venous No Growth - Final Report
11/17/25 10:13 Anaerobic Culture - Preliminary
Leg - Left Culture pending. Anaerobic cultures are examined after 3
days incubation. Additional information to follow.
11/17/25 10:13 Wound Culture - Preliminary
Leg - Left Gram negative bacilli
Gram Stain - Preliminary
11/13/25 09:31 Influenza Types A & B (GARIMA) - Final
Nasal Swab Negative for Influenza A & B, NAAT
Negative results must be combined with clinical observations
and patient history.
Nucleic Acid Amplification test (NAAT)performed on the
[employer] platform.
11/13/25 CTA abdomen:
1. Fluid collection within the soft tissues of the medial left calf, measuring 3.1 x 2.7 x 13.3 cm, with internal bubbles of air. This likely represents a postoperative hematoma or seroma. Infection of this collection should be excluded clinically.
2. No evidence of pseudoaneurysm formation.
3. Left lower extremity bypass graft is patent, without evidence of significant stenosis.
[2025-11-18 15:17] VITALS: BP 101/51
[2025-11-18 19:00] VITALS: BP 105/62
[2025-11-18] MEDS: ELIQUIS 5 MG PO (20:26)
[2025-11-18] MEDS: NEURONTIN 100 MG PO (21:44)
[2025-11-18 23:05] VITALS: BP 107/63
[2025-11-19] VITALS (7 sets, daily range): BP systolic 103–128; BP diastolic 58–74; PULSE 67–68; O2SAT 99
[2025-11-19] MEDS: STERILE WATER FOR INJECTION 10 ML IV ×3 (00:11→11:19)
[2025-11-19] MEDS: MAXIPIME 1000 MG IV ×3 (00:12→11:19)
[2025-11-19] MEDS: TYLENOL ORAL SOLUTION 650 MG PO ×2 (03:58→21:54)
[2025-11-19] MEDS: ASPIR LOW (ENTERIC COATED) 81 MG PO (07:57)
[2025-11-19] MEDS: DAKIN'S SOLUTION 0.125% 1/4 STRENGTH TOPICAL ×2 (07:58→19:54)
[2025-11-19] MEDS: ELIQUIS 5 MG PO ×2 (07:58→19:41)
[2025-11-19] MEDS: LOPRESSOR 25 MG PO (07:59)
[2025-11-19] MEDS: PROTONIX IV 40 MG IV ×2 (08:00→19:41)
[2025-11-19] MEDS: NSS (PRESERVATIVE FREE) 10 ML IV ×2 (08:00→19:41)
[2025-11-19] MEDS: HYDROPHOR 1 APPLIC TOPICAL (08:06)
--- NOTE | 2025-11-19 08:08 | WOUNDNOTE ---
WOC RN note: Confirmed with Isabell Suarez Vascular PA that the vascular service will be changing the patient's vac dressings today.
[2025-11-19 08:24] LABS: Hematocrit 26.4 % (39.0-52.0); Hemoglobin 8.4 g/dL (13.0-18.0); Mean Corp Hgb Conc. 31.8 g/dL (33.0-37.0); Mean Corpuscular Volume 95.3 fL (80.0-94.0); Platelet Count 277 10^3/uL (130-400); Red Cell Dist. Width 17.1 % (11.5-14.5)
[2025-11-19 09:27] LABS: Blood Urea Nitrogen 13 mg/dl (9-20); Calcium 8.4 mg/dl (8.4-10.2); Carbon Dioxide 22 mmol/L (22-30); Chloride 111 mmol/L (98-107); Estimated Creatinine Clearance 101 ml/min; Glucose 89 mg/dl (70-99); Potassium 3.6 mmol/L (3.5-5.1); Sodium 139 mmol/L (135-145); eGFR > 60.00
[2025-11-19] MEDS: ULTRAM 50 MG PO (11:09)
--- NOTE | 2025-11-19 11:26 | W.PN.ID1 ---
Date of Service
Date of Service: November 19, 2025
Today's Communication
Continue antibiotics. See below�
Assessment / Plan
Acute blood loss anemia
s/p EGD: gastritis, nonbleeding stomach and duodenal ulcers
Left lower extremity abscess; s/p washout 11/17/2025
Hypotension
Wound dehiscence left groin
P A-fib (on Xarelto)
Hx prostate CA with XRT
HTN
HLD
Diverticulitis
Umbilical hernia
Recommendations:
Blood cx's neg to date.
Patient remains afebrile
Culture of left calf wound drainage with Enterobacter cloacae
Transition to once daily or ertapenem given possibility of AmpC resistance. Would continue for an additional 10 days of antibiotics.
Monitor white count and temperature curve.
Monitor hemoglobin.
����������������������������������������������������������
Chief Complaint
-: Cellulitis and Other (Left calf collection)
Subjective / Review of Systems
Review of Systems: No Fever and No Chills
Vital Signs / Physical Exam
Vital Signs
Vital Signs
Temp Pulse Resp BP Pulse Ox
98.7 F 90 16 128/74 94
11/19/25 07:47 11/19/25 07:59 11/19/25 07:47 11/19/25 07:59 11/19/25 07:47
Physical Exam
Constitutional: No Acute Distress and Non-toxic
Eyes: Sclera Anicteric
Cardiovascular: S1/S2; Negative S3/S4
Pulmonary: Non Labored
Gastrointestinal: Soft and Non Tender
Extremities: Edema and Other (Left groin with VAC in place. Left medial calf area with VAC in place.)
Neurological: Awake and Alert
Psychological: Calm
Objective Data
Lab Data
Lab Results
11/19/25 07:49
11/19/25 07:49
PT 35.4 Sec (11.4-14.6) H 11/13/25 18:29
INR 3.60 11/13/25 18:29
APTT 57.6 Sec (23.4-35.0) H 11/13/25 09:31
Estimated Creat Clear 101 ml/min 11/19/25 07:49
Lactic Acid 1.2 mmol/L (0.7-2.0) 11/13/25 18:29
Total Bilirubin 0.8 mg/dl (0.2-1.3) 11/16/25 06:09
AST 21 U/L (17-59) 11/16/25 06:09
ALT 11 U/L (0-50) 11/16/25 06:09
Alkaline Phosphatase 54 U/L (38-126) 11/16/25 06:09
Most recent labs reviewed.
Micro Results:
11/17/25 10:13 Wound Culture - Preliminary
Leg - Left Enterobacter cloacae
Gram Stain - Preliminary
11/13/25 09:31 Blood Culture - Final
Blood/Venous No Growth - Final Report
11/13/25 09:31 Blood Culture - Final
Blood/Venous No Growth - Final Report
11/17/25 10:13 Anaerobic Culture - Preliminary
Leg - Left Culture pending. Anaerobic cultures are examined after 3
days incubation. Additional information to follow.
11/13/25 09:31 Influenza Types A & B (GARIMA) - Final
Nasal Swab Negative for Influenza A & B, NAAT
Negative results must be combined with clinical observations
and patient history.
Nucleic Acid Amplification test (NAAT)performed on the
[employer] platform.
Wound/abscess/other Cult Preliminary 11/19/25-18
Few Enterobacter cloacae
Organism 1 Enterobacter cloacae
1. Enterobacter cloacae
M.I.C. RX
--------- ---
Amoxicillin/Potas. Clavulanate >16/8 R
Ampicillin >16 R
Ampicillin/Sulbactam >16/8 R
Aztreonam <=4 S
Cefazolin >16 R
Cefepime <=2 S
Ceftazidime <=1 S
Ceftriaxone <=1 S
Ertapenem <=0.5 S
Ciprofloxacin <=0.25 S
Gentamicin <=2 S
Meropenem <=1 S
Piperacillin/Tazobactam <=8 S
Tetracycline <=4 S
Tobramycin <=2 S
Trimethoprim/Sulfamethoxazole <=2/38 S
11/13/25 CTA abdomen:
1. Fluid collection within the soft tissues of the medial left calf, measuring 3.1 x 2.7 x 13.3 cm, with internal bubbles of air. This likely represents a postoperative hematoma or seroma. Infection of this collection should be excluded clinically.
2. No evidence of pseudoaneurysm formation.
3. Left lower extremity bypass graft is patent, without evidence of significant stenosis.
--- NOTE | 2025-11-19 11:55 | VATNOTE ---
f/u right arm vanco infiltrate-appears noted area has resolved, pt continues with the aforementioned bruising and dependant edema near elbow b/l. pt denies discomfort. resting at this time.
--- NOTE | 2025-11-19 12:00 | W.PN.HOSP.TC ---
Today's Communication/Plan
-
see A/P
Assessment / Plan
Assessment / Plan
HPI: 85 year old male with PMH A-fib on Xarelto, hypertension, hyperlipidemia, GERD, cognitive impairment, critical limb ischemia s/p recent left common femoral endarterectomy with patch angioplasty and fem to below-knee pop artery bypass with vein
graft by Dr. Denise on 10/27/2025, who presented for [facility] for anemia, low grade temp and hypotension.
Levophed was started en route to the ED.
In the ED, his Hgb was noted to be low at 4.7 (from baseline 7-8).
Admission CT Angio:
1. Fluid collection within the soft tissues of the medial left calf, measuring 3.1 x 2.7 x 13.3 cm, with internal bubbles of air. This likely represents a postoperative hematoma or seroma. Infection of this collection should be excluded clinically.
2. No evidence of pseudoaneurysm formation.
3. Left lower extremity bypass graft is patent, without evidence of significant stenosis.
4. Bilateral peripheral arterial disease as above.
A/P:
# shock unclear type, hemorrhagic/hypovolemic vs septic (although felt less likely but could not rule out currently with history of 'low grade fever')
# Lactic acidosis POA due to shock state, resolved
Levophed weaned off on 11/14/[address] Angio was obtained in setting of recent left femoral endarterectomy on 10/27/25, showed fluid collection in medial calf, likely postoperative hematoma or seroma
Lactic acidosis at 4.7 on admission -> 1.2 with IVF
Blood cultures negative
wound culture from washout 11/17 grew Enterobacter
Abx Cefepime transitioned to once daily ertapenem per ID. Recc to treat for an additional 10 days of antibiotics.
Cont VEST TAILOR midodrine increase to TID (to help with BP for IV lasix)
ID on board
# Recent left common femoral endarterectomy for critical limb ischemia.
# Left lower extremity hematoma/seroma
# Wound dehiscence left groin
CT showed fluid collection of L calf.
s/p I/D and washout of left calf superficial wound infection with replacement of wound VAC 11/17
Ok to resume OAC per vascular
# Acute on chronic anemia, suspect multifactorial due to LLE hematoma and UGI bleeding
# esophagitis and ulcers in stomach
Hgb 4.7 on admission, from baseline 7-8, s/p 6 units PRBC transfusion,
Hgb now stable, today at 8.4 (small drop likely due to washout)
Iron panel suggest BENITO, IV iron x5 days then cont VEST TAILOR PO iron
s/p 2 units of FFP prior EGD
EGD showed esophagitis, ulcers in stomach
Transitioned PPI drip to IV PPI 40 mg BID, continue PPI 40 mg BID after discharge
Advanced diet to regular solid diet
Restarted daily Aspirin. OK to resume OAC per GI
Patient will need eventual repeat EGD in 3 months as outpatient (to reassess healing of gastric ulcers and larger duodenal ulcer)
# paroxysmal atrial fibrillation with RVR
resume VEST TAILOR Lopressor, change back to 12.5 mg BID to give BP room for IV lasix
discussed with Card Dr Cota, can try Eliquis and recc [address] of VEST TAILOR Xarelto (hopefully can reduced bleeding risk)
Card on board
# BL LE edema
restart lasix, IV 20 mg x1 today, then 40 mg IV daily
Monitor edema and weight
# HLD
Continue statin
Code: Full
DVT: Eliquis 5 mg BID
Dispo: PT OT recc SNF
DW RN
DW and daughter at bedside
total time 51 min
Anticipated Discharge: > 48 hours
Subjective/Interval History
-
Date of Service: November 19, 2025
Objective Data
-
Labs:
Laboratory Results
11/19/25
07:49
WBC 5.9
Hgb 8.4 L
Hct 26.4 L
Plt Count 277
Sodium 139
Potassium 3.6
Chloride 111 H
Carbon Dioxide 22
BUN 13
Creatinine 0.6 L
Glucose 89
Calcium 8.4
Vital Signs:
Vital Signs
Temp Pulse Resp BP Pulse Ox
36.6 C 80 18 104/58 97
11/19/25 11:35 11/19/25 11:35 11/19/25 11:35 11/19/25 11:35 11/19/25 11:35
I&O
11/18/25 11/19/25 11/20/25
06:59 06:59 06:59
Intake Total 120 / 120 420 / 420
Output Total 650 / 650 500 / 500
Balance -530 / -530 -80 / -80
Review of Systems
-
History Source: Patient
Musculoskeletal: Reports Other (heavy legs)
Physical Exam
-
General: Well Developed, Well Nourished, No Apparent Distress, Comfortable, Conversant and Appears Chronically Ill
HEENT: Normocephalic; Negative Oxygen (weaned off )
Respiratory: Clear to Auscultation and Non Labored Respirations; Negative Accessory Resp Muscle Use
Cardiac: S1/S2 and Irregular Rhythm
GI: Soft, Nontender, Nondistended and Normal Bowel Sounds
Musculoskeletal: Edema, Right Lower Extrem and Edema, Left Lower Extrem
Skin: Lesions (see wound care note) and Other (Wound vac to L leg)
Neuro: Awake and Alert
Psych: Calm and Intact Judgement/Insight (somewhat)
Data Reviewed
-
Labs: Labs Reviewed by me
--- NOTE | 2025-11-19 12:48 | W.PN.VS ---
Today's Communication / Plan
-
Discussed with Dr. Denise
Assessment/Plan
-
Pt admitted for GI bleed
s/p LLE bypass, POD #2 Incision and drainage and washout of left calf superficial wound infection. Placement of wound VAC left below the knee superficial wound.
Plan:
Continue wound VAC, wound care nursing consulted
Continue compression to left lower extremity via Piter wrap
Okay for discharge from vascular standpoint, I will left follow-up to the chart
Subjective Data
-
Date of Service: November 19, 2025
Patient seen at bedside this a.m. Patient offers no calyculus time. No events overnight. VAC intact.
Left calf
15.5 x 4.5x 1.5
Left groin
Measurements: 8x3x0
Objective Data
-
Vital Signs
Temp Pulse Resp BP Pulse Ox
97.8 F 80 18 104/58 97
11/19/25 11:35 11/19/25 11:35 11/19/25 11:35 11/19/25 11:35 11/19/25 11:35
Intake and Output
11/18/25 11/19/25 11/20/25
06:59 06:59 06:59
Intake Total 120 / 120 420 / 420
Output Total 650 / 650 500 / 500
Balance -530 / -530 -80 / -80
Intake:
Oral fluids 120 / 120 420 / 420
Output:
Urine, Voided 650 / 650 500 / 500
Lab Results
11/19/25 07:49
11/19/25 07:49
Calcium 8.4 mg/dl (8.4-10.2) 11/19/25 07:49
Phosphorus 3.1 mg/dl (2.5-4.5) 11/13/25 18:29
Magnesium 2.3 mg/dl (1.6-2.3) 11/17/25 05:31
Total Bilirubin 0.8 mg/dl (0.2-1.3) 11/16/25 06:09
AST 21 U/L (17-59) 11/16/25 06:09
ALT 11 U/L (0-50) 11/16/25 06:09
Alkaline Phosphatase 54 U/L (38-126) 11/16/25 06:09
Total Protein 5.2 g/dl (6.3-8.2) L 11/16/25 06:09
Albumin 2.7 g/dl (3.5-5.0) L 11/16/25 06:09
Physical Exam
-
AAOx3
No tachypnea on NC
No tachycardia
Abd soft
Groin and left lower extremity calf VAC sites clean, dry, and intact-removed at bedside see images-reapplied
+3 pitting edema to the left leg
--- NOTE | 2025-11-19 12:53 | WOUNDNOTE ---
[facility] RN Note: Vascular WELL FLOW OPERATOR's Isabell and Tran changed patient's L groin and L calf vac dressings. L heel ulcer pink stage 2, foam dressing changed. L medial ankle foam dressing changed by DENNIS Mayfield. Sacral skin blanchable mild red and intact. Sacral
shaped silicone border foam changed. Patient turned to L semi side lying position with help from WELL FLOW OPERATOR Isabell. Heels off bed with pillow. Air chair cushion in chair. Patient is on a [employer] Air bed. Nursing to remove vac dressing on day of transfer to
SNF and SNF will apply their vac dressing. DENNIS Mayfield stated if L groin vac dressing looses it's suction and cannot be corrected, nursing can remove L groin vac and apply daily saline moistened gauze until Monday's vac dressing change day. Tran
reports L groin wound is small. Updated RN Sabrina.
[2025-11-19] MEDS: INVANZ 60 MG IV (12:55)
[2025-11-19] MEDS: LASIX 20 MG IV (12:58)
--- NOTE | 2025-11-19 14:26 | WOUNDNOTE ---
[facility] RN note: Updated ROSEMARIE Thakkar and updated the discharge wound care instructions re: Wound vac therapy L groin and L calf wounds Y-connected to 1 vac pump.
--- NOTE | 2025-11-19 17:06 | CM ---
[facility] has an available bed for patient on 11/21/25 if he is ready for d/c. Request for SNF authorization has been submitted to [employer]. Authorization pending.
[facility] reference # for pending auth #- [id number]
Plan: [facility] when stable
[2025-11-19] MEDS: FEOSOL 325 MG PO (19:41)
[2025-11-19] MEDS: LOPRESSOR 12.5 MG PO (19:42)
[2025-11-19] MEDS: NEURONTIN 100 MG PO (21:54)
[2025-11-20 03:09] VITALS: BP 113/61
[2025-11-20] MEDS: TYLENOL ORAL SOLUTION 650 MG PO (04:22)
[2025-11-20 08:10] VITALS: BP 141/80
[2025-11-20] MEDS: ELIQUIS 5 MG PO ×2 (08:16→20:08)
[2025-11-20] MEDS: ASPIR LOW (ENTERIC COATED) 81 MG PO (08:16)
[2025-11-20] MEDS: LOPRESSOR 12.5 MG PO ×2 (08:18→20:07)
[2025-11-20] MEDS: PROTONIX IV 40 MG IV ×2 (08:19→20:08)
[2025-11-20] MEDS: NSS (PRESERVATIVE FREE) 10 ML IV ×2 (08:19→20:08)
[2025-11-20] MEDS: LASIX 40 MG IV (08:19)
[2025-11-20] MEDS: DAKIN'S SOLUTION 0.125% 1/4 STRENGTH TOPICAL ×2 (08:20→20:28)
[2025-11-20 08:21] LABS: Hematocrit 26.5 % (39.0-52.0); Hemoglobin 8.5 g/dL (13.0-18.0); Mean Corp Hgb Conc. 32.1 g/dL (33.0-37.0); Mean Corpuscular Volume 94.3 fL (80.0-94.0); Platelet Count 278 10^3/uL (130-400); Red Cell Dist. Width 17.0 % (11.5-14.5)
[2025-11-20] MEDS: HYDROPHOR 1 APPLIC TOPICAL (08:28)
[2025-11-20 08:32] LABS: Blood Urea Nitrogen 11 mg/dl (9-20); Calcium 8.4 mg/dl (8.4-10.2); Carbon Dioxide 25 mmol/L (22-30); Chloride 110 mmol/L (98-107); Estimated Creatinine Clearance 101 ml/min; Glucose 91 mg/dl (70-99); Magnesium 2.2 mg/dl (1.6-2.3); Potassium 3.6 mmol/L (3.5-5.1); Sodium 138 mmol/L (135-145); eGFR > 60.00
--- NOTE | 2025-11-20 10:28 | W.PN.HOSP.TC ---
Today's Communication/Plan
-
see A/P
Assessment / Plan
Assessment / Plan
HPI: 85 year old male with PMH A-fib on Xarelto, hypertension, hyperlipidemia, GERD, cognitive impairment, critical limb ischemia s/p recent left common femoral endarterectomy with patch angioplasty and fem to below-knee pop artery bypass with vein
graft by Dr. Denise on 10/27/2025, who presented for [facility] for anemia, low grade temp and hypotension.
Levophed was started en route to the ED.
In the ED, his Hgb was noted to be low at 4.7 (from baseline 7-8).
Admission CT Angio:
1. Fluid collection within the soft tissues of the medial left calf, measuring 3.1 x 2.7 x 13.3 cm, with internal bubbles of air. This likely represents a postoperative hematoma or seroma. Infection of this collection should be excluded clinically.
2. No evidence of pseudoaneurysm formation.
3. Left lower extremity bypass graft is patent, without evidence of significant stenosis.
4. Bilateral peripheral arterial disease as above.
A/P:
# shock unclear type, hemorrhagic/hypovolemic vs septic (although felt less likely but could not rule out currently with history of 'low grade fever')
# Lactic acidosis POA due to shock state, resolved
Levophed weaned off on 11/14/[address] Angio was obtained in setting of recent left femoral endarterectomy on 10/27/25, showed fluid collection in medial calf, likely postoperative hematoma or seroma
Lactic acidosis at 4.7 on admission -> 1.2 with IVF
Blood cultures negative
Wound culture from washout 11/17 grew Enterobacter
Abx Cefepime transitioned to once daily ertapenem per ID. Recc to treat for an additional 10 days of antibiotics.
Cont REGISTERED DENTAL HYGIENIST midodrine increased to TID (to help with BP for IV lasix)
ID on board
# Diarrhea, possibly related to Abx SE
Can check C diff given he's been on Abx for several days and Norovirus
# Recent left common femoral endarterectomy for critical limb ischemia.
# Left lower extremity hematoma/seroma
# Wound dehiscence left groin
CT showed fluid collection of L calf.
s/p I/D and washout of left calf superficial wound infection with replacement of wound VAC 11/17
Ok to resume OAC per vascular
# Acute on chronic anemia, suspect multifactorial due to LLE hematoma and UGI bleeding
# esophagitis and ulcers in stomach
Hgb 4.7 on admission, from baseline 7-8, s/p 6 units PRBC transfusion,
Hgb now stable, today at 8.5 (small drop likely due to washout)
Iron panel suggest BENITO, IV iron x5 days then cont REGISTERED DENTAL HYGIENIST PO iron
s/p 2 units of FFP prior EGD
EGD showed esophagitis, ulcers in stomach
Transitioned PPI drip to IV PPI 40 mg BID, continue PPI 40 mg BID after discharge
Advanced diet to regular solid diet
Restarted daily Aspirin. OK to resume OAC per GI
Patient will need eventual repeat EGD in 3 months as outpatient (to reassess healing of gastric ulcers and larger duodenal ulcer)
# paroxysmal atrial fibrillation with RVR
resume REGISTERED DENTAL HYGIENIST Lopressor, changed back to 12.5 mg BID to give BP room for IV lasix
discussed with Card Dr Cota, can try Eliquis and recc [address] of REGISTERED DENTAL HYGIENIST Xarelto (hopefully can reduced bleeding risk)
Card on board
# BL LE edema
Cont lasix IV 40 mg daily
Monitor BL LE edema and daily weight
# HLD
Continue statin
Code: Full
DVT: Eliquis 5 mg BID
Dispo: PT OT recc SNF
DW RN
Anticipated Discharge: > 48 hours
Subjective/Interval History
-
Date of Service: November 20, 2025
Objective Data
-
Labs:
Laboratory Results
11/20/25
07:57
WBC 5.8
Hgb 8.5 L
Hct 26.5 L
Plt Count 278
Sodium 138
Potassium 3.6
Chloride 110 H
Carbon Dioxide 25
BUN 11
Creatinine 0.5 L
Glucose 91
Calcium 8.4
Vital Signs:
Vital Signs
Temp Pulse Resp BP Pulse Ox
36.6 C 96 18 141/80 96
11/20/25 08:10 11/20/25 08:19 11/20/25 08:10 11/20/25 08:19 11/20/25 08:10
I&O
11/19/25 11/20/25 11/21/25
06:59 06:59 06:59
Intake Total 420 / 420 390 / 390
Output Total 500 / 500 2000 / 2000
Balance -80 / -80 -1610 / -1610
Review of Systems
-
History Source: Patient
Abdomen/GI: Reports Diarrhea
Physical Exam
-
General: Well Developed, Well Nourished, No Apparent Distress, Comfortable, Conversant and Appears Chronically Ill
HEENT: Normocephalic; Negative Oxygen (weaned off )
Respiratory: Clear to Auscultation and Non Labored Respirations; Negative Accessory Resp Muscle Use
Cardiac: S1/S2 and Irregular Rhythm
GI: Soft, Nontender, Nondistended and Normal Bowel Sounds
Musculoskeletal: Edema, Right Lower Extrem (improved ) and Edema, Left Lower Extrem (improved )
Skin: Lesions (see wound care note) and Other (Wound vac to L leg)
Neuro: Awake and Alert
Psych: Calm and Intact Judgement/Insight (somewhat)
Data Reviewed
-
Labs: Labs Reviewed by me
[2025-11-20 11:25] VITALS: BP 112/70
[2025-11-20] MEDS: INVANZ 60 MG IV (11:30)
[2025-11-20] MEDS: KCL ELIXIR 40 MEQ PO (12:19)
[2025-11-20 14:44] VITALS: BP 105/60
[2025-11-20 19:09] VITALS: BP 121/56
[2025-11-20] MEDS: NEURONTIN 100 MG PO (22:04)
[2025-11-20 22:16] VITALS: BP 121/59
[2025-11-21] MEDS: TYLENOL ORAL SOLUTION 650 MG PO ×2 (03:38→10:01)
[2025-11-21] MEDS: ULTRAM 50 MG PO (06:15)
[2025-11-21 07:11] VITALS: BP 127/72
[2025-11-21 08:28] LABS: Hematocrit 27.4 % (39.0-52.0); Hemoglobin 8.7 g/dL (13.0-18.0); Mean Corp Hgb Conc. 31.8 g/dL (33.0-37.0); Mean Corpuscular Volume 93.8 fL (80.0-94.0); Platelet Count 295 10^3/uL (130-400); Red Cell Dist. Width 16.6 % (11.5-14.5)
--- NOTE | 2025-11-21 08:46 | CM ---
Addendum entered by Tyesha Thakkar 11/21/25 10:46:
Patient for discharge to [facility]. Please call report to [phone]/fax [phone]. Laura aware of plan and ambulance transportation. Patient for Wound Vac today at SNF. CM will continue to follow for discharge planning needs.
Addendum entered by Tyesha Thakkar 11/21/25 08:57:
CM called to confirm with director of social media marketing Marleni [phone] bed availability. Ambulance transportation forms on chart. Patient will need IMM when . CM will leave VM for patient family to confirm plan and will continue to follow for discharge planning
needs.
Plan; transfer to [facility] poss monday pending physician assessment
Please call report to [phone]/fax [phone]
Addendum entered by Tyesha Thakkar 11/21/25 08:50:
#[id number]
Original Note:
Auth approved in availity. Cm will call to facility and update physician. #[id number] 7 days 11/21-11/27/25. Patient pending physician assessment. CM will continue to follow for discharge planning needs.
Plan; SNF when medically appropriate.
[2025-11-21 08:49] LABS: Blood Urea Nitrogen 10 mg/dl (9-20); Calcium 8.5 mg/dl (8.4-10.2); Carbon Dioxide 27 mmol/L (22-30); Chloride 108 mmol/L (98-107); Estimated Creatinine Clearance 101 ml/min; Glucose 92 mg/dl (70-99); Potassium 3.7 mmol/L (3.5-5.1); Sodium 137 mmol/L (135-145); eGFR > 60.00
[2025-11-21 09:08] VITALS: BMI 29.9
[2025-11-21] MEDS: ELIQUIS 5 MG PO (09:49)
[2025-11-21] MEDS: ASPIR LOW (ENTERIC COATED) 81 MG PO (09:49)
[2025-11-21] MEDS: LOPRESSOR 12.5 MG PO (09:50)
[2025-11-21] MEDS: LASIX 40 MG IV (09:51)
[2025-11-21] MEDS: DAKIN'S SOLUTION 0.125% 1/4 STRENGTH TOPICAL (09:53)
[2025-11-21] MEDS: NSS (PRESERVATIVE FREE) 10 ML IV (09:53)
[2025-11-21] MEDS: PROTONIX IV 40 MG IV (09:53)
[2025-11-21] MEDS: HYDROPHOR 1 APPLIC TOPICAL (09:56)
--- NOTE | 2025-11-21 10:07 | W.PN.HOSP.TC ---
Today's Communication/Plan
-
dispo planning
Assessment / Plan
Assessment / Plan
HPI: 85 year old male with PMH A-fib on Xarelto, hypertension, hyperlipidemia, GERD, cognitive impairment, critical limb ischemia s/p recent left common femoral endarterectomy with patch angioplasty and fem to below-knee pop artery bypass with vein
graft by Dr. Denise on 10/27/2025, who presented for [facility] for anemia, low grade temp and hypotension.
Levophed was started en route to the ED.
In the ED, his Hgb was noted to be low at 4.7 (from baseline 7-8).
Admission CT Angio:
1. Fluid collection within the soft tissues of the medial left calf, measuring 3.1 x 2.7 x 13.3 cm, with internal bubbles of air. This likely represents a postoperative hematoma or seroma. Infection of this collection should be excluded clinically.
2. No evidence of pseudoaneurysm formation.
3. Left lower extremity bypass graft is patent, without evidence of significant stenosis.
4. Bilateral peripheral arterial disease as above.
A/P:
# shock unclear type, hemorrhagic/hypovolemic vs septic (although felt less likely but could not rule out currently with history of 'low grade fever')
# Lactic acidosis POA due to shock state, resolved
Levophed weaned off on 11/14/[address] Angio was obtained in setting of recent left femoral endarterectomy on 10/27/25, showed fluid collection in medial calf, likely postoperative hematoma or seroma
Lactic acidosis at 4.7 on admission -> 1.2 with IVF
Blood cultures negative
Wound culture from washout 11/17 grew Enterobacter
Abx Cefepime transitioned to once daily ertapenem per ID. Recc to treat for an additional 10 days of antibiotic per ID.
Cont CLIENT ACCOUNT MANAGER midodrine increased to TID (to help with BP for IV lasix)
ID on board
# Diarrhea, related to Abx SE
C diff /Norovirus negative
# Recent left common femoral endarterectomy for critical limb ischemia.
# Left lower extremity hematoma/seroma
# Wound dehiscence left groin
CT showed fluid collection of L calf.
s/p I/D and washout of left calf superficial wound infection with replacement of wound VAC 11/17
# Acute on chronic anemia, suspect multifactorial due to LLE hematoma and UGI bleeding
# esophagitis and ulcers in stomach
Hgb 4.7 on admission, from baseline 7-8, s/p 6 units PRBC transfusion,
Hgb now stable, today at 8.7
Iron panel suggest BENITO, IV iron x5 days then cont CLIENT ACCOUNT MANAGER PO iron
s/p 2 units of FFP prior EGD
EGD showed esophagitis, ulcers in stomach
Transitioned PPI drip to IV PPI 40 mg BID, continue PPI 40 mg BID after discharge
Advanced diet to regular solid diet
Restarted daily Aspirin. OK to resume OAC per GI
Patient will need eventual repeat EGD in 3 months as outpatient (to reassess healing of gastric ulcers and larger duodenal ulcer)
# paroxysmal atrial fibrillation with RVR
resume CLIENT ACCOUNT MANAGER Lopressor, changed back to 12.5 mg BID to give BP room for IV lasix
discussed with Card Dr Cota, can try Eliquis and recc [address] of CLIENT ACCOUNT MANAGER Xarelto (hopefully can reduced bleeding risk)
Card on board
# BL LE edema
s/p IV lasix 40 mg daily -> back to home dose PO 40 mg daily
BL LE edema improving
# HLD
Continue statin
Code: Full
DVT: Eliquis 5 mg BID
Dispo: PT OT recc SNF
DW ID
DW daughter at bedside and another daughter on the phone
DW RN
DW CM
Anticipated Discharge: Within 24 hours
Subjective/Interval History
-
Date of Service: November 21, 2025
Objective Data
-
Labs:
Laboratory Results
11/21/25
07:48
WBC 5.7
Hgb 8.7 L
Hct 27.4 L
Plt Count 295
Sodium 137
Potassium 3.7
Chloride 108 H
Carbon Dioxide 27
BUN 10
Creatinine 0.5 L
Glucose 92
Calcium 8.5
Vital Signs:
Vital Signs
Temp Pulse Resp BP Pulse Ox
36.6 C 104 18 127/72 93
11/21/25 07:11 11/21/25 09:51 11/21/25 07:11 11/21/25 09:51 11/21/25 07:11
I&O
11/20/25 11/21/25 11/22/25
06:59 06:59 06:59
Intake Total 390 / 390 750 / 750
Output Total 1999 / 1999 3200 / 3200
Balance -1610 / -1610 -2450 / -2450
Review of Systems
-
History Source: Patient
Abdomen/GI: Reports Diarrhea
Physical Exam
-
General: Well Developed, Well Nourished, No Apparent Distress, Comfortable, Conversant and Appears Chronically Ill
HEENT: Normocephalic; Negative Oxygen (weaned off )
Respiratory: Clear to Auscultation and Non Labored Respirations; Negative Accessory Resp Muscle Use
Cardiac: S1/S2 and Irregular Rhythm
GI: Soft, Nontender, Nondistended and Normal Bowel Sounds
Musculoskeletal: Edema, Right Lower Extrem (improved ) and Edema, Left Lower Extrem (improved )
Skin: Lesions (see wound care note) and Other (Wound vac to L leg)
Neuro: Awake and Alert
Psych: Calm and Intact Judgement/Insight (somewhat)
Data Reviewed
-
Labs: Labs Reviewed by me
--- NOTE | 2025-11-21 10:21 | W.PN.ID1 ---
Date of Service
Date of Service: November 21, 2025
Today's Communication
Continue antibiotics. See below�
Assessment / Plan
Acute blood loss anemia
s/p EGD: gastritis, nonbleeding stomach and duodenal ulcers
Left lower extremity (medial upper calf area) abscess; s/p washout 11/17/2025
- Cultures with Enterobacter cloacae
Hypotension
Wound dehiscence left groin
P A-fib (on Xarelto)
Hx prostate CA with XRT
HTN
HLD
Diverticulitis
Umbilical hernia
Recommendations:
Blood cx's neg to date.
Patient remains afebrile
Culture of left calf wound drainage with Enterobacter cloacae
Continue ertapenem in the treatment of recovered Enterobacter cloacae (possible AmpC resistance). Would continue for an additional 8 days of antibiotics.
SNF IV sheet completed and placed on paper chart.
����������������������������������������������������������
Chief Complaint
-: Cellulitis and Other (Left calf collection)
Subjective / Review of Systems
Review of Systems: No Fever and No Chills
Vital Signs / Physical Exam
Vital Signs
Vital Signs
Temp Pulse Resp BP Pulse Ox
97.9 F 104 18 127/72 93
11/21/25 07:11 11/21/25 09:51 11/21/25 07:11 11/21/25 09:51 11/21/25 07:11
Physical Exam
Constitutional: No Acute Distress and Non-toxic
Eyes: Sclera Anicteric
Cardiovascular: S1/S2; Negative S3/S4
Pulmonary: Non Labored
Gastrointestinal: Soft, Non Tender and Other (FMS in place)
Extremities: Edema (Bilateral lower extremities) and Other (Left groin with VAC in place. Left medial calf area with VAC in place.)
Skin: Negative Rash or Jaundice
Neurological: Awake and Alert
Psychological: Calm
Objective Data
Lab Data
Lab Results
11/21/25 07:48
11/21/25 07:48
PT 35.4 Sec (11.4-14.6) H 11/13/25 18:29
INR 3.60 11/13/25 18:29
APTT 57.6 Sec (23.4-35.0) H 11/13/25 09:31
Estimated Creat Clear 101 ml/min 11/21/25 07:48
Lactic Acid 1.2 mmol/L (0.7-2.0) 11/13/25 18:29
Total Bilirubin 0.8 mg/dl (0.2-1.3) 11/16/25 06:09
AST 21 U/L (17-59) 11/16/25 06:09
ALT 11 U/L (0-50) 11/16/25 06:09
Alkaline Phosphatase 54 U/L (38-126) 11/16/25 06:09
Most recent labs reviewed.
Micro Results:
11/20/25 12:28 C. difficile GDH Antigen & Toxins - Final
Feces/Stool Negative for toxigenic C.difficile
Norovirus (PCR) - Final
Negative for Norovirus GI and GII.
11/17/25 10:13 Anaerobic Culture - Preliminary
Leg - Left Culture pending. Anaerobic cultures are examined after 3
days incubation. Additional information to follow.
11/17/25 10:13 Wound Culture - Preliminary
Leg - Left Enterobacter cloacae
Gram Stain - Preliminary
11/13/25 09:31 Blood Culture - Final
Blood/Venous No Growth - Final Report
11/13/25 09:31 Blood Culture - Final
Blood/Venous No Growth - Final Report
11/13/25 09:31 Influenza Types A & B (GARIMA) - Final
Nasal Swab Negative for Influenza A & B, NAAT
Negative results must be combined with clinical observations
and patient history.
Nucleic Acid Amplification test (NAAT)performed on the
[employer] ID NOW platform.
Wound/abscess/other Cult Preliminary 11/19/25-917
Few Enterobacter cloacae
Organism 1 Enterobacter cloacae
1. Enterobacter cloacae
M.I.C. RX
--------- ---
Amoxicillin/Potas. Clavulanate >16/8 R
Ampicillin >16 R
Ampicillin/Sulbactam >16/8 R
Aztreonam <=4 S
Cefazolin >16 R
Cefepime <=2 S
Ceftazidime <=1 S
Ceftriaxone <=1 S
Ertapenem <=0.5 S
Ciprofloxacin <=0.25 S
Gentamicin <=2 S
Meropenem <=1 S
Piperacillin/Tazobactam <=8 S
Tetracycline <=4 S
Tobramycin <=2 S
Trimethoprim/Sulfamethoxazole <=2/38 S
11/13/25 CTA abdomen: Fluid collection within the soft tissues of the medial left calf, measuring 3.1 x 2.7 x 13.3 cm, with internal bubbles of air. This likely represents a postoperative hematoma or seroma. Infection of this collection should be
excluded clinically. No evidence of pseudoaneurysm formation. Left lower extremity bypass graft is patent, without evidence of significant stenosis.
Care Review
Plan reviewed with: Physician (Hospitalist)
--- NOTE | 2025-11-21 11:25 | WOUNDNOTE ---
[facility] RN note: Patient for transfer to [facility] today. Tyesha Thakkar from confirmed [facility] has wound vac equipment. t/c Spoke with RN Sabrina who will remove L groin and LLE vac dressings, apply saline moistened gauze dressings for transfer and SNF will
apply their vac equipment. Sabrina plans to send the Y connector to SNF if needed.
[2025-11-21] MEDS: IMODIUM 2 MG PO (11:29)
[2025-11-21] MEDS: INVANZ 60 MG IV (11:30)
--- NOTE | 2025-11-21 12:00 | WOUNDNOTE ---
[facility] RN note: t/c [facility] and spoke with nurse blending supervisor bAdullahi who stated they are receiving their negative pressure wound therapy equipment today including Y connectors for the 2 wounds. Abdullahi also stated they have an air mattress for him.
--- NOTE | 2025-11-21 12:02 | CM ---
Patient family anxious about transfer to [facility]. CM communicated re concerns with Nadeem [phone] and Marleni [phone] physician aware of patient family concerns. Daughter to call nurse online community manager at facility. CM awaiting time of ambulance transfer.
CM will continue to follow for discharge planning needs.
Plan; transfer to SNF
--- NOTE | 2025-11-21 12:32 | WOUNDNOTE ---
LEFT MEDIAL ANKLE
--- NOTE | 2025-11-21 12:32 | WOUNDNOTE ---
WOC RN NOTE: Patient visited to assess heels prior to discharge. Left heel stage 3 PI progressing toward healing equipment cleaner and tester wound bed. Left medial ankle wound appears scabbed. Will update orders to clean and apply silicone foam to heels and medial
ankle 3x week. Right heel intact. Air cushion placed under calves to off-load heels. Patient remains on static air overlay which was properly inflated. Patient for discharge to SNF today.
--- NOTE | 2025-11-21 13:00 | WOUNDNOTE ---
WO RN note: t/c Confirmed with [facility] nurse embroidery supervisor Abdullahi that they do not use fecal management systems. Abdullahi requested physician to order a probiotic (i.e. Florastor). Updated RN Sabrina and Dr. Maria via [employer] text (included Tyesha Thakkar and
Tran Farrell NP on tiger text). Sabrina aware to remove patient's FMS prior to transfer and Dr. Maria responded she will order a probiotic for patient.
[2025-11-21] MEDS: VISBIOME 1 CAP PO (13:14)
--- NOTE | 2025-11-21 15:01 | W.DCSUMMARY ---
Discharge Summary
Discharge Data
Date of Admission: 11/13/25
Date of Discharge: 11/21/25
Total time spent discharging patient (in min): 40
-
Pending Results: No
Hospital Course
Principal Diagnosis:
Shock unclear type, hemorrhagic/hypovolemic vs septic with infected left calf seroma.
Left lower extremity hematoma/seroma and wound dehiscence left groin, in setting of Recent left common femoral endarterectomy for critical limb ischemia.
Acute on chronic anemia, suspect multifactorial due to LLE hematoma and UGI bleeding with esophagitis and ulcers in stomach
Chronic Diagnoses:�
Recent left common femoral endarterectomy for critical limb ischemia 10/27/2025
Paroxysmal atrial fibrillation
HLD
Hypertension
GERD
Consultations:�
[facility]
Gastroenterology
Vascular surgery
Infectious disease
Cardiology
Wound care
Procedures:�
EGD showed esophagitis, ulcers in stomach
s/p I/D and washout of left calf superficial wound infection with replacement of wound VAC 11/17/25
Clinical course:�
This is a 85 year old male with PMH as stated above, who presented to the hospital from [facility] for hypotension and low-grade fever.
He was found to be in shock state, and was admitted to the ICU initially.
Problem 1:
Shock unclear type, hemorrhagic/hypovolemic vs septic with infected left calf seroma.
The patient initially received Levophed for BP support which was subsequently weaned off.
Due to recent left femoral endarterectomy, CT angio was obtained on admission, which showed fluid collection in medial calf, likely postoperative hematoma or seroma.
He underwent I/D and washout of his left calf with replacement of wound VAC 11/17/25.
Wound culture from washout 11/17 grew Enterobacter.
The patient had been receiving IV antibiotic including cefepime, which was transitioned to once daily ertapenem per ID.
He was discharged with IV antibiotic ertapenem to continue for 8 more days at SNF.
He can continue with prior to admission midodrine for BP support.
Of note, the patient experienced diarrhea due to antibiotic side effect.
C. difficile and norovirus were ruled out.
Unfortunately he cannot continue fecal management system at SNF, hence loperamide as needed was added.
Probiotic was also added.
Problem 2:
Acute on chronic anemia, suspect multifactorial due to LLE hematoma and UGI bleeding with esophagitis and ulcers in stomach.
His Hgb was at 4.7 on admission (from baseline 7-8). He had received a total of 6 units PRBC transfusion during this hospitalization.
His hemoglobin has subsequently been stable, and was at 8.7 on the day of discharge.
His iron panel also suggested BENITO, and he received IV iron x5 days while in the hospital. He can continue with oral iron supplement following discharge.
The patient underwent EGD (received 2 units of FFP prior to EGD), which showed esophagitis and ulcers in stomach.
He was treated with Protonix drip, which was changed to IV PPI 40 mg BID. He can continue PPI 40 mg BID after discharge.
The patient was cleared by both GI and vascular surgery to restart anticoagulation.
Following discussion with his doorperson or luggage porter, it was decided that we could use Eliquis 5 [address] twice daily in place of prior to admission Xarelto, to see if this would decrease his risk of recurrent bleeding.
As for the rest of his medical problems, they were stable during his hospital stay.
Discharge Plan
-
Patient Disposition: Detention/SNF
Discharge Diagnosis/Procedures: shock unclear type (hemorrhagic/hypovolemic vs septic);
Left lower extremity hematoma/seroma with wound dehiscence left groin, in setting of recent left common femoral endarterectomy for critical limb ischemia;
Wound culture from washout 11/17 grew Enterobacter;
Diarrhea, possibly related to Abx SE;
Acute on chronic anemia with EGD showing esophagitis and ulcers in stomach
Condition: Fair
Diet: As tolerated, Low Fat and Low Cholesterol
Activity: As tolerated
Driving Restrictions: Not until seen by your Dr
Wound Care: Wound Care Instructions
L groin and L medial calf wounds-Negative pressure wound vac therapy, use black foam, Change every 48 - 72 hours (i. e. [id number]) and prn if unable to obtain a seal. Low Intensity, Continuous at 125 mmHg. (Use Y connector to
connect 2 vac dressings to vac pump). Upon discharge or transfer to another facility, remove VAC foam and apply NS moistened gauze dressing unless home VAC unit available.
Left heel and L medial ankle ulcer - Clean with normal saline, apply silicone border foam. Change 3 times a week and as needed for drainage.
Air mattress
Elevate heels off bed with pillows.
Pressure redistributing chair cushion (i.e. Air, Roho).
Follow up with vascular surgeon.
Activity Restrictions/Additional Instructions:
Bilateral thigh high Piter wraps; rewrap daily.
Referrals:
Aleksey Li, [Active, Gastroenterology] - in one to two months
Referral Note: Follow-up with Dr. Li in 6-8 weeks
UNKNOWN,NO INTERVIEW [Family Provider] - in less than 1 week
Anay Malone CRNP [Specified Professional Personl, Vascular Surgery] - 12/04/25 10:45 am
Additional Discharge Medication Instructions: Your Xarelto has been changed to Eliquis 5 mg twice daily.
Continue IV antibiotic Ertapenum.
Continue PPI 40 mg BID after discharge, until further directed by the GI doctor.
Prescriptions:
New
Eliquis 5 mg Tablet
5 mg PO BID Qty: 60 0RF
Ertapenem [Invanz] 1000 MG
0.9% Sodium Chloride [Nss] 50 ML
120 mls/hr IV Q24H
Ordered By: Linda Maria MD
Last Taken: 11/21/25 11:30 60 mls
pantoprazole [Protonix] 40 mg tablet,delayed release (DR/EC)
40 mg PO BID Qty: 60 0RF
loperamide 2 mg tablet
2 mg PO Q6H PRN (Reason: loose stool) Qty: 7 0RF
Probiotic 15 billion cell capsule, sprinkle
1 cap PO DAILY Qty: 30 0RF
miconazole nitrate 2 % powder
1 applic topical DAILY Qty: 85 0RF
Rx Instructions:
for yeast rash around L groin wound with each dressing change
Continued
pravastatin 40 MG tablet
40 mg PO HS
cholecalciferol (vitamin D3) 2,000 UNITS tablet
2,000 unit PO DAILY
cyanocobalamin (vitamin B-12) 1,000 mcg tablet
1,000 mcg PO DAILY
ferrous sulfate [FeroSul] 325 mg (65 mg iron) tablet
325 mg PO Q48H
midodrine 2.5 mg Tablet
5 mg PO BID
Aquaphor Healing 41 % ointment
1 applic topical DAILY
furosemide [Lasix] 40 mg tablet
40 mg PO DAILY
aspirin 81 mg tablet,chewable
81 mg PO DAILY
gabapentin 100 mg capsule
100 mg PO HS
metoprolol tartrate 25 mg tablet
12.5 mg PO BID
tramadol 50 mg Tablet
50 mg PO Q6HPRN PRN (Reason: Moderate to severe pain) Qty: 10 0RF
Changed
sennosides-docusate sodium [Senna Plus] 8.6-50 mg tablet
1 tab PO BID PRN (Reason: Constipation) Qty: 0 0RF
Discontinued
Xarelto 20 MG tablet
20 mg PO QPM
magnesium hydroxide [Milk of Magnesia] 400 mg/5 mL Suspension
30 ml PO DAILYPRN PRN (Reason: IF NO BM X 3 DAYS GIVE ON DAY 4)
bisacodyl [Dulcolax (bisacodyl)] 10 mg Suppository
10 mg OK DAILYPRN PRN (Reason: IF MOM IS INEFFECTIVE GIVE ON DAY 5 IF NO BM)
Fleet Enema 19-7 gram/118 mL Enema
118 ml OK DAILYPRN PRN (Reason: IF DULCOLAX IS INEFFECTIVE GIVE ON DAY 6)
amoxicillin-pot clavulanate [Augmentin] 875-125 mg Tablet
1 tab PO BID
Rx Instructions:
STARTED 11/04/25 - MKO
polyethylene glycol 3350 17 gram powder in packet
17 g PO DAILY
acetaminophen [Tylenol Extra Strength] 500 mg tablet
1,000 mg PO TID
Discharge Orders:
Discharge Patient (As Directed); Ordered 11/21/25
Ordered By: Linda Maria
Discharge Date and Time
Print Language: GUYANESE
[2025-11-21 15:22] VITALS: BP 117/66
--- NOTE | 2025-11-21 15:35 | WOUNDNOTE ---
WO RN note: Assisted VERO Bennett with L groin and L medial calf vac dressing removal and saline moistened gauze dressing application for transfer to [facility]. Wounds appear slightly smaller compared to wound pictures from Tran Farrell's note. Wounds
pink with some yellow tissue. Mild yeast appearing rash noted around L groin wound. [place] texted Dr. Maria including picture of L groin wound (included Tran Farrell, [employer] PROFESS[employer] in [place] text) requesting adding Miconazole powder prn L groin
periwound rash with each dressing change in patient's discharge medication list. Dr. Maria responded 'Ok'. VERO Bennett removed FMS. Sacral/coccyx blanchable red with mild MASD coccyx/buttocks area. Barrier ointment applied to sacral/coccyx/blayne skin.
Mild MASD scrotum. Heels off bed with air chair cushion. Li Rodriguez [facility] RN changed heel dressings (see note) earlier this afternoon. Patient is on a static air overlay. VERO Bennett to place hospital rental vac pump in 2N soiled utility room.
--- NOTE | 2025-11-21 17:04 | WOUNDNOTE ---
WOC RN note: t/c Spoke with nurse supervisor receiving and processing Kirsten from 4th floor PR and explained the purpose of the miconazole powder order to be applied to rash-like skin around L groin wound followed by no sting barrier wipe with each wound vac dressing
change. Kirsten verbalized understanding.
== END 2025-11-21 16:33 | DRG 919 ==
LOC: 2 NORTH 12:10
PROVIDERS: Hospitalist; Nurse Practitioner Primary Care; Student in an Organized Health Care Education/Training Program; ADMITTING PHYSICIAN Internal Medicine; CONSULT PHYSICIAN Internal Medicine; CONSULT PHYSICIAN Internal Medicine Cardiovascular Disease; CONSULT PHYSICIAN Internal Medicine Infectious Disease; CONSULT PHYSICIAN Specialist; CONSULT PHYSICIAN Surgery Vascular Surgery; EMERGENCY PHYSICIAN Student in an Organized Health Care Education/Training Program
PROC: 30233N1 Transfusion of Nonautologous Red Blood Cells into Peripheral Vein, Percutaneous Approach (ICD-10-PCS; 2025-11-13)
PROC: XW0G886 Introduction of Mineral-based Topical Hemostatic Agent into Upper GI, Via Natural or Artificial Opening Endoscopic, New Technology Group 6 (ICD-10-PCS; 2025-11-14)
PROC: 0J9P0ZZ Drainage of Left Lower Leg Subcutaneous Tissue and Fascia, Open Approach (ICD-10-PCS; 2025-11-17)
DX: I97.638 Postprocedural hematoma of a circulatory system organ or structure following other circulatory system procedure (principal); K22.11 Ulcer of esophagus with bleeding; L89.623 Pressure ulcer of left heel, stage 3; K57.33 Diverticulitis of large intestine without perforation or abscess with bleeding; K26.4 Chronic or unspecified duodenal ulcer with hemorrhage; K25.4 Chronic or unspecified gastric ulcer with hemorrhage; R57.8 Other shock; E87.20 Acidosis, unspecified; I50.32 Chronic diastolic (congestive) heart failure; D62 Acute posthemorrhagic anemia; D68.9 Coagulation defect, unspecified; D68.32 Hemorrhagic disorder due to extrinsic circulating anticoagulants; Z87.891 Personal history of nicotine dependence; I48.0 Paroxysmal atrial fibrillation; K21.9 Gastro-esophageal reflux disease without esophagitis; I11.0 Hypertensive heart disease with heart failure; K44.9 Diaphragmatic hernia without obstruction or gangrene; L89.611 Pressure ulcer of right heel, stage 1; E87.6 Hypokalemia; Z11.52 Encounter for screening for COVID-19; Z79.01 Long term (current) use of anticoagulants; Z79.82 Long term (current) use of aspirin; Z79.899 Other long term (current) drug therapy
CPT/HCPCS: 10060; 36430; 71045; 75635; 80048; 80053; 80202; 82607; 82728; 82746; 83540; 83550; 83605; 83735; 84100; 84484; 85014; 85018; 85025; 85027; 85610; 85730; 86850; 86900; 86901; 86920; 87040; 87070; 87075; 87077; 87186; 87205; 87324; 87449; 87502; 87798; 87811; 93005; 93971; 96361; 96365; 96366; 96367; 96375; 97163; 97167; 97530; 97535; 97608; 99291; J1335; J2916; P9016; P9059; P9073; Q9967

== ENCOUNTER → 2025-11-26 10:12 | Outpatient (REF) | payer OTHER, SELFPAY ==
[2025-11-26 11:16] LABS: Hematocrit 26.7 % (39.0-52.0); Hemoglobin 8.6 g/dL (13.0-18.0); Mean Corp Hgb Conc. 32.2 g/dL (33.0-37.0); Mean Corpuscular Volume 94.7 fL (80.0-94.0); Nucleated Red Blood Cells % 0 % (-); Platelet Count 270 10^3/uL (130-400); Red Cell Dist. Width 15.9 % (11.5-14.5)
[2025-11-26 11:47] LABS: Blood Urea Nitrogen 10 mg/dl (9-20); Calcium 8.0 mg/dl (8.4-10.2); Carbon Dioxide 32 mmol/L (22-30); Chloride 103 mmol/L (98-107); Glucose 91 mg/dl (70-99); Potassium 3.5 mmol/L (3.5-5.1); Sodium 136 mmol/L (135-145); eGFR > 60.00
== END ==
LOC: OLABPG 10:12
PROVIDERS: ATTENDING PHYSICIAN Family Medicine
DX: T81.19XD Other postprocedural shock, subsequent encounter (principal); L02.416 Cutaneous abscess of left lower limb; Z48.812 Encounter for surgical aftercare following surgery on the circulatory system; K29.70 Gastritis, unspecified, without bleeding; D64.9 Anemia, unspecified; I48.0 Paroxysmal atrial fibrillation; I95.1 Orthostatic hypotension; Z85.46 Personal history of malignant neoplasm of prostate; I70.221 Atherosclerosis of native arteries of extremities with rest pain, right leg
CPT/HCPCS: 36415; 80048; 85025